=== PATIENT | female | born 1945 | race Caucasian/White ===

== ENCOUNTER → 2017-03-02 | Outpatient (CLI) | payer MEDICARE ==
--- NOTE | 2017-03-02 16:18 | BD ---
EXAMINATION TYPE: MG DEXA axial skeleton. DATE OF EXAM: 03/02/2017 COMPARISON: NONE CLINICAL HISTORY: Postmenopausal female. Height: 58.2 IN Weight: 181 LBS FRAX RISK QUESTIONS: Alcohol (3 or more units per day): NO Family History (Parent hip fracture): UNKNOWN ADOPTED Glucocorticoids (More than 3mos): NO (Ex: prednisone, prednisolone, methylprednisolone, dexamethasone, and hydrocortisone). History of Fracture in Adulthood: NO Secondary Osteoporosis: 1. Type 1 Diabetes: NO 2. Hyperthyroidism: NO 3. Menopause before 45: YES 25 4. Malnutrition: YES 5. Chronic liver disease: NO Rheumatoid Arthritis: NO Current Tobacco Use: NO RISK FACTORS HISTORY OF: Family History of Osteoporosis: UNKNOWN ADOPTED Active: YES Diet low in dairy products/other sources of calcium: YES Postmenopausal woman: YES AGE 25 MEDICATIONS: Thyroid Medications: YES Which medication: Synthroid How Lon + YRS Osteoporosis Medications: NOT NOW Which medication: Boniva How Long: AGE 60 - 62 Additional Medications: VIT D , VIT B, LISINIPRIL, DIVALPROEX, ALPRAZOLAM, CITALOPRAM, LEVOTHYROXINE, MONTELUKAST EXAM MEASUREMENTS: Bone mineral densitometry was performed using the [employer] System. Bone mineral density as measured about the Lumbar spine is: ----- L1-L4(G/cm2): 1.177 T Score Values are as follows: ----- L2: -0.6 ----- L3: 0.0 ----- L4: 0.2 ----- L1-L4: 0.0 Bone mineral density BASELINE OF L-SPINE Bone mineral density about the R hip (g/cm2): 0.850 Bone mineral density about the L hip (g/cm2): 0.827 T Score values are as follows: -----R Neck: -1.4 -----L Neck: -1.5 -----R Total: -0.2 -----L Total: 0.2 Bone mineral density has: Increased 4.6% since study of: 07/26/2001 IMPRESSION: OSTEOPENIA. MAJOR OSTEOPOROTIC FRACTURE RISK: 9.5% HIP FRACTURE RISK: 1.4% NOTE: T-SCORE=SD OF THE YOUNG ADULT MEAN.
--- NOTE | 2017-03-03 13:16 | MM ---
Reason for exam: screening (asymptomatic). Last mammogram was performed 2 years and 1 month ago. History: Patient is postmenopausal. Benign stereotactic core biopsy of the left breast, November 05, 2000. 2 core biopsies of the left breast. Physical Findings: A clinical breast exam by your physician is recommended on an annual basis and results should be correlated with mammographic findings. MG 3D Screening Mammo W/Cad Bilateral CC and MLO view(s) were taken. Prior study comparison: February 06, 2015, bilateral MG screening mammo w CAD. March 03, 2012, bilateral digital screening mammo w/CAD. There are scattered fibroglandular densities. Previous mammotome biopsy within the left breast. No significant changes when compared with prior studies. ASSESSMENT: Benign, BI-RAD 2 RECOMMENDATION: Routine screening mammogram of both breasts in 1 year.
== END | disposition home or self-care (01) ==
LOC: RADMAMWWP 14:31
PROVIDERS: ATTEND Family Medicine
DX: Z12.31 Encounter for screening mammogram for malignant neoplasm of breast (principal); M85.80 Other specified disorders of bone density and structure, unspecified site; Z78.0 Asymptomatic menopausal state
CPT/HCPCS: 77080; 77063; G0202

== ENCOUNTER 2017-04-10 06:19 | Inpatient (IN) | payer MEDICARE ==
[2017-04-10] MEDS ORDERED: ONDANSETRON 4 MG/2 ML VIAL IVP STA (06:45)
[2017-04-10] MEDS ORDERED: ACETAMINOPHEN IV (For NPO) 1,000 MG in EMPTY BAG 1 BAG IVPB STA (07:10)
[2017-04-10] MEDS ORDERED: RX INFO: IV CONTRAST WAS GIVEN 1 EACH MISC MISCELLANE PRN (07:11)
[2017-04-10] MEDS ORDERED: FAMOTIDINE 20 MG/2 ML VIAL IV STA (07:11)
--- NOTE | 2017-04-10 07:13 | ED ---
General Adult HPI - General Chief complaint: Abdominal Pain Stated complaint: Abdominal Pain Time Seen by Provider: 04/10/17 07:00 Source: patient, RN notes reviewed Mode of arrival: wheelchair Limitations: no limitations - History of Present Illness Initial comments: Patient is a pleasant 71-year-old female presenting to the emergency department complaining of abdominal discomfort. Onset of symptoms was yesterday. Symptoms worsened around a minute or 1 AM. Patient has had nausea with dry heaves. Patient has had some diarrhea however diarrhea is fairly chronic for her. Patient did feel like she was starting a fever. No history of similar abdominal pain previously. - Related Data Home Medications Medication Instructions Recorded Confirmed ALPRAZolam [Xanax] 0.5 mg PO TID PRN 12/02/15 08/14/16 Citalopram Hydrobromide 40 mg PO HS 12/02/15 08/14/16 [Citalopram HBr] Lisinopril [Zestril] 20 mg PO HS 12/02/15 08/14/16 Albuterol Nebulized [Ventolin 2.5 mg INHALATION RT-QID PRN 12/03/15 08/14/16 Nebulized] Divalproex Sodium 250 mg PO HS 12/03/15 08/14/16 Levothyroxine Sodium [Synthroid] 200 mcg PO HS 12/03/15 08/14/16 Montelukast Sodium 10 mg PO HS 12/03/15 08/14/16 Cholecalciferol [Vitamin D3] 2,000 unit PO DAILY 08/14/16 08/14/16 Fluticasone/Vilanterol [Breo 1 puff INHALATION RT-DAILY 08/14/16 08/14/16 Ellipta 200-25 Mcg INH] Multivitamins, Thera [Multivitamin 1 tab PO DAILY 08/14/16 08/14/16 (formulary)] Vitamin B Complex 1 cap PO DAILY 08/14/16 08/14/16 Previous Rx's Medication Instructions Recorded CHLORPHEN-HYDROcod 8-10mg/5ml 5 ml PO Q12H #80 ml 08/20/16 [Tussionex] Levofloxacin [Levaquin] 500 mg PO HS #5 tab 08/20/16 predniSONE 0 mg PO DIRECTED #18 tab 08/20/16 Nystatin 100,000 Unit/ml Susp 5 ml PO QID 15 Days 08/22/16 [Mycostatin Oral Susp] Allergies Allergy/AdvReac Type Severity Reaction Status Date / Time cefaclor [From Ceclor] Allergy Unknown Verified 04/10/17 06:35 ceftriaxone [From Rocephin] Allergy Anaphylaxis Verified 04/10/17 06:35 Sulfa (Sulfonamide Allergy Unknown Verified 04/10/17 06:35 Antibiotics) morphine AdvReac Extreme Verified 04/10/17 06:35 Sedation Review of Systems ROS Statement: Those systems with pertinent positive or pertinent negative responses have been documented in the HPI. ROS Other: All systems not noted in ROS Statement are negative. Constitutional: Reports: fever Eyes: Denies: eye pain ENT: Denies: ear pain Respiratory: Denies: cough, dyspnea Cardiovascular: Denies: chest pain Endocrine: Denies: fatigue Gastrointestinal: Reports: abdominal pain, nausea, diarrhea Genitourinary: Denies: urgency, dysuria, frequency, hematuria Musculoskeletal: Denies: back pain Skin: Denies: rash Neurological: Denies: weakness Past Medical History Past Medical History: Asthma, Hypertension, Musculoskeletal Disorder, Osteoarthritis (OA), Thyroid Disorder Additional Past Medical History / Comment(s): STRESS INCONT/WEARS PAD History of Any Multi-Drug Resistant Organisms: None Reported Past Surgical History: Cholecystectomy, Hysterectomy Additional Past Surgical History / Comment(s): RT Shoulder surgery, CATARACTS Past Anesthesia/Blood Transfusion Reactions: No Reported Reaction Past Psychological History: Depression Smoking Status: Never smoker Past Alcohol Use History: None Reported Past Drug Use History: None Reported - Past Family History Father History Unknown: Yes Family Medical History: Liver Disease Additional Family Medical History / Comment(s): pt is adopted DOES'NT KNOW MUCH ABOUT PARENTS Mother Family Medical History: Cancer Additional Family Medical History / Comment(s): LUNG CANCER Sister(s) Additional Family Medical History / Comment(s): HEART PROBLEMS Brother(s) Family Medical History: COPD Additional Family Medical History / Comment(s): LUNG DZ General Exam Limitations: no limitations General appearance: alert, in no apparent distress Head exam: Present: atraumatic Eye exam: Present: normal appearance, PERRL ENT exam: Present: normal oropharynx Neck exam: Present: normal inspection Respiratory exam: Present: normal lung sounds bilaterally Cardiovascular Exam: Present: regular rate, normal rhythm Expanded Peripheral pulses: 2+: Posterior Tibialis (R), Posterior Tibialis (L) GI/Abdominal exam: Present: soft, tenderness (Mild to moderate diffuse tenderness), normal bowel sounds. Absent: distended, guarding, rebound, rigid, pulsatile mass Extremities exam: Present: normal inspection Neurological exam: Present: alert Psychiatric exam: Present: normal affect, normal mood Skin exam: Present: normal color Course Vital Signs 04/10/17 04/10/17 04/10/17 06:31 08:30 09:55 Temperature 100.7 F H 99.5 F 97.7 F Pulse Rate 85 81 68 Respiratory 18 16 17 Rate Blood Pressure 206/85 186/82 145/67 O2 Sat by Pulse 95 99 95 Oximetry Medical Decision Making - Medical Decision Making Patient does not meet sepsis criteria Patient reevaluated and resting comfortably in bed. Patient would prefer to be admitted to the hospital. Dr. Chua has been paged. - Lab Data Result diagrams: 04/10/17 06:51 04/10/17 06:51 Lab Results 04/10/17 04/10/17 04/10/17 Range/Units 06:51 06:51 06:51 WBC 9.2 (3.8-10.6) k/uL RBC 4.23 (3.80-5.40) m/uL Hgb 13.5 (11.4-16.0) gm/dL Hct 40.8 (34.0-46.0) % MCV 96.3 (80.0-100.0) fL MCH 31.9 (25.0-35.0) pg MCHC 33.1 (31.0-37.0) g/dL RDW 13.1 (11.5-15.5) % Plt Count 221 (150-450) k/uL Neutrophils % 76 % Lymphocytes % 13 % Monocytes % 8 % Eosinophils % 1 % Basophils % 1 % Neutrophils # 7.0 (1.3-7.7) k/uL Lymphocytes # 1.2 (1.0-4.8) k/uL Monocytes # 0.8 (0-1.0) k/uL Eosinophils # 0.1 (0-0.7) k/uL Basophils # 0.0 (0-0.2) k/uL PT (9.0-12.0) sec INR (<1.2) APTT (22.0-30.0) sec Sodium 140 (137-145) mmol/L Potassium 4.2 (3.5-5.1) mmol/L Chloride 104 (98-107) mmol/L Carbon Dioxide 28 (22-30) mmol/L Anion Gap 8 mmol/L BUN 10 (7-17) mg/dL Creatinine 0.63 (0.52-1.04) mg/dL Est GFR (MDRD) Af Amer >60 (>60 ml/min/1.73 sqM) Est GFR (MDRD) Non-Af >60 (>60 ml/min/1.73 sqM) Glucose 124 H (74-99) mg/dL Plasma Lactic Acid Cam 1.6 (0.7-2.0) mmol/L Calcium 9.2 (8.4-10.2) mg/dL Total Bilirubin 0.7 (0.2-1.3) mg/dL AST 24 (14-36) U/L ALT 25 (9-52) U/L Alkaline Phosphatase 65 (38-126) U/L Total Protein 7.7 (6.3-8.2) g/dL Albumin 4.4 (3.5-5.0) g/dL Urine Color Urine Appearance (Clear) Urine pH (5.0-8.0) Ur Specific [place] (1.001-1.035) Urine Protein (Negative) Urine Glucose (UA) (Negative) Urine Ketones (Negative) Urine Blood (Negative) Urine Nitrite (Negative) Urine Bilirubin (Negative) Urine Urobilinogen (<2.0) mg/dL Ur Leukocyte Esterase (Negative) 04/10/17 04/10/17 Range/Units 06:51 07:30 WBC (3.8-10.6) k/uL RBC (3.80-5.40) m/uL Hgb (11.4-16.0) gm/dL Hct (34.0-46.0) % MCV (80.0-100.0) fL MCH (25.0-35.0) pg MCHC (31.0-37.0) g/dL RDW (11.5-15.5) % Plt Count (150-450) k/uL Neutrophils % % Lymphocytes % % Monocytes % % Eosinophils % % Basophils % % Neutrophils # (1.3-7.7) k/uL Lymphocytes # (1.0-4.8) k/uL Monocytes # (0-1.0) k/uL Eosinophils # (0-0.7) k/uL Basophils # (0-0.2) k/uL PT 10.4 (9.0-12.0) sec INR 1.0 (<1.2) APTT 24.9 (22.0-30.0) sec Sodium (137-145) mmol/L Potassium (3.5-5.1) mmol/L Chloride (98-107) mmol/L Carbon Dioxide (22-30) mmol/L Anion Gap mmol/L BUN (7-17) mg/dL Creatinine (0.52-1.04) mg/dL Est GFR (MDRD) Af Amer (>60 ml/min/1.73 sqM) Est GFR (MDRD) Non-Af (>60 ml/min/1.73 sqM) Glucose (74-99) mg/dL Plasma Lactic Acid Cam (0.7-2.0) mmol/L Calcium (8.4-10.2) mg/dL Total Bilirubin (0.2-1.3) mg/dL AST (14-36) U/L ALT (9-52) U/L Alkaline Phosphatase (38-126) U/L Total Protein (6.3-8.2) g/dL Albumin (3.5-5.0) g/dL Urine Color Light Yellow Urine Appearance Clear (Clear) Urine pH 8.0 (5.0-8.0) Ur Specific [place] 1.011 (1.001-1.035) Urine Protein Negative (Negative) Urine Glucose (UA) Negative (Negative) Urine Ketones Negative (Negative) Urine Blood Negative (Negative) Urine Nitrite Negative (Negative) Urine Bilirubin Negative (Negative) Urine Urobilinogen <2.0 (<2.0) mg/dL Ur Leukocyte Esterase Negative (Negative) - Radiology Data Radiology results: report reviewed (Computed tomography scan of the abdomen pelvis showing enteritis), image reviewed (Chest x-ray shows right upper lobe infiltrate) Disposition Clinical Impression: Pneumonia, Enteritis Disposition: ADMITTED IP TO [facility] Referrals: Joce Chua MD [Primary Care Provider] - 1-2 days Decision Time: 10:32
[2017-04-10] MEDS: SODIUM CHLORIDE 0.9% 500 ML IV SCH ×2 (07:26→08:58)
[2017-04-10 07:40] LABS: Basophils % (A) 1 %; CH 32.2; CHCM 33.5; Eosinophils # (A) 0.1 k/uL (0-0.7); Eosinophils % (A) 1 %; HCT 40.8 % (34.0-46.0); HDW 2.24; HGB 13.5 gm/dL (11.4-16.0); Luc % (Auto) 1; Lymphocytes # (A) 1.2 k/uL (1.0-4.8); Lymphocytes % (A) 13 %; MCH 31.9 pg (25.0-35.0); MCHC 33.1 g/dL (31.0-37.0); MCV 96.3 fL (80.0-100.0); Mean Platelet Volume 9.9; Monocytes # (A) 0.8 k/uL (0-1.0); Monocytes % (A) 8 %; Neutrophils % (A) 76 %; RBC 4.23 m/uL (3.80-5.40); RDW 13.1 % (11.5-15.5); WBC 9.2 k/uL (3.8-10.6); WBC (Perox) 8.93
[2017-04-10 07:45] LABS: Partial Thromboplastin Time 24.9 sec (22.0-30.0); Prothrombin Time 10.4 sec (9.0-12.0)
[2017-04-10 07:46] LABS: Appearance,Urine Clear (Clear); Bilirubin,Urine Negative (Negative); Glucose,Urine (UA) Negative (Negative); Ketones,Urine Negative (Negative); Leukocyte Esterase,Urine Negative (Negative); Nitrite,Urine Negative (Negative); Protein,Urine Negative (Negative); Specific Gravity,Urine 1.011 (1.001-1.035); UA Billing (MACRO vs. MICRO) CHEM; Urobilinogen,Urine <2.0 mg/dL (<2.0)
[2017-04-10 08:04] LABS: ALT 25 U/L (9-52); AST 24 U/L (14-36); Alkaline Phosphatase 65 U/L (38-126); Anion Gap 8 mmol/L; Blood Urea Nitrogen 10 mg/dL (7-17); Calcium 9.2 mg/dL (8.4-10.2); Carbon Dioxide 28 mmol/L (22-30); Chloride 104 mmol/L (98-107); Glucose 124 mg/dL (74-99); Non-African American GFR(MDRD) >60 (>60 ml/min/1.73 sqM); Sodium 140 mmol/L (137-145); Total Bilirubin 0.7 mg/dL (0.2-1.3); Total Protein 7.7 g/dL (6.3-8.2)
[2017-04-10 08:09] LABS: Potassium 4.2 mmol/L (3.5-5.1)
--- NOTE | 2017-04-10 08:19 | XR ---
EXAMINATION TYPE: XR chest 2V DATE OF EXAM: 04/10/2017 COMPARISON: Prior chest x-ray 08/20/2016 HISTORY: Fever, abdominal pain, asthma TECHNIQUE: Frontal and lateral views of the chest are obtained. FINDINGS: Patient is rotated. Heart size may be accentuated by rotation. There is some improvement i n aeration as compared to prior exam. Questionable airspace disease in the right upper lobe. No evide nt pneumothorax or pleural effusion. IMPRESSION: Possible right upper lobe pneumonia. Follow-up recommended.
--- NOTE | 2017-04-10 09:28 | CT ---
EXAMINATION TYPE: CT abdomen pelvis w con DATE OF EXAM: 04/10/2017 COMPARISON: NONE HISTORY: Abd pain with nausea and vomiting, diarrhea CT DLP: 1362.9 mGycm Automated exposure control for dose reduction was used. TECHNIQUE: Helical acquisition of images from the lung bases through the pelvis have been completed. CONTRAST: Performed without Oral Contrast and with IV Contrast, patient injected with 100 mL of Omnipaque 300. FINDINGS: LUNG BASES: No significant abnormality is appreciated. AORTA: No significant abnormality is appreciated. LIVER/GB: Liver shows low attenuation possibly due to hepatic steatosis. Patient is post cholecystect donita, there are some mildly dilated central intrahepatic biliary ducts likely due to postcholecystecto my change. PANCREAS: No significant abnormality is seen. SPLEEN: No significant abnormality is seen. ADRENALS: No significant abnormality is seen. KIDNEYS: Right kidney shows a focal area of cortical thinning compatible with scar, there is a calcif ication at this level measuring 7 mm which is nonobstructive. Small cortical cyst associated with the left kidney. REPRODUCTIVE ORGANS: Ovaries remain in place, uterus is absent BOWEL: Thickening of the stomach wall may be due to lack of distention. Some diverticular changes as sociated with the sigmoid colon. There is no evident bowel obstruction. Appendix is normal. Some smal l bowel wall thickening is present. Some fluid-filled loops of small bowel. There is an umbilical her osiris. Small hiatal hernia is present. FREE AIR: No Free Air visible. ASCITES: None visible. PELVIC ADENOPATHY: None visualized. RETROPERITONEAL ADENOPATHY: No Retroperitoneal Adenopathy visible. URINARY BLADDER: No significant abnormality is seen. OSSEOUS STRUCTURES: There is a spinal curvature present. Degenerative disc changes are present which are mild. Facet arthropathy also present in the lower lumbar spine. IMPRESSION: FINDINGS COMPATIBLE WITH ENTERITIS. CORRELATE. ADDITIONAL FINDINGS ABOVE. DIVERTICULOSIS.
[2017-04-10] MEDS ORDERED: LEVOFLOXACIN 750MG-D5W PMX 750 MG in DEXTROSE/WATER 1 150ML.BAG IVPB STA (10:32)
[2017-04-10] MEDS ORDERED: PNEUMONIA PROTOCOL UTILIZED 1 EACH MISC PO PRN (10:32)
[2017-04-10] MEDS: SODIUM CHLORIDE 0.9% 1,000 ML IV SCH ×2 (10:39→19:49)
[2017-04-10 11:51] VITALS: BMI 37.4
[2017-04-10] MEDS: IPRATROPIUM-ALBUTEROL 3 ML NEB INHALATION SCH ×2 (16:28→20:46)
[2017-04-10] MEDS: ACETAMINOPHEN TAB 325 MG TAB PO PRN (17:07)
[2017-04-10] MEDS: ONDANSETRON 4 MG/2 ML VIAL IVP PRN (19:41)
--- NOTE | 2017-04-10 20:01 | HP ---
DATE OF ADMISSION: 04/10/17 I am covering for Dr. Chua. CHIEF COMPLAINT: Abdominal pain and shortness of breath. Cough. HISTORY OF PRESENT ILLNESS: This 71-year-old woman with past medical history of multiple medical problems including history of DJD, history of hypertension, history of asthma, history of cholecystectomy, being followed by Dr. Chua in the outpatient setting was complaining of shortness of breath. The patient also has abdominal pain, diarrhea for the last couple of days and the patient came to [facility] and admitted for further evaluation and treatment. A chest x-ray was done at the time of admission which I reviewed personally and showed possible right upper lobe pneumonia. Otherwise, CT scan of the abdomen and pelvis showed features of possible enteritis. There is no history of fever, rigors or chills. No history of headache, loss of consciousness or seizures. Past medical history of asthma, hypertension, degenerative joint disease, history of cholecystectomy. Medications prior to admission are: Home medications are reviewed and include : 1. Singulair 10 mg q.h.s. 2. Zestril 20 mg q.h.s. 3. Synthroid 200 mcg po q.h.s. 4. Depakote 250 mg po b.i.d. 5. Celexa 40 mg q.h.s. 6. Albuterol 2.5 mg q.i.d. prn 7. Albuterol inhaler prn. 8. Xanax 0.5 t.i.d. prn. ALLERGIES: CEFACLOR, CEFTRIAXONE, SULFA, MORPHINE. FAMILY HISTORY: History of liver disease and lung cancer in the family. SOCIAL HISTORY: Occasional alcohol intake. No history of smoking. REVIEW OF SYSTEMS: HEENT: No diminished vision. No diminished hearing. Cardiovascular system: No angina or palpitations. Respiratory: No cough. GI: As mentioned earlier. : No dysuria. Nervous system: No numbness, weakness. Allergy/Immunology: No asthma or hayfever. Musculoskeletal: As mentioned earlier. Hematology/oncology: No history of anemia. Endocrine. No history of diabetes mellitus or hypothyroidism. Constitutional: As mentioned earlier. Dermatology: Negative. Rheumatology: Negative. Psychiatry: As mentioned earlier. PHYSICAL EXAMINATION: The patient is alert and oriented times three. Pulse 65. Blood pressure 194/84. Respiratory rate 18, temperature 97.3 degrees. Pulse ox 94% on room air. HEENT: Conjunctivae normal. NECK: No JVD. Cardiovascular: S1, S2 muffled. Respiratory: Breath sounds diminished at the bases. Bilateral scattered rhonchi and crackles. Expiratory wheezing also present. Abdomen is soft. Mild diffuse discomfort on palpation. No guarding. No rigidity. No mass palpable. Bowel sounds present. Legs: No edema. No swelling. Nervous system: Higher functions as mentioned earlier. Moves all four limbs. No focal deficits. Lymphatics: No lymph nodes palpable in the neck, axillae or groin. SKIN: No ulcer, rash or bleeding. LABS: CBC within normal limits. Glucose 124. ASSESSMENT: 1. Abdominal pain, vomiting and diarrhea, possible acute gastroenteritis. 2. Asthma, acute asthma, bronchial asthma, acute exacerbation with acute purulent tracheobronchitis. 3. Rule out right upper lobe pneumonia. 4. History of hypertension. 5. History of degenerative joint disease. 6. History of hypothyroidism. 7. History of cholecystectomy. 8. History of depression. RECOMMENDATIONS AND DISCUSSION: In this 71 -year-old woman who presented with multiple complex medical issues, we will monitor the patient closely. Continue the current bronchodilators, symptomatic treatment. Otherwise bland diet. Guarded prognosis is guarded because of the multiple complex medical issues. Further recommendations to follow. Home medications will be reconciled. A copy of dictation being forwarded to who is the primary care physician. SURJIT
[2017-04-10] MEDS: CITALOPRAM HYDROBROMIDE 20 MG TAB PO SCH (20:27)
[2017-04-10] MEDS: LISINOPRIL 20 MG TAB PO SCH (20:27)
[2017-04-10] MEDS: DIVALPROEX 250 MG TABLET.DR PO SCH (20:27)
[2017-04-10] MEDS: MONTELUKAST 10 MG TAB PO SCH (20:28)
[2017-04-10] MEDS: LEVOTHYROXINE 100 MCG TAB PO SCH (20:28)
[2017-04-10] MEDS: BENZOCAINE/MENTHOL LOZENG 1 EACH LOZENGE MUCOUS MEM PRN (22:27)
[2017-04-10] MEDS: ALPRAZolam 0.5 MG TAB PO PRN (23:04)
[2017-04-11] MEDS: ACETAMINOPHEN TAB 325 MG TAB PO PRN ×4 (02:54→23:31)
[2017-04-11] MEDS: BENZOCAINE/MENTHOL LOZENG 1 EACH LOZENGE MUCOUS MEM PRN (04:54)
[2017-04-11] MEDS: SODIUM CHLORIDE 0.9% 1,000 ML IV SCH ×3 (05:23→20:47)
--- NOTE | 2017-04-11 07:44 | XR ---
EXAMINATION TYPE: XR chest 2V DATE OF EXAM: 04/11/2017 COMPARISON: Prior chest x-ray 04/10/2017 HISTORY: Pneumonia TECHNIQUE: Frontal and lateral views of the chest are obtained. FINDINGS: The airspace disease in the right upper lobe has progressed in the interval. No evident pn eumothorax or pleural effusion. IMPRESSION: Findings compatible with patient's history of pneumonia. Follow-up to resolution.
[2017-04-11] MEDS: IPRATROPIUM-ALBUTEROL 3 ML NEB INHALATION SCH ×4 (08:17→19:39)
[2017-04-11] MEDS: LEVOFLOXACIN 750 MG TAB PO SCH (08:27)
[2017-04-11] MEDS: DIVALPROEX 250 MG TABLET.DR PO SCH ×2 (08:27→20:46)
[2017-04-11] MEDS ORDERED: LEVOFLOXACIN 750 MG TAB PO SCH (10:00)
[2017-04-11] MEDS: guaiFENesin SYRUP 100MG/5ML 200 MG/10 ML CUP PO PRN ×2 (11:32→23:24)
[2017-04-11] MEDS: ONDANSETRON 4 MG/2 ML VIAL IVP PRN (11:33)
--- NOTE | 2017-04-11 20:13 | PN ---
DATE OF SERVICE: 04/11/17 I am covering for Dr. Chua This 71-year-old woman who was admitted with abdominal pain and shortness of breath, is being closely monitored. The patient is unable to tolerate normal diet at this time. The patient had diffuse abdominal discomfort. The patient started on empiric antibiotics. PHYSICAL EXAMINATION: The patient is alert and oriented times three. Pulse 74. Blood pressure 161/72. Respiratory rate 16. Temperature 99.6 degrees. Pulse ox 90% on room air. HEENT: Conjunctivae normal. NECK: No JVD. CARDIOVASCULAR: S1, S2 muffled. RESPIRATORY: Breath sounds diminished at the bases. A few scattered rhonchi. ABDOMEN: Soft, mild diffuse discomfort. LEGS: No edema. No swelling. NERVOUS SYSTEM: No focal deficits. LABS: CBC, BMP noted. ASSESSMENT: 1. Abdominal pain, nausea and vomiting, diarrhea, possibly acute gastroenteritis. 2. Asthma, acute bronchial asthma, acute exacerbation with acute purulent tracheobronchitis. 3. Rule out right upper lobe pneumonia. 4. History of hypertension. 5. History of degenerative joint disease. 6. History of hypothyroidism. 7. History of cholecystectomy. 8. History of depression. RECOMMENDATIONS AND DISCUSSION: Continue current medications, continue with symptomatic treatment. Otherwise, at this time, we recommend continue the rest of the medications. Cut down the diet to clear liquids to full liquids as tolerated. Continue the rest of the medications. We will also cut down the IV fluids as well. Otherwise, I recommend a chest x-ray in the morning to evaluate further pneumonia. Otherwise, the prognosis guarded because of multiple complex medical issues. Further recommendations to follow. POLLYD
[2017-04-11] MEDS: CITALOPRAM HYDROBROMIDE 20 MG TAB PO SCH (20:45)
[2017-04-11] MEDS: MONTELUKAST 10 MG TAB PO SCH (20:45)
[2017-04-11] MEDS: LISINOPRIL 20 MG TAB PO SCH (20:46)
[2017-04-11] MEDS: LEVOTHYROXINE 100 MCG TAB PO SCH (20:46)
[2017-04-11] MEDS: ALPRAZolam 0.5 MG TAB PO PRN (20:52)
[2017-04-11] MEDS: IPRATROPIUM-ALBUTEROL 3 ML NEB INHALATION PRN (23:33)
[2017-04-12] MEDS: IPRATROPIUM-ALBUTEROL 3 ML NEB INHALATION SCH ×4 (07:40→21:00)
[2017-04-12] MEDS: BENZOCAINE/MENTHOL LOZENG 1 EACH LOZENGE MUCOUS MEM PRN (07:59)
[2017-04-12] MEDS: guaiFENesin SYRUP 100MG/5ML 200 MG/10 ML CUP PO PRN ×2 (07:59→21:03)
[2017-04-12] MEDS: ACETAMINOPHEN TAB 325 MG TAB PO PRN ×2 (08:00→18:33)
[2017-04-12] MEDS: DIVALPROEX 250 MG TABLET.DR PO SCH ×2 (08:00→20:55)
[2017-04-12] MEDS: ALPRAZolam 0.5 MG TAB PO PRN ×2 (08:00→21:03)
[2017-04-12] MEDS: LEVOFLOXACIN 750 MG TAB PO SCH (08:00)
[2017-04-12] MEDS: ESOMEPRAZOLE 20 MG in SODIUM CHLORIDE 0.9% 50 ML IVPB SCH (08:01)
[2017-04-12] MEDS: LACTOBACILLUS ACIDOPH & BULGAR 1 EACH PACKET PO SCH (08:01)
--- NOTE | 2017-04-12 09:40 | XR ---
EXAMINATION TYPE: XR chest 1V portable DATE OF EXAM: 04/12/2017 COMPARISON: Chest radiograph dated 04/11/2017. HISTORY: Clinical history of pneumonia. TECHNIQUE: Single frontal view of the chest is obtained. FINDINGS: There is continued progression of the right upper lobe consolidation and new small pleural effusions. No pulmonary vascular congestion. Cardiomediastinal silhouette is stable and not enlarged . IMPRESSION: 1. Continued progression of the right upper lobe consolidation compatible with the patient's provided history of pneumonia. 2. New small pleural effusions.
--- NOTE | 2017-04-12 13:29 | CDI ---
In responding to this query, please exercise your independent professional judgment. The [facility] Coding Staff and Clinical Documentation Specialists appreciate your assistance in clarifying documentation, maintaining compliance with coding guidelines, accurately documenting patients condition and capturing severity of illness. The fact that a question is asked does not imply that any particular answer is desired or expected. Communication forms are a method of clarifying documentation and are not made part of the Legal Health Record. Thank you in advance for your clarification. Last Revision, November 2015 Ruel Pinto [address] [place] [address] Documentation Clarification Form Date: 04/12/2017 1:20:00 PM From: Katja Esparza, CCS, CCDS Admit Date: 04/10/2017 10:32:00 AM Patient Name: Kyleigh Vera Visit Number: [id number] Discharge Date: Dr. [place] Felix: Asthma is documented in the History & Physical and the 04/11 Progress Note as "Asthma, acute asthma, bronchial asthma, acute exacerbation with acute purulent tracheobronchitis". Patient history/risk factors: Asthma, Hypertension. Clinical Indicators: Patient presented with abdominal pain, has chronic diarrhea , also wheezing, sweats & SOB. Diagnosed with pneumonia & acute exacerbation of asthma with tracheobronchitis. Radiology: Possible RUL pneumonia, repeat CXR: continued progression of pneumonia, new small pleural effusions. Vital Signs: T 100.7^, BP 206/85, PO 95 ra, documented as 90% also. Other Clinical Indicators: Patient is non-smoker, has history of asthma & family history of COPD & Lung CA. Treatment: Clear Liq diet, Blood & Sputum Cultures (pending), C Diff, IV Antiemetics, IV Pain meds, IV fluids, Albuterol INH, IV Antibiotics. In your professional opinion, can you please further specify the following, if known? With o Acute Exacerbation o Status asthmaticus o Acute lower respiratory infection o COPD (specify with or without exacerbation) o Chronic obstructive bronchitis o Other, please specify o Unable to determine *Severity o Mild intermittent o Mild persistent o Moderate persistent o Severe persistent o Other, please specify ____ o Unable to determine Form or Type o Cough variant o Childhood o Exercise induced bronchospasm o Extrinsic allergic o Idiosyncratic o Intrinsic nonallergic o Late-onset o Mixed o Other, please specify o Unable to determine Please document in your progress notes and discharge summary in order to capture severity of illness and risk of mortality. Include clinical findings that support your diagnosis. FYI: Press F11 to launch patient chart. SURJIT
[2017-04-12] MEDS: DOCUSATE 100 MG CAP PO PRN (18:26)
[2017-04-12] MEDS: SODIUM CHLORIDE 0.9% 1,000 ML IV SCH (18:31)
[2017-04-12] MEDS: MONTELUKAST 10 MG TAB PO SCH (20:54)
[2017-04-12] MEDS: CITALOPRAM HYDROBROMIDE 20 MG TAB PO SCH (20:54)
[2017-04-12] MEDS: LEVOTHYROXINE 100 MCG TAB PO SCH (20:54)
[2017-04-12] MEDS: LISINOPRIL 20 MG TAB PO SCH (20:54)
[2017-04-13] MEDS: BENZOCAINE/MENTHOL LOZENG 1 EACH LOZENGE MUCOUS MEM PRN (01:43)
[2017-04-13] MEDS: ALPRAZolam 0.5 MG TAB PO PRN ×2 (04:39→21:48)
[2017-04-13] MEDS: ACETAMINOPHEN TAB 325 MG TAB PO PRN ×2 (04:47→23:27)
[2017-04-13] MEDS: SODIUM CHLORIDE 0.9% 1,000 ML IV SCH ×2 (05:24→21:36)
[2017-04-13] MEDS: IPRATROPIUM-ALBUTEROL 3 ML NEB INHALATION SCH ×4 (07:31→20:41)
--- NOTE | 2017-04-13 08:12 | XR ---
EXAMINATION TYPE: XR chest 1V portable DATE OF EXAM: 04/13/2017 COMPARISON: 04/12/2017. INDICATION: Increasing shortness of breath TECHNIQUE: Single frontal view of the chest is obtained. FINDINGS: The heart size is normal. The pulmonary vasculature is normal. There appears to be resolving opacities in the periphery of the right midlung. Residual remains. Cont inued follow-up is recommended. IMPRESSION: 1. Resolving peripheral right lung infiltrate. Correlate for resolving pneumonia and atelectasis. Con tinued follow-up is recommended.
--- NOTE | 2017-04-13 08:35 | P.PN ---
Subjective Principal diagnosis: Pneumonia This is a continue progress on a 71-year-old white female essentially admitted for pneumonia. She has significant home stress and has been worried about his son who has had significant illness. Objective - Vital Signs Vital signs: Vital Signs Temp 99.1 F 04/13/17 07:00 Pulse 60 04/13/17 07:42 Resp 18 04/13/17 07:00 BP 137/75 04/13/17 07:00 Pulse Ox 90 L 04/13/17 07:00 Intake & Output 04/12/17 04/13/17 04/13/17 18:59 06:59 18:59 Other: # Voids 3 2 # Bowel Movements 0 0 - Constitutional General appearance: Present: average body habitus - EENT Eyes: Absent: abnormal pupil - Respiratory Respiratory: bilateral: rales - Cardiovascular Rhythm: regular Heart sounds: normal: S1, S2 - Gastrointestinal General gastrointestinal: Present: soft. Absent: tenderness - Neurologic Neurologic: Present: CNII-XII intact - Musculoskeletal Musculoskeletal: Present: generalized weakness - Psychiatric Psychiatric: Present: A&O x's 3, appropriate affect - Labs CBC & Chem 7: 04/10/17 06:51 04/10/17 06:51 Labs: Microbiology - Last 24 Hours (Table) 04/10/17 06:51 Blood Culture - Preliminary Blood No Growth after 48 hours Assessment and Plan (1) Enteritis Status: Acute (2) Pneumonia Status: Acute Plan: Continue current regimen of treatment. DVT prophylaxis. Check CBC and CMP in a.m.
[2017-04-13 08:37] LABS: CH 31.3; CHCM 32.1; HDW 2.29; HGB 12.5 gm/dL (11.4-16.0); MCH 32.2 pg (25.0-35.0); MCHC 32.9 g/dL (31.0-37.0); MCV 97.8 fL (80.0-100.0); Mean Platelet Volume 8.4; RBC 3.89 m/uL (3.80-5.40); RDW 12.3 % (11.5-15.5); WBC 8.9 k/uL (3.8-10.6)
[2017-04-13 08:38] LABS: ALT 28 U/L (9-52); AST 20 U/L (14-36); Alkaline Phosphatase 67 U/L (38-126); Anion Gap 12 mmol/L; Blood Urea Nitrogen 7 mg/dL (7-17); Carbon Dioxide 27 mmol/L (22-30); Chloride 102 mmol/L (98-107); Glucose 85 mg/dL (74-99); Non-African American GFR(MDRD) >60 (>60 ml/min/1.73 sqM); Potassium 3.6 mmol/L (3.5-5.1); Sodium 141 mmol/L (137-145); Total Bilirubin 0.8 mg/dL (0.2-1.3); Total Protein 6.6 g/dL (6.3-8.2)
[2017-04-13] MEDS: DIVALPROEX 250 MG TABLET.DR PO SCH ×2 (10:01→21:34)
[2017-04-13] MEDS: LACTOBACILLUS ACIDOPH & BULGAR 1 EACH PACKET PO SCH (10:01)
[2017-04-13] MEDS: LEVOFLOXACIN 750 MG TAB PO SCH (10:01)
[2017-04-13] MEDS: ESOMEPRAZOLE 20 MG in SODIUM CHLORIDE 0.9% 50 ML IVPB SCH (10:01)
[2017-04-13] MEDS: methylPREDNISolone SOD SUCCI 40 MG/ML 1 ML VIAL IV SCH ×3 (10:02→18:17)
--- NOTE | 2017-04-13 11:38 | CDI ---
In responding to this query, please exercise your independent professional judgment. The [facility] Coding Staff and Clinical Documentation Specialists appreciate your assistance in clarifying documentation, maintaining compliance with coding guidelines, accurately documenting patients condition and capturing severity of illness. The fact that a question is asked does not imply that any particular answer is desired or expected. Communication forms are a method of clarifying documentation and are not made part of the Legal Health Record. Thank you in advance for your clarification. Last Revision, November 2015 Ruel Pinto [address] [facility] [place] [address] Documentation Clarification Form Date: 04/12/2017 1:20:00 PM From: Katja Esparza Admit Date: 04/10/2017 10:32:00 AM Patient Name: Kyleigh Vera Visit Number: [id number] Discharge Date: Dr. London Felix: Asthma is documented in the History & Physical and the 04/11 Progress Note as "Asthma, acute asthma, cronchial asthma, acute exacerbation with acute purulent tracheobronchitis". Patient history/risk factors: Asthma, Hypertension. Clinical Indicators: Patient presented with abdominal pain, has chronic diarrhea , also wheezing, sweats & SOB. Diagnosed with pneumonia & acute exacerbation of asthma with tracheobronchitis. Radiology: Possible RUL pneumonia, repeat CXR: continued progression of pneumonia, new small pleural effusions. Vital Signs: T 100.7^, BP 206/85, PO 95 ra, documented as 90% also. Other Clinical Indicators: Patient is non-smoker, has history of asthma & family history of COPD & Lung CA. Treatment: Clear Liq diet, Blood & Sputum Cultures (pending), C Diff, IV Antiemetics, IV Pain meds, IV fluids, Albuterol INH, IV Antibiotics. In your professional opinion, can you please further specify the following, if known? With Acute Exacerbation Status asthmaticus Acute lower respiratory infection COPD (specify with or without exacerbation) Chronic obstructive bronchitis Other, please specify Unable to determine *Severity Mild intermittent Mild persistent Moderate persistent Severe persistent Other, please specify Unable to determine Form or Type Cough variant Childhood Exercise induced bronchospasm Extrinsic allergic Idiosyncratic Intrinsic nonallergic Late-onset Mixed Other, please specify Unable to determine Please document in your progress notes and discharge summary in order to capture severity of illness and risk of mortality. Include clinical findings that support your diagnosis. FYI: Press F11 to launch patient chart. SURJIT
[2017-04-13] MEDS: MONTELUKAST 10 MG TAB PO SCH (21:34)
[2017-04-13] MEDS: CITALOPRAM HYDROBROMIDE 20 MG TAB PO SCH (21:35)
[2017-04-13] MEDS: LEVOTHYROXINE 100 MCG TAB PO SCH (21:35)
[2017-04-13] MEDS: LISINOPRIL 20 MG TAB PO SCH (21:36)
[2017-04-14] MEDS: DOCUSATE 100 MG CAP PO PRN (00:17)
[2017-04-14] MEDS: methylPREDNISolone SOD SUCCI 40 MG/ML 1 ML VIAL IV SCH ×5 (00:19→23:47)
[2017-04-14] MEDS: IPRATROPIUM-ALBUTEROL 3 ML NEB INHALATION PRN (01:59)
[2017-04-14] MEDS: ALPRAZolam 0.5 MG TAB PO PRN ×2 (05:51→20:36)
[2017-04-14] MEDS: IPRATROPIUM-ALBUTEROL 3 ML NEB INHALATION SCH ×4 (07:31→20:59)
[2017-04-14] MEDS: ESOMEPRAZOLE 20 MG in SODIUM CHLORIDE 0.9% 50 ML IVPB SCH (08:54)
[2017-04-14] MEDS: DIVALPROEX 250 MG TABLET.DR PO SCH ×2 (08:54→20:28)
[2017-04-14] MEDS: LACTOBACILLUS ACIDOPH & BULGAR 1 EACH PACKET PO SCH (08:54)
[2017-04-14] MEDS: LEVOFLOXACIN 750 MG TAB PO SCH (08:55)
--- NOTE | 2017-04-14 09:39 | P.PN ---
Subjective Principal diagnosis: Pneumonia This is a continue progress on a 71-year-old white female essentially admitted for pneumonia. She has significant home stress and has been worried about his son who has had significant illness. Objective - Vital Signs Vital signs: Vital Signs Temp 96.3 F L 04/14/17 07:00 Pulse 68 04/14/17 07:40 Resp 20 04/14/17 07:00 BP 143/65 04/14/17 07:00 Pulse Ox 95 04/14/17 07:32 Intake & Output 04/13/17 04/14/17 04/14/17 18:59 06:59 18:59 Other: # Voids 1 1 # Bowel Movements 1 - Constitutional General appearance: Present: average body habitus - EENT Eyes: Absent: abnormal pupil - Respiratory Respiratory: bilateral: diminished - Cardiovascular Rhythm: regular Heart sounds: normal: S1, S2 - Gastrointestinal General gastrointestinal: Present: soft. Absent: tenderness - Psychiatric Psychiatric: Present: A&O x's 3. Absent: appropriate affect - Labs CBC & Chem 7: 04/13/17 07:56 04/13/17 07:56 Labs: Microbiology - Last 24 Hours (Table) 04/10/17 06:51 Blood Culture - Preliminary Blood No Growth after 96 hours Assessment and Plan (1) Enteritis Status: Acute (2) Pneumonia Status: Acute Plan: Continue moses Laurent this time. Otherwise, check CBC and CMP in a.m. If no significant improvement, consider pulmonology referral. She actually admits to having significant secondhand smoke growing up and to the early part of her marriage. She herself is a nonsmoker but her sons and have had history of significant secondhand smoke usage. Continue current regimen anabiotic as otherwise. Increase ambulation if possible. Wean off of supplemental oxygen. Time with Patient: Less than 30
[2017-04-14] MEDS: ACETAMINOPHEN TAB 325 MG TAB PO PRN (10:02)
[2017-04-14 10:04] LABS: CH 31.7; CHCM 32.4; HDW 2.35; MCH 31.9 pg (25.0-35.0); MCHC 32.4 g/dL (31.0-37.0); MCV 98.4 fL (80.0-100.0); Mean Platelet Volume 9.4; RBC 3.76 m/uL (3.80-5.40); WBC 4.8 k/uL (3.8-10.6)
[2017-04-14 10:19] LABS: ALT 26 U/L (9-52); AST 19 U/L (14-36); Alkaline Phosphatase 57 U/L (38-126); Anion Gap 10 mmol/L; Blood Urea Nitrogen 11 mg/dL (7-17); Calcium 9.3 mg/dL (8.4-10.2); Carbon Dioxide 26 mmol/L (22-30); Chloride 103 mmol/L (98-107); Glucose 195 mg/dL (74-99); Non-African American GFR(MDRD) >60 (>60 ml/min/1.73 sqM); Potassium 3.7 mmol/L (3.5-5.1); Sodium 139 mmol/L (137-145); Total Bilirubin 0.5 mg/dL (0.2-1.3); Total Protein 6.5 g/dL (6.3-8.2)
[2017-04-14] MEDS: guaiFENesin SYRUP 100MG/5ML 200 MG/10 ML CUP PO PRN (13:16)
[2017-04-14] MEDS: SODIUM CHLORIDE 0.9% 1,000 ML IV SCH (14:43)
[2017-04-14] MEDS: INSULIN LISPRO (humaLOG) 300 UNIT/3 ML VIAL SQ SCH ×2 (17:55→21:46)
[2017-04-14] MEDS: MONTELUKAST 10 MG TAB PO SCH (20:29)
[2017-04-14] MEDS: LISINOPRIL 20 MG TAB PO SCH (20:29)
[2017-04-14] MEDS: LEVOTHYROXINE 100 MCG TAB PO SCH (20:33)
[2017-04-14] MEDS: CITALOPRAM HYDROBROMIDE 20 MG TAB PO SCH (20:34)
[2017-04-14 21:05] LABS: Glucose,Whole Blood 164 mg/dL (75-99)
[2017-04-15] MEDS: SODIUM CHLORIDE 0.9% 1,000 ML IV SCH ×2 (05:25→21:25)
[2017-04-15 07:28] LABS: Glucose,Whole Blood 144 mg/dL (75-99)
[2017-04-15] MEDS: IPRATROPIUM-ALBUTEROL 3 ML NEB INHALATION SCH ×4 (07:57→21:10)
[2017-04-15] MEDS: PANTOPRAZOLE 40 MG TABLET PO SCH (08:05)
[2017-04-15] MEDS: LACTOBACILLUS ACIDOPH & BULGAR 1 EACH PACKET PO SCH (08:05)
[2017-04-15] MEDS: methylPREDNISolone SOD SUCCI 40 MG/ML 1 ML VIAL IV SCH ×2 (08:06→16:15)
[2017-04-15] MEDS: DIVALPROEX 250 MG TABLET.DR PO SCH ×2 (08:06→20:08)
[2017-04-15] MEDS: INSULIN LISPRO (humaLOG) 300 UNIT/3 ML VIAL SQ SCH ×4 (08:06→21:30)
[2017-04-15] MEDS: LEVOFLOXACIN 750 MG TAB PO SCH (08:06)
[2017-04-15] MEDS: ALPRAZolam 0.5 MG TAB PO PRN ×2 (08:10→20:09)
[2017-04-15] MEDS: ACETAMINOPHEN TAB 325 MG TAB PO PRN (08:10)
--- NOTE | 2017-04-15 08:37 | P.PN ---
Subjective Principal diagnosis: Pneumonia This is a continue progress on a 71-year-old white female essentially admitted for pneumonia. She is slowly been improving. She wishes to have a shower chair to help for mobility at home. We will ask discharge planning to ascertain. She seems to belly breathing less today. We will wean off of Solu- Medrol today. Objective - Vital Signs Vital signs: Vital Signs Temp 97.7 F 04/15/17 07:00 Pulse 72 04/15/17 07:57 Resp 18 04/15/17 07:00 BP 168/76 04/15/17 07:00 Pulse Ox 93 L 04/15/17 07:00 Intake & Output 04/14/17 04/15/17 04/15/17 18:59 06:59 18:59 Intake Total 200 660 Balance 200 660 Weight 81.193 kg Intake: Intake, IV Titration 660 Amount Sodium Chloride 0.9% 1, 660 000 ml @ 60 mls/hr IV . [id number] SHLOMO Rx#:[id number] Oral 200 Other: Voiding Method Toilet Toilet # Voids 1 2 # Bowel Movements 1 2 - Constitutional General appearance: Present: average body habitus - EENT Eyes: Absent: abnormal pupil - Respiratory Respiratory: bilateral: CTA - Cardiovascular Rhythm: regular Heart sounds: normal: S1, S2 Abnormal Heart Sounds: Absent: S3 Gallop, S4 Gallop - Integumentary Integumentary: Absent: cellulitis - Neurologic Neurologic: Present: CNII-XII intact. Absent: focal deficits - Musculoskeletal Musculoskeletal: Present: generalized weakness - Psychiatric Psychiatric: Present: A&O x's 3, appropriate affect, intact judgment & insight - Labs CBC & Chem 7: 04/14/17 09:04 04/14/17 09:04 Labs: Abnormal Lab Results - Last 24 Hours (Table) 04/14/17 04/14/17 04/14/17 Range/Units 09:04 09:04 21:03 RBC 3.76 L (3.80-5.40) m/uL Glucose 195 H (74-99) mg/dL POC Glucose (mg/dL) 164 H (75-99) mg/dL 04/15/17 Range/Units 07:18 RBC (3.80-5.40) m/uL Glucose (74-99) mg/dL POC Glucose (mg/dL) 144 H (75-99) mg/dL Microbiology - Last 24 Hours (Table) 04/10/17 06:51 Blood Culture - Preliminary Blood No Growth after 96 hours Assessment and Plan (1) Enteritis Status: Acute (2) Pneumonia Status: Acute Plan: Significant clinical improvement is noted. Slowly wean off of Solu-Medrol today. Anticipate discharge in a.m. Discharge planning for shower chair and home mobility assistance. Time with Patient: Less than 30
[2017-04-15 09:46] LABS: Basophils % (A) 0 %; CH 31.1; CHCM 32.5; Eosinophils % (A) 0 %; HCT 36.8 % (34.0-46.0); HDW 2.41; HGB 12.3 gm/dL (11.4-16.0); Luc # (Auto) 0.06; Luc % (Auto) 1; Lymphocytes # (A) 0.7 k/uL (1.0-4.8); Lymphocytes % (A) 8 %; MCH 32.1 pg (25.0-35.0); MCHC 33.4 g/dL (31.0-37.0); MCV 96.1 fL (80.0-100.0); Mean Platelet Volume 8.2; Monocytes # (A) 0.4 k/uL (0-1.0); Monocytes % (A) 5 %; Neutrophils % (A) 86 %; RBC 3.83 m/uL (3.80-5.40); RDW 12.4 % (11.5-15.5); WBC 8.1 k/uL (3.8-10.6); WBC (Perox) 8.36
[2017-04-15 12:11] LABS: Glucose,Whole Blood 151 mg/dL (75-99)
[2017-04-15 17:11] LABS: Glucose,Whole Blood 127 mg/dL (75-99)
[2017-04-15] MEDS: LISINOPRIL 20 MG TAB PO SCH (20:08)
[2017-04-15] MEDS: LEVOTHYROXINE 100 MCG TAB PO SCH (20:08)
[2017-04-15] MEDS: CITALOPRAM HYDROBROMIDE 20 MG TAB PO SCH (20:08)
[2017-04-15] MEDS: MONTELUKAST 10 MG TAB PO SCH (20:08)
[2017-04-15 20:40] LABS: Glucose,Whole Blood 205 mg/dL (75-99)
[2017-04-16] MEDS: methylPREDNISolone SOD SUCCI 40 MG/ML 1 ML VIAL IV SCH ×2 (00:08→08:05)
[2017-04-16 07:32] LABS: Glucose,Whole Blood 139 mg/dL (75-99)
[2017-04-16] MEDS: IPRATROPIUM-ALBUTEROL 3 ML NEB INHALATION SCH ×2 (07:41→11:18)
[2017-04-16] MEDS: INSULIN LISPRO (humaLOG) 300 UNIT/3 ML VIAL SQ SCH ×2 (08:06→12:42)
[2017-04-16] MEDS: LEVOFLOXACIN 750 MG TAB PO SCH (08:06)
[2017-04-16] MEDS: PANTOPRAZOLE 40 MG TABLET PO SCH (08:06)
[2017-04-16] MEDS: DIVALPROEX 250 MG TABLET.DR PO SCH (08:07)
[2017-04-16] MEDS: LACTOBACILLUS ACIDOPH & BULGAR 1 EACH PACKET PO SCH (08:11)
[2017-04-16] MEDS: ALPRAZolam 0.5 MG TAB PO PRN (08:15)
[2017-04-16 08:22] VITALS: RESP 20; TEMP 97.7
--- NOTE | 2017-04-16 09:01 | P.DS ---
Providers Date of admission: 04/10/17 10:32 Attending physician: Joce Chua Primary care physician: Joce Chua - Discharge Diagnosis(es) (1) Enteritis Current Visit: Yes Status: Acute (2) Pneumonia Current Visit: Yes Status: Acute Hospital Course: This is a discharge summary and a 71-year-old white female essentially admitted for pneumonia. She's had somewhat of a tenuous and mayur course because of overall weakness and history of comorbidities. She herself is a nonsmoker but hasn't many many years of secondhand smoke exposure. Remote pneumonia is improving but she still significantly weak. She still requiring oxygen treatment. We will sent home with home O2 for temporary treatment. She is discharged in guarded condition to follow-up with me in approximately 5 days. Patient Condition at Discharge: Fair Plan - Discharge Summary New Discharge Prescriptions: New Docusate [Colace] 100 mg PO DAILY PRN #14 cap PRN Reason: Constipation Levofloxacin [Levaquin] 750 mg PO DAILY #3 tab predniSONE 0 mg PO DIRECTED #18 tab Continue Lisinopril [Zestril] 20 mg PO HS Citalopram Hydrobromide [Citalopram HBr] 40 mg PO HS ALPRAZolam [Xanax] 0.5 mg PO TID PRN PRN Reason: Anxiety/Insomnia Divalproex Sodium 250 mg PO BID Levothyroxine Sodium [Synthroid] 200 mcg PO HS Montelukast Sodium 10 mg PO HS Albuterol Nebulized [Ventolin Nebulized] 2.5 mg INHALATION RT-QID PRN PRN Reason: Shortness Of Breath Albuterol Inhaler [Ventolin Hfa Inhaler] 1 - 2 puff INHALATION RT-QID PRN PRN Reason: Shortness Of Breath Discharge Medication List ALPRAZolam [Xanax] 0.5 mg PO TID PRN 12/02/15 [History] Citalopram Hydrobromide [Citalopram HBr] 40 mg PO HS 12/02/15 [History] Lisinopril [Zestril] 20 mg PO HS 12/02/15 [History] Albuterol Nebulized [Ventolin Nebulized] 2.5 mg INHALATION RT-QID PRN 12/03/15 [ History] Divalproex Sodium 250 mg PO BID 12/03/15 [History] Levothyroxine Sodium [Synthroid] 200 mcg PO HS 12/03/15 [History] Montelukast Sodium 10 mg PO HS 12/03/15 [History] Albuterol Inhaler [Ventolin Hfa Inhaler] 1 - 2 puff INHALATION RT-QID PRN [History] Docusate [Colace] 100 mg PO DAILY PRN #14 cap 04/16/17 [Rx] Levofloxacin [Levaquin] 750 mg PO DAILY #3 tab 04/16/17 [Rx] predniSONE 0 mg PO DIRECTED #18 tab 04/16/17 [Rx] Follow up Appointment(s)/Referral(s): Joce Chua MD [Primary Care Provider] - 3 Days Discharge Disposition: HOME WITH HOME HEALTH SERVICES
[2017-04-16] MEDS: DOCUSATE 100 MG CAP PO PRN (10:43)
[2017-04-16 11:09] VITALS: BP 162/79
[2017-04-16 11:37] VITALS: PULSE 68
--- NOTE | 2017-04-16 12:02 | CDI ---
In responding to this query, please exercise your independent professional judgment. The [facility] Coding Staff and Clinical Documentation Specialists appreciate your assistance in clarifying documentation, maintaining compliance with coding guidelines, accurately documenting patients condition and capturing severity of illness. The fact that a question is asked does not imply that any particular answer is desired or expected. Communication forms are a method of clarifying documentation and are not made part of the Legal Health Record. Thank you in advance for your clarification. Last Revision, November 2015 Ruel Pinto [address] [facility] [place] [address] Documentation Clarification Form Date: 04/16/2017 11:48:00 AM From: Katja Esparza, CCS, CCDS Admit Date: 04/10/2017 10:32:00 AM Patient Name: Kyleigh Vera Visit Number: [id number] Discharge Date: Dr. Joce Chua: 71 yo fem, admitted with abdominal pain. Also nausea w/dry heaves & diarrhea ( chronic). Home meds include Albuterol Nebulizers & Breo. History/Risk Factors: Asthma, Nonsmoker but exposure to secondhand smoke for years. Patient discharged home with O2. Clinical Indicators: Vital signs: RR 18 - 20 - 24 - 26 Lung/Breathing assessment: SOB W/activity Treatment: IV Zofran, IV Tylenol, IV Pepcid, IV fluids, IV Levaquin, Albuterol INH, O2 2Lnc. Discharged home on Home O2 due to O2 requirements. In your professional opinion, can you please clarify if these findings signify one of the following conditions? Acuity: o Acute o Chronic o Acute on Chronic Respiratory Status: o Respiratory failure o Respiratory failure with hypercapnia o Respiratory failure with hypoxia o Acute Respiratory Distress o Other Diagnosis, please specify o Unable to determine Please document in your progress notes and discharge summary in order to capture severity of illness and risk of mortality. Include clinical findings that support your diagnosis. FYI: Press F11 to launch patient chart MTDD
[2017-04-16 12:19] LABS: Glucose,Whole Blood 146 mg/dL (75-99)
[2017-04-16 14:12] LABS: CH 31.6; CHCM 32.1; HDW 2.34; HGB 11.4 gm/dL (11.4-16.0); MCH 31.1 pg (25.0-35.0); MCHC 31.5 g/dL (31.0-37.0); MCV 98.7 fL (80.0-100.0); RBC 3.65 m/uL (3.80-5.40); RDW 13.1 % (11.5-15.5); WBC 7.8 k/uL (3.8-10.6)
--- NOTE | 2017-04-17 12:49 | PN ---
ADDENDUM: FINAL DIAGNOSIS: Mild intermittent asthma, acute exacerbation, type unable to be determined. MTDD
== END 2017-04-16 15:02 | disposition home or self-care (01) | DRG 391 ==
LOC: EC 06:19 → 4MS4W 10:32
PROVIDERS: ADMIT Family Medicine; ATTEND Family Medicine
DX: K52.9 Noninfective gastroenteritis and colitis, unspecified (principal); J18.9 Pneumonia, unspecified organism; J45.21 Mild intermittent asthma with (acute) exacerbation; J20.9 Acute bronchitis, unspecified; I10 Essential (primary) hypertension; E03.9 Hypothyroidism, unspecified; F32.9 Major depressive disorder, single episode, unspecified; Z90.49 Acquired absence of other specified parts of digestive tract; M19.91 Primary osteoarthritis, unspecified site; Z98.42 Cataract extraction status, left eye; Z98.41 Cataract extraction status, right eye; Z79.899 Other long term (current) drug therapy; Z88.1 Allergy status to other antibiotic agents; Z88.2 Allergy status to sulfonamides; Z88.5 Allergy status to narcotic agent; Z82.5 Family history of asthma and other chronic lower respiratory diseases
CPT/HCPCS: 36415; 71010; 71020; 74177; 80053; 81003; 83605; 85025; 85027; 85610; 85730; 87040; 87086; 94640; 96365; 96367; 96375; 99285

== ENCOUNTER 2017-04-18 17:06 | Emergency (ER) | payer MEDICARE ==
[2017-04-18] MEDS ORDERED: FAMOTIDINE 20 MG/2 ML VIAL IV STA (17:21)
[2017-04-18] MEDS ORDERED: methylPREDNISolone SOD SUCCI 125 MG/2 ML VIAL IV STA (17:22)
[2017-04-18] MEDS ORDERED: ONDANSETRON 4 MG/2 ML VIAL IVP STA (17:22)
[2017-04-18] MEDS ORDERED: diphenhydrAMINE 50 MG/ML 1 ML VIAL IVP STA (17:23)
[2017-04-18] MEDS ORDERED: ALBUTEROL NEBULIZED 2.5 MG/3 ML INHALATION STA (17:29)
[2017-04-18] MEDS ORDERED: SODIUM CHLORIDE 0.9% 1,000 ML IV ONE (19:11)
--- NOTE | 2017-04-18 20:04 | ED ---
General Adult HPI - General Chief complaint: Allergic Reaction Stated complaint: allergic reaction Time Seen by Provider: 04/18/17 17:29 Source: patient, family, RN notes reviewed Mode of arrival: wheelchair Limitations: altered mental status, physical limitation - History of Present Illness Initial comments: 71-year-old female past medical history of asthma and ALLERGIES presents approximately one hour after taking prednisone and Levaquin. Patient's chief complaint is rash, lip and tongue tingling, and difficulty breathing. Patient denies chest pain. Complains of some nausea denies vomiting. Patient took her first dose of these medications today. She was recently discharged from the hospital with diagnosis of asthma and pneumonia. Patient's rash is on her face , and torso as well as bilateral upper extremities. Patient was thought to be unresponsive and apneic in triage and taken immediately back for urgent evaluation. - Related Data Home Medications Medication Instructions Recorded Confirmed ALPRAZolam [Xanax] 0.5 mg PO TID PRN 12/02/15 04/18/17 Citalopram Hydrobromide 40 mg PO HS 12/02/15 04/18/17 [Citalopram HBr] Lisinopril [Zestril] 20 mg PO HS 12/02/15 04/18/17 Albuterol Nebulized [Ventolin 2.5 mg INHALATION RT-QID PRN 12/03/15 04/18/17 Nebulized] Divalproex Sodium 250 mg PO BID 12/03/15 04/18/17 Levothyroxine Sodium [Synthroid] 200 mcg PO HS 12/03/15 04/18/17 Montelukast Sodium 10 mg PO HS 12/03/15 04/18/17 Albuterol Inhaler [Ventolin Hfa 1 - 2 puff INHALATION RT-QID PRN 04/10/17 Inhaler] predniSONE See Taper PO DAILY 04/18/17 04/18/17 Previous Rx's Medication Instructions Recorded Docusate [Colace] 100 mg PO DAILY PRN #14 cap 04/16/17 Famotidine [Pepcid] 20 mg PO DAILY #30 tablet 04/18/17 diphenhydrAMINE [Benadryl] 25 mg PO QID #20 capsule 04/18/17 predniSONE 50 mg PO DAILY #5 tablet 04/18/17 Allergies Allergy/AdvReac Type Severity Reaction Status Date / Time cefaclor [From Ceclor] Allergy Unknown Verified 04/18/17 18:08 ceftriaxone [From Rocephin] Allergy Anaphylaxis Verified 04/18/17 18:08 levofloxacin [From Levaquin] Allergy Anaphylaxis Verified 04/18/17 18:08 Sulfa (Sulfonamide Allergy Unknown Verified 04/18/17 18:08 Antibiotics) morphine AdvReac Extreme Verified 04/18/17 18:08 Sedation Review of Systems ROS Statement: Those systems with pertinent positive or pertinent negative responses have been documented in the HPI. ROS Other: All systems not noted in ROS Statement are negative. Past Medical History Past Medical History: Asthma, Hypertension, Musculoskeletal Disorder, Osteoarthritis (OA), Thyroid Disorder Additional Past Medical History / Comment(s): STRESS INCONT/WEARS PAD History of Any Multi-Drug Resistant Organisms: None Reported Past Surgical History: Cholecystectomy, Hysterectomy Additional Past Surgical History / Comment(s): RT Shoulder surgery, CATARACTS Past Anesthesia/Blood Transfusion Reactions: No Reported Reaction Past Psychological History: Depression Smoking Status: Never smoker Past Alcohol Use History: None Reported Past Drug Use History: None Reported - Past Family History Father History Unknown: Yes Family Medical History: Liver Disease Additional Family Medical History / Comment(s): pt is adopted DOES'NT KNOW MUCH ABOUT PARENTS Mother Family Medical History: Cancer Additional Family Medical History / Comment(s): LUNG CANCER Sister(s) Additional Family Medical History / Comment(s): HEART PROBLEMS Brother(s) Family Medical History: COPD Additional Family Medical History / Comment(s): LUNG DZ General Exam Limitations: altered mental status, physical limitation General appearance: alert, in distress Head exam: Present: atraumatic, normocephalic Eye exam: Present: normal appearance, PERRL ENT exam: Present: normal exam, normal oropharynx, other (No lip, tongue, uvula or posterior oropharynx swelling no stridor) Neck exam: Present: normal inspection, full ROM. Absent: tenderness, meningismus Respiratory exam: Present: wheezes Cardiovascular Exam: Present: normal rhythm, tachycardia GI/Abdominal exam: Present: soft. Absent: distended, tenderness, guarding Extremities exam: Present: normal inspection, normal capillary refill. Absent: pedal edema Neurological exam: Present: alert, oriented X3 Psychiatric exam: Present: normal affect, normal mood Skin exam: Present: warm, dry, rash (Significant urticarial rash present over the face, shoulders, torso and bilateral upper extremities), urticaria. Absent : cyanosis, diaphoretic Course Vital Signs 04/18/17 04/18/17 04/18/17 17:12 17:24 17:36 Temperature 97.5 F L Pulse Rate 90 83 90 Respiratory 16 18 Rate Blood Pressure 111/55 152/82 O2 Sat by Pulse 90 L 94 L Oximetry 04/18/17 04/18/17 04/18/17 17:44 17:58 18:14 Temperature Pulse Rate 86 97 102 H Respiratory Rate Blood Pressure 140/74 134/63 O2 Sat by Pulse 98 94 L Oximetry 04/18/17 04/18/17 04/18/17 18:34 19:27 19:51 Temperature Pulse Rate 102 H 105 H 105 H Respiratory 18 17 Rate Blood Pressure 130/61 127/67 O2 Sat by Pulse 94 L 97 95 Oximetry 04/18/17 20:50 Temperature 98.3 F Pulse Rate 104 H Respiratory 18 Rate Blood Pressure 132/65 O2 Sat by Pulse 95 Oximetry - Reevaluation(s) Reevaluation #1: 04/18/17 20:56 On reevaluation, the patient's rash is completely resolved, and he continues to be no airway involvement, lungs are clear after some 7.5 albuterol. EKG Findings - EKG Comments: EKG Findings:: EKG shows sinus rhythm, ventricular rate 91, TN interval 152, castration 72, there is occasional PVCs Medical Decision Making - Medical Decision Making 71-year-old female presenting with acute ALLERGIC reaction likely to Levaquin. Patient takes medication approximately one hour prior to arrival. She also did eat some watermelon, no known history of watermelon ALLERGY. Patient does have ALLERGIES to ceftriaxone, sulfa antibiotics and morphine. Patient was thought to be apneic in triage. She was brought back for immediate evaluation. I did examine the patient within the for several minutes. There has minimal respiratory distress, there was significant urticarial rash. no tongue, uvula, posterior oropharynx involvement no stridor. There was good air entry with end expiratory wheezes. Patient was given Benadryl, Pepcid, Benadryl, and albuterol. Patient was observed for 3 hours in the emergency department. Rash completely resolved, lungs were clear after treatment. Respiratory distress. No signs of worsening anaphylaxis. Patient did not receive epinephrine in the emergency department. Levaquin was added to her ALLERGY profile. Patient has an appointment with her primary care physician in the morning. She is given prescription for prednisone, Benadryl, and Pepcid. She will follow-up with her primary care physician tomorrow. Her daughter will be with her throughout the evening. Patient is in her to be discharged. Diagnosis: ALLERGIC reaction, likely drug reaction Disposition Clinical Impression: Adverse reaction to drug, Anaphylaxis Disposition: HOME SELF-CARE Condition: Good Instructions: Anaphylaxis (ED) Prescriptions: diphenhydrAMINE [Benadryl] 25 mg PO QID #20 capsule Famotidine [Pepcid] 20 mg PO DAILY #30 tablet predniSONE 50 mg PO DAILY #5 tablet Referrals: Joce Chua MD [Primary Care Provider] - 1-2 days
[2017-04-18 20:51] VITALS: BP 132/65; PULSE 104; RESP 18; TEMP 98.3
== END 2017-04-18 20:51 | disposition home or self-care (01) ==
LOC: EC 17:06
DX: T88.6XXA Anaphylactic reaction due to adverse effect of correct drug or medicament properly administered, initial encounter (principal); T37.8X5A Adverse effect of other specified systemic anti-infectives and antiparasitics, initial encounter; M19.90 Unspecified osteoarthritis, unspecified site; J45.909 Unspecified asthma, uncomplicated; I10 Essential (primary) hypertension; F32.9 Major depressive disorder, single episode, unspecified; E07.9 Disorder of thyroid, unspecified; Z88.1 Allergy status to other antibiotic agents; Z88.2 Allergy status to sulfonamides; Z88.5 Allergy status to narcotic agent; Z79.52 Long term (current) use of systemic steroids; Z79.899 Other long term (current) drug therapy
CPT/HCPCS: 99284; 96374; 96375 ×3; 96361; 94640; J1200; J2930; J2405

== ENCOUNTER 2017-05-25 17:18 | Observation (INO) | payer MEDICARE ==
[2017-05-25] MEDS ORDERED: IPRATROPIUM-ALBUTEROL 3 ML NEB INHALATION STA (18:08)
[2017-05-25] MEDS ORDERED: ONDANSETRON 4 MG/2 ML VIAL IVP STA (18:39)
[2017-05-25 18:45] LABS: Basophils # (A) 0.1 k/uL (0-0.2); Basophils % (A) 1 %; CH 32.4; CHCM 33.8; Eosinophils # (A) 0.1 k/uL (0-0.7); Eosinophils % (A) 1 %; HCT 39.6 % (34.0-46.0); HDW 2.43; HGB 13.4 gm/dL (11.4-16.0); Luc # (Auto) 0.11; Luc % (Auto) 1; Lymphocytes # (A) 2.3 k/uL (1.0-4.8); Lymphocytes % (A) 23 %; MCH 32.7 pg (25.0-35.0); MCHC 33.8 g/dL (31.0-37.0); MCV 96.5 fL (80.0-100.0); Mean Platelet Volume 8.7; Monocytes # (A) 0.4 k/uL (0-1.0); Monocytes % (A) 4 %; Neutrophils # (A) 7.2 k/uL (1.3-7.7); Neutrophils % (A) 70 %; RBC 4.11 m/uL (3.80-5.40); RDW 13.6 % (11.5-15.5); WBC 10.3 k/uL (3.8-10.6); WBC (Perox) 11.29
--- NOTE | 2017-05-25 18:46 | ED ---
General Adult HPI - General Chief complaint: Shortness of Breath Stated complaint: Pneumonia-Sent by PCP Time Seen by Provider: 05/25/17 18:03 Source: patient, RN notes reviewed Mode of arrival: ambulatory Limitations: no limitations - History of Present Illness Initial comments: Patient 71-year-old female significant past medical history for COPD, who presents emergency room today with chief complaint of increased cough congestion over the last 2 weeks. Does admit that she's been on antibiotics of clindamycin outpatient. States she did see her family doctor advised to come here to the emergency room for admission for her symptoms. States she was given a breathing treatment steroids in the office. Patient admits to cough congestion with positive production. Denies any other complaints or associated symptoms at this time. Patient denies any recent fever, chills, chest pain, back pain, abdominal pain, nausea or vomiting, numbness or tingling, dysuria or hematuria, constipation or diarrhea, headaches or visual changes, or any other complaints. - Related Data Home Medications Medication Instructions Recorded Confirmed ALPRAZolam [Xanax] 0.5 mg PO TID PRN 12/02/15 05/25/17 Citalopram Hydrobromide 40 mg PO HS 12/02/15 05/25/17 [Citalopram HBr] Lisinopril [Zestril] 20 mg PO HS 12/02/15 05/25/17 Albuterol Nebulized [Ventolin 2.5 mg INHALATION RT-QID PRN 12/03/15 05/25/17 Nebulized] Divalproex Sodium 250 mg PO BID 12/03/15 05/25/17 Levothyroxine Sodium [Synthroid] 200 mcg PO HS 12/03/15 05/25/17 Montelukast Sodium 10 mg PO HS 12/03/15 05/25/17 Albuterol Sulfate [Proair Hfa] 1 - 2 puff INHALATION RT-Q6H PRN 05/25/17 Cholecalciferol (Vitamin D3) 2,000 unit PO DAILY 05/25/17 05/25/17 [Vitamin D3] Clindamycin HCl [Cleocin] 300 mg PO BID 05/25/17 05/25/17 Cyanocobalamin (Vitamin B-12) 1,000 mcg PO DAILY 05/25/17 05/25/17 [Vitamin B-12] Glycopyrrolate/Formoterol Fum 2 puff INHALATION RT-BID 05/25/17 05/25/17 [Bevespi Aerosphere Inhaler] Multivitamins, Thera [Multivitamin 1 tab PO DAILY 05/25/17 05/25/17 (formulary)] Allergies Allergy/AdvReac Type Severity Reaction Status Date / Time cefaclor [From Ceclor] Allergy Unknown Verified 05/25/17 19:11 ceftriaxone [From Rocephin] Allergy Anaphylaxis Verified 05/25/17 19:11 levofloxacin [From Levaquin] Allergy Anaphylaxis Verified 05/25/17 19:11 Sulfa (Sulfonamide Allergy Unknown Verified 05/25/17 19:11 Antibiotics) morphine AdvReac Extreme Verified 05/25/17 19:11 Sedation Review of Systems ROS Statement: Those systems with pertinent positive or pertinent negative responses have been documented in the HPI. ROS Other: All systems not noted in ROS Statement are negative. Past Medical History Past Medical History: Asthma, COPD, Hypertension, Musculoskeletal Disorder, Osteoarthritis (OA), Thyroid Disorder Additional Past Medical History / Comment(s): STRESS INCONT/WEARS PAD History of Any Multi-Drug Resistant Organisms: None Reported Past Surgical History: Cholecystectomy, Hysterectomy Additional Past Surgical History / Comment(s): RT Shoulder surgery, CATARACTS Past Anesthesia/Blood Transfusion Reactions: No Reported Reaction Past Psychological History: Depression Smoking Status: Never smoker Past Alcohol Use History: None Reported Past Drug Use History: None Reported - Past Family History Father History Unknown: Yes Family Medical History: Liver Disease Additional Family Medical History / Comment(s): pt is adopted DOES'NT KNOW MUCH ABOUT PARENTS Mother Family Medical History: Cancer Additional Family Medical History / Comment(s): LUNG CANCER Sister(s) Additional Family Medical History / Comment(s): HEART PROBLEMS Brother(s) Family Medical History: COPD Additional Family Medical History / Comment(s): LUNG DZ General Exam - General Exam Comments Initial Comments: General: The patient is awake and alert, in no distress, and does not appear acutely ill. Eye: Pupils are equal, round and reactive to light, extra-ocular movements are intact. No nystagmus. There is normal conjunctiva bilaterally. No signs of icterus. Ears, nose, mouth and throat: There are moist mucous membranes and no oral lesions. Neck: The neck is supple, there is no tenderness or JVD. Cardiovascular: There is a regular rate and rhythm. No murmur, rub or gallop is appreciated. Respiratory: Expiratory bilateral wheeze. respirations are non-labored, breath sounds are equal. No stridor, rales, or rhonchi. Gastrointestinal: Soft, non-distended, non-tender abdomen without masses or organomegaly noted. There is no rebound or guarding present. No CVA tenderness. Bowel sounds are unremarkable. Musculoskeletal: Normal ROM, no tenderness. Strength 5/5. Sensation intact. Pulses equal bilaterally 2+. Neurological: A&O x 3. CN II-XII intact, There are no obvious motor or sensory deficits. Coordination appears grossly intact. Speech is normal. Skin: Skin is warm and dry and no rashes or lesions are noted. Psychiatric: Cooperative, appropriate mood & affect, normal judgment. Limitations: no limitations Course Vital Signs 05/25/17 05/25/17 05/25/17 17:43 18:30 18:41 Temperature 97.5 F L Pulse Rate 87 103 H 70 Respiratory 20 18 Rate Blood Pressure 156/72 142/78 O2 Sat by Pulse 97 97 Oximetry 05/25/17 19:18 Temperature Pulse Rate 68 Respiratory 18 Rate Blood Pressure 157/90 O2 Sat by Pulse 97 Oximetry EKG Findings - EKG Comments: EKG Findings:: EKG performed at 1826: A 12-lead EKG was performed and interpreted by me as showing the following: Rate is 76, and rhythm is normal sinus. There are normal QRS complexes and normal R-wave progression. ST segments have no elevation or depression, and OR segments appear normal. Compared to previous EKG on 12/14/2013 showed no acute change. Medical Decision Making - Medical Decision Making Patient reexamined at this time doesn't show improvement after breathing treatment. Patient did seem breathing treatment at the office also IM Solu- Medrol. Patient's labs been reviewed. Patient's chest x-ray does show improvement from previous pneumonia. Case discussed with attending physician Dr. Mercedes who did discuss case with patient's family doctor Dr. Chua the patient for COPD exacerbation. - Lab Data Result diagrams: 05/25/17 18:30 05/25/17 18:30 Lab Results 05/25/17 05/25/17 05/25/17 Range/Units 18:30 18:30 18:30 WBC 10.3 (3.8-10.6) k/uL RBC 4.11 (3.80-5.40) m/uL Hgb 13.4 (11.4-16.0) gm/dL Hct 39.6 (34.0-46.0) % MCV 96.5 (80.0-100.0) fL MCH 32.7 (25.0-35.0) pg MCHC 33.8 (31.0-37.0) g/dL RDW 13.6 (11.5-15.5) % Plt Count 303 (150-450) k/uL Neutrophils % 70 % Lymphocytes % 23 % Monocytes % 4 % Eosinophils % 1 % Basophils % 1 % Neutrophils # 7.2 (1.3-7.7) k/uL Lymphocytes # 2.3 (1.0-4.8) k/uL Monocytes # 0.4 (0-1.0) k/uL Eosinophils # 0.1 (0-0.7) k/uL Basophils # 0.1 (0-0.2) k/uL PT (9.0-12.0) sec INR (<1.2) APTT (22.0-30.0) sec Sodium 139 (137-145) mmol/L Potassium 4.4 (3.5-5.1) mmol/L Chloride 104 (98-107) mmol/L Carbon Dioxide 23 (22-30) mmol/L Anion Gap 12 mmol/L BUN 9 (7-17) mg/dL Creatinine 0.69 (0.52-1.04) mg/dL Est GFR (MDRD) Af Amer >60 (>60 ml/min/1.73 sqM) Est GFR (MDRD) Non-Af >60 (>60 ml/min/1.73 sqM) Glucose 122 H (74-99) mg/dL Calcium 9.5 (8.4-10.2) mg/dL Total Bilirubin 0.6 (0.2-1.3) mg/dL AST 25 (14-36) U/L ALT 26 (9-52) U/L Alkaline Phosphatase 61 (38-126) U/L Total Creatine Kinase 33 (30-135) U/L CK-MB (CK-2) 0.2 (0.0-2.4) ng/mL CK-MB (CK-2) Rel Index 0.6 Troponin I <0.012 (0.000-0.034) ng/mL NT-Pro-B Natriuret Pep pg/mL Total Protein 7.1 (6.3-8.2) g/dL Albumin 4.1 (3.5-5.0) g/dL 05/25/17 05/25/17 Range/Units 18:30 18:30 WBC (3.8-10.6) k/uL RBC (3.80-5.40) m/uL Hgb (11.4-16.0) gm/dL Hct (34.0-46.0) % MCV (80.0-100.0) fL MCH (25.0-35.0) pg MCHC (31.0-37.0) g/dL RDW (11.5-15.5) % Plt Count (150-450) k/uL Neutrophils % % Lymphocytes % % Monocytes % % Eosinophils % % Basophils % % Neutrophils # (1.3-7.7) k/uL Lymphocytes # (1.0-4.8) k/uL Monocytes # (0-1.0) k/uL Eosinophils # (0-0.7) k/uL Basophils # (0-0.2) k/uL PT 10.7 (9.0-12.0) sec INR 1.1 (<1.2) APTT 23.8 (22.0-30.0) sec Sodium (137-145) mmol/L Potassium (3.5-5.1) mmol/L Chloride (98-107) mmol/L Carbon Dioxide (22-30) mmol/L Anion Gap mmol/L BUN (7-17) mg/dL Creatinine (0.52-1.04) mg/dL Est GFR (MDRD) Af Amer (>60 ml/min/1.73 sqM) Est GFR (MDRD) Non-Af (>60 ml/min/1.73 sqM) Glucose (74-99) mg/dL Calcium (8.4-10.2) mg/dL Total Bilirubin (0.2-1.3) mg/dL AST (14-36) U/L ALT (9-52) U/L Alkaline Phosphatase (38-126) U/L Total Creatine Kinase (30-135) U/L CK-MB (CK-2) (0.0-2.4) ng/mL CK-MB (CK-2) Rel Index Troponin I (0.000-0.034) ng/mL NT-Pro-B Natriuret Pep 34 pg/mL Total Protein (6.3-8.2) g/dL Albumin (3.5-5.0) g/dL Disposition Clinical Impression: COPD exacerbation Disposition: ADMITTED IP TO THIS HOSP Condition: Good Referrals: Joce Chua MD [Primary Care Provider] - 1-2 days Time of Disposition: 19:37
[2017-05-25 18:55] LABS: ALT 26 U/L (9-52); AST 25 U/L (14-36); Alkaline Phosphatase 61 U/L (38-126); Anion Gap 12 mmol/L; Blood Urea Nitrogen 9 mg/dL (7-17); Calcium 9.5 mg/dL (8.4-10.2); Carbon Dioxide 23 mmol/L (22-30); Chloride 104 mmol/L (98-107); Glucose 122 mg/dL (74-99); Non-African American GFR(MDRD) >60 (>60 ml/min/1.73 sqM); Potassium 4.4 mmol/L (3.5-5.1); Sodium 139 mmol/L (137-145); Total Bilirubin 0.6 mg/dL (0.2-1.3); Total Protein 7.1 g/dL (6.3-8.2)
[2017-05-25 18:58] LABS: INR 1.1 (<1.2); Partial Thromboplastin Time 23.8 sec (22.0-30.0); Prothrombin Time 10.7 sec (9.0-12.0)
[2017-05-25 19:02] LABS: Creatine Kinase 33 U/L (30-135)
[2017-05-25 19:16] LABS: Creatine Kinase MB 0.2 ng/mL (0.0-2.4); Troponin I <0.012 ng/mL (0.000-0.034)
[2017-05-25] MEDS ORDERED: ALBUTEROL INHALER 60 PUFF/8 GM INHALER INHALATION PRN (19:39)
[2017-05-25] MEDS ORDERED: ALBUTEROL NEBULIZED 2.5 MG/3 ML INHALATION PRN (19:39)
--- NOTE | 2017-05-25 19:39 | XR ---
EXAMINATION TYPE: XR chest 2V DATE OF EXAM: 05/25/2017 COMPARISON: 04/13/2017 HISTORY: Short of breath TECHNIQUE: Frontal and lateral views of the chest are obtained. FINDINGS: There is poor inspiration. Lungs are clear of consolidation. There is no heart failure. Th ere are chest leads. IMPRESSION: Poor inspiration with basilar atelectasis similar to old exam. There is clearing of righ t upper lobe consolidation compared to old exam.
--- NOTE | 2017-05-25 20:16 | P.HPIM ---
History of Present Illness H&P Date: 05/25/17 Chief Complaint: Productive cough with shortness of breath. The patient is essentially a 71-year-old white female with known history of asthma with COPD was recently discharged for right upper lobe pneumonia. The patient came to my office on 05/25/2017 with dyspnea on exertion. She did have appropriate pulse oximetry. However, when she went home she felt as though she was having difficulty breathing again. She was advised to go to the emergency room. Workup so far has been somewhat clear. Chest x-ray does show clearing of right upper lobe infiltrate from previous. She is admitted for appropriate observation period Review of Systems Constitutional: Reports fatigue, Reports weakness Eyes: denies blurred vision, denies pain Ears, nose, mouth and throat: Denies headache, Denies sore throat Cardiovascular: Denies chest pain, Denies shortness of breath Respiratory: Reports cough, Reports cough with sputum, Reports dyspnea, Reports pleurisy Gastrointestinal: Denies abdominal pain, Denies diarrhea, Denies nausea, Denies vomiting Genitourinary: Denies dysuria, Denies hematuria Musculoskeletal: Denies myalgias Past Medical History Past Medical History: Asthma, COPD, Hypertension, Musculoskeletal Disorder, Osteoarthritis (OA), Thyroid Disorder Additional Past Medical History / Comment(s): STRESS INCONT/WEARS PAD History of Any Multi-Drug Resistant Organisms: None Reported Past Surgical History: Cholecystectomy, Hysterectomy Additional Past Surgical History / Comment(s): RT Shoulder surgery, CATARACTS Past Anesthesia/Blood Transfusion Reactions: No Reported Reaction Past Psychological History: Depression Smoking Status: Never smoker Past Alcohol Use History: None Reported Past Drug Use History: None Reported - Past Family History Father History Unknown: Yes Family Medical History: Liver Disease Additional Family Medical History / Comment(s): pt is adopted DOES'NT KNOW MUCH ABOUT PARENTS Mother Family Medical History: Cancer Additional Family Medical History / Comment(s): LUNG CANCER Sister(s) Additional Family Medical History / Comment(s): HEART PROBLEMS Brother(s) Family Medical History: COPD Additional Family Medical History / Comment(s): LUNG DZ Medications and Allergies Home Medications Medication Instructions Recorded Confirmed Type ALPRAZolam [Xanax] 0.5 mg PO TID PRN 12/02/15 05/25/17 History Citalopram Hydrobromide 40 mg PO HS 12/02/15 05/25/17 History [Citalopram HBr] Lisinopril [Zestril] 20 mg PO HS 12/02/15 05/25/17 History Albuterol Nebulized [Ventolin 2.5 mg INHALATION RT-QID PRN 12/03/15 05/25/17 History Nebulized] Divalproex Sodium 250 mg PO BID 12/03/15 05/25/17 History Levothyroxine Sodium [Synthroid] 200 mcg PO HS 12/03/15 05/25/17 History Montelukast Sodium 10 mg PO HS 12/03/15 05/25/17 History Albuterol Sulfate [Proair Hfa] 1 - 2 puff INHALATION RT-Q6H PRN 05/25/17 History Cholecalciferol (Vitamin D3) 2,000 unit PO DAILY 05/25/17 05/25/17 History [Vitamin D3] Clindamycin HCl [Cleocin] 300 mg PO BID 05/25/17 05/25/17 History Cyanocobalamin (Vitamin B-12) 1,000 mcg PO DAILY 05/25/17 05/25/17 History [Vitamin B-12] Glycopyrrolate/Formoterol Fum 2 puff INHALATION RT-BID 05/25/17 05/25/17 History [Bevespi Aerosphere Inhaler] Multivitamins, Thera [Multivitamin 1 tab PO DAILY 05/25/17 05/25/17 History (formulary)] Allergies Allergy/AdvReac Type Severity Reaction Status Date / Time cefaclor [From Ceclor] Allergy Unknown Verified 05/25/17 19:11 ceftriaxone [From Rocephin] Allergy Anaphylaxis Verified 05/25/17 19:11 levofloxacin [From Levaquin] Allergy Anaphylaxis Verified 05/25/17 19:11 Sulfa (Sulfonamide Allergy Unknown Verified 05/25/17 19:11 Antibiotics) morphine AdvReac Extreme Verified 05/25/17 19:11 Sedation Physical Exam Vitals: Vital Signs Temp Pulse Resp BP Pulse Ox 05/25/17 19:57 98.1 F 73 18 141/65 97 05/25/17 19:18 68 18 157/90 97 05/25/17 18:41 70 18 142/78 97 05/25/17 18:30 103 H 05/25/17 17:43 97.5 F L 87 20 156/72 97 Intake and Output 05/25/17 05/25/17 05/25/17 06:59 14:59 22:59 Other: Weight 77.111 kg Patient Weight 05/26/17 06:59 Weight 77.111 kg - Constitutional General appearance: mild distress - EENT Eyes: EOMI - Neck Neck: no lymphadenopathy - Respiratory Respiratory: bilateral: diminished - Cardiovascular Rhythm: regular Heart sounds: normal: S1, S2 - Gastrointestinal General gastrointestinal: no distended, soft, no tenderness, no umbilical hernia - Integumentary Integumentary: no cyanotic - Neurologic Neurologic: CNII-XII intact Results CBC & Chem 7: 05/25/17 18:30 05/25/17 18:30 Labs: Abnormal Lab Results - Last 24 Hours (Table) 05/25/17 Range/Units 18:30 Glucose 122 H (74-99) mg/dL Assessment and Plan (1) COPD exacerbation Status: Acute (2) Asthma Status: Acute Plan: Admitted for observation. Appropriate steroid taper to see if this does make her symptoms improved. Question need for pulmonology if no better.
[2017-05-25] MEDS ORDERED: NON-FORMULARY DRUG (Clindamycin Hcl [Cleocin] 300 MG) PO SCH (21:00)
[2017-05-25] MEDS: MONTELUKAST 10 MG TAB PO SCH (21:34)
[2017-05-25] MEDS: CITALOPRAM HYDROBROMIDE 20 MG TAB PO SCH (21:34)
[2017-05-25] MEDS: LISINOPRIL 20 MG TAB PO SCH (21:34)
[2017-05-25] MEDS: DIVALPROEX 250 MG TABLET.DR PO SCH (21:34)
[2017-05-25] MEDS: LEVOTHYROXINE 100 MCG TAB PO SCH (21:34)
[2017-05-26] MEDS: methylPREDNISolone SOD SUCCI 125 MG/2 ML VIAL IV SCH ×4 (00:01→17:34)
[2017-05-26] MEDS: IPRATROPIUM-ALBUTEROL 3 ML NEB INHALATION PRN ×4 (07:11→20:47)
[2017-05-26] MEDS: ALPRAZolam 0.5 MG TAB PO PRN ×2 (07:21→21:39)
[2017-05-26] MEDS: DIVALPROEX 250 MG TABLET.DR PO SCH ×2 (07:54→21:39)
[2017-05-26] MEDS: CHOLECALCIFEROL 1,000 UNIT TAB PO SCH (07:54)
[2017-05-26] MEDS: CYANOCOBALAMIN 500 MCG TAB PO SCH (07:54)
[2017-05-26 08:49] LABS: ALT 27 U/L (9-52); AST 22 U/L (14-36); Alkaline Phosphatase 68 U/L (38-126); Anion Gap 13 mmol/L; Blood Urea Nitrogen 10 mg/dL (7-17); Calcium 9.6 mg/dL (8.4-10.2); Carbon Dioxide 24 mmol/L (22-30); Chloride 102 mmol/L (98-107); Glucose 232 mg/dL (74-99); Non-African American GFR(MDRD) >60 (>60 ml/min/1.73 sqM); Sodium 139 mmol/L (137-145); Total Bilirubin 0.6 mg/dL (0.2-1.3); Total Protein 7.3 g/dL (6.3-8.2)
[2017-05-26] MEDS: MULTIVITAMINS, THERA 1 EACH TAB PO SCH (11:43)
[2017-05-26 11:57] LABS: Glucose,Whole Blood 249 mg/dL (75-99)
[2017-05-26] MEDS: INSULIN LISPRO (humaLOG) 300 UNIT/3 ML VIAL SQ SCH ×3 (12:22→21:39)
[2017-05-26 12:35] LABS: Hemoglobin A1C 5.8 % (4.2-6.1)
[2017-05-26 16:58] LABS: Glucose,Whole Blood 168 mg/dL (75-99)
[2017-05-26 21:09] LABS: Glucose,Whole Blood 214 mg/dL (75-99)
[2017-05-26] MEDS: LEVOTHYROXINE 100 MCG TAB PO SCH (21:39)
[2017-05-26] MEDS: CITALOPRAM HYDROBROMIDE 20 MG TAB PO SCH (21:39)
[2017-05-26] MEDS: LISINOPRIL 20 MG TAB PO SCH (21:40)
[2017-05-26] MEDS: MONTELUKAST 10 MG TAB PO SCH (21:40)
[2017-05-26 22:53] VITALS: RESP 16
[2017-05-27] MEDS: methylPREDNISolone SOD SUCCI 40 MG/ML 1 ML VIAL IV SCH ×3 (00:18→11:09)
[2017-05-27] MEDS: ALPRAZolam 0.5 MG TAB PO PRN (07:24)
[2017-05-27] MEDS: CYANOCOBALAMIN 500 MCG TAB PO SCH (07:24)
[2017-05-27] MEDS: DIVALPROEX 250 MG TABLET.DR PO SCH (07:24)
[2017-05-27] MEDS: CHOLECALCIFEROL 1,000 UNIT TAB PO SCH (07:24)
[2017-05-27] MEDS: INSULIN LISPRO (humaLOG) 300 UNIT/3 ML VIAL SQ SCH ×2 (07:25→13:10)
[2017-05-27] MEDS: IPRATROPIUM-ALBUTEROL 3 ML NEB INHALATION PRN ×2 (07:40→13:31)
[2017-05-27 07:42] LABS: Glucose,Whole Blood 150 mg/dL (75-99)
--- NOTE | 2017-05-27 08:04 | P.DS ---
Providers Date of admission: 05/25/17 19:37 Attending physician: Joce Chua Primary care physician: Joce Chua - Discharge Diagnosis(es) (1) COPD exacerbation Current Visit: Yes Status: Acute (2) Asthma Current Visit: No Status: Acute Hospital Course: This is a discharge summary 71-year-old white female who was admitted secondary to observation for exacerbation of chronic bronchitis/COPD. She is actually not ever smoked physically. However, her family members and parents smoked significantly during her childhood and young adulthood. I have advised her not to have significant cigarette usage in the home. Otherwise, she is placed on appropriate site Medrol taper and is doing well. She'll be discharged on appropriate prednisone taper to follow-up with me in about 4-5 days. He is discharged in stable condition breathing appropriately tolerating diet and emulating without difficulty. Patient Condition at Discharge: Stable Plan - Discharge Summary New Discharge Prescriptions: New predniSONE 0 mg PO DIRECTED #18 tab Continue Lisinopril [Zestril] 20 mg PO HS Citalopram Hydrobromide [Citalopram HBr] 40 mg PO HS ALPRAZolam [Xanax] 0.5 mg PO TID PRN PRN Reason: Anxiety/Insomnia Divalproex Sodium 250 mg PO BID Levothyroxine Sodium [Synthroid] 200 mcg PO HS Montelukast Sodium 10 mg PO HS Albuterol Nebulized [Ventolin Nebulized] 2.5 mg INHALATION RT-QID PRN PRN Reason: Shortness Of Breath Clindamycin HCl [Cleocin] 300 mg PO BID Glycopyrrolate/Formoterol Fum [Bevespi Aerosphere Inhaler] 2 puff INHALATION RT-BID Cholecalciferol (Vitamin D3) [Vitamin D3] 2,000 unit PO DAILY Multivitamins, Thera [Multivitamin (formulary)] 1 tab PO DAILY Cyanocobalamin (Vitamin B-12) [Vitamin B-12] 1,000 mcg PO DAILY Albuterol Sulfate [Proair Hfa] 1 - 2 puff INHALATION RT-Q6H PRN PRN Reason: Shortness Of Breath Discharge Medication List ALPRAZolam [Xanax] 0.5 mg PO TID PRN 12/02/15 [History] Citalopram Hydrobromide [Citalopram HBr] 40 mg PO HS 12/02/15 [History] Lisinopril [Zestril] 20 mg PO HS 12/02/15 [History] Albuterol Nebulized [Ventolin Nebulized] 2.5 mg INHALATION RT-QID PRN 12/03/15 [ History] Divalproex Sodium 250 mg PO BID 12/03/15 [History] Levothyroxine Sodium [Synthroid] 200 mcg PO HS 12/03/15 [History] Montelukast Sodium 10 mg PO HS 12/03/15 [History] Albuterol Sulfate [Proair Hfa] 1 - 2 puff INHALATION RT-Q6H PRN 05/25/17 [ History] Cholecalciferol (Vitamin D3) [Vitamin D3] 2,000 unit PO DAILY 05/25/17 [History] Clindamycin HCl [Cleocin] 300 mg PO BID 05/25/17 [History] Cyanocobalamin (Vitamin B-12) [Vitamin B-12] 1,000 mcg PO DAILY 05/25/17 [ History] Glycopyrrolate/Formoterol Fum [Bevespi Aerosphere Inhaler] 2 puff INHALATION RT- BID 05/25/17 [History] Multivitamins, Thera [Multivitamin (formulary)] 1 tab PO DAILY 05/25/17 [History ] predniSONE 0 mg PO DIRECTED #18 tab 05/27/17 [Rx] Follow up Appointment(s)/Referral(s): Joce Chua MD [Primary Care Provider] - 3 Days Patient Instructions/Handouts: COPD (Chronic Obstructive Pulmonary Disease) (DC ) Discharge Disposition: HOME SELF-CARE
[2017-05-27 08:15] VITALS: BP 123/58; TEMP 97.3
[2017-05-27] MEDS: MULTIVITAMINS, THERA 1 EACH TAB PO SCH (11:06)
[2017-05-27 12:37] LABS: Glucose,Whole Blood 172 mg/dL (75-99)
[2017-05-27 13:41] VITALS: PULSE 74
== END 2017-05-27 16:17 | disposition home or self-care (01) ==
LOC: EC 17:18 → 4MS4W 19:37
PROVIDERS: ADMIT Family Medicine; ATTEND Family Medicine
DX: J44.1 Chronic obstructive pulmonary disease with (acute) exacerbation (principal); J44.0 Chronic obstructive pulmonary disease with (acute) lower respiratory infection; I10 Essential (primary) hypertension; M19.90 Unspecified osteoarthritis, unspecified site; E07.9 Disorder of thyroid, unspecified; F32.9 Major depressive disorder, single episode, unspecified; N39.3 Stress incontinence (female) (male); Z80.1 Family history of malignant neoplasm of trachea, bronchus and lung; Z79.899 Other long term (current) drug therapy; Z88.2 Allergy status to sulfonamides; Z88.5 Allergy status to narcotic agent; Z88.1 Allergy status to other antibiotic agents; Z77.22 Contact with and (suspected) exposure to environmental tobacco smoke (acute) (chronic); Z87.01 Personal history of pneumonia (recurrent); J18.9 Pneumonia, unspecified organism
CPT/HCPCS: 99285; 96374; 96376 ×2; 96375; 36415; 94640 ×5; 94760; 93005; 85379; 83880; 80053 ×2; 83036; 82550; 82553; 84484; 85025; 85610; 85730; 82103; 71020; G0378 ×3; J2920; J2930; J2405

== ENCOUNTER → 2018-04-05 | Outpatient (CLI) | payer MEDICARE ==
--- NOTE | 2018-04-07 10:31 | MM ---
Reason for exam: screening (asymptomatic). Last mammogram was performed 1 year and 1 month ago. History: Patient is postmenopausal. Benign stereotactic core biopsy of the left breast, November 05, 2000. 2 core biopsies of the left breast. Physical Findings: A clinical breast exam by your physician is recommended on an annual basis and results should be correlated with mammographic findings. MG 3D Screening Mammo W/Cad Bilateral CC and MLO view(s) were taken. Prior study comparison: March 02, 2017, bilateral MG 3d screening mammo w/cad. February 06, 2015, bilateral MG screening mammo w CAD. The breast tissue is heterogeneously dense. This may lower the sensitivity of mammography. There is chronic nodularity bilaterally. No significant changes when compared with prior studies. ASSESSMENT: Benign, BI-RAD 2 RECOMMENDATION: Routine screening mammogram of both breasts in 1 year.
== END | disposition home or self-care (01) ==
LOC: RADMAMWWP 12:21
PROVIDERS: ATTEND Family Medicine
DX: Z12.31 Encounter for screening mammogram for malignant neoplasm of breast (principal)
CPT/HCPCS: 77063; 77067

== ENCOUNTER 2018-08-09 16:12 | Inpatient (IN) | payer MEDICARE ==
[2018-08-09 17:32] LABS: Basophils # (A) 0.1 k/uL (0-0.2); Basophils % (A) 1 %; Eosinophils # (A) 0.1 k/uL (0-0.7); Eosinophils % (A) 2 %; HCT 42.5 % (34.0-46.0); HGB 14.2 gm/dL (11.4-16.0); Lymphocytes # (A) 1.8 k/uL (1.0-4.8); Lymphocytes % (A) 21 %; MCH 31.5 pg (25.0-35.0); MCHC 33.5 g/dL (31.0-37.0); MCV 94.1 fL (80.0-100.0); Mean Platelet Volume 8.8; Monocytes # (A) 0.8 k/uL (0-1.0); Monocytes % (A) 10 %; Neutrophils # (A) 5.3 k/uL (1.3-7.7); Neutrophils % (A) 64 %; Platelet Count 206 k/uL (150-450); RBC 4.51 m/uL (3.80-5.40); RDW 12.6 % (11.5-15.5); WBC 8.4 k/uL (3.8-10.6)
[2018-08-09 17:42] LABS: ALT 25 U/L (9-52); AST 28 U/L (14-36); Albumin 4.2 g/dL (3.5-5.0); Alkaline Phosphatase 52 U/L (38-126); Anion Gap 7 mmol/L; Blood Urea Nitrogen 10 mg/dL (7-17); Calcium 9.5 mg/dL (8.4-10.2); Carbon Dioxide 27 mmol/L (22-30); Chloride 106 mmol/L (98-107); Glucose 106 mg/dL (74-99); Potassium 4.6 mmol/L (3.5-5.1); Sodium 140 mmol/L (137-145); Total Bilirubin 0.9 mg/dL (0.2-1.3); Total Protein 7.1 g/dL (6.3-8.2)
[2018-08-09 17:44] LABS: Partial Thromboplastin Time 24.7 sec (22.0-30.0)
[2018-08-09] MEDS ORDERED: methylPREDNISolone SOD SUCCI 125 MG/2 ML VIAL IV STA (18:13)
[2018-08-09] MEDS ORDERED: IPRATROPIUM-ALBUTEROL 3 ML NEB INHALATION STA (18:13)
[2018-08-09 18:39] LABS: Creatine Kinase 50 U/L (30-135)
[2018-08-09 18:52] LABS: Creatine Kinase MB 0.4 ng/mL (0.0-2.4); Troponin I <0.012 ng/mL (0.000-0.034)
--- NOTE | 2018-08-09 19:02 | ED ---
SOB HPI <Rasheed Jarvis - Last Filed: 08/09/18 20:44> - General Source: patient, family Mode of arrival: wheelchair Limitations: no limitations <Lili Neri - Last Filed: 08/09/18 21:28> - General Chief Complaint: Shortness of Breath Stated Complaint: IRENE Mccord Time Seen by Provider: 08/09/18 17:59 - History of Present Illness Initial Comments: 73-year-old female patient presents to the emergency department today for evaluation of cough, shortness of breath, and wheezing. Patient states that she has been sick with a cough for the last 5 days. Patient states that her symptoms seem to be worsening. States she is coughing up green sputum. States that she is having shortness of breath today. She denies any fever, chills, nasal congestion, nasal drainage, or sore throat. States that she does have a history of asthma and COPD and does use inhalers and nebulizer at home. Patient states these do improve her symptoms somewhat. States that she is having significant chest and rib pain. She denies any radiation of the pain through to her back. She denies any dizziness or weakness. Patient denies any recent rash, abdominal pain, nausea, vomiting, diarrhea, constipation, back pain , numbness, tingling, hematuria, dysuria, urinary urgency, urinary frequency, headache, visual changes, or any other complaints. (Lili Neri) - Related Data Home Medications Medication Instructions Recorded Confirmed ALPRAZolam [Xanax] 0.5 mg PO TID PRN 12/02/15 08/09/18 Citalopram Hydrobromide 40 mg PO HS 12/02/15 08/09/18 [Citalopram HBr] Lisinopril [Zestril] 20 mg PO HS 12/02/15 08/09/18 Albuterol Nebulized [Ventolin 2.5 mg INHALATION RT-QID PRN 12/03/15 08/09/18 Nebulized] Divalproex Sodium 250 mg PO HS 12/03/15 08/09/18 Montelukast Sodium 10 mg PO HS 12/03/15 08/09/18 Albuterol Sulfate [Proair Hfa] 1 - 2 puff INHALATION RT-Q6H PRN 05/25/17 Cholecalciferol (Vitamin D3) 2,000 unit PO DAILY 05/25/17 08/09/18 [Vitamin D3] Cyanocobalamin (Vitamin B-12) 1,000 mcg PO DAILY 05/25/17 08/09/18 [Vitamin B-12] Multivitamins, Thera [Multivitamin 1 tab PO DAILY 05/25/17 08/09/18 (formulary)] Levothyroxine Sodium [Synthroid] 300 mcg PO DAILY 08/09/18 08/09/18 Allergies Allergy/AdvReac Type Severity Reaction Status Date / Time cefaclor [From Ceclor] Allergy Unknown Verified 08/09/18 17:57 ceftriaxone [From Rocephin] Allergy Anaphylaxis Verified 08/09/18 17:57 levofloxacin [From Levaquin] Allergy Anaphylaxis Verified 08/09/18 17:57 Sulfa (Sulfonamide Allergy Unknown Verified 08/09/18 17:57 Antibiotics) morphine AdvReac Extreme Verified 08/09/18 17:57 Sedation Review of Systems ROS Other: All systems not noted in ROS Statement are negative. <Rasheed Jarvis - Last Filed: 08/09/18 20:44> ROS Other: All systems not noted in ROS Statement are negative. <Lili Neri - Last Filed: 08/09/18 21:28> ROS Statement: Those systems with pertinent positive or pertinent negative responses have been documented in the HPI. Past Medical History Past Medical History: Asthma, COPD, Hypertension, Musculoskeletal Disorder, Osteoarthritis (OA), Thyroid Disorder Additional Past Medical History / Comment(s): STRESS INCONT/WEARS PAD History of Any Multi-Drug Resistant Organisms: None Reported Past Surgical History: Cholecystectomy, Hysterectomy Additional Past Surgical History / Comment(s): RT Shoulder surgery, CATARACTS Past Anesthesia/Blood Transfusion Reactions: No Reported Reaction Additional Past Anesthesia/Blood Transfusion Reaction / Comment(s): trouble breathing coming out of surgery Past Psychological History: Depression Smoking Status: Never smoker Past Alcohol Use History: None Reported Past Drug Use History: None Reported - Past Family History Father History Unknown: Yes Family Medical History: Liver Disease Additional Family Medical History / Comment(s): pt is adopted DOES'NT KNOW MUCH ABOUT PARENTS Mother Family Medical History: Cancer Additional Family Medical History / Comment(s): LUNG CANCER Sister(s) Additional Family Medical History / Comment(s): HEART PROBLEMS Brother(s) Family Medical History: COPD Additional Family Medical History / Comment(s): LUNG DZ <Lili Neri - Last Filed: 08/09/18 21:28> General Exam Limitations: no limitations General appearance: alert, in no apparent distress, other (This is a well- developed, well-nourished elderly female patient in mild respiratory distress. Vital signs upon presentation are temperature 98.7F, pulse 78, respirations 26 , pulse ox 96% on room air.) Eye exam: Present: normal appearance, PERRL, EOMI. Absent: scleral icterus, conjunctival injection, periorbital swelling ENT exam: Present: normal exam, normal oropharynx, mucous membranes moist Respiratory exam: Present: wheezes (Faint expiratory wheezing all lung groves), accessory muscle use, decreased breath sounds (Throughout). Absent: normal lung sounds bilaterally, respiratory distress, rales, rhonchi, stridor Cardiovascular Exam: Present: regular rate, normal rhythm, normal heart sounds. Absent: systolic murmur, diastolic murmur, rubs, gallop, clicks GI/Abdominal exam: Present: soft, normal bowel sounds. Absent: distended, tenderness, guarding, rebound, rigid Neurological exam: Present: alert, oriented X3, CN II-XII intact Psychiatric exam: Present: normal affect, normal mood Skin exam: Present: warm, dry, intact, normal color. Absent: rash <Lili Neri - Last Filed: 08/09/18 21:28> Course <Rasheed Jarvis - Last Filed: 08/09/18 20:44> <Lili Neri M - Last Filed: 08/09/18 21:28> Vital Signs 08/09/18 08/09/18 08/09/18 16:24 18:37 18:49 Temperature 98.7 F Pulse Rate 78 131 H 122 H Respiratory 18 18 22 Rate Blood Pressure O2 Sat by Pulse 96 Oximetry 08/09/18 20:10 Temperature Pulse Rate 105 H Respiratory 18 Rate Blood Pressure 166/91 O2 Sat by Pulse 93 L Oximetry - Reevaluation(s) Reevaluation #1: 08/09/18 20:44 And P supervision: I proceeded [id number] evaluation the patient he has a history of COPD she been having shortness of breath and exertional dyspnea. Cough with some green phlegm. Not responding well to emergency department treatment she will be admitted. Case is discussed with Dr. Chua. I do agree with the assessment and plan. She does demonstrate diminished breath sounds with wheezing and lower lobes. (Rasheed Jarvis) Medical Decision Making - Lab Data Result diagrams: 08/09/18 16:45 08/09/18 16:45 <Rasheed Jarvis - Last Filed: 08/09/18 20:44> - Lab Data Result diagrams: 08/09/18 16:45 08/09/18 16:45 - EKG Data -: EKG Interpreted by Me - Radiology Data Radiology results: report reviewed, image reviewed <Lili Neri - Last Filed: 08/09/18 21:28> - Medical Decision Making 73-year-old female patient presented to the emergency department today for complaints of cough and shortness of breath. Physical examination did reveal fine expiratory wheezes at the posterior lung groves with diminished lung sounds. Labs reviewed and are unremarkable. Patient is also complaining of intermittent chest pain and nausea. Initial EKG showed sinus rhythm with PACs. Patient did have some changes on the monitor so we did repeat EKG which showed sinus tachycardia with frequent consecutive PVCs and fusion complexes. Patient had heart rates ranging between 120-150. Patient did receive DuoNeb breathing treatment and site Medrol here in the emergency department, she does report mild improvement of symptoms but remains tachypneic and short of breath. She'll be admitted to the hospital under the care of Dr. Chua. We will consult pulmonology. We'll consult cardiology for EKG changes. Did discuss findings and plan with the patient, she is agreeable. (Lili Neri) - Lab Data Lab Results 08/09/18 08/09/18 08/09/18 Range/Units 16:45 16:45 16:45 WBC 8.4 (3.8-10.6) k/uL RBC 4.51 (3.80-5.40) m/uL Hgb 14.2 (11.4-16.0) gm/dL Hct 42.5 (34.0-46.0) % MCV 94.1 (80.0-100.0) fL MCH 31.5 (25.0-35.0) pg MCHC 33.5 (31.0-37.0) g/dL RDW 12.6 (11.5-15.5) % Plt Count 206 (150-450) k/uL Neutrophils % 64 % Lymphocytes % 21 % Monocytes % 10 % Eosinophils % 2 % Basophils % 1 % Neutrophils # 5.3 (1.3-7.7) k/uL Lymphocytes # 1.8 (1.0-4.8) k/uL Monocytes # 0.8 (0-1.0) k/uL Eosinophils # 0.1 (0-0.7) k/uL Basophils # 0.1 (0-0.2) k/uL PT (9.0-12.0) sec INR (<1.2) APTT (22.0-30.0) sec Sodium 140 (137-145) mmol/L Potassium 4.6 (3.5-5.1) mmol/L Chloride 106 (98-107) mmol/L Carbon Dioxide 27 (22-30) mmol/L Anion Gap 7 mmol/L BUN 10 (7-17) mg/dL Creatinine 0.54 (0.52-1.04) mg/dL Est GFR (CKD-EPI)AfAm >90 (>60 ml/min/1.73 sqM) Est GFR (CKD-EPI)NonAf >90 (>60 ml/min/1.73 sqM) Glucose 106 H (74-99) mg/dL Plasma Lactic Acid Cam (0.7-2.0) mmol/L Calcium 9.5 (8.4-10.2) mg/dL Magnesium (1.6-2.3) mg/dL Total Bilirubin 0.9 (0.2-1.3) mg/dL AST 28 (14-36) U/L ALT 25 (9-52) U/L Alkaline Phosphatase 52 (38-126) U/L Total Creatine Kinase 50 (30-135) U/L CK-MB (CK-2) 0.4 (0.0-2.4) ng/mL CK-MB (CK-2) Rel Index 0.8 Troponin I <0.012 (0.000-0.034) ng/mL Total Protein 7.1 (6.3-8.2) g/dL Albumin 4.2 (3.5-5.0) g/dL 08/09/18 08/09/18 08/09/18 Range/Units 16:45 16:45 16:45 WBC (3.8-10.6) k/uL RBC (3.80-5.40) m/uL Hgb (11.4-16.0) gm/dL Hct (34.0-46.0) % MCV (80.0-100.0) fL MCH (25.0-35.0) pg MCHC (31.0-37.0) g/dL RDW (11.5-15.5) % Plt Count (150-450) k/uL Neutrophils % % Lymphocytes % % Monocytes % % Eosinophils % % Basophils % % Neutrophils # (1.3-7.7) k/uL Lymphocytes # (1.0-4.8) k/uL Monocytes # (0-1.0) k/uL Eosinophils # (0-0.7) k/uL Basophils # (0-0.2) k/uL PT 10.0 (9.0-12.0) sec INR 1.0 (<1.2) APTT 24.7 (22.0-30.0) sec Sodium (137-145) mmol/L Potassium (3.5-5.1) mmol/L Chloride (98-107) mmol/L Carbon Dioxide (22-30) mmol/L Anion Gap mmol/L BUN (7-17) mg/dL Creatinine (0.52-1.04) mg/dL Est GFR (CKD-EPI)AfAm (>60 ml/min/1.73 sqM) Est GFR (CKD-EPI)NonAf (>60 ml/min/1.73 sqM) Glucose (74-99) mg/dL Plasma Lactic Acid Cam 1.5 (0.7-2.0) mmol/L Calcium (8.4-10.2) mg/dL Magnesium 1.9 (1.6-2.3) mg/dL Total Bilirubin (0.2-1.3) mg/dL AST (14-36) U/L ALT (9-52) U/L Alkaline Phosphatase (38-126) U/L Total Creatine Kinase (30-135) U/L CK-MB (CK-2) (0.0-2.4) ng/mL CK-MB (CK-2) Rel Index Troponin I (0.000-0.034) ng/mL Total Protein (6.3-8.2) g/dL Albumin (3.5-5.0) g/dL - EKG Data EKG Comments: EKG obtained at 1635 shows sinus rhythm with PACs, ventricular rate is 85, PA interval 174, QRS duration 84, QT 350, QTC 416. No evidence of ST elevation or depression. EKG obtained at 1835 shows sinus tachycardia with frequent and consecutive PVCs and fusion complexes. Ventricular rate is 121, PA interval 172, QRS duration 74 , QT 356, QTc 505. No evidence of ST elevation or depression. (Lili Neri) - Radiology Data Two-view x-ray of the chest was obtained. Report was reviewed in its entirety. Impression by Dr. Machelle Hardy shows no acute pulmonary/pleural process. ( Lili Neri) Disposition <Rasheed Jarvis - Last Filed: 08/09/18 20:44> Decision to Admit Reason: Admit from EC Decision Date: 08/09/18 Decision Time: 21:23 <Lili Neri - Last Filed: 08/09/18 21:28> Clinical Impression: COPD exacerbation, Acute electrocardiogram changes Disposition: ADMITTED IP TO THIS [facility] Condition: Serious Referrals: Joce Chua MD [Primary Care Provider] - 1-2 days
--- NOTE | 2018-08-09 19:19 | XR ---
EXAMINATION: XR chest 2V DATE AND TIME: 08/09/2018 6:17 PM CLINICAL INDICATION: difficulty breathing TECHNIQUE: AP and lateral COMPARISON: 08/17/2017 FINDINGS: The lungs are clear. The hemidiaphragms are prominently elevated bilaterally, consistent with low lung inflation at the mo ment of x-ray exposure. The pleural spaces are negative. The cardiac silhouette is moderate-marked enlarged. The remainder of the mediastinal silhouette is unremarkable. The skeletal structures and soft tissues are negative for acute findings. IMPRESSION: NO ACUTE PULMONARY-PLEURAL PROCESS.
[2018-08-09] MEDS ORDERED: IPRATROPIUM-ALBUTEROL 3 ML NEB INHALATION PRN (21:20)
[2018-08-09] MEDS ORDERED: MAGNESIUM SULFATE-D5W PMX 1 GM in DEXTROSE/WATER 1 100ML.BAG IVPB ONE (21:20)
[2018-08-09] MEDS ORDERED: ONDANSETRON 4 MG/2 ML VIAL IVP STA (21:26)
[2018-08-10] MEDS ORDERED: SODIUM CHLORIDE 0.9% 1,000 ML IV ONE (00:41)
[2018-08-10 01:08] VITALS: BMI 35.6
[2018-08-10] MEDS: methylPREDNISolone SOD SUCCI 125 MG/2 ML VIAL IV SCH ×5 (01:18→23:09)
[2018-08-10 06:22] LABS: Glucose,Whole Blood 172 mg/dL (75-99)
[2018-08-10] MEDS: LEVOTHYROXINE 100 MCG TAB PO SCH (06:45)
[2018-08-10 07:02] LABS: Anion Gap 10 mmol/L; Blood Urea Nitrogen 11 mg/dL (7-17); Calcium 9.2 mg/dL (8.4-10.2); Carbon Dioxide 26 mmol/L (22-30); Chloride 106 mmol/L (98-107); Glucose 173 mg/dL (74-99); Magnesium 2.2 mg/dL (1.6-2.3); Potassium 4.8 mmol/L (3.5-5.1); Sodium 142 mmol/L (137-145)
[2018-08-10] MEDS: IPRATROPIUM-ALBUTEROL 3 ML NEB INHALATION SCH ×4 (07:52→20:23)
--- NOTE | 2018-08-10 08:05 | P.HPIM ---
History of Present Illness H&P Date: 08/10/18 Chief Complaint: SOB This is history of physical 71-year-old white female who's had at least a week long history of intermittent worsening dyspnea on exertion. She hasn't underlying history of COPD and some minor practitioner in the office yesterday. She was dusky and somewhat bluish-appearing with low pulse oximetry. She was sent for evaluation in the emergency room and appropriately admitted for exacerbation of COPD. She's also had some arrhythmia and cardiology is not consulted also. No fever or chills. History of secondhand smoke. Significant weakness is otherwise noted. No significant nausea, vomiting or diarrhea. Review of Systems Constitutional: Denies chills, Denies fever Eyes: denies blurred vision, denies pain Ears, nose, mouth and throat: Denies headache, Denies sore throat Cardiovascular: Denies chest pain, Denies shortness of breath Respiratory: Denies cough Gastrointestinal: Denies abdominal pain, Denies diarrhea, Denies nausea, Denies vomiting Genitourinary: Denies dysuria, Denies hematuria Musculoskeletal: Denies myalgias Integumentary: Denies pruritus, Denies rash Neurological: Denies numbness, Denies weakness Psychiatric: Denies anxiety, Denies depression Endocrine: Denies fatigue, Denies weight change Past Medical History Past Medical History: Asthma, COPD, Hypertension, Musculoskeletal Disorder, Osteoarthritis (OA), Thyroid Disorder Additional Past Medical History / Comment(s): STRESS INCONT/WEARS PAD History of Any Multi-Drug Resistant Organisms: None Reported Past Surgical History: Cholecystectomy, Hysterectomy Additional Past Surgical History / Comment(s): RT Shoulder surgery, CATARACTS Past Anesthesia/Blood Transfusion Reactions: No Reported Reaction Additional Past Anesthesia/Blood Transfusion Reaction / Comment(s): trouble breathing coming out of surgery Past Psychological History: Depression Smoking Status: Never smoker Past Alcohol Use History: None Reported Past Drug Use History: None Reported - Past Family History Father History Unknown: Yes Family Medical History: Liver Disease Additional Family Medical History / Comment(s): pt is adopted DOES'NT KNOW MUCH ABOUT PARENTS Mother Family Medical History: Cancer Additional Family Medical History / Comment(s): LUNG CANCER Sister(s) Additional Family Medical History / Comment(s): HEART PROBLEMS Brother(s) Family Medical History: COPD Additional Family Medical History / Comment(s): LUNG DZ Medications and Allergies Home Medications Medication Instructions Recorded Confirmed Type ALPRAZolam [Xanax] 0.5 mg PO TID PRN 12/02/15 08/09/18 History Citalopram Hydrobromide 40 mg PO HS 12/02/15 08/09/18 History [Citalopram HBr] Lisinopril [Zestril] 20 mg PO HS 12/02/15 08/09/18 History Albuterol Nebulized [Ventolin 2.5 mg INHALATION RT-QID PRN 12/03/15 08/09/18 History Nebulized] Divalproex Sodium 250 mg PO HS 12/03/15 08/09/18 History Montelukast Sodium 10 mg PO HS 12/03/15 08/09/18 History Albuterol Sulfate [Proair Hfa] 1 - 2 puff INHALATION RT-Q6H PRN 05/25/17 History Cholecalciferol (Vitamin D3) 2,000 unit PO DAILY 05/25/17 08/09/18 History [Vitamin D3] Cyanocobalamin (Vitamin B-12) 1,000 mcg PO DAILY 05/25/17 08/09/18 History [Vitamin B-12] Multivitamins, Thera [Multivitamin 1 tab PO DAILY 05/25/17 08/09/18 History (formulary)] Levothyroxine Sodium [Synthroid] 300 mcg PO DAILY 08/09/18 08/09/18 History Allergies Allergy/AdvReac Type Severity Reaction Status Date / Time cefaclor [From Ceclor] Allergy Unknown Verified 08/09/18 17:57 ceftriaxone [From Rocephin] Allergy Anaphylaxis Verified 08/09/18 17:57 levofloxacin [From Levaquin] Allergy Anaphylaxis Verified 08/09/18 17:57 Sulfa (Sulfonamide Allergy Unknown Verified 08/09/18 17:57 Antibiotics) morphine AdvReac Extreme Verified 08/09/18 17:57 Sedation Physical Exam Vitals: Vital Signs Temp Pulse Pulse Resp BP BP Pulse Ox 08/10/18 03:49 97.1 F L 120 H 20 134/83 94 L 08/10/18 00:45 130 H 20 141/77 95 08/10/18 00:09 122 H 08/10/18 00:00 97.1 F L 118 H 123 H 22 150/72 96 08/09/18 20:10 105 H 18 166/91 93 L 08/09/18 18:49 122 H 22 08/09/18 18:37 131 H 18 08/09/18 16:24 98.7 F 78 18 96 Intake and Output 08/09/18 08/10/18 08/10/18 22:59 06:59 14:59 Other: # Voids 1 Weight 79.832 kg 80 kg - Constitutional General appearance: no acute distress - EENT Eyes: EOMI - Neck Neck: no lymphadenopathy - Respiratory Respiratory: bilateral: CTA - Cardiovascular Rhythm: regular Heart sounds: normal: S1, S2 Abnormal Heart Sounds: S3 Gallop - Gastrointestinal General gastrointestinal: soft, no tenderness - Psychiatric Psychiatric: A&O x's 3 Results CBC & Chem 7: 08/09/18 16:45 08/10/18 05:05 Labs: Abnormal Lab Results - Last 24 Hours (Table) 08/09/18 08/10/18 08/10/18 Range/Units 16:45 05:05 06:21 Glucose 106 H 173 H (74-99) mg/dL POC Glucose (mg/dL) 172 H (75-99) mg/dL Thrombosis Risk Factor Assmnt - Choose All That Apply Any of the Below Risk Factors Present?: Yes Each Factor Represents 1 point: Abnormal pulmonary function (COPD), Obesity ( BMI >25) Other Risk Factors: Yes Each Risk Factor Represents 2 Points: Age 61-74 years Other congenital or acquired thrombophilia - If yes, enter type in comment: No Thrombosis Risk Factor Assessment Total Risk Factor Score: 4 Thrombosis Risk Factor Assessment Level: Moderate Risk Assessment and Plan (1) Acute electrocardiogram changes Current Visit: Yes Status: Acute Code(s): R94.31 - ABNORMAL ELECTROCARDIOGRAM [ECG] [EKG] SNOMED Code(s): 294018281 (2) COPD exacerbation Current Visit: Yes Status: Acute Code(s): J44.1 - CHRONIC OBSTRUCTIVE PULMONARY DISEASE W (ACUTE) EXACERBATION SNOMED Code(s): 334451298 (3) Bronchitis Current Visit: No Status: Acute Code(s): J40 - BRONCHITIS, NOT SPECIFIED ACUTE OR CHRONIC SNOMED Code(s): 70384712 Plan: We will go ahead and continue appropriate COPD exacerbation protocols. Reconcile home medications. Place on sliding scale as necessary. Check CBC and CMP in a.m. per Appreciate consultants input. Otherwise, the patient is full code.
[2018-08-10] MEDS: traMADol 50 MG TAB PO PRN (09:21)
[2018-08-10] MEDS: CHOLECALCIFEROL 1,000 UNIT TAB PO SCH (09:21)
[2018-08-10] MEDS: CYANOCOBALAMIN 500 MCG TAB PO SCH (09:21)
[2018-08-10] MEDS: guaiFENesin 600 MG TABLET.ER PO SCH ×2 (09:22→20:51)
[2018-08-10] MEDS: MULTIVITAMINS, THERA 1 EACH TAB PO SCH (11:24)
[2018-08-10 11:38] LABS: Glucose,Whole Blood 188 mg/dL (75-99)
[2018-08-10 13:14] LABS: Hemoglobin A1C 6.1 % (4.0-6.0)
--- NOTE | 2018-08-10 14:03 | P.CRDCN ---
History of Present Illness Consult date: 08/10/18 Requesting physician: Joce Chua Reason for Consult (text): EKG changes Chief complaint: Shortness of breath, cough History of present illness: This is a 73-year-old female with history of hypertension, prior history of seizure, COPD, hypothyroidism,, who presents to the hospital with symptoms of difficulty in breathing. She also states that she's been having intermittent heaviness in her chest. She denies any prior history of heart disease, she is nondiabetic, borderline hyperlipidemia. Patient was admitted to the hospital in 2016 was similar symptoms at which time she underwent a dobutamine echocardiographic study that was negative for any reversible ischemia. Echocardiogram with Doppler study performed at that time also showed a normal left ventricular systolic function. Asked x-ray does not reveal any acute pulmonary process. EKG shows a sinus tachycardia with PACs and PVCs. Subsequent EKG shows a normal sinus rhythm with occasional PAC. Past Medical History Past Medical History: Asthma, COPD, Hypertension, Musculoskeletal Disorder, Osteoarthritis (OA), Thyroid Disorder Additional Past Medical History / Comment(s): STRESS INCONT/WEARS PAD History of Any Multi-Drug Resistant Organisms: None Reported Past Surgical History: Cholecystectomy, Hysterectomy Additional Past Surgical History / Comment(s): RT Shoulder surgery, CATARACTS Past Anesthesia/Blood Transfusion Reactions: No Reported Reaction Additional Past Anesthesia/Blood Transfusion Reaction / Comment(s): trouble breathing coming out of surgery Past Psychological History: Depression Smoking Status: Never smoker Past Alcohol Use History: None Reported Past Drug Use History: None Reported - Past Family History Father History Unknown: Yes Family Medical History: Liver Disease Additional Family Medical History / Comment(s): pt is adopted DOES'NT KNOW MUCH ABOUT PARENTS Mother Family Medical History: Cancer Additional Family Medical History / Comment(s): LUNG CANCER Sister(s) Additional Family Medical History / Comment(s): HEART PROBLEMS Brother(s) Family Medical History: COPD Additional Family Medical History / Comment(s): LUNG DZ Medications and Allergies Home Medications Medication Instructions Recorded Confirmed Type ALPRAZolam [Xanax] 0.5 mg PO TID PRN 12/02/15 08/09/18 History Citalopram Hydrobromide 40 mg PO HS 12/02/15 08/09/18 History [Citalopram HBr] Lisinopril [Zestril] 20 mg PO HS 12/02/15 08/09/18 History Albuterol Nebulized [Ventolin 2.5 mg INHALATION RT-QID PRN 12/03/15 08/09/18 History Nebulized] Divalproex Sodium 250 mg PO HS 12/03/15 08/09/18 History Montelukast Sodium 10 mg PO HS 12/03/15 08/09/18 History Albuterol Sulfate [Proair Hfa] 1 - 2 puff INHALATION RT-Q6H PRN 05/25/17 History Cholecalciferol (Vitamin D3) 2,000 unit PO DAILY 05/25/17 08/09/18 History [Vitamin D3] Cyanocobalamin (Vitamin B-12) 1,000 mcg PO DAILY 05/25/17 08/09/18 History [Vitamin B-12] Multivitamins, Thera [Multivitamin 1 tab PO DAILY 05/25/17 08/09/18 History (formulary)] Levothyroxine Sodium [Synthroid] 300 mcg PO DAILY 08/09/18 08/09/18 History Allergies Allergy/AdvReac Type Severity Reaction Status Date / Time cefaclor [From Ceclor] Allergy Unknown Verified 08/09/18 17:57 ceftriaxone [From Rocephin] Allergy Anaphylaxis Verified 08/09/18 17:57 levofloxacin [From Levaquin] Allergy Anaphylaxis Verified 08/09/18 17:57 Sulfa (Sulfonamide Allergy Unknown Verified 08/09/18 17:57 Antibiotics) morphine AdvReac Extreme Verified 08/09/18 17:57 Sedation Physical Exam Vitals: Vital Signs Temp Pulse Pulse Resp BP BP Pulse Ox 08/10/18 12:00 18 08/10/18 11:47 100 08/10/18 11:37 100 08/10/18 11:29 97.5 F L 77 18 151/71 95 08/10/18 08:00 97.6 F 71 18 149/79 95 08/10/18 07:51 20 08/10/18 03:49 97.1 F L 120 H 20 134/83 94 L 08/10/18 00:45 130 H 20 141/77 95 08/10/18 00:09 122 H 08/10/18 00:00 97.1 F L 118 H 123 H 22 150/72 96 08/09/18 20:10 105 H 18 166/91 93 L 08/09/18 18:49 122 H 22 08/09/18 18:37 131 H 18 08/09/18 16:24 98.7 F 78 18 96 Intake and Output 08/09/18 08/10/18 08/10/18 22:59 06:59 14:59 Intake Total 240 Balance 240 Intake: Oral 240 Other: Voiding Method Toilet # Voids 1 Weight 79.832 kg 80 kg PHYSICAL EXAMINATION: GENERAL: 73-year-old female in no acute distress at the time of my examination HEENT: Head is atraumatic, normocephalic. Pupils equal, round. Sclera anicteric. Conjunctiva are clear. Mucous membranes of the mouth are moist. Neck is supple. There is no elevated jugular venous pressure. No Carotid bruit is heard. HEART EXAMINATION: Heart S1, S2 normal. No murmur or gallop heard. CHEST EXAMINATION: Reveal decreased air exchange throughout with scattered wheezing throughout. ABDOMEN: Soft, nontender. Bowel sounds are heard. No organomegaly noted. EXTREMITIES: 2+ peripheral pulses with no evidence of peripheral edema and no calf tenderness noted. NEUROLOGIC patient is awake, alert and oriented 3 . . Results 08/09/18 16:45 08/10/18 05:05 Cardiac Enzymes 08/09/18 08/09/18 08/09/18 Range/Units 16:45 16:45 22:45 AST 28 (14-36) U/L CK-MB (CK-2) 0.4 (0.0-2.4) ng/mL Troponin I <0.012 <0.012 (0.000-0.034) ng/mL 08/10/18 Range/Units 05:05 AST (14-36) U/L CK-MB (CK-2) (0.0-2.4) ng/mL Troponin I 0.015 (0.000-0.034) ng/mL Coagulation 08/09/18 Range/Units 16:45 PT 10.0 (9.0-12.0) sec APTT 24.7 (22.0-30.0) sec CBC 08/09/18 Range/Units 16:45 WBC 8.4 (3.8-10.6) k/uL RBC 4.51 (3.80-5.40) m/uL Hgb 14.2 (11.4-16.0) gm/dL Hct 42.5 (34.0-46.0) % Plt Count 206 (150-450) k/uL Comprehensive Metabolic Panel 08/09/18 08/10/18 Range/Units 16:45 05:05 Sodium 140 142 (137-145) mmol/L Potassium 4.6 4.8 (3.5-5.1) mmol/L Chloride 106 106 (98-107) mmol/L Carbon Dioxide 27 26 (22-30) mmol/L BUN 10 11 (7-17) mg/dL Creatinine 0.54 0.59 (0.52-1.04) mg/dL Glucose 106 H 173 H (74-99) mg/dL Calcium 9.5 9.2 (8.4-10.2) mg/dL AST 28 (14-36) U/L ALT 25 (9-52) U/L Alkaline Phosphatase 52 (38-126) U/L Total Protein 7.1 (6.3-8.2) g/dL Albumin 4.2 (3.5-5.0) g/dL Current Medications Generic Name Dose Route Start Last Admin Trade Name Freq PRN Reason Stop Dose Admin Albuterol/Ipratropium 3 ml 08/09/18 21:20 08/09/18 23:58 Duoneb 0.5 Mg-3 Mg/3 Ml Soln INHALATION 3 ml RT-Q4H PRN Administration Shortness Of Breath Or Wheezing Albuterol/Ipratropium 3 ml 08/10/18 08:00 08/10/18 11:37 Duoneb 0.5 Mg-3 Mg/3 Ml Soln INHALATION 3 ml RT-QID SHLOMO Administration Alprazolam 0.5 mg 08/09/18 21:21 Xanax PO TID PRN Anxiety/Insomnia Cholecalciferol 2,000 unit 08/10/18 09:00 08/10/18 09:21 Vitamin D3 PO 2,000 unit DAILY SHLOMO Administration Citalopram Hydrobromide 40 mg 08/10/18 21:00 Celexa PO HS SHLOMO Cyanocobalamin 1,000 mcg 08/10/18 09:00 08/10/18 09:21 Vitamin B-12 PO 1,000 mcg DAILY SHLOMO Administration Divalproex Sodium 250 mg 08/10/18 21:00 Depakote PO HS [facility] Guaifenesin 1,200 mg 08/10/18 09:00 08/10/18 09:22 Mucinex PO 1,200 mg Q12HR SHLOMO Administration Levothyroxine Sodium 300 mcg 08/10/18 06:30 08/10/18 06:45 Synthroid PO 300 mcg DAILY@0630 SHLOMO Administration Lisinopril 20 mg 08/10/18 21:00 Zestril PO HS [facility] Methylprednisolone Sodium Succinate 60 mg 08/10/18 00:00 08/10/18 11:24 Solu-Medrol IV 60 mg Q6HR SHLOMO Administration Montelukast Sodium 10 mg 08/10/18 21:00 Singulair PO HS [facility] Multivitamins 1 each 08/10/18 12:00 08/10/18 11:24 Theragran PO 1 each DAILY@1200 SHLOMO Administration Sodium Chloride 10 ml 08/10/18 09:00 08/10/18 09:16 Saline Flush IV Not Given BID [facility] Tramadol HCl 50 mg 08/10/18 08:14 08/10/18 09:21 Ultram PO 50 mg TID PRN Administration Headache Zolpidem Tartrate 5 mg 08/10/18 08:14 Ambien PO HS PRN Insomnia Intake and Output 08/09/18 08/10/18 08/10/18 22:59 06:59 14:59 Intake Total 240 Balance 240 Intake: Oral 240 Other: Voiding Method Toilet # Voids 1 Weight 79.832 kg 80 kg 08/09/18 16:45 08/10/18 05:05 EKG Interpretations (text) EKG shows normal sinus rhythm with PACs and PVCs Assessment and Plan Plan: Assessment and plan #1 chest pain, atypical for acute coronary syndrome. Troponins 0.012, 0.012, 0.015. EKG shows normal sinus rhythm with PVCs and PACs, no acute changes noted. #2 possible COPD exacerbation #3 asthma #4 hypothyroidism #5 hypertension #6 PACs and PVCs, potassium and magnesium in normal range Plan We will obtain an echocardiogram with Doppler study. Once the patient's lung status improves may consider performing a stress test. Dobutamine echo performed in 2016 negative for any reversible ischemia. DNP note has been reviewed, I agree with a documented findings and plan of care. Patient was seen and examined.
--- NOTE | 2018-08-10 14:18 | P.CNPUL ---
History of Present Illness Consult date: 08/10/18 Requesting physician: Joce Chua Reason for consult: dyspnea, cough Chief complaint: Cough, shortness of breath History of present illness: This is 73-year-old white female patient of Dr. Chua who came into the emergency department on 08/09/2018 at 1600 for evaluation of cough, shortness of breath, hypoxemia and wheezing. Patient had been sick with a cough for the last 5 days, worsening symptoms. Cough is productive with green sputum. Any fever, denied any chills, sore throat or nasal congestion. She has a history of chronic bronchial asthma, and she has albuterol rescue inhaler and Singulair as maintenance medications. Dr. Chua manages her pulmonary symptoms. She is on home oxygen. Other history includes hypertension, hypothyroidism, osteoarthritis, depression. Patient states she was exposed to secondhand smoke growing up, was not a smoker herself. This x-ray was some bleeding, showed no acute pulmonary pleural process. EKG showed sinus rhythm, with voltage criteria for LVH. Initial lab work showed WBC of 8.4, hemoglobin 14.2, electrolytes and renal profile were within normal limits, lactic acid was 1.5, LFTs were normal, troponins were negative 3. Patient was started on nebulized bronchodilators, Mucinex, steroids, seen this patient in consultation for acute exacerbation of COPD Review of Systems All systems: negative Constitutional: Denies chills, Denies fever Eyes: denies blurred vision, denies pain Ears, nose, mouth and throat: Denies headache, Denies sore throat Cardiovascular: Reports dyspnea on exertion, Denies chest pain, Denies shortness of breath Respiratory: Reports cough with sputum, Reports dyspnea, Reports home oxygen, Reports wheezing, Denies cough Gastrointestinal: Denies abdominal pain, Denies diarrhea, Denies nausea, Denies vomiting Genitourinary: Denies dysuria, Denies hematuria Musculoskeletal: Denies myalgias Integumentary: Denies pruritus, Denies rash Neurological: Denies numbness, Denies weakness Psychiatric: Denies anxiety, Denies depression Endocrine: Denies fatigue, Denies weight change Past Medical History Past Medical History: Asthma, COPD, Hypertension, Musculoskeletal Disorder, Osteoarthritis (OA), Thyroid Disorder Additional Past Medical History / Comment(s): STRESS INCONT/WEARS PAD History of Any Multi-Drug Resistant Organisms: None Reported Past Surgical History: Cholecystectomy, Hysterectomy Additional Past Surgical History / Comment(s): RT Shoulder surgery, CATARACTS Past Anesthesia/Blood Transfusion Reactions: No Reported Reaction Additional Past Anesthesia/Blood Transfusion Reaction / Comment(s): trouble breathing coming out of surgery Past Psychological History: Depression Smoking Status: Never smoker Past Alcohol Use History: None Reported Past Drug Use History: None Reported - Past Family History Father History Unknown: Yes Family Medical History: Liver Disease Additional Family Medical History / Comment(s): pt is adopted DOES'NT KNOW MUCH ABOUT PARENTS Mother Family Medical History: Cancer Additional Family Medical History / Comment(s): LUNG CANCER Sister(s) Additional Family Medical History / Comment(s): HEART PROBLEMS Brother(s) Family Medical History: COPD Additional Family Medical History / Comment(s): LUNG DZ Medications and Allergies Home Medications Medication Instructions Recorded Confirmed Type ALPRAZolam [Xanax] 0.5 mg PO TID PRN 12/02/15 08/09/18 History Citalopram Hydrobromide 40 mg PO HS 12/02/15 08/09/18 History [Citalopram HBr] Lisinopril [Zestril] 20 mg PO HS 12/02/15 08/09/18 History Albuterol Nebulized [Ventolin 2.5 mg INHALATION RT-QID PRN 12/03/15 08/09/18 History Nebulized] Divalproex Sodium 250 mg PO HS 12/03/15 08/09/18 History Montelukast Sodium 10 mg PO HS 12/03/15 08/09/18 History Albuterol Sulfate [Proair Hfa] 1 - 2 puff INHALATION RT-Q6H PRN 05/25/17 History Cholecalciferol (Vitamin D3) 2,000 unit PO DAILY 05/25/17 08/09/18 History [Vitamin D3] Cyanocobalamin (Vitamin B-12) 1,000 mcg PO DAILY 05/25/17 08/09/18 History [Vitamin B-12] Multivitamins, Thera [Multivitamin 1 tab PO DAILY 05/25/17 08/09/18 History (formulary)] Levothyroxine Sodium [Synthroid] 300 mcg PO DAILY 08/09/18 08/09/18 History Allergies Allergy/AdvReac Type Severity Reaction Status Date / Time cefaclor [From Ceclor] Allergy Unknown Verified 08/09/18 17:57 ceftriaxone [From Rocephin] Allergy Anaphylaxis Verified 08/09/18 17:57 levofloxacin [From Levaquin] Allergy Anaphylaxis Verified 08/09/18 17:57 Sulfa (Sulfonamide Allergy Unknown Verified 08/09/18 17:57 Antibiotics) morphine AdvReac Extreme Verified 08/09/18 17:57 Sedation Physical Exam Vitals: Vital Signs Temp Pulse Pulse Resp BP BP Pulse Ox 08/10/18 12:00 18 08/10/18 11:47 100 08/10/18 11:37 100 08/10/18 11:29 97.5 F L 77 18 151/71 95 08/10/18 08:00 97.6 F 71 18 149/79 95 08/10/18 07:51 20 08/10/18 03:49 97.1 F L 120 H 20 134/83 94 L 08/10/18 00:45 130 H 20 141/77 95 08/10/18 00:09 122 H 08/10/18 00:00 97.1 F L 118 H 123 H 22 150/72 96 08/09/18 20:10 105 H 18 166/91 93 L 08/09/18 18:49 122 H 22 08/09/18 18:37 131 H 18 08/09/18 16:24 98.7 F 78 18 96 Intake and Output 08/09/18 08/10/18 08/10/18 22:59 06:59 14:59 Intake Total 240 Balance 240 Intake: Oral 240 Other: Voiding Method Toilet # Voids 1 Weight 79.832 kg 80 kg GENERAL EXAM: Alert, pleasant, 73-year-old white female, comfortable in no apparent distress. HEAD: Normocephalic/atraumatic. EYES: Normal reaction of pupils, equal size. Conjunctiva pink, sclera white. NOSE: Clear with pink turbinates. THROAT: No erythema or exudates. NECK: No masses, no JVD, no thyroid enlargement, no adenopathy. CHEST: No chest wall deformity. Symmetrical expansion. LUNGS: Equal air entry with coughing on forced exhale maneuver. Lung sounds are diminished bilaterally CVS: Regular rate and rhythm, normal S1 and S2, no gallops, no murmurs, no rubs ABDOMEN: Soft, nontender. No hepatosplenomegaly, normal bowel sounds, no guarding or rigidity. EXTREMITIES: No clubbing, no edema, no cyanosis, 2+ pulses and upper and lower extremities. MUSCULOSKELETAL: Muscle strength and tone normal. SPINE: No scoliosis or deformity SKIN: No rashes CENTRAL NERVOUS SYSTEM: Alert and oriented -3. No focal deficits, tone is normal in all 4 extremities. PSYCHIATRIC: Alert and oriented -3. Appropriate affect. Intact judgment and insight. Results - Laboratory Findings CBC and BMP: 08/09/18 16:45 08/10/18 05:05 PT/INR, D-dimer PT 10.0 sec (9.0-12.0) 08/09/18 16:45 INR 1.0 (<1.2) 08/09/18 16:45 Abnormal lab findings: Abnormal Labs 08/09/18 08/10/18 08/10/18 16:45 05:05 05:05 Glucose 106 H 173 H POC Glucose (mg/dL) Hemoglobin A1c 6.1 H 08/10/18 08/10/18 06:21 11:35 Glucose POC Glucose (mg/dL) 172 H 188 H Hemoglobin A1c - Diagnostic Findings Chest x-ray: report reviewed, image reviewed Additional studies: EKG reviewed Assessment and Plan Plan: Assessment: #1. Acute on chronic hypoxemic respiratory failure, secondary to acute exacerbation of chronic bronchial asthma, unspecified #2. Atypical chest pain, negative troponins 3, EKG was negative for any acute ischemic changes, cardiology is following #3. Dyspnea, cough, phlegm production related to the above #4. Exposure to secondhand smoke, patient was not a smoker herself #5. Hypertention #6. History of seizures #7. Depression #8. Hypothyroidism #9. Osteoarthritis Plan: Continue IV steroids, nebulized bronchodilators, Singulair. Continue the Mucinex. Denies any chest pain, worsening shortness of breath. No fever, no chills, chest x-ray was reviewed by Dr. Echeverria, showed no acute pulmonary process. We'll continue to follow I performed a history & physical examination of the patient and discussed their management with my nurse practitioner, Beatrice Christian. I reviewed the nurse practitioner's note and agree with the documented findings and plan of care. Lung sounds are positive for management sounds, coughing with forced exhale maneuver. The findings and the impression was discussed with the patient. I attest to the documentation by the nurse practitioner.
[2018-08-10 16:24] LABS: Glucose,Whole Blood 231 mg/dL (75-99)
[2018-08-10] MEDS: LISINOPRIL 20 MG TAB PO SCH (20:50)
[2018-08-10] MEDS: MONTELUKAST 10 MG TAB PO SCH (20:51)
[2018-08-10] MEDS: CITALOPRAM HYDROBROMIDE 20 MG TAB PO SCH (20:51)
[2018-08-10] MEDS: INSULIN ASPART 100 UNIT/ML 1 ML 10 ML VIAL SQ SCH (21:02)
[2018-08-10 21:20] LABS: Glucose,Whole Blood 190 mg/dL (75-99)
[2018-08-10] MEDS: DIVALPROEX 250 MG TABLET.DR PO SCH (21:53)
[2018-08-10] MEDS: ZOLPIDEM 5 MG TAB PO PRN (23:09)
[2018-08-11 06:13] LABS: Glucose,Whole Blood 153 mg/dL (75-99)
[2018-08-11] MEDS: INSULIN ASPART 100 UNIT/ML 1 ML 10 ML VIAL SQ SCH ×4 (06:36→21:17)
[2018-08-11] MEDS: LEVOTHYROXINE 100 MCG TAB PO SCH (06:39)
[2018-08-11] MEDS: methylPREDNISolone SOD SUCCI 125 MG/2 ML VIAL IV SCH ×4 (06:40→22:50)
[2018-08-11] MEDS: IPRATROPIUM-ALBUTEROL 3 ML NEB INHALATION SCH ×4 (08:11→20:55)
[2018-08-11] MEDS: CYANOCOBALAMIN 500 MCG TAB PO SCH (08:12)
[2018-08-11] MEDS: CHOLECALCIFEROL 1,000 UNIT TAB PO SCH (08:12)
[2018-08-11] MEDS: guaiFENesin 600 MG TABLET.ER PO SCH ×2 (08:13→20:34)
--- NOTE | 2018-08-11 08:13 | P.PN ---
Subjective Progress Note Date: 08/11/18 Principal diagnosis: This can impression a 71-year-old white female essentially admitted for exacerbation of COPD. The patient still has significant fatigue. Appreciate multiple consultants input. Question need for echocardiogram. No voiding difficulties. She did have some altered mental status with Ambien. We will try Restoril this evening Objective - Vital Signs Vital signs: Vital Signs Temp 97.5 F L 08/10/18 11:29 Pulse 67 08/11/18 04:00 Resp 18 08/11/18 04:00 BP 140/79 08/11/18 04:00 Pulse Ox 95 08/11/18 04:00 Intake & Output 08/10/18 08/11/18 08/11/18 18:59 06:59 18:59 Intake Total 462 240 Balance 462 240 Weight 80.6 kg Intake: Oral 462 240 Other: Voiding Method Toilet Toilet Diaper # Voids 1 - Constitutional General appearance: Present: average body habitus - Respiratory Respiratory: bilateral: diminished - Cardiovascular Rhythm: regular Heart sounds: normal: S1, S2 Abnormal Heart Sounds: Absent: S3 Gallop - Gastrointestinal General gastrointestinal: Present: soft - Integumentary Integumentary: Absent: cellulitis - Labs CBC & Chem 7: 08/09/18 16:45 08/10/18 05:05 Labs: Abnormal Lab Results - Last 24 Hours (Table) 08/10/18 08/10/18 08/10/18 Range/Units 05:05 11:35 16:22 POC Glucose (mg/dL) 188 H 231 H (75-99) mg/dL Hemoglobin A1c 6.1 H (4.0-6.0) % 08/10/18 08/11/18 Range/Units 21:08 05:54 POC Glucose (mg/dL) 190 H 153 H (75-99) mg/dL Hemoglobin A1c (4.0-6.0) % Assessment and Plan (1) Acute electrocardiogram changes Current Visit: Yes Status: Acute Code(s): R94.31 - ABNORMAL ELECTROCARDIOGRAM [ECG] [EKG] SNOMED Code(s): 168687111 (2) COPD exacerbation Current Visit: Yes Status: Acute Code(s): J44.1 - CHRONIC OBSTRUCTIVE PULMONARY DISEASE W (ACUTE) EXACERBATION SNOMED Code(s): 997917395 (3) Bronchitis Current Visit: No Status: Acute Code(s): J40 - BRONCHITIS, NOT SPECIFIED ACUTE OR CHRONIC SNOMED Code(s): 59636725 Plan: Angina current regimen of treatment. Slowly wean off of Solu-Medrol per pulmonology. Check CBC and CMP in a.m. Restoril 15 g daily at bedtime. Time with Patient: Less than 30
[2018-08-11 11:05] LABS: Glucose,Whole Blood 180 mg/dL (75-99)
[2018-08-11] MEDS: BENZONATATE 100 MG CAP PO PRN ×2 (11:12→22:50)
[2018-08-11] MEDS: MULTIVITAMINS, THERA 1 EACH TAB PO SCH (11:12)
--- NOTE | 2018-08-11 12:19 | P.PN ---
Subjective Progress Note Date: 08/11/18 This is a 73-year-old female with history of hypertension, prior history of seizure, COPD, hypothyroidism,, who presents to the hospital with symptoms of difficulty in breathing. She also states that she's been having intermittent heaviness in her chest. She denies any prior history of heart disease, she is nondiabetic, borderline hyperlipidemia. Patient was admitted to the hospital in 2016 was similar symptoms at which time she underwent a dobutamine echocardiographic study that was negative for any reversible ischemia. Echocardiogram with Doppler study performed at that time also showed a normal left ventricular systolic function. Asked x-ray does not reveal any acute pulmonary process. EKG shows a sinus tachycardia with PACs and PVCs. Subsequent EKG shows a normal sinus rhythm with occasional PAC. 08/11 2018 Patient was seen and examined this morning, complaints of feeling tired and not getting much rest. She continues to have some wheezing and cough. Echo was performed which is yet pending. I pressure 140/70 with a heart rate in the 60s , 95% on 3 L of oxygen. It was explained to the patient that we will review her echocardiogram with Doppler study. Once her lungs are stable we will recommend repeating a dobutamine echocardiographic study. Objective - Vital Signs Vital signs: Vital Signs Temp 97.1 F L 08/11/18 08:00 Pulse 74 08/11/18 11:39 Resp 18 08/11/18 08:00 BP 145/61 08/11/18 08:00 Pulse Ox 95 08/11/18 08:00 Intake & Output 08/10/18 08/11/18 08/11/18 18:59 06:59 18:59 Intake Total 462 240 Balance 462 240 Weight 80.6 kg Intake: Oral 462 240 Other: Voiding Method Toilet Toilet Toilet Diaper Diaper # Voids 1 - Exam PHYSICAL EXAMINATION: GENERAL: 73-year-old female in no acute distress at the time of my examination HEENT: Head is atraumatic, normocephalic. Pupils equal, round. Sclera anicteric. Conjunctiva are clear. Mucous membranes of the mouth are moist. Neck is supple. There is no elevated jugular venous pressure. No Carotid bruit is heard. HEART EXAMINATION: Heart S1, S2 normal. No murmur or gallop heard. CHEST EXAMINATION: Reveal decreased air exchange throughout with scattered wheezing throughout. ABDOMEN: Soft, nontender. Bowel sounds are heard. No organomegaly noted. EXTREMITIES: 2+ peripheral pulses with no evidence of peripheral edema and no calf tenderness noted. NEUROLOGIC patient is awake, alert and oriented 3 . - Labs CBC & Chem 7: 08/09/18 16:45 08/10/18 05:05 Labs: Abnormal Lab Results - Last 24 Hours (Table) 08/10/18 08/10/18 08/10/18 Range/Units 05:05 16:22 21:08 POC Glucose (mg/dL) 231 H 190 H (75-99) mg/dL Hemoglobin A1c 6.1 H (4.0-6.0) % 08/11/18 08/11/18 Range/Units 05:54 11:04 POC Glucose (mg/dL) 153 H 180 H (75-99) mg/dL Hemoglobin A1c (4.0-6.0) % Assessment and Plan Plan: Assessment and plan #1 chest pain, atypical for acute coronary syndrome. Troponins 0.012, 0.012, 0.015. EKG shows normal sinus rhythm with PVCs and PACs, no acute changes noted. #2 possible COPD exacerbation #3 asthma #4 hypothyroidism #5 hypertension #6 PACs and PVCs, potassium and magnesium in normal range Plan We will review echocardiogram with Doppler study. Once the patient's lung status improves may consider performing a stress test. Dobutamine echo performed in 2016 negative for any reversible ischemia. DNP note has been reviewed, I agree with a documented findings and plan of care. Patient was seen and examined.
--- NOTE | 2018-08-11 14:50 | P.PN ---
Subjective Progress Note Date: 08/11/18 Principal diagnosis: Shortness of breath Progress note dated 08/11/2018 This is a 73-year-old female who saw yesterday in consultation for an acute exacerbation of chronic bronchial asthma. She has acute on chronic hypoxemic respiratory failure, atypical chest pain, hypertension, seizures, depression, hypothyroidism and osteoarthritis. Today the patient is doing much better than she was yesterday. She still is coughing a bit. The patient is not producing any phlegm. There is no fever or chills. She is not coughing up any blood. She denies any fever or chills. She denies any nausea vomiting or diarrhea. She is about 50% to 60% improved compared to yesterday. Her troponins were negative and her EKG was normal. Objective - Vital Signs Vital signs: Vital Signs Temp 98.2 F 08/11/18 11:00 Pulse 74 08/11/18 11:39 Resp 16 08/11/18 11:00 BP 146/75 08/11/18 11:00 Pulse Ox 93 L 08/11/18 11:00 Intake & Output 08/10/18 08/11/18 08/11/18 18:59 06:59 18:59 Intake Total 462 840 Balance 462 840 Weight 80.6 kg Intake: Oral 462 840 Other: Voiding Method Toilet Toilet Toilet Diaper Diaper # Voids 1 1 - Exam No acute distress, oriented 3. No audible wheezing. No jen respiratory distress. No use of accessory muscles. HEENT examination is grossly unremarkable. Mucous membranes are moist. No oral lesions. Neck supple. Full range of motion. No adenopathy thyromegaly or neck vein distention. Cardiovascular examination reveals regular rhythm rate. S1-S2 normal. No S3 or S4. No discernible murmur noted. Lungs reveal diffuse bilateral coarse rhonchi and wheezes. Breath sounds are diminished. They are improved. Slight prolongation on forced maneuver. No crackles noted. Abdomen soft and bowel sounds are heard. No masses or tenderness. Extremities are intact. No cyanosis clubbing or edema. Skin is without rash or lesion. Neurologic examination is brief but nonfocal. - Labs CBC & Chem 7: 08/09/18 16:45 08/10/18 05:05 Labs: Abnormal Lab Results - Last 24 Hours (Table) 08/10/18 08/10/18 08/11/18 Range/Units 16:22 21:08 05:54 POC Glucose (mg/dL) 231 H 190 H 153 H (75-99) mg/dL 08/11/18 Range/Units 11:04 POC Glucose (mg/dL) 180 H (75-99) mg/dL Assessment and Plan Assessment: Assessment Acute on chronic hypoxemic respiratory failure secondary to asthma exacerbation Atypical chest pain, with negative EKG and negative troponins History of hypertension History of seizures. History of depression Hypothyroidism by history DJD by history Plan: Plan dated 08/11/2018 No labs were done today. Chest x-ray did not reveal any acute abnormalities. Currently, the patient's on Xanax, Tessalon Perles, vitamin D3, Celexa, vitamin B12, Depakote, Mucinex, insulin, DuoNeb, levothyroxine, lisinopril, Solu-Medrol , Singulair, multivitamins, tramadol, and Ambien. Microbiologic studies are negative. The patient will likely be discharged in the next 24-48 hours. Additional recommendations and suggestions are forthcoming. The patient states that she only sees a doctor when she needs to see the doctor. She does not appear to be interested in any follow-up in the office. Prognosis is guarded. Time with Patient: Less than 30
[2018-08-11 16:08] LABS: Glucose,Whole Blood 184 mg/dL (75-99)
[2018-08-11] MEDS: amLODIPine 5 MG TAB PO SCH (17:08)
--- NOTE | 2018-08-11 18:48 | ECHOF ---
Referral Reason:sob MEASUREMENTS -------- HEIGHT: 127.0 cm WEIGHT: 80.3 kg BP: 146/75 RVIDd: 2.7 cm (< 3.3) IVSd: 1.0 cm (0.6 - 1.1) LVIDd: 3.8 cm (3.9 - 5.3) LVPWd: 1.1 cm (0.6 - 1.1) IVSs: 1.4 cm LVIDs: 3.3 cm LVPWs: 1.6 cm LA Diam: 4.6 cm (2.7 - 3.8) LAESV Index (A-L): 43.00 ml/m Ao Diam: 3.7 cm (2.0 - 3.7) AV Cusp: 1.9 cm (1.5 - 2.6) MV EXCURSION: 14.577 mm (> 18.000) MV EF SLOPE: 72 mm/s (70 - 150) EPSS: 1.6 cm MV E Beny: 0.77 m/s MV DecT: 197 ms MV A Beny: 1.17 m/s MV E/A Ratio: 0.66 RAP: 5.00 mmHg RVSP: 42.89 mmHg FINDINGS -------- Sinus rhythm. This was a technically adequate study. LV size, wall thickness and systolic function are normal, with an EF greater than 55%. The left jeb tricular size is normal. The right ventricle is normal in size. LA is severely dilated >40 ml/m2 The right atrial size is normal. The aortic valve is trileaflet and appears structurally normal. There is mild aortic regurgitation. Mild mitral annular calcification present. Moderate mitral regurgitation is present. Mild tricuspid regurgitation present. There is mild pulmonary hypertension. The right ventricular systolic pressure, as measured by Doppler, is 42.89mmHg. There is no pulmonic regurgitation present. The aortic root size is normal. There is no pericardial effusion. CONCLUSIONS -------- 1. Sinus rhythm. 2. This was a technically adequate study. 3. LV size, wall thickness and systolic function are normal, with an EF greater than 55%. 4. The left ventricular size is normal. 5. LA is severely dilated >40 ml/m2 6. There is mild aortic regurgitation. 7. Mild mitral annular calcification present. 8. Moderate mitral regurgitation is present. 9. Mild tricuspid regurgitation present. 10. There is mild pulmonary hypertension. 11. There is no pulmonic regurgitation present. 12. The aortic root size is normal. 13. There is no pericardial effusion. ITEM PROCESSING CLERK: Taryn Acosta RDCS
[2018-08-11] MEDS: CITALOPRAM HYDROBROMIDE 20 MG TAB PO SCH (20:32)
[2018-08-11] MEDS: DIVALPROEX 250 MG TABLET.DR PO SCH (20:34)
[2018-08-11] MEDS: LISINOPRIL 20 MG TAB PO SCH (20:34)
[2018-08-11] MEDS: MONTELUKAST 10 MG TAB PO SCH (20:35)
[2018-08-11] MEDS: ALPRAZolam 0.5 MG TAB PO PRN (20:43)
[2018-08-11 21:00] LABS: Glucose,Whole Blood 199 mg/dL (75-99)
[2018-08-12] MEDS: LEVOTHYROXINE 100 MCG TAB PO SCH (06:27)
[2018-08-12] MEDS: methylPREDNISolone SOD SUCCI 125 MG/2 ML VIAL IV SCH ×3 (06:27→17:42)
[2018-08-12 07:20] LABS: Glucose,Whole Blood 156 mg/dL (75-99)
[2018-08-12] MEDS: IPRATROPIUM-ALBUTEROL 3 ML NEB INHALATION SCH ×5 (07:31→20:05)
[2018-08-12] MEDS: INSULIN ASPART 100 UNIT/ML 1 ML 10 ML VIAL SQ SCH ×4 (07:46→20:58)
[2018-08-12] MEDS: CYANOCOBALAMIN 500 MCG TAB PO SCH (07:50)
[2018-08-12] MEDS: amLODIPine 5 MG TAB PO SCH (07:50)
[2018-08-12] MEDS: CHOLECALCIFEROL 1,000 UNIT TAB PO SCH (07:50)
[2018-08-12] MEDS: BENZONATATE 100 MG CAP PO PRN (07:50)
[2018-08-12] MEDS: guaiFENesin 600 MG TABLET.ER PO SCH ×2 (07:50→20:57)
--- NOTE | 2018-08-12 07:55 | P.PN ---
Subjective Principal diagnosis: Acute exacerbation of COPD This is a 73-year-old white female essentially admitted for exacerbation of COPD with EKG changes. Cardiology did not feel that there was any overt new pathology. She has significant weakness we will go ahead and start some DVT prophylaxis today. No sniffing chest pain per se today. No voiding difficulties. She is sitting up in a chair. I didn't encourage ambulation. Objective - Vital Signs Vital signs: Vital Signs Temp 98.0 F 08/12/18 06:29 Pulse 70 08/12/18 07:43 Resp 16 08/12/18 06:29 BP 160/77 08/12/18 06:29 Pulse Ox 94 L 08/12/18 06:29 Intake & Output 08/11/18 08/12/18 08/12/18 18:59 06:59 18:59 Intake Total 840 Balance 840 Weight 80.966 kg Intake: Oral 840 Other: Voiding Method Toilet Diaper # Voids 1 1 - Constitutional General appearance: Present: average body habitus - EENT Eyes: Absent: abnormal pupil - Neck Neck: Absent: lymphadenopathy - Respiratory Respiratory: bilateral: diminished - Cardiovascular Rhythm: regular Heart sounds: normal: S1, S2 Abnormal Heart Sounds: Absent: S3 Gallop - Gastrointestinal General gastrointestinal: Present: soft - Musculoskeletal Musculoskeletal: Present: generalized weakness - Psychiatric Psychiatric: Present: A&O x's 3, appropriate affect - Labs CBC & Chem 7: 08/09/18 16:45 08/10/18 05:05 Labs: Abnormal Lab Results - Last 24 Hours (Table) 08/11/18 08/11/18 08/11/18 Range/Units 11:04 16:06 20:59 POC Glucose (mg/dL) 180 H 184 H 199 H (75-99) mg/dL 08/12/18 Range/Units 07:06 POC Glucose (mg/dL) 156 H (75-99) mg/dL Assessment and Plan (1) Acute electrocardiogram changes Current Visit: Yes Status: Acute Code(s): R94.31 - ABNORMAL ELECTROCARDIOGRAM [ECG] [EKG] SNOMED Code(s): 491210041 (2) COPD exacerbation Current Visit: Yes Status: Acute Code(s): J44.1 - CHRONIC OBSTRUCTIVE PULMONARY DISEASE W (ACUTE) EXACERBATION SNOMED Code(s): 063002240 (3) Bronchitis Current Visit: No Status: Acute Code(s): J40 - BRONCHITIS, NOT SPECIFIED ACUTE OR CHRONIC SNOMED Code(s): 21548241 Plan: Continue current regimen of treatment. Check CBC and CMP in a.m. Dr. Felix's group will covering for the weekend. Anticipate discharge in next 48-72 hours due to her general debility Time with Patient: Less than 30
[2018-08-12] MEDS: MULTIVITAMINS, THERA 1 EACH TAB PO SCH (11:21)
[2018-08-12 11:49] LABS: Glucose,Whole Blood 134 mg/dL (75-99)
[2018-08-12] MEDS: PROMETHAZINE HCL 6.25 MG/5 ML CUP PO PRN ×2 (14:24→20:59)
--- NOTE | 2018-08-12 15:22 | P.PN ---
Subjective Progress Note Date: 08/12/18 Principal diagnosis: Acute exacerbation of chronic bronchial asthma. The patient is seen again today in follow-up on the regular medical floor. She is currently awake and alert in no acute distress. She is currently maintaining good O2 saturations in the mid 90s on 3 L/m per nasal cannula. She' s been afebrile. She's been maintained on DuoNeb inhalations, Pulmicort and Perforomist inhalations, IV Solu-Medrol, Mucinex, Singulair, promethazine. Objective - Vital Signs Vital signs: Vital Signs Temp 97.9 F 08/12/18 14:16 Pulse 84 08/12/18 14:16 Resp 20 08/12/18 14:16 BP 164/75 08/12/18 14:16 Pulse Ox 95 08/12/18 14:16 Intake & Output 08/11/18 08/12/18 08/12/18 18:59 06:59 18:59 Intake Total 840 Balance 840 Weight 80.966 kg Intake: Oral 840 Other: Voiding Method Toilet Toilet Diaper # Voids 1 1 1 - Exam GENERAL EXAM: Alert, active, comfortable in no apparent distress. HEAD: Normocephalic. EYES: Normal reaction of pupils, equal size. NOSE: Clear with pink turbinates. THROAT: No erythema or exudates. NECK: No masses, no JVD. CHEST: No chest wall deformity. LUNGS: Equal air entry with expiratory wheeze, diminished. CVS: S1 and S2 normal with no audible murmur, regular rhythm. ABDOMEN: No hepatosplenomegaly, normal bowel sounds, no guarding or rigidity. SPINE: No scoliosis or deformity SKIN: No rashes CENTRAL NERVOUS SYSTEM: No focal deficits, tone is normal in all 4 extremities. EXTREMITIES: There is no peripheral edema. No clubbing, no cyanosis. Peripheral pulses are intact. - Labs CBC & Chem 7: 08/09/18 16:45 08/10/18 05:05 Labs: Abnormal Lab Results - Last 24 Hours (Table) 08/11/18 08/11/18 08/12/18 Range/Units 16:06 20:59 07:06 POC Glucose (mg/dL) 184 H 199 H 156 H (75-99) mg/dL 08/12/18 Range/Units 11:39 POC Glucose (mg/dL) 134 H (75-99) mg/dL Assessment and Plan Assessment: Assessment Acute on chronic hypoxemic respiratory failure secondary to asthma exacerbation Atypical chest pain, with negative EKG and negative troponins History of hypertension History of seizures. History of depression Hypothyroidism by history DJD by history Plan: The patient was seen and evaluated by Dr. Echeverria. She has been slow to improve. We'll continue with the current treatment plan. We will increase her activity as tolerated. We'll continue to follow. I, the cosigning physician, performed a history & physical examination of the patient. Lungs sounds bilateral end expiratory wheeze, diminished. Maintaining good O2 saturations in the 90s on 2 L/m per nasal cannula. I discussed the assessment and plan of care with my nurse practitioner, Demi Sparks. I attest to the above note as dictated by her.
[2018-08-12 16:52] LABS: Glucose,Whole Blood 202 mg/dL (75-99)
[2018-08-12] MEDS: BUDESONIDE 1 MG/2 ML NEBU INHALATION SCH (20:05)
[2018-08-12] MEDS: FORMOTEROL FUMARATE 20 MCG/2 ML NEBU INHALATION SCH (20:06)
[2018-08-12 20:42] LABS: Glucose,Whole Blood 185 mg/dL (75-99)
[2018-08-12] MEDS: CITALOPRAM HYDROBROMIDE 20 MG TAB PO SCH (20:57)
[2018-08-12] MEDS: MONTELUKAST 10 MG TAB PO SCH (20:57)
[2018-08-12] MEDS: LISINOPRIL 20 MG TAB PO SCH (20:57)
[2018-08-12] MEDS: DIVALPROEX 250 MG TABLET.DR PO SCH (20:57)
[2018-08-12] MEDS: ALPRAZolam 0.5 MG TAB PO PRN (20:59)
[2018-08-13] MEDS: methylPREDNISolone SOD SUCCI 125 MG/2 ML VIAL IV SCH ×5 (00:30→23:19)
[2018-08-13] MEDS: LEVOTHYROXINE 100 MCG TAB PO SCH (06:24)
[2018-08-13 07:22] LABS: Glucose,Whole Blood 162 mg/dL (75-99)
[2018-08-13] MEDS: BUDESONIDE 1 MG/2 ML NEBU INHALATION SCH ×2 (07:57→19:26)
[2018-08-13] MEDS: FORMOTEROL FUMARATE 20 MCG/2 ML NEBU INHALATION SCH ×2 (07:57→19:25)
[2018-08-13] MEDS: IPRATROPIUM-ALBUTEROL 3 ML NEB INHALATION SCH ×4 (07:57→19:25)
[2018-08-13] MEDS: INSULIN ASPART 100 UNIT/ML 1 ML 10 ML VIAL SQ SCH ×4 (08:11→22:14)
[2018-08-13] MEDS: guaiFENesin 600 MG TABLET.ER PO SCH ×2 (08:12→20:26)
[2018-08-13] MEDS: MULTIVITAMINS, THERA 1 EACH TAB PO SCH (08:12)
[2018-08-13] MEDS: amLODIPine 5 MG TAB PO SCH (08:12)
[2018-08-13] MEDS: CHOLECALCIFEROL 1,000 UNIT TAB PO SCH (08:13)
[2018-08-13] MEDS: CYANOCOBALAMIN 500 MCG TAB PO SCH (08:13)
[2018-08-13 11:45] LABS: HCT 40.1 % (34.0-46.0); HGB 12.6 gm/dL (11.4-16.0); MCH 29.7 pg (25.0-35.0); MCHC 31.3 g/dL (31.0-37.0); MCV 94.8 fL (80.0-100.0); Mean Platelet Volume 8.4; Platelet Count 218 k/uL (150-450); RBC 4.23 m/uL (3.80-5.40); RDW 12.5 % (11.5-15.5); WBC 10.5 k/uL (3.8-10.6)
[2018-08-13 11:47] LABS: Glucose,Whole Blood 211 mg/dL (75-99)
[2018-08-13 12:18] LABS: ALT 23 U/L (9-52); AST 19 U/L (14-36); Albumin 3.6 g/dL (3.5-5.0); Alkaline Phosphatase 49 U/L (38-126); Anion Gap 7 mmol/L; Blood Urea Nitrogen 23 mg/dL (7-17); Calcium 9.3 mg/dL (8.4-10.2); Carbon Dioxide 33 mmol/L (22-30); Chloride 99 mmol/L (98-107); Glucose 208 mg/dL (74-99); Sodium 139 mmol/L (137-145); Total Bilirubin 0.6 mg/dL (0.2-1.3); Total Protein 6.3 g/dL (6.3-8.2)
--- NOTE | 2018-08-13 14:01 | P.PN ---
Subjective Progress Note Date: 08/13/18 Principal diagnosis: Acute exacerbation of chronic bronchial asthma The patient is seen again today in follow-up on the regular medical floor. She is currently awake and alert in no acute distress. She is currently maintaining good O2 saturations in the mid 90s on 3 L/m per nasal cannula. She' s been afebrile. She's been maintained on DuoNeb inhalations, Pulmicort and Perforomist inhalations, IV Solu-Medrol, Mucinex, Singulair, promethazine. On 08/13/2018 patient seen in follow-up on medical surgical floor. Doing better , breathing easier, remains on 3 L per nasal cannula, her pulse ox of 95%, she is afebrile, vital signs are stable. Continue current medical treatment, patient is improving, less coughing, less congestion. No acute issues overnight , no specific complaints. Increase activity as tolerated, Objective - Vital Signs Vital signs: Vital Signs Temp 97.1 F L 08/13/18 07:06 Pulse 62 08/13/18 12:10 Resp 16 08/13/18 07:06 BP 145/85 08/13/18 07:06 Pulse Ox 95 08/13/18 08:00 Intake & Output 08/12/18 08/13/18 08/13/18 18:59 06:59 18:59 Intake Total 325 840 Balance 325 840 Weight 85.502 kg Intake: Oral 325 840 Other: Voiding Method Toilet # Voids 1 2 2 - Exam GENERAL EXAM: Alert, active, comfortable in no apparent distress. HEAD: Normocephalic. EYES: Normal reaction of pupils, equal size. NOSE: Clear with pink turbinates. THROAT: No erythema or exudates. NECK: No masses, no JVD. CHEST: No chest wall deformity. LUNGS: Equal air entry with diminished breath sounds, and a few scattered rales. CVS: S1 and S2 normal with no audible murmur, regular rhythm. ABDOMEN: No hepatosplenomegaly, normal bowel sounds, no guarding or rigidity. SPINE: No scoliosis or deformity SKIN: No rashes CENTRAL NERVOUS SYSTEM: No focal deficits, tone is normal in all 4 extremities. EXTREMITIES: There is no peripheral edema. No clubbing, no cyanosis. Peripheral pulses are intact. - Labs CBC & Chem 7: 08/13/18 11:06 08/13/18 11:06 Labs: Abnormal Lab Results - Last 24 Hours (Table) 08/12/18 08/12/18 08/13/18 Range/Units 16:50 20:34 07:03 Carbon Dioxide (22-30) mmol/L BUN (7-17) mg/dL Glucose (74-99) mg/dL POC Glucose (mg/dL) 202 H 185 H 162 H (75-99) mg/dL 08/13/18 08/13/18 Range/Units 11:06 11:43 Carbon Dioxide 33 H (22-30) mmol/L BUN 23 H (7-17) mg/dL Glucose 208 H (74-99) mg/dL POC Glucose (mg/dL) 211 H (75-99) mg/dL Assessment and Plan Plan: Assessment: #1. Acute on chronic hypoxemic respiratory failure, secondary to acute exacerbation of chronic bronchial asthma, unspecified #2. Atypical chest pain, negative troponins 3, EKG was negative for any acute ischemic changes, cardiology is following #3. Dyspnea, cough, phlegm production related to the above #4. Exposure to secondhand smoke, patient was not a smoker herself #5. Hypertention #6. History of seizures #7. Depression #8. Hypothyroidism #9. Osteoarthritis Plan: Continue current medical treatment, continue steroids, nebulizers medical diabetes, Mucinex, Singulair, cough syrup, she is slowly improving, encourage ambulation anticipate discharge in the next 24-48 hours. I performed a history & physical examination of the patient and discussed their management with my nurse practitioner, Beatrice Christian. I reviewed the nurse practitioner's note and agree with the documented findings and plan of care. Lung sounds are positive for management sounds, coughing with forced exhale maneuver. The findings and the impression was discussed with the patient. I attest to the documentation by the nurse practitioner. Time with Patient: Less than 30
[2018-08-13 16:43] LABS: Glucose,Whole Blood 176 mg/dL (75-99)
[2018-08-13] MEDS: LISINOPRIL 20 MG TAB PO SCH (20:26)
[2018-08-13] MEDS: MONTELUKAST 10 MG TAB PO SCH (20:26)
[2018-08-13] MEDS: CITALOPRAM HYDROBROMIDE 20 MG TAB PO SCH (20:27)
[2018-08-13] MEDS: HEPARIN SODIUM,PORCINE 5,000 UNIT/ML 1 ML VIAL SQ SCH (20:27)
[2018-08-13] MEDS: DIVALPROEX 250 MG TABLET.DR PO SCH (20:27)
[2018-08-13 22:08] LABS: Glucose,Whole Blood 210 mg/dL (75-99)
[2018-08-13] MEDS: ZOLPIDEM 5 MG TAB PO PRN (22:14)
[2018-08-13] MEDS: PROMETHAZINE HCL 6.25 MG/5 ML CUP PO PRN (22:15)
--- NOTE | 2018-08-13 23:50 | PN ---
PROGRESS NOTE DATE OF SERVICE: 08/13/2018. I am covering for Dr. Chua. HISTORY: This is a 73-year-old woman who was admitted with COPD acute exacerbation, also has CAD. Cardiology and Pulmonology are following the patient closely. The patient also had respiratory failure on presentation. Patient also had atypical chest pain. PAST MEDICAL HISTORY: Reviewed. REVIEW OF SYSTEMS: CARDIOVASCULAR: No angina. RESPIRATORY: As mentioned. GI: As mentioned. : As mentioned. CURRENT MEDICATIONS: 1. DuoNeb q.i.d. and p.r.n. 2. Xanax 0.5 mg t.i.d. p.r.n. 3. Norvasc 5 mg. 4. Tessalon Perles. 5. Pulmicort 1 mg b.i.d. 6. Vitamin D3, 2000 daily. 7. Celexa 40 mg at bedtime. 8. Vitamin B12, 1000 mg. 9. Depakote 250 mg at bedtime. 10.Perforomist 20 mg b.i.d. 11.Mucinex. 12.NovoLog scale. 13.Synthroid 300 mg. 14.Zestril 20 mg b.i.d. 15.Solu-Medrol 60 IV every 6 hours. 16.Multivitamins. 17.Phenergan. 18.Ultram. 19.Ambien. PHYSICAL EXAM: Patient is alert, oriented x3. Blood pressure 150/70, respirations 16, temperature 98.1, pulse ox 94% on 3 L. HEENT: Conjunctivae normal. Oral mucosa moist. NECK: No jugular venous distention. No lymph node enlargement. CARDIOVASCULAR: S1 and S2 muffled. LUNGS: Breath sounds diminished at the bases. Bilateral scattered rhonchi and crackles. ABDOMEN: Soft, nontender. No mass palpable. LEG: No edema, no swelling. NERVOUS SYSTEM: Higher functions as mentioned earlier. Moves all 4 limbs. No focal deficits. LAB STUDIES: At this time shows WBC 10.2, hemoglobin 12.6, and BUN is 23. Accu-Cheks are noted. ASSESSMENT: 1. Chronic obstructive pulmonary disease acute exacerbation with acute purulent tracheobronchitis. 2. Acute on chronic hypoxic respiratory failure. 3. Atypical chest pains, EKG changes. 4. History of nicotine dependence. 5. Hypertension. 6. History of seizures. 7. History of degenerative joint disease. 8. History hypothyroidism. 9. Cholecystectomy. 10.History of hysterectomy. 11.History of depression. RECOMMENDATIONS AND DISCUSSION: Recommend to continue current medical management and continue monitoring. Symptomatic treatment. Closely follow with Cardiology and Pulmonology. Continue with IV steroids. Continue with broad spectrum IV antibiotics. Guarded prognosis because of multiple complex medical issues. Further management to follow. See orders for details. DVT prophylaxis. Repeat labs will be ordered. MMODL / IJN: [id number] /
[2018-08-14] MEDS: LEVOTHYROXINE 100 MCG TAB PO SCH (06:03)
[2018-08-14] MEDS: methylPREDNISolone SOD SUCCI 125 MG/2 ML VIAL IV SCH ×2 (06:03→11:12)
[2018-08-14 07:33] LABS: Glucose,Whole Blood 154 mg/dL (75-99)
[2018-08-14] MEDS: BUDESONIDE 1 MG/2 ML NEBU INHALATION SCH ×3 (07:45→20:11)
[2018-08-14] MEDS: IPRATROPIUM-ALBUTEROL 3 ML NEB INHALATION SCH ×5 (07:45→20:12)
[2018-08-14] MEDS: FORMOTEROL FUMARATE 20 MCG/2 ML NEBU INHALATION SCH ×3 (07:45→20:12)
[2018-08-14 07:48] VITALS: RESP 18
[2018-08-14] MEDS: guaiFENesin 600 MG TABLET.ER PO SCH ×2 (08:18→21:27)
[2018-08-14] MEDS: CYANOCOBALAMIN 500 MCG TAB PO SCH (08:19)
[2018-08-14] MEDS: amLODIPine 5 MG TAB PO SCH (08:19)
[2018-08-14] MEDS: MULTIVITAMINS, THERA 1 EACH TAB PO SCH (08:20)
[2018-08-14] MEDS: HEPARIN SODIUM,PORCINE 5,000 UNIT/ML 1 ML VIAL SQ SCH ×2 (08:20→21:30)
[2018-08-14] MEDS: INSULIN ASPART 100 UNIT/ML 1 ML 10 ML VIAL SQ SCH ×4 (08:20→21:30)
[2018-08-14 08:57] LABS: Basophils % (A) 0 %; Eosinophils % (A) 0 %; HCT 41.8 % (34.0-46.0); HGB 13.7 gm/dL (11.4-16.0); Lymphocytes # (A) 0.9 k/uL (1.0-4.8); Lymphocytes % (A) 10 %; MCH 30.8 pg (25.0-35.0); MCHC 32.9 g/dL (31.0-37.0); MCV 93.7 fL (80.0-100.0); Mean Platelet Volume 8.8; Monocytes # (A) 0.4 k/uL (0-1.0); Monocytes % (A) 4 %; Neutrophils % (A) 85 %; Platelet Count 223 k/uL (150-450); RBC 4.46 m/uL (3.80-5.40); RDW 12.5 % (11.5-15.5); WBC 9.3 k/uL (3.8-10.6)
[2018-08-14 08:58] LABS: Anion Gap 6 mmol/L; Blood Urea Nitrogen 19 mg/dL (7-17); Carbon Dioxide 34 mmol/L (22-30); Chloride 100 mmol/L (98-107); Glucose 184 mg/dL (74-99); Potassium 4.1 mmol/L (3.5-5.1); Sodium 140 mmol/L (137-145)
[2018-08-14] MEDS: CHOLECALCIFEROL 1,000 UNIT TAB PO SCH (09:53)
[2018-08-14 12:45] LABS: Glucose,Whole Blood 191 mg/dL (75-99)
--- NOTE | 2018-08-14 14:10 | PN ---
PROGRESS NOTE DATE OF SERVICE: August 14, 2018. This is a 73-year-old female who sees Dr. Chua as her primary. She has a history of acute on chronic hypoxemic respiratory failure secondary to asthma exacerbation. She is a nonsmoker. She also was having chest pain, likely related to her asthma. She had negative troponins x3. EKG was negative for any acute changes. In addition, she has a history of hypertension, seizure disorder, depression and hypothyroidism as well as osteoarthritis. She currently is doing much better. Still requiring oxygen therapy. We will have to determine whether not she needs oxygen upon discharge. She is still complaining of shortness of breath, chest tightness, wheezing and cough. Her cough is productive with a small amount of white clear phlegm. She tells us that she may be discharged home tomorrow. Over the weekend, Dr. Chua is off and somebody is seeing her for him. Current vital signs are reviewed. Temperature is 98.4, heart rate 60, respiratory rate is 18, blood pressure 173/83, mean 113, 3 L saturation 97%. She appears in no acute distress. She does cough frequently and appears to be mostly a dry cough. No audible wheezing. No use of accessory muscles. HEENT examination is grossly unremarkable. Mucous membranes are moist. No oral lesions. Nasal O2 in place. Neck is supple. Full range of motion. No adenopathy, thyromegaly or neck vein distention. Cardiovascular examination reveals regular rhythm and rate. Heart sounds are distant. S1, S2 normal. No S3, S4, or murmur. Lungs reveal some coarse expiratory rhonchi. When she takes a deep breath, she wheezes and coughs. No crackles. There is prolongation on forced maneuver. Adventitious lung sounds are more prominent on forced maneuver. Abdomen is obese. Bowel sounds heard. Extremities are intact. No cyanosis, clubbing, or edema. Skin without rash. Neurologic examination is brief but nonfocal. LABORATORY DATA: Includes a CBC which is normal. White count 9.3. Hemoglobin, hematocrit and platelet count all normal. Sodium, potassium normal. Chloride is 100. CO2 34. Anion gap normal. BUN and creatinine were 19 and 0.51. Microbiologic studies are negative or pending. Medications are reviewed. ASSESSMENT: 1. Acute hypoxemic respiratory failure secondary to chronic bronchial asthma exacerbation. 2. Atypical chest pain with negative troponins and normal EKG, being followed by Cardiology. 3. Purulent tracheobronchitis. 4. History of hypertension. 5. History of seizure disorder. 6. History of depression. 7. Hypothyroidism. 8. Degenerative joint disease. PLAN: The patient is on appropriate medications. She tells me she will be discharged tomorrow. Her medications are reviewed. Labs are reviewed. We will have to determine whether not she is a candidate for oxygen therapy prior to discharge. We will check her room air saturation at rest and then will also walk her. We also told that we need to see her in the office post discharge so we can do pulmonary function test on her and to identify the true nature of her chronic lung disease. She states that she is a lifelong nonsmoker, was exposed to lots of secondhand smoke and was told many years ago that she had asthma. Additional recommendations and suggestions are forthcoming. SEEMA / ARLINE: [id number] /
[2018-08-14] MEDS ORDERED: cloNIDine HCL 0.1 MG TAB PO PRN (16:54)
[2018-08-14 17:11] LABS: Glucose,Whole Blood 167 mg/dL (75-99)
--- NOTE | 2018-08-14 20:13 | PN ---
PROGRESS NOTE DATE OF SERVICE: 08/14/2008 I am covering for Dr. Chua. This 73-year-old woman was admitted with COPD acute exacerbation as well as acute on chronic hypoxic respiratory failure, improving significantly. No chest pain. No palpitations. No fever. PHYSICAL EXAM: Alert and oriented times three. Pulse 70, blood pressure is 185/72, respiration 18, temperature 98.2, pulse ox 94% on 2 L. HEENT: Conjunctivae normal. Oral mucosa moist. Neck is no jugular venous distention. No carotid bruit. No lymph node enlargement. Cardiovascular system: S1, S2 muffled. Respirations: Breath sounds diminished in the bases. Bilateral scattered rhonchi and crackles. ABDOMEN: Soft, nontender. No mass palpable. Legs: No edema. No swelling. NERVOUS SYSTEM: Higher functions as mentioned earlier. Moves all four extremities. No focal deficits. Lymphatics: No lymph nodes palpable in the neck, axillae or groin. Skin: No ulcer, rash or bleeding. LABS: Labs are at this time shows WBC 9.2, hemoglobin 13.7, other labs are noted. Accu-Cheks 191. ASSESSMENT: 1. Chronic obstructive pulmonary disease acute exacerbation with acute purulent tracheobronchitis. 2. Acute on chronic hypoxic respiratory failure. 3. Hypertension. 4. History of nicotine dependence. 5. History of seizure. 6. History of degenerative joint disease. 7. History of hypothyroidism. 8. History of cholecystectomy. 9. History of hysterectomy. 10.History of depression. RECOMMENDATIONS AND DISCUSSION: Recommend to continue current medications. Continue with monitoring, symptomatic treatment. Otherwise, at this time, I would recommend to increase the dose of Norvasc to 10 mg daily. Continue rest of medication. Taper the steroids and closely follow. Dr. Chua will follow. MMODL / IJN: [id number] /
[2018-08-14 20:47] LABS: Glucose,Whole Blood 152 mg/dL (75-99)
[2018-08-14] MEDS ORDERED: predniSONE 20 MG TAB PO SCH (21:00)
[2018-08-14] MEDS: MONTELUKAST 10 MG TAB PO SCH (21:27)
[2018-08-14] MEDS: CITALOPRAM HYDROBROMIDE 20 MG TAB PO SCH (21:27)
[2018-08-14] MEDS: LISINOPRIL 20 MG TAB PO SCH (21:27)
[2018-08-14] MEDS: DIVALPROEX 250 MG TABLET.DR PO SCH (21:27)
[2018-08-14 23:47] VITALS: TEMP 98.3
[2018-08-14] MEDS: ALPRAZolam 0.5 MG TAB PO PRN (23:59)
[2018-08-15] MEDS: traMADol 50 MG TAB PO PRN (03:04)
[2018-08-15 05:51] VITALS: BP 189/82
[2018-08-15] MEDS: LEVOTHYROXINE 100 MCG TAB PO SCH (06:31)
[2018-08-15 07:09] LABS: Glucose,Whole Blood 144 mg/dL (75-99)
--- NOTE | 2018-08-15 07:34 | P.DS ---
Providers Date of admission: 08/09/18 20:44 Attending physician: Joce Chua Consults: 08/10/18 00:39 Consult Physician Stat Consulting Provider: [facility] Consult Reason/Comments: EKG changes Do you want consulting provider notified?: Yes 08/10/18 00:40 Consult Physician Stat Consulting Provider: Rasheed Echeverria Consult Reason/Comments: COPD exacerbation Do you want consulting provider notified?: Yes Primary care physician: Joce Chua - Discharge Diagnosis(es) (1) Acute electrocardiogram changes Current Visit: Yes Status: Acute (2) COPD exacerbation Current Visit: Yes Status: Acute (3) Bronchitis Current Visit: No Status: Acute Hospital Course: This discharge summary 73-year-old white female essentially admitted for exacerbation of COPD and generalized weakness. The patient did quite well with appropriate pulmonology treatment. The patient is discharged on Perforomist with budesonide and tapering steroids. The patient is to follow-up with me in about 3-5 days. Patient Condition at Discharge: Fair Plan - Discharge Summary Discharge Rx Participant: No New Discharge Prescriptions: New amLODIPine [Norvasc] 10 mg PO DAILY #30 tab Budesonide [Pulmicort] 1 mg INHALATION RT-BID #60 nebu Formoterol Fumarate [Perforomist] 20 mcg INHALATION RT-BID #60 nebu predniSONE 0 mg PO DIRECTED #18 tab traMADol HCl [Ultram] 50 mg PO TID PRN #30 tab PRN Reason: Headache Continue Lisinopril [Zestril] 20 mg PO HS Citalopram Hydrobromide [Citalopram HBr] 40 mg PO HS ALPRAZolam [Xanax] 0.5 mg PO TID PRN PRN Reason: Anxiety/Insomnia Divalproex Sodium 250 mg PO HS Montelukast Sodium 10 mg PO HS Albuterol Nebulized [Ventolin Nebulized] 2.5 mg INHALATION RT-QID PRN PRN Reason: Shortness Of Breath Cholecalciferol (Vitamin D3) [Vitamin D3] 2,000 unit PO DAILY Multivitamins, Thera [Multivitamin (formulary)] 1 tab PO DAILY Cyanocobalamin (Vitamin B-12) [Vitamin B-12] 1,000 mcg PO DAILY Albuterol Sulfate [Proair Hfa] 1 - 2 puff INHALATION RT-Q6H PRN PRN Reason: Shortness Of Breath Levothyroxine Sodium [Synthroid] 300 mcg PO DAILY Discharge Medication List ALPRAZolam [Xanax] 0.5 mg PO TID PRN 12/02/15 [History] Citalopram Hydrobromide [Citalopram HBr] 40 mg PO HS 12/02/15 [History] Lisinopril [Zestril] 20 mg PO HS 12/02/15 [History] Albuterol Nebulized [Ventolin Nebulized] 2.5 mg INHALATION RT-QID PRN 12/03/15 [ History] Divalproex Sodium 250 mg PO HS 12/03/15 [History] Montelukast Sodium 10 mg PO HS 12/03/15 [History] Albuterol Sulfate [Proair Hfa] 1 - 2 puff INHALATION RT-Q6H PRN 05/25/17 [ History] Cholecalciferol (Vitamin D3) [Vitamin D3] 2,000 unit PO DAILY 05/25/17 [History] Cyanocobalamin (Vitamin B-12) [Vitamin B-12] 1,000 mcg PO DAILY 05/25/17 [ History] Multivitamins, Thera [Multivitamin (formulary)] 1 tab PO DAILY 05/25/17 [History ] Levothyroxine Sodium [Synthroid] 300 mcg PO DAILY 08/09/18 [History] Budesonide [Pulmicort] 1 mg INHALATION RT-BID #60 nebu 08/15/18 [Rx] Formoterol Fumarate [Perforomist] 20 mcg INHALATION RT-BID #60 nebu 08/15/18 [Rx ] amLODIPine [Norvasc] 10 mg PO DAILY #30 tab 08/15/18 [Rx] predniSONE 0 mg PO DIRECTED #18 tab 08/15/18 [Rx] traMADol HCl [Ultram] 50 mg PO TID PRN #30 tab 08/15/18 [Rx] Follow up Appointment(s)/Referral(s): Joce Chua MD [Primary Care Provider] - 08/18/18 3:30 pm () Rasheed Echeverria DO [Doctor of Osteopathic Medicine] - 1 Week (for pulmonary function test ) Activity/Diet/Wound Care/Special Instructions: continue home O2 activity as tolerated heart healthy/consistent carb diet
[2018-08-15] MEDS: guaiFENesin 600 MG TABLET.ER PO SCH (07:44)
[2018-08-15] MEDS: CHOLECALCIFEROL 1,000 UNIT TAB PO SCH (07:44)
[2018-08-15] MEDS: CYANOCOBALAMIN 500 MCG TAB PO SCH (07:44)
[2018-08-15] MEDS: MULTIVITAMINS, THERA 1 EACH TAB PO SCH (07:44)
[2018-08-15] MEDS: HEPARIN SODIUM,PORCINE 5,000 UNIT/ML 1 ML VIAL SQ SCH (07:45)
[2018-08-15] MEDS: INSULIN ASPART 100 UNIT/ML 1 ML 10 ML VIAL SQ SCH ×2 (07:45→11:11)
[2018-08-15] MEDS ORDERED: amLODIPine 10 MG TAB PO SCH (09:00)
[2018-08-15] MEDS: FORMOTEROL FUMARATE 20 MCG/2 ML NEBU INHALATION SCH (09:14)
[2018-08-15] MEDS: BUDESONIDE 1 MG/2 ML NEBU INHALATION SCH (09:14)
[2018-08-15] MEDS: IPRATROPIUM-ALBUTEROL 3 ML NEB INHALATION SCH ×2 (09:14→12:37)
[2018-08-15 11:10] LABS: Glucose,Whole Blood 135 mg/dL (75-99)
[2018-08-15 11:23] LABS: Basophils % (A) 0 %; Eosinophils % (A) 0 %; HCT 40.6 % (34.0-46.0); HGB 12.9 gm/dL (11.4-16.0); Lymphocytes # (A) 1.6 k/uL (1.0-4.8); Lymphocytes % (A) 14 %; MCH 29.6 pg (25.0-35.0); MCHC 31.7 g/dL (31.0-37.0); MCV 93.4 fL (80.0-100.0); Mean Platelet Volume 8.1; Monocytes # (A) 0.7 k/uL (0-1.0); Monocytes % (A) 7 %; Neutrophils # (A) 8.6 k/uL (1.3-7.7); Neutrophils % (A) 77 %; Platelet Count 264 k/uL (150-450); RBC 4.35 m/uL (3.80-5.40); RDW 12.4 % (11.5-15.5)
[2018-08-15 11:34] LABS: Anion Gap 4 mmol/L; Blood Urea Nitrogen 20 mg/dL (7-17); Calcium 9.4 mg/dL (8.4-10.2); Carbon Dioxide 36 mmol/L (22-30); Chloride 97 mmol/L (98-107); Glucose 139 mg/dL (74-99); Potassium 3.5 mmol/L (3.5-5.1); Sodium 137 mmol/L (137-145)
[2018-08-15 12:53] VITALS: PULSE 68
--- NOTE | 2018-08-15 17:42 | P.PN ---
Subjective Progress Note Date: 08/15/18 On today's evaluation, the patient is feeling much better. She is still having some degree of respiratory distress at for the most which is improved. Chest is less congested compared to yesterday. No chest pain. No nausea or vomiting. No angina. No pleurisy. No hemoptysis. The patient was treated for an acute on chronic hypoxic respiratory failure secondary to exacerbation of chronic COPD. She's been exposed to excessive amount of secondhand smoke in the past. She is known to have hypertension, seizure disorder and history of depression. She'll be discharged home today. She'll be completing a prednisone burst taper on outpatient basis. At a time of discharge, the patient was also given a combination of budesonide and Perforomist nebulized she will to be used twice a day until she follows up with pulmonary. Objective - Vital Signs Vital signs: Vital Signs Temp 98.3 F 08/15/18 05:49 Pulse 68 08/15/18 12:52 Resp 18 08/15/18 05:49 BP 189/82 08/15/18 05:49 Pulse Ox 93 L 08/15/18 05:49 Intake & Output 08/14/18 08/15/18 08/15/18 18:59 06:59 18:59 Intake Total 325 Balance 325 Weight 78.6 kg 78.6 kg Intake: Oral 325 Other: Voiding Method Toilet Toilet # Voids 3 2 1 - Exam GENERAL EXAM: Alert, active, comfortable in no apparent distress. HEAD: Normocephalic. EYES: Normal reaction of pupils, equal size. NOSE: Clear with pink turbinates. THROAT: No erythema or exudates. NECK: No masses, no JVD. CHEST: No chest wall deformity. LUNGS: Equal air entry with diminished breath sounds, and a few scattered rales. CVS: S1 and S2 normal with no audible murmur, regular rhythm. ABDOMEN: No hepatosplenomegaly, normal bowel sounds, no guarding or rigidity. SPINE: No scoliosis or deformity SKIN: No rashes CENTRAL NERVOUS SYSTEM: No focal deficits, tone is normal in all 4 extremities. EXTREMITIES: There is no peripheral edema. No clubbing, no cyanosis. Peripheral pulses are intact. - Labs CBC & Chem 7: 08/15/18 10:35 08/15/18 10:35 Labs: Abnormal Lab Results - Last 24 Hours (Table) 12/02/18 12/03/18 12/03/18 Range/Units 20:45 07:02 10:35 WBC 11.0 H (3.8-10.6) k/uL Neutrophils # 8.6 H (1.3-7.7) k/uL Chloride (98-107) mmol/L Carbon Dioxide (22-30) mmol/L BUN (7-17) mg/dL Glucose (74-99) mg/dL POC Glucose (mg/dL) 152 H 144 H (75-99) mg/dL 08/15/18 08/15/18 Range/Units 10:35 11:07 WBC (3.8-10.6) k/uL Neutrophils # (1.3-7.7) k/uL Chloride 97 L (98-107) mmol/L Carbon Dioxide 36 H (22-30) mmol/L BUN 20 H (7-17) mg/dL Glucose 139 H (74-99) mg/dL POC Glucose (mg/dL) 135 H (75-99) mg/dL Assessment and Plan Plan: #1. Acute on chronic hypoxemic respiratory failure, secondary to acute exacerbation of COPD which is improved. #2. Atypical chest pain, negative troponins 3, EKG was negative for any acute ischemic changes, cardiology is following #3. Dyspnea, cough, phlegm production related to the above #4. Exposure to secondhand smoke, patient was not a smoker herself #5. Hypertention #6. History of seizures #7. Depression #8. Hypothyroidism #9. Osteoarthritis Plan The patient will be taken off the Solu-Medrol and discharged home on a prednisone burst taper. As far as maintenance she will for COPD, the patient be kept on a combination of Perforomist and Pulmicort nebulized treatments twice a day. The patient is nonsmoker. She will see us in the office in a week or 2 and we'll obtain a based on pulmonary function test will make further recommendations accordingly. For discharge from the pulmonary standpoint.
== END 2018-08-15 13:30 | disposition home or self-care (01) | DRG 190 ==
LOC: EC 16:12 → 3SCARD 20:44 → 4MS4W 08-11 17:31
PROVIDERS: ADMIT Family Medicine; ATTEND Family Medicine
DX: J44.1 Chronic obstructive pulmonary disease with (acute) exacerbation (principal); J96.21 Acute and chronic respiratory failure with hypoxia; J45.901 Unspecified asthma with (acute) exacerbation; E03.9 Hypothyroidism, unspecified; F32.9 Major depressive disorder, single episode, unspecified; G40.909 Epilepsy, unspecified, not intractable, without status epilepticus; I10 Essential (primary) hypertension; I25.10 Atherosclerotic heart disease of native coronary artery without angina pectoris; I49.3 Ventricular premature depolarization; M19.90 Unspecified osteoarthritis, unspecified site; Z77.22 Contact with and (suspected) exposure to environmental tobacco smoke (acute) (chronic); E66.9 Obesity, unspecified; N39.3 Stress incontinence (female) (male); Z79.890 Hormone replacement therapy; Z80.1 Family history of malignant neoplasm of trachea, bronchus and lung; Z82.5 Family history of asthma and other chronic lower respiratory diseases; Z87.891 Personal history of nicotine dependence; Z90.49 Acquired absence of other specified parts of digestive tract; Z90.710 Acquired absence of both cervix and uterus; Z99.81 Dependence on supplemental oxygen; Z98.42 Cataract extraction status, left eye; Z98.41 Cataract extraction status, right eye; Z79.899 Other long term (current) drug therapy; Z88.1 Allergy status to other antibiotic agents; Z88.5 Allergy status to narcotic agent; Z88.2 Allergy status to sulfonamides; R41.82 Altered mental status, unspecified; T42.6X5A Adverse effect of other antiepileptic and sedative-hypnotic drugs, initial encounter; Z68.35 Body mass index [BMI] 35.0-35.9, adult; Z83.79 Family history of other diseases of the digestive system; Z82.49 Family history of ischemic heart disease and other diseases of the circulatory system
CPT/HCPCS: 36415; 71046; 80048; 80053; 82550; 82553; 83036; 83605; 83735; 84484; 85025; 85027; 85610; 85730; 93005; 93306; 94640; 94760; 96361; 96365; 96375; 96376; 99285

== ENCOUNTER → 2019-08-15 | Outpatient (CLI) | payer MEDICARE ==
--- NOTE | 2019-08-16 09:41 | MM ---
Reason for exam: screening (asymptomatic). Last mammogram was performed 1 year and 4 months ago. History: Patient is postmenopausal. Benign stereotactic core biopsy of the left breast, November 05, 2000. 2 core biopsies of the left breast. Physical Findings: A clinical breast exam by your physician is recommended on an annual basis and results should be correlated with mammographic findings. MG 3D Screening Mammo W/Cad Bilateral CC and MLO view(s) were taken. Prior study comparison: April 05, 2018, bilateral MG 3d screening mammo w/cad. March 02, 2017, bilateral MG 3d screening mammo w/cad. There are scattered fibroglandular densities. Benign appearing bilateral calcifications. No suspicious abnormality. Left biopsy marker noted. ASSESSMENT: Benign, BI-RAD 2 RECOMMENDATION: Routine screening mammogram of both breasts in 1 year.
== END | disposition home or self-care (01) ==
LOC: RADMAMWWP 15:30
PROVIDERS: ATTEND Family Medicine
DX: Z12.31 Encounter for screening mammogram for malignant neoplasm of breast (principal)
CPT/HCPCS: 77063; 77067

== ENCOUNTER → 2019-09-19 | Outpatient (CLI) | payer MEDICARE ==
--- NOTE | 2019-09-19 13:23 | XR ---
EXAMINATION TYPE: XR chest 2V DATE OF EXAM: 09/19/2019 COMPARISON: 08/09/2018 INDICATION: Difficulty breathing, cough TECHNIQUE: Frontal and lateral views of the chest are obtained. FINDINGS: The heart size is normal. The pulmonary vasculature is normal. The lungs are clear. Exam appears stable from comparison IMPRESSION: 1. No acute pulmonary process.
== END | disposition home or self-care (01) ==
LOC: RAD 11:58
PROVIDERS: ATTEND Family Medicine
DX: R06.4 Hyperventilation (principal)
CPT/HCPCS: 71046

== ENCOUNTER → 2019-10-31 | Outpatient (CLI) | payer MEDICARE ==
[2019-11-01 13:59] LABS: Latex IgE Class CLASS 0
[2019-11-01 14:00] LABS: Alt. alternata IgE Class CLASS 0; Alternaria alternata IgE <0.10 kU/L (<0.10); Asperg. fumagatus IgE <0.10 kU/L (<0.10); Asperg. fumagatus IgE Class CLASS 0; Candida albicans IgE Class CLASS 0; Clad herbarum IgE <0.10 kU/L (<0.10); Clad herbarum IgE Class CLASS 0; Mucor racemosus IgE <0.10 kU/L (<0.10); Mucor racemosus IgE Class CLASS 0; Penicillium chrysogenum IgE <0.10 kU/L (<0.10); Penicillium chrysogenum IgE Cl CLASS 0
== END ==
LOC: LABWHC1 15:01
PROVIDERS: ATTEND Internal Medicine Sleep Medicine
DX: B44.81 Allergic bronchopulmonary aspergillosis (principal)
CPT/HCPCS: 36415; 86001; 86003; 86606; 86609

== ENCOUNTER → 2019-11-20 | Outpatient (CLI) | payer MEDICARE ==
[2019-11-20 13:20] LABS: Basophils # (A) 0.1 k/uL (0-0.2); Basophils % (A) 1 %; Eosinophils # (A) 0.2 k/uL (0-0.7); Eosinophils % (A) 2 %; HCT 40.8 % (34.0-46.0); HGB 13.3 gm/dL (11.4-16.0); Lymphocytes # (A) 3.4 k/uL (1.0-4.8); Lymphocytes % (A) 37 %; MCH 32.3 pg (25.0-35.0); MCHC 32.7 g/dL (31.0-37.0); MCV 98.6 fL (80.0-100.0); Mean Platelet Volume 10.4; Monocytes # (A) 0.6 k/uL (0-1.0); Monocytes % (A) 7 %; Neutrophils # (A) 4.8 k/uL (1.3-7.7); Neutrophils % (A) 52 %; Platelet Count 250 k/uL (150-450); RBC 4.14 m/uL (3.80-5.40); RDW 11.9 % (11.5-15.5); WBC 9.2 k/uL (3.8-10.6)
== END | disposition home or self-care (01) ==
LOC: LABWHC1 11:24
PROVIDERS: ATTEND Internal Medicine Sleep Medicine
DX: J45.50 Severe persistent asthma, uncomplicated (principal)
CPT/HCPCS: 36415; 85025

== ENCOUNTER 2020-08-11 23:04 | Observation (INO) | payer MEDICARE ==
[2020-08-11] MEDS ORDERED: SODIUM CHLORIDE 0.9% 1,000 ML IV STA (23:41)
[2020-08-11] MEDS ORDERED: diphenhydrAMINE 50 MG/ML 1 ML VIAL IVP STA (23:41)
[2020-08-11] MEDS ORDERED: METOCLOPRAMIDE 5 MG/ML 2 ML VIAL IVP STA (23:41)
[2020-08-11] MEDS ORDERED: CYCLOBENZAPRINE 10 MG TAB PO STA (23:43)
[2020-08-11] MEDS ORDERED: ASPIRIN 81 MG PO STA (23:44)
--- NOTE | 2020-08-12 00:40 | ED ---
Chest Pain HPI - General Chief Complaint: Chest Pain Stated Complaint: Chest pain Time Seen by Provider: 08/11/20 23:10 Source: patient Mode of arrival: EMS Limitations: no limitations - History of Present Illness Initial Comments: Patient is a 75-year-old female who presents to the emergency room with reported chest pain. States the pain started earlier this evening. It is located in the central portion of her chest with radiation to her left arm. She denies any fevers or chills. No cough or shortness of breath. Patient does have oxygen at home however states she only wears it sporadically. Denies previous history of cardiac disease. Patient also admits to a migraine headache. States that these are common for her. Denies that this is any worsen her normal headache. Admits to photophobia. No numbness or weakness in her extremities. Denies any head trauma. No neck stiffness. Do not take any medications at home for her symptoms. No other alleviating, precipitating or modifying factors - Related Data Home Medications Medication Instructions Recorded Confirmed ALPRAZolam [Xanax] 0.5 mg PO BID PRN 12/02/15 08/12/20 Citalopram Hydrobromide 40 mg PO DAILY 12/02/15 08/12/20 [Citalopram HBr] lisinopriL [Zestril] 20 mg PO DAILY 12/02/15 08/12/20 Albuterol Nebulized [Ventolin 2.5 mg INHALATION RT-TID PRN 12/03/15 08/12/20 Nebulized] Divalproex Sodium 250 mg PO BID 12/03/15 08/12/20 Montelukast Sodium 10 mg PO HS 12/03/15 08/12/20 Cholecalciferol (Vitamin D3) 2,000 unit PO DAILY 05/25/17 08/12/20 [Vitamin D3] Cyanocobalamin (Vitamin B-12) 1,000 mcg PO DAILY 05/25/17 08/12/20 [Vitamin B-12] Multivitamins, Thera [Multivitamin 1 tab PO DAILY 05/25/17 08/12/20 (formulary)] Benralizumab [Fasenra] 30 mg SQ Q56D 08/12/20 08/12/20 Diphenox-Atrop 2.5-0.025 mg 1 tab PO BID PRN 08/12/20 08/12/20 [Lomotil] Fluticasone/Umeclidin/Vilanter 1 puff INHALATION RT-DAILY 08/12/20 08/12/20 [Trelegy Ellipta 100-62.5-25] Levothyroxine Sodium 200 mcg PO DAILY 08/12/20 08/12/20 Tolterodine ER [Detrol LA] 4 mg PO DAILY 08/12/20 08/12/20 Allergies Allergy/AdvReac Type Severity Reaction Status Date / Time cefaclor [From Ceclor] Allergy Unknown Verified 08/12/20 07:22 ceftriaxone [From Rocephin] Allergy Anaphylaxis Verified 08/12/20 07:22 levofloxacin [From Levaquin] Allergy Anaphylaxis Verified 08/12/20 07:22 Sulfa (Sulfonamide Allergy Unknown Verified 08/12/20 07:22 Antibiotics) morphine AdvReac Extreme Verified 08/12/20 07:22 Sedation Review of Systems ROS Statement: Those systems with pertinent positive or pertinent negative responses have been documented in the HPI. ROS Other: All systems not noted in ROS Statement are negative. EKG Findings - EKG Comments: EKG Findings:: EKG demonstrates normal sinus rhythm with a ventricular rate of 87. MA interval of 170. QRS 74. QTC of 454. No acute ST segment elevations or depressions concerning for ischemic changes Past Medical History Past Medical History: Asthma, COPD, Hypertension, Musculoskeletal Disorder, Osteoarthritis (OA), Thyroid Disorder Additional Past Medical History / Comment(s): STRESS INCONT/WEARS PAD History of Any Multi-Drug Resistant Organisms: None Reported Past Surgical History: Cholecystectomy, Hysterectomy Additional Past Surgical History / Comment(s): RT Shoulder surgery, CATARACTS Past Anesthesia/Blood Transfusion Reactions: No Reported Reaction Additional Past Anesthesia/Blood Transfusion Reaction / Comment(s): trouble breathing coming out of surgery Past Psychological History: Depression Smoking Status: Never smoker Past Alcohol Use History: Rare Past Drug Use History: None Reported - Past Family History Father History Unknown: Yes Family Medical History: Liver Disease Additional Family Medical History / Comment(s): pt is adopted DOES'NT KNOW MUCH ABOUT PARENTS Mother Family Medical History: Cancer Additional Family Medical History / Comment(s): LUNG CANCER Sister(s) Additional Family Medical History / Comment(s): HEART PROBLEMS Brother(s) Family Medical History: COPD Additional Family Medical History / Comment(s): LUNG DZ General Exam Limitations: no limitations General appearance: alert, in no apparent distress Head exam: Present: atraumatic, normocephalic, normal inspection Eye exam: Present: normal appearance, PERRL, EOMI. Absent: scleral icterus, conjunctival injection, periorbital swelling ENT exam: Present: normal exam, mucous membranes moist Neck exam: Present: normal inspection. Absent: tenderness, meningismus, lymphadenopathy Respiratory exam: Present: normal lung sounds bilaterally. Absent: respiratory distress, wheezes, rales, rhonchi, stridor Cardiovascular Exam: Present: regular rate, normal rhythm, normal heart sounds. Absent: systolic murmur, diastolic murmur, rubs, gallop, clicks GI/Abdominal exam: Present: soft, normal bowel sounds. Absent: distended, tenderness, guarding, rebound, rigid Extremities exam: Present: normal inspection, full ROM, normal capillary refill. Absent: tenderness, pedal edema, joint swelling, calf tenderness Back exam: Present: normal inspection Neurological exam: Present: alert, oriented X3, CN II-XII intact Psychiatric exam: Present: normal affect, normal mood Skin exam: Present: warm, dry, intact, normal color. Absent: rash Course Vital Signs 08/11/20 08/12/20 08/12/20 23:10 01:39 07:30 Temperature 99.0 F Pulse Rate 77 92 68 Respiratory 18 16 18 Rate Blood Pressure 144/86 145/80 131/64 O2 Sat by Pulse 99 99 Oximetry 08/12/20 08/12/20 08:00 14:00 Temperature Pulse Rate 78 Respiratory 18 18 Rate Blood Pressure 121/78 O2 Sat by Pulse 99 Oximetry Chest Pain MDM - MDM Upon arrival the patient is placed in a trauma 2. A thorough history and physical exam was performed. Twelve-lead EKG was performed. Laboratory studies were conducted. Patient was given Benadryl, Reglan and Flexeril for her head and neck pain. Patient was sent for a CT of her head as she states that she does have chronic migraines however has never had imaging of her head. Chest x- ray was also performed. Chest x-ray demonstrates no acute findings. CT of the brain and cervical spine demonstrates no acute findings. Results are discussed the patient. She was given an aspirin chest pain. She is reevaluated and reports improvement in her symptoms. I did recommend hospital admission in order to trend the patient's troponins for which the patient did agree to. Case is discussed with Dr. Ramos accept admission. The patient is currently awaiting a bed on the floor Disposition Clinical Impression: Chest pain Disposition: ADMITTED IP TO THIS HOSP Condition: Stable Is patient prescribed a controlled substance at d/c from ED?: No Decision to Admit Reason: Admit from EC Decision Date: 08/12/20 Decision Time: 02:36
--- NOTE | 2020-08-12 00:44 | XR ---
EXAM: XR Chest, 2 Views CLINICAL HISTORY: ITS.REASON XR Reason: Chest Pain TECHNIQUE: Frontal and lateral views of the chest. COMPARISON: X-ray dated 08/09/2018 FINDINGS: Lungs: Unremarkable. Pleural space: Unremarkable. Heart: Unremarkable. Mediastinum: Unremarkable. Bones/joints: Unremarkable. IMPRESSION: Normal chest x-rays.
--- NOTE | 2020-08-12 00:54 | CT ---
EXAM: CT Head Without Intravenous Contrast CLINICAL HISTORY: ITS.REASON CT Reason: headache, neck pain, arm pain TECHNIQUE: Axial computed tomography images of the head/brain without intravenous contrast. CTDI is 45 mGy and DLP is 1100 mGy-cm. This CT exam was performed using one or more of the following dose reduction techniques: automated exposure control, adjustment of the mA and/or kV according to patient size, and/or use of iterative reconstruction technique. COMPARISON: No relevant prior studies available. FINDINGS: Brain: No acute infarct, hemorrhage, mass or edema. Chronic small vessel ischemic disease and senescent changes. Ventricles: Unremarkable. No ventriculomegaly. Bones/joints: Unremarkable. No acute calvarial fracture. Soft tissues: Unremarkable. Sinuses: Mucosal thickening the paranasal sinuses. Mastoid air cells: Unremarkable as visualized. Other findings: Evidence of prior antrostomies. IMPRESSION: No acute findings in the head/brain. EXAM: CT Cervical Spine Without Intravenous Contrast CLINICAL HISTORY: ITS.REASON CT Reason: headache, neck pain, arm pain TECHNIQUE: Axial computed tomography images of the cervical spine without intravenous contrast. CTDI is 14.17 mGy and DLP is 276.3 mGy-cm. This CT exam was performed using one or more of the following dose reduction techniques: automated exposure control, adjustment of the mA and/or kV according to patient size, and/or use of iterative reconstruction technique. COMPARISON: No relevant prior studies available. FINDINGS: Vertebrae: No acute fracture or traumatic malalignment. Discs/spinal canal/neural foramina: No acute findings. No significant spinal canal or neuroforaminal stenosis. Soft tissues: Unremarkable. Lung apices: Biapical pleural-parenchymal scarring. IMPRESSION: No acute findings in the cervical spine.
[2020-08-12] MEDS ORDERED: NALOXONE 0.4 MG/ML 1 ML VIAL IV PRN (02:37)
[2020-08-12 03:04] LABS: ALT 17 U/L (4-34); African American GFR (CKD) >90 (>60 ml/min/1.73 sqM); Albumin 3.7 g/dL (3.5-5.0); Anion Gap 4 mmol/L; Blood Urea Nitrogen 12 mg/dL (7-17); Calcium 8.6 mg/dL (8.4-10.2); Carbon Dioxide 27 mmol/L (22-30); Chloride 109 mmol/L (98-107); Glucose 94 mg/dL (74-99); Non-African American GFR(CKD) >90 (>60 ml/min/1.73 sqM); Sodium 140 mmol/L (137-145); Total Bilirubin 0.8 mg/dL (0.2-1.3); Total Protein 6.6 g/dL (6.3-8.2)
[2020-08-12 03:09] LABS: Potassium 4.7 mmol/L (3.5-5.1)
[2020-08-12 03:10] LABS: AST 32 U/L (14-36); Alkaline Phosphatase 50 U/L (38-126); Magnesium 1.9 mg/dL (1.6-2.3)
[2020-08-12] MEDS ORDERED: DOBUTamine DRIP for NUC MED 500 MG in DEXTROSE/WATER 1 250ML.BAG IV ONE (08:52)
[2020-08-12] MEDS ORDERED: DIPHENOX-ATROP 2.5-0.025 MG 1 EACH TAB PO PRN (09:00)
[2020-08-12] MEDS ORDERED: ALPRAZolam 0.5 MG TAB PO PRN (09:00)
[2020-08-12] MEDS ORDERED: ALBUTEROL NEBULIZED 2.5 MG/3 ML INHALATION PRN (09:00)
--- NOTE | 2020-08-12 09:00 | P.HPIM ---
History of Present Illness H&P Date: 08/12/20 Chief Complaint: Chest pain. This is a history and physical on a 75-year-old white female with known history of hypertension and hypothyroidism with an element of ongoing depression who stated for the last several days she has been having significant chest pain. It was substernal in nature with no radiation but there was some nausea. No overt diaphoresis stated per se. No fever or chills but the pain started becoming more intense. Food is not necessary provocative. No palliative factors are stated. Review of Systems Constitutional: Denies chills, Denies fever Eyes: denies blurred vision, denies pain Ears, nose, mouth and throat: Denies headache, Denies sore throat Cardiovascular: Reports as per HPI Respiratory: Denies cough Gastrointestinal: Denies abdominal pain, Denies diarrhea, Denies nausea, Denies vomiting Genitourinary: Denies dysuria, Denies hematuria Musculoskeletal: Denies myalgias Past Medical History Past Medical History: Asthma, COPD, Hypertension, Musculoskeletal Disorder, Osteoarthritis (OA), Thyroid Disorder Additional Past Medical History / Comment(s): STRESS INCONT/WEARS PAD History of Any Multi-Drug Resistant Organisms: None Reported Past Surgical History: Cholecystectomy, Hysterectomy Additional Past Surgical History / Comment(s): RT Shoulder surgery, CATARACTS Past Anesthesia/Blood Transfusion Reactions: No Reported Reaction Additional Past Anesthesia/Blood Transfusion Reaction / Comment(s): trouble breathing coming out of surgery Past Psychological History: Depression Smoking Status: Never smoker Past Alcohol Use History: Rare Past Drug Use History: None Reported - Past Family History Father History Unknown: Yes Family Medical History: Liver Disease Additional Family Medical History / Comment(s): pt is adopted DOES'NT KNOW MUCH ABOUT PARENTS Mother Family Medical History: Cancer Additional Family Medical History / Comment(s): LUNG CANCER Sister(s) Additional Family Medical History / Comment(s): HEART PROBLEMS Brother(s) Family Medical History: COPD Additional Family Medical History / Comment(s): LUNG DZ Medications and Allergies Home Medications Medication Instructions Recorded Confirmed Type ALPRAZolam [Xanax] 0.5 mg PO BID PRN 12/02/15 08/12/20 History Citalopram Hydrobromide 40 mg PO DAILY 12/02/15 08/12/20 History [Citalopram HBr] lisinopriL [Zestril] 20 mg PO DAILY 12/02/15 08/12/20 History Albuterol Nebulized [Ventolin 2.5 mg INHALATION RT-TID PRN 12/03/15 08/12/20 History Nebulized] Divalproex Sodium 250 mg PO BID 12/03/15 08/12/20 History Montelukast Sodium 10 mg PO HS 12/03/15 08/12/20 History Cholecalciferol (Vitamin D3) 2,000 unit PO DAILY 05/25/17 08/12/20 History [Vitamin D3] Cyanocobalamin (Vitamin B-12) 1,000 mcg PO DAILY 05/25/17 08/12/20 History [Vitamin B-12] Multivitamins, Thera [Multivitamin 1 tab PO DAILY 05/25/17 08/12/20 History (formulary)] Diphenox-Atrop 2.5-0.025 mg 1 tab PO BID PRN 08/12/20 08/12/20 History [Lomotil] Fluticasone/Umeclidin/Vilanter 1 puff INHALATION RT-DAILY 08/12/20 08/12/20 History [Trelegy Ellipta 100-62.5-25] Levothyroxine Sodium 200 mcg PO DAILY 08/12/20 08/12/20 History Tolterodine ER [Detrol LA] 4 mg PO DAILY 08/12/20 08/12/20 History Allergies Allergy/AdvReac Type Severity Reaction Status Date / Time cefaclor [From Ceclor] Allergy Unknown Verified 08/12/20 07:22 ceftriaxone [From Rocephin] Allergy Anaphylaxis Verified 08/12/20 07:22 levofloxacin [From Levaquin] Allergy Anaphylaxis Verified 08/12/20 07:22 Sulfa (Sulfonamide Allergy Unknown Verified 08/12/20 07:22 Antibiotics) morphine AdvReac Extreme Verified 08/12/20 07:22 Sedation Physical Exam Vitals: Vital Signs Temp Pulse Resp BP Pulse Ox 08/12/20 07:30 68 18 131/64 08/12/20 01:39 92 16 145/80 99 08/11/20 23:10 99.0 F 77 18 144/86 99 Intake and Output 08/11/20 08/12/20 08/12/20 22:59 06:59 14:59 Other: Weight 79.832 kg - Constitutional General appearance: no acute distress - EENT Eyes: EOMI - Neck Neck: no lymphadenopathy - Respiratory Respiratory: bilateral: CTA - Cardiovascular Rhythm: regular Heart sounds: normal: S1, S2 Abnormal Heart Sounds: no S3 Gallop - Gastrointestinal General gastrointestinal: soft, no tenderness - Integumentary Integumentary: no cellulitis - Neurologic Neurologic: CNII-XII intact Results CBC & Chem 7: 08/11/20 00:00 08/12/20 02:31 Labs: Abnormal Lab Results - Last 24 Hours (Table) 08/12/20 Range/Units 02:31 Chloride 109 H (98-107) mmol/L Assessment and Plan (1) Hypertension Current Visit: Yes Status: Acute Code(s): I10 - ESSENTIAL (PRIMARY) HYPERTENSION SNOMED Code(s): 76460609 (2) Chest pain Current Visit: Yes Status: Acute Code(s): R07.9 - CHEST PAIN, UNSPECIFIED SNOMED Code(s): 18078642 (3) Acute electrocardiogram changes Current Visit: No Status: Acute Code(s): R94.31 - ABNORMAL ELECTROCARDIOGRAM [ECG] [EKG] SNOMED Code(s): 649558663 Plan: Rule out myocardial infarction. Reconcile Home medications. Prognosis is guarded secondary to her multiple comorbidities. See orders otherwise. Time with Patient: Greater than 30
--- NOTE | 2020-08-12 09:56 | P.CRDCN ---
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 We have been asked to see the patient in consultation for chest pain. Patient examined this morning at the bedside in the emergency room. Patient states she woke up yesterday morning with complaints of a headache and neck pain. She reports at about 8 PM yesterday she began having midsternal chest pain that radiated down her left arm. She denied dizziness or lightheadedness. Denied nausea or vomiting. She reports she had some shortness of breath and believes her COPD has been acting up over the past few days. This morning the patient reports mild chest pressure. The patient had a dobutamine stress test performed in 2015 which was negative for reversible ischemia. Patient states she is adopted and does not know any of her family's medical history. DIAGNOSTICS: EKG reveals sinus rhythm without signs of acute ischemia Chest xray negative for acute process Laboratory data: WBC 8.8. Hemoglobin 14.1. Platelet count 273. Sodium 140. Potassium 4.7. BUN 12. Creatinine 0.53. Magnesium 1.9. BNP 54. Troponin negative 3 Current home cardiac medications include none. REVIEW OF SYSTEMS: At the time of my exam: CONSTITUTIONAL: Denies fever or chills. HEENT: Denies blurred vision, vision changes, or eye pain. Denies hemoptysis CARDIOVASCULAR: Denies chest pain, orthopnea, PND or palpitations RESPIRATORY: No shortness of breath. GASTROINTESTINAL: Denies abdominal pain. Denies nausea or vomiting. HEMATOLOGIC: Denies bleeding disorders. GENITOURINARY: Denies any blood in urine. SKIN: Denies pruitis. Denies rash. PHYSICAL EXAM: VITAL SIGNS: Reviewed. GENERAL: Well-developed in no acute distress. HEENT: Head is normocephalic. Pupils are equal, round. Sclerae anicteric. Mucous membranes of the mouth are moist. Neck supple. No JVD or thyromegaly LUNGS: Respirations even and unlabored. Lungs clear bilaterally. HEART: Regular rate and rhythm. S1 and S2 heard. ABDOMEN: Soft. Nondistended. Nontender. EXTREMITIES: Normal range of motion. No clubbing or cyanosis. Peripheral pulses intact. No lower extremity edema NEUROLOGIC: Awake and alert. Oriented x 3. ASSESSMENT: Chest pain, troponin negative x 3 Hypertension COPD, from second hand smoke per patient Hypothyroidism Obesity: BMI 35.5 PLAN: An acute coronary event has been ruled out Resume home dose of lisinopril Obtain 2-D echo to assess cardiac structure and function Patient to undergo Dobutamine stress test today to assess for reversible is chemia Nurse practitioner note has been reviewed by physician. Signing provider agrees with the documented findings, assessment, and plan of care. Past Medical History Past Medical History: Asthma, COPD, Hypertension, Musculoskeletal Disorder, Osteoarthritis (OA), Thyroid Disorder Additional Past Medical History / Comment(s): STRESS INCONT/WEARS PAD History of Any Multi-Drug Resistant Organisms: None Reported Past Surgical History: Cholecystectomy, Hysterectomy Additional Past Surgical History / Comment(s): RT Shoulder surgery, CATARACTS Past Anesthesia/Blood Transfusion Reactions: No Reported Reaction Additional Past Anesthesia/Blood Transfusion Reaction / Comment(s): trouble breathing coming out of surgery Past Psychological History: Depression Smoking Status: Never smoker Past Alcohol Use History: Rare Past Drug Use History: None Reported - Past Family History Father History Unknown: Yes Family Medical History: Liver Disease Additional Family Medical History / Comment(s): pt is adopted DOES'NT KNOW MUCH ABOUT PARENTS Mother Family Medical History: Cancer Additional Family Medical History / Comment(s): LUNG CANCER Sister(s) Additional Family Medical History / Comment(s): HEART PROBLEMS Brother(s) Family Medical History: COPD Additional Family Medical History / Comment(s): LUNG DZ Medications and Allergies Home Medications Medication Instructions Recorded Confirmed Type ALPRAZolam [Xanax] 0.5 mg PO BID PRN 12/02/15 08/12/20 History Citalopram Hydrobromide 40 mg PO DAILY 12/02/15 08/12/20 History [Citalopram HBr] lisinopriL [Zestril] 20 mg PO DAILY 12/02/15 08/12/20 History Albuterol Nebulized [Ventolin 2.5 mg INHALATION RT-TID PRN 12/03/15 08/12/20 History Nebulized] Divalproex Sodium 250 mg PO BID 12/03/15 08/12/20 History Montelukast Sodium 10 mg PO HS 12/03/15 08/12/20 History Cholecalciferol (Vitamin D3) 2,000 unit PO DAILY 05/25/17 08/12/20 History [Vitamin D3] Cyanocobalamin (Vitamin B-12) 1,000 mcg PO DAILY 05/25/17 08/12/20 History [Vitamin B-12] Multivitamins, Thera [Multivitamin 1 tab PO DAILY 05/25/17 08/12/20 History (formulary)] Diphenox-Atrop 2.5-0.025 mg 1 tab PO BID PRN 08/12/20 08/12/20 History [Lomotil] Fluticasone/Umeclidin/Vilanter 1 puff INHALATION RT-DAILY 08/12/20 08/12/20 History [Trelegy Ellipta 100-62.5-25] Levothyroxine Sodium 200 mcg PO DAILY 08/12/20 08/12/20 History Tolterodine ER [Detrol LA] 4 mg PO DAILY 08/12/20 08/12/20 History Allergies Allergy/AdvReac Type Severity Reaction Status Date / Time cefaclor [From Ceclor] Allergy Unknown Verified 08/12/20 07:22 ceftriaxone [From Rocephin] Allergy Anaphylaxis Verified 08/12/20 07:22 levofloxacin [From Levaquin] Allergy Anaphylaxis Verified 08/12/20 07:22 Sulfa (Sulfonamide Allergy Unknown Verified 08/12/20 07:22 Antibiotics) morphine AdvReac Extreme Verified 08/12/20 07:22 Sedation Physical Exam Vitals: Vital Signs Temp Pulse Resp BP Pulse Ox 08/12/20 07:30 68 18 131/64 08/12/20 01:39 92 16 145/80 99 08/11/20 23:10 99.0 F 77 18 144/86 99 Intake and Output 08/11/20 08/12/20 08/12/20 22:59 06:59 14:59 Other: Weight 79.832 kg Results 08/11/20 00:00 08/12/20 02:31 Cardiac Enzymes 08/11/20 08/12/20 08/12/20 Range/Units 00:00 02:31 02:31 AST 32 (14-36) U/L Troponin I <0.012 <0.012 (0.000-0.034) ng/mL 08/12/20 Range/Units 06:44 AST (14-36) U/L Troponin I <0.012 (0.000-0.034) ng/mL Coagulation 08/11/20 Range/Units 00:00 PT 9.9 (9.0-12.0) sec APTT 24.6 (22.0-30.0) sec CBC 08/11/20 Range/Units 00:00 WBC 8.8 (3.8-10.6) k/uL RBC 4.37 (3.80-5.40) m/uL Hgb 14.1 (11.4-16.0) gm/dL Hct 43.3 (34.0-46.0) % Plt Count 273 (150-450) k/uL Comprehensive Metabolic Panel 08/12/20 Range/Units 02:31 Sodium 140 (137-145) mmol/L Potassium 4.7 (3.5-5.1) mmol/L Chloride 109 H (98-107) mmol/L Carbon Dioxide 27 (22-30) mmol/L BUN 12 (7-17) mg/dL Creatinine 0.53 (0.52-1.04) mg/dL Glucose 94 (74-99) mg/dL Calcium 8.6 (8.4-10.2) mg/dL AST 32 (14-36) U/L ALT 17 (4-34) U/L Alkaline Phosphatase 50 (38-126) U/L Total Protein 6.6 (6.3-8.2) g/dL Albumin 3.7 (3.5-5.0) g/dL Current Medications Generic Name Dose Route Start Last Admin Trade Name Freq PRN Reason Stop Dose Admin Albuterol Sulfate 2.5 mg 08/12/20 09:00 Albuterol Nebulized 2.5 Mg/3 Ml INHALATION RT-TID PRN Shortness Of Breath Alprazolam 0.5 mg 08/12/20 09:00 Alprazolam 0.5 Mg Tab PO BID PRN Anxiety Budesonide/Formoterol Fumarate 2 puff 08/12/20 20:00 Symbicort 80-4.5 Mcg Inhaler INHALATION RT-BID SHLOMO Cholecalciferol 2,000 unit 08/12/20 09:00 Cholecalciferol 1,000 Unit Tab PO DAILY SHLOMO Citalopram Hydrobromide 40 mg 08/12/20 09:00 Citalopram Hydrobromide 20 Mg Tab PO DAILY [facility] Cyanocobalamin 1,000 mcg 08/12/20 09:00 Cyanocobalamin 500 Mcg Tab PO DAILY SHLOMO Diphenoxylate HCl/Atropine 1 each 08/12/20 09:00 Diphenox-Atrop 2.5-0.025 Mg 1 Each Tab PO BID PRN Diarrhea Divalproex Sodium 250 mg 08/12/20 09:00 Divalproex 250 Mg Tablet.Dr PO BID SHOLMO Dobutamine HCl/Dextrose 500 mg 250 mls @ 23.95 mls/hr 08/12/20 08:52 / IV Solution IV 08/12/20 19:18 .[id number] Protocol 10 MCG/KG/MIN Ipratropium Gilman 0.5 mg 08/13/20 08:00 Ipratropium 0.5 Mg/2.5 Ml Nebu INHALATION RT-QID [facility] Levothyroxine Sodium 200 mcg 08/12/20 09:00 Levothyroxine 100 Mcg Tab PO DAILY@0630 [facility] Lisinopril 20 mg 08/12/20 09:00 Lisinopril 20 Mg Tab PO DAILY [facility] Montelukast Sodium 10 mg 08/12/20 21:00 Montelukast 10 Mg Tab PO HS [facility] Multivitamins 1 each 08/12/20 09:00 Multivitamins, Thera 1 Each Tab PO DAILY [facility] Naloxone HCl 0.2 mg 08/12/20 02:37 Naloxone 0.4 Mg/Ml 1 Ml Vial IV Q2M PRN Opioid Reversal Oxybutynin Chloride 10 mg 08/12/20 09:00 Oxybutynin 10 Mg Tab.Er.24 PO DAILY [facility] Intake and Output 08/11/20 08/12/20 08/12/20 22:59 06:59 14:59 Other: Weight 79.832 kg 08/11/20 00:00 08/12/20 02:31
--- NOTE | 2020-08-12 11:48 | ECHOF ---
Referral Reason:chest pain MEASUREMENTS -------- HEIGHT: 132.1 cm WEIGHT: 79.8 kg BP: RVIDd: 3.0 cm (< 3.3) IVSd: 0.9 cm (0.6 - 1.1) LVIDd: 3.8 cm (3.9 - 5.3) LVPWd: 1.1 cm (0.6 - 1.1) IVSs: 1.1 cm LVIDs: 3.2 cm LVPWs: 1.2 cm LA Diam: 4.7 cm (2.7 - 3.8) LAESV Index (A-L): 47.23 ml/m Ao Diam: 3.5 cm (2.0 - 3.7) AV Cusp: 1.8 cm (1.5 - 2.6) LA Diam: 3.8 cm (2.7 - 3.8) MV EXCURSION: 15.271 mm (> 18.000) MV EF SLOPE: 66 mm/s (70 - 150) EPSS: 3.0 cm MV E Beny: 0.78 m/s MV DecT: 236 ms MV A Beny: 1.16 m/s MV E/A Ratio: 0.67 AR PHT: 575 ms RAP: 5.00 mmHg RVSP: 36.79 mmHg FINDINGS -------- Sinus rhythm. This was a technically adequate study. LV size, wall thickness and systolic function are normal, with an EF greater than 55%. The left jeb tricular size is normal. The right ventricle is normal in size. LA is severely dilated >40 ml/m2 The right atrial size is normal. The aortic valve is trileaflet and appears structurally normal. There is mild aortic regurgitation. The mitral valve leaflets are mildly thickened. Mild mitral regurgitation is present. Mild tricuspid regurgitation present. There is mild pulmonary hypertension. The right ventricular systolic pressure, as measured by Doppler, is 36.79mmHg. Trace/mild (physiologic) pulmonic regurgitation. The aortic root size is normal. There is no pericardial effusion. CONCLUSIONS -------- 1. LV size, wall thickness and systolic function are normal, with an EF greater than 55%. 2. LA is severely dilated >40 ml/m2 3. There is mild aortic regurgitation. 4. Mild mitral regurgitation is present. 5. Mild tricuspid regurgitation present. 6. There is mild pulmonary hypertension. 7. Trace/mild (physiologic) pulmonic regurgitation. 8. There is no pericardial effusion. TOBACCO EDUCATOR: Taryn Acosta RDCS
[2020-08-12] MEDS: DIVALPROEX 250 MG TABLET.DR PO SCH ×2 (17:19→23:09)
[2020-08-12] MEDS: CITALOPRAM HYDROBROMIDE 20 MG TAB PO SCH (17:19)
[2020-08-12] MEDS: CYANOCOBALAMIN 500 MCG TAB PO SCH (17:19)
[2020-08-12] MEDS: CHOLECALCIFEROL 1,000 UNIT TAB PO SCH (17:19)
[2020-08-12] MEDS: LEVOTHYROXINE 100 MCG TAB PO SCH (17:19)
[2020-08-12] MEDS: OXYBUTYNIN 10 MG TAB.ER.24 PO SCH (17:20)
[2020-08-12] MEDS: lisinopriL 20 MG TAB PO SCH (17:20)
[2020-08-12] MEDS: MULTIVITAMINS, THERA 1 EACH TAB PO SCH (17:20)
[2020-08-12] MEDS: SYMBICORT 80-4.5 MCG INHALER INHALATION SCH (20:05)
[2020-08-12] MEDS ORDERED: MONTELUKAST 10 MG TAB PO SCH (21:00)
[2020-08-13] MEDS: LEVOTHYROXINE 100 MCG TAB PO SCH (05:59)
[2020-08-13] MEDS ORDERED: IPRATROPIUM 0.5 MG/2.5 ML NEBU INHALATION SCH (08:00)
[2020-08-13 08:27] VITALS: BP 164/87; RESP 14; TEMP 98.1
--- NOTE | 2020-08-13 08:34 | ECHOS ---
STRESS ECHOCARDIOGRAM LUMASON: N/A Vial INDICATIONS: Chest pain. MEDICATIONS: BASELINE HEART RATE: 63 BASELINE BLOOD PRESSURE: 132/76 MAXIMUM HEART RATE: 129 MAXIMUM BLOOD PRESSURE: 205/66 85% MPHR: 124 100% MPHR: 146 METS: N/A MAXIMUM STAGE REACHED: 2 TOTAL EXERCISE TIME: 5:45 CLINICAL INFORMATION: Baseline rhythm is a sinus mechanism, rate of 63, normal axis and intervals, normal echocardiogram. Baseline blood pressure 132/76 mmHg. Patient received an infusion of dobutamine per protocol, peak rate 129 beats per minute which is equal to 88% maximum predicted heart rate. Peak blood pressure 183/63 mmHg. Electrocardiograph monitoring revealed no evidence of diagnostic ischemic ST deviation, rare PACs and PVCs were noted. The baseline echocardiogram revealed normal wall motion. At peak infusion, there was normal wall thickening and motion without any hypokinesis or dyskinesis. CONCLUSION: 1. Normal electrocardiograph response to dobutamine infusion. 2. Normal stress echo echocardiogram with no evidence of stress-induced ischemia. MMODL / IJN: [id number] /
[2020-08-13] MEDS: SYMBICORT 80-4.5 MCG INHALER INHALATION SCH (08:40)
--- NOTE | 2020-08-13 08:47 | P.DS ---
Providers Date of admission: 08/12/20 02:37 Attending physician: Joce Chua Consults: 08/12/20 02:37 Consult Physician Urgent Consulting Provider: [facility] Consult Reason/Comments: acute chest pain, left arm paresthesias Do you want consulting provider notified?: Yes Primary care physician: Joce Chua - Discharge Diagnosis(es) (1) Hypertension Current Visit: Yes Status: Acute (2) Chest pain Current Visit: Yes Status: Acute (3) Acute electrocardiogram changes Current Visit: No Status: Acute Hospital Course: Discharge summary 75-year-old female essentially admitted for atypical chest pain. Stress testing was negative. She has normal history of COPD and asthma but this is now stable. She was discharged in stable condition to follow-up with me in about 3-4 days. Patient Condition at Discharge: Stable Plan - Discharge Summary Discharge Rx Participant: No New Discharge Prescriptions: Continue lisinopriL [Zestril] 20 mg PO DAILY Citalopram Hydrobromide [Citalopram HBr] 40 mg PO DAILY ALPRAZolam [Xanax] 0.5 mg PO BID PRN PRN Reason: Anxiety Divalproex Sodium 250 mg PO BID Montelukast Sodium 10 mg PO HS Albuterol Nebulized [Ventolin Nebulized] 2.5 mg INHALATION RT-TID PRN PRN Reason: Shortness Of Breath Cholecalciferol (Vitamin D3) [Vitamin D3] 2,000 unit PO DAILY Multivitamins, Thera [Multivitamin (formulary)] 1 tab PO DAILY Cyanocobalamin (Vitamin B-12) [Vitamin B-12] 1,000 mcg PO DAILY Tolterodine ER [Detrol LA] 4 mg PO DAILY Diphenox-Atrop 2.5-0.025 mg [Lomotil] 1 tab PO BID PRN PRN Reason: Diarrhea Fluticasone/Umeclidin/Vilanter [Trelegy Ellipta 100-62.5-25] 1 puff INHALATION RT-DAILY Levothyroxine Sodium 200 mcg PO DAILY Benralizumab [Fasenra] 30 mg SQ Q56D Discharge Medication List ALPRAZolam [Xanax] 0.5 mg PO BID PRN 12/02/15 [History] Citalopram Hydrobromide [Citalopram HBr] 40 mg PO DAILY 12/02/15 [History] lisinopriL [Zestril] 20 mg PO DAILY 12/02/15 [History] Albuterol Nebulized [Ventolin Nebulized] 2.5 mg INHALATION RT-TID PRN 12/03/15 [History] Divalproex Sodium 250 mg PO BID 12/03/15 [History] Montelukast Sodium 10 mg PO HS 12/03/15 [History] Cholecalciferol (Vitamin D3) [Vitamin D3] 2,000 unit PO DAILY 05/25/17 [History] Cyanocobalamin (Vitamin B-12) [Vitamin B-12] 1,000 mcg PO DAILY 05/25/17 [History] Multivitamins, Thera [Multivitamin (formulary)] 1 tab PO DAILY 05/25/17 [History] Benralizumab [Fasenra] 30 mg SQ Q56D 08/12/20 [History] Diphenox-Atrop 2.5-0.025 mg [Lomotil] 1 tab PO BID PRN 08/12/20 [History] Fluticasone/Umeclidin/Vilanter [Trelegy Ellipta 100-62.5-25] 1 puff INHALATION RT-DAILY 08/12/20 [History] Levothyroxine Sodium 200 mcg PO DAILY 08/12/20 [History] Tolterodine ER [Detrol LA] 4 mg PO DAILY 08/12/20 [History] Follow up Appointment(s)/Referral(s): Joce Chua MD [Primary Care Provider] - 1-2 days
[2020-08-13 08:55] VITALS: PULSE 76
[2020-08-13] MEDS: CITALOPRAM HYDROBROMIDE 20 MG TAB PO SCH (09:15)
[2020-08-13] MEDS: OXYBUTYNIN 10 MG TAB.ER.24 PO SCH (09:15)
[2020-08-13] MEDS: DIVALPROEX 250 MG TABLET.DR PO SCH (09:15)
[2020-08-13] MEDS: MULTIVITAMINS, THERA 1 EACH TAB PO SCH (09:15)
[2020-08-13] MEDS: CHOLECALCIFEROL 1,000 UNIT TAB PO SCH (09:15)
[2020-08-13] MEDS: lisinopriL 20 MG TAB PO SCH (09:15)
[2020-08-13] MEDS: CYANOCOBALAMIN 500 MCG TAB PO SCH (09:15)
--- NOTE | 2020-08-13 09:28 | PN ---
PROGRESS NOTE Mrs. Vera is a 75-year-old female who presented with symptoms of chest discomfort. She is feeling well today. She has no further symptoms of chest pain. She denies any dizziness, palpitation. She denies any nausea or vomiting. She underwent a dobutamine stress echocardiogram yesterday, revealed no evidence of stress-induced ischemia and her transthoracic echo revealed mild mitral and tricuspid regurgitation. She continues to be at this time on budesonide, levothyroxine, lisinopril 20 mg daily. PHYSICAL EXAMINATION: Blood pressure running in the 130s to 140s with a heart in 60. LUNGS: No wheezes or rales. HEART: Regular rate and rhythm, S1, S2. No S3. No rub. ABDOMEN: Soft, nontender. EXTREMITIES: No edema. IMPRESSION: 1. Chest discomfort, with no evidence of stress-induced ischemia on the dobutamine stress echocardiogram. 2. History of chronic obstructive pulmonary disease. 3. History of hypertension. RECOMMENDATION: From the cardiac standpoint, she is stable. No further cardiac workup will be needed. MMODL / IJN: [id number] /
[2020-08-13 10:13] LABS: Basophils % (A) 1 %; Eosinophils % (A) 1 %; HCT 38.7 % (34.0-46.0); HGB 12.8 gm/dL (11.4-16.0); Lymphocytes # (A) 2.5 k/uL (1.0-4.8); Lymphocytes % (A) 40 %; MCH 32.8 pg (25.0-35.0); MCV 99.4 fL (80.0-100.0); Mean Platelet Volume 8.9; Monocytes # (A) 0.4 k/uL (0-1.0); Monocytes % (A) 7 %; Neutrophils # (A) 3.2 k/uL (1.3-7.7); Neutrophils % (A) 51 %; Platelet Count 214 k/uL (150-450); RDW 12.1 % (11.5-15.5); WBC 6.2 k/uL (3.8-10.6)
[2020-08-13 10:22] LABS: African American GFR (CKD) >90 (>60 ml/min/1.73 sqM); Anion Gap -2 mmol/L; Blood Urea Nitrogen 15 mg/dL (7-17); Carbon Dioxide 36 mmol/L (22-30); Chloride 105 mmol/L (98-107); Glucose 104 mg/dL (74-99); Non-African American GFR(CKD) 85 (>60 ml/min/1.73 sqM); Potassium 4.1 mmol/L (3.5-5.1); Sodium 139 mmol/L (137-145)
== END 2020-08-13 11:55 | disposition home or self-care (01) ==
LOC: EC 23:04 → 1SOBS 08-12 02:37
PROVIDERS: ADMIT Family Medicine; ATTEND Family Medicine
DX: R07.89 Other chest pain (principal); G43.909 Migraine, unspecified, not intractable, without status migrainosus; I10 Essential (primary) hypertension; I08.1 Rheumatic disorders of both mitral and tricuspid valves; J44.9 Chronic obstructive pulmonary disease, unspecified; R94.31 Abnormal electrocardiogram [ECG] [EKG]; E03.9 Hypothyroidism, unspecified; M19.90 Unspecified osteoarthritis, unspecified site; N39.3 Stress incontinence (female) (male); F32.9 Major depressive disorder, single episode, unspecified; M54.2 Cervicalgia; R20.2 Paresthesia of skin; E66.9 Obesity, unspecified; Z68.35 Body mass index [BMI] 35.0-35.9, adult; Z77.22 Contact with and (suspected) exposure to environmental tobacco smoke (acute) (chronic); Z79.890 Hormone replacement therapy; Z79.51 Long term (current) use of inhaled steroids; Z79.899 Other long term (current) drug therapy; Z88.2 Allergy status to sulfonamides; Z88.1 Allergy status to other antibiotic agents; Z88.5 Allergy status to narcotic agent; Z90.710 Acquired absence of both cervix and uterus; Z90.49 Acquired absence of other specified parts of digestive tract; Z98.49 Cataract extraction status, unspecified eye; Z98.890 Other specified postprocedural states; Z80.1 Family history of malignant neoplasm of trachea, bronchus and lung; Z82.5 Family history of asthma and other chronic lower respiratory diseases; Z83.79 Family history of other diseases of the digestive system; Z82.49 Family history of ischemic heart disease and other diseases of the circulatory system
CPT/HCPCS: 93005 ×2; 96361; 96374; 96375; 99285; 36415; 94640 ×3; 93306; 93351; 83880; 80053; 80048; 83735; 84484; 85025 ×2; 85610; 85730; 71046; 72125; 70450; G0378 ×2; J1250; J1200; J2765

== ENCOUNTER 2022-02-11 14:36 | Observation (INO) | payer MEDICARE ==
[2022-02-11] MEDS ORDERED: NITROGLYCERIN OINT 1 INCH/GM PACKET TOPICAL STA (15:05)
[2022-02-11] MEDS ORDERED: ONDANSETRON 4 MG/2 ML VIAL IVP STA (15:05)
[2022-02-11] MEDS ORDERED: SODIUM CHLORIDE 0.9% 500 ML 500 ML IV STA (15:05)
[2022-02-11] MEDS ORDERED: ASPIRIN 81 MG PO STA (15:05)
[2022-02-11 15:50] LABS: Basophils % (A) 0 %; Eosinophils % (A) 1 %; HCT 43.5 % (34.0-46.0); HGB 14.3 gm/dL (11.4-16.0); Lymphocytes # (A) 1.5 k/uL (1.0-4.8); Lymphocytes % (A) 26 %; MCH 32.9 pg (25.0-35.0); MCHC 32.9 g/dL (31.0-37.0); MCV 99.9 fL (80.0-100.0); Mean Platelet Volume 9.8; Monocytes # (A) 0.4 k/uL (0-1.0); Monocytes % (A) 6 %; Neutrophils # (A) 3.8 k/uL (1.3-7.7); Neutrophils % (A) 66 %; Platelet Count 230 k/uL (150-450); RBC 4.36 m/uL (3.80-5.40); RDW 12.9 % (11.5-15.5); WBC 5.8 k/uL (3.8-10.6)
[2022-02-11 15:53] LABS: INR 1.1 (<1.2); Prothrombin Time 11.5 sec (9.0-12.0)
[2022-02-11 16:02] LABS: Albumin 4.5 g/dL (3.5-5.0); Calcium 9.6 mg/dL (8.4-10.2); Magnesium 1.9 mg/dL (1.6-2.3); Potassium 3.3 mmol/L (3.5-5.1); Total Bilirubin 1.7 mg/dL (0.2-1.3); Total Protein 7.6 g/dL (6.3-8.2)
--- NOTE | 2022-02-11 16:04 | ED ---
General Adult HPI - General Chief complaint: Chest Pain Stated complaint: Chest Pain Time Seen by Provider: 02/11/22 14:40 Source: patient, RN notes reviewed, old records reviewed Mode of arrival: ambulatory Limitations: no limitations - History of Present Illness Initial comments: This is a 76-year-old female presents emergency Department comes emergency Department with chest pain. Patient states it started yesterday and has been intermittent. Patient states it never goes away 100% but it's not constant. She states the pain radiates to the left arm. Patient states she has also been very nauseated. Patient denies any diaphoretic episodes. Patient denies any recent fever chills or cough. Patient denies headache patient denies lightheadedness or dizziness. Patient denies abdominal pain patient denies any vomiting or diarrhea. - Related Data Home Medications Medication Instructions Recorded Confirmed ALPRAZolam [Xanax] 0.5 mg PO BID PRN 12/02/15 02/11/22 Citalopram Hydrobromide 40 mg PO DAILY 12/02/15 02/11/22 [Citalopram HBr] lisinopriL [Zestril] 20 mg PO DAILY 12/02/15 02/11/22 Divalproex Sodium 250 mg PO DAILY 12/03/15 02/11/22 Montelukast Sodium 10 mg PO DAILY 12/03/15 02/11/22 Tolterodine ER [Detrol LA] 4 mg PO DAILY 08/12/20 02/11/22 Levothyroxine Sodium [Synthroid] 150 mcg PO DAILY 02/11/22 02/11/22 QUEtiapine [SEROquel] 50 mg PO BID 02/11/22 02/11/22 ondansetron HCL [Zofran] 8 mg PO BID PRN 02/11/22 02/11/22 Allergies Allergy/AdvReac Type Severity Reaction Status Date / Time cefaclor [From Ceclor] Allergy Unknown Verified 02/11/22 16:07 ceftriaxone [From Rocephin] Allergy Anaphylaxis Verified 02/11/22 16:07 levofloxacin [From Levaquin] Allergy Anaphylaxis Verified 02/11/22 16:07 Sulfa (Sulfonamide Allergy Unknown Verified 02/11/22 16:07 Antibiotics) morphine AdvReac Extreme Verified 02/11/22 16:07 Sedation Review of Systems ROS Statement: Those systems with pertinent positive or pertinent negative responses have been documented in the HPI. ROS Other: All systems not noted in ROS Statement are negative. Past Medical History Past Medical History: Asthma, COPD, Hypertension, Musculoskeletal Disorder, Osteoarthritis (OA), Thyroid Disorder Additional Past Medical History / Comment(s): STRESS INCONT/WEARS PAD History of Any Multi-Drug Resistant Organisms: None Reported Past Surgical History: Cholecystectomy, Hysterectomy Additional Past Surgical History / Comment(s): RT Shoulder surgery, CATARACTS Past Anesthesia/Blood Transfusion Reactions: No Reported Reaction Additional Past Anesthesia/Blood Transfusion Reaction / Comment(s): trouble breathing coming out of surgery Past Psychological History: Depression Smoking Status: Never smoker Past Alcohol Use History: Rare Past Drug Use History: None Reported - Past Family History Father History Unknown: Yes Family Medical History: Liver Disease Additional Family Medical History / Comment(s): pt is adopted DOES'NT KNOW MUCH ABOUT PARENTS Mother Family Medical History: Cancer Additional Family Medical History / Comment(s): LUNG CANCER Sister(s) Additional Family Medical History / Comment(s): HEART PROBLEMS Brother(s) Family Medical History: COPD Additional Family Medical History / Comment(s): LUNG DZ General Exam - General Exam Comments Initial Comments: GENERAL: Patient is well-developed and well-nourished. Patient is nontoxic and well- hydrated and is in mild distress. ENT: Neck is soft and supple. No significant lymphadenopathy is noted. Oropharynx is clear. Moist mucous membranes. Neck has full range of motion without eliciting any pain. EYES: The sclera were anicteric and conjunctiva were pink and moist. Extraocular movements were intact and pupils were equal round and reactive to light. Eyelids were unremarkable. PULMONARY: Unlabored respirations. Good breath sounds bilaterally. No audible rales rhonchi or wheezing was noted. CARDIOVASCULAR: There is a regular rate and rhythm without any murmurs gallops or rubs. ABDOMEN: Soft and nontender with normal bowel sounds. SKIN: Skin is clear with no lesions or rashes and otherwise unremarkable. NEUROLOGIC: Patient is alert and oriented x3. Cranial nerves II through XII are grossly intact. Motor and sensory are also intact. Normal speech, volume and content. Symmetrical smile. MUSCULOSKELETAL: Normal extremities with adequate strength and full range of motion. No lower extremity swelling or edema. No calf tenderness. LYMPHATICS: No significant lymphadenopathy is noted PSYCHIATRIC: Normal psychiatric evaluation. Limitations: no limitations Course Vital Signs 02/11/22 02/11/22 14:38 15:00 Temperature 97.4 F L 99 F Pulse Rate 67 67 Respiratory 22 14 Rate Blood Pressure 121/69 146/106 O2 Sat by Pulse 100 100 Oximetry Medical Decision Making - Medical Decision Making EKG shows sinus rhythm at 75 bpm [place] interval 175 QRS is 76 QT intervals 370 QTC is 46 per patient's EKG shows no ST segment elevation or depression. Chest x-ray shows no acute abnormality. I spoke with Dr. Chambers he agreed to admit the patient admitted the patient I wrote admitting orders. - Lab Data Result diagrams: 02/11/22 14:48 02/11/22 14:48 Lab Results 02/11/22 02/11/22 02/11/22 Range/Units 14:48 14:48 14:48 WBC 5.8 (3.8-10.6) k/uL RBC 4.36 (3.80-5.40) m/uL Hgb 14.3 (11.4-16.0) gm/dL Hct 43.5 (34.0-46.0) % MCV 99.9 (80.0-100.0) fL MCH 32.9 (25.0-35.0) pg MCHC 32.9 (31.0-37.0) g/dL RDW 12.9 (11.5-15.5) % Plt Count 230 (150-450) k/uL MPV 9.8 Neutrophils % 66 % Lymphocytes % 26 % Monocytes % 6 % Eosinophils % 1 % Basophils % 0 % Neutrophils # 3.8 (1.3-7.7) k/uL Lymphocytes # 1.5 (1.0-4.8) k/uL Monocytes # 0.4 (0-1.0) k/uL Eosinophils # 0.0 (0-0.7) k/uL Basophils # 0.0 (0-0.2) k/uL PT 11.5 (9.0-12.0) sec INR 1.1 (<1.2) APTT 23.0 (22.0-30.0) sec Sodium 137 (137-145) mmol/L Potassium 3.3 L (3.5-5.1) mmol/L Chloride 97 L (98-107) mmol/L Carbon Dioxide 31 H (22-30) mmol/L Anion Gap 9 mmol/L BUN 7 (7-17) mg/dL Creatinine 0.78 (0.52-1.04) mg/dL Est GFR (CKD-EPI)AfAm 86 (>60 ml/min/1.73 sqM) Est GFR (CKD-EPI)NonAf 75 (>60 ml/min/1.73 sqM) Glucose 101 H (74-99) mg/dL Calcium 9.6 (8.4-10.2) mg/dL Magnesium 1.9 (1.6-2.3) mg/dL Total Bilirubin 1.7 H (0.2-1.3) mg/dL AST 33 (14-36) U/L ALT 13 (4-34) U/L Alkaline Phosphatase 57 (38-126) U/L Troponin I (0.000-0.034) ng/mL Total Protein 7.6 (6.3-8.2) g/dL Albumin 4.5 (3.5-5.0) g/dL 02/11/22 Range/Units 14:48 WBC (3.8-10.6) k/uL RBC (3.80-5.40) m/uL Hgb (11.4-16.0) gm/dL Hct (34.0-46.0) % MCV (80.0-100.0) fL MCH (25.0-35.0) pg MCHC (31.0-37.0) g/dL RDW (11.5-15.5) % Plt Count (150-450) k/uL MPV Neutrophils % % Lymphocytes % % Monocytes % % Eosinophils % % Basophils % % Neutrophils # (1.3-7.7) k/uL Lymphocytes # (1.0-4.8) k/uL Monocytes # (0-1.0) k/uL Eosinophils # (0-0.7) k/uL Basophils # (0-0.2) k/uL PT (9.0-12.0) sec INR (<1.2) APTT (22.0-30.0) sec Sodium (137-145) mmol/L Potassium (3.5-5.1) mmol/L Chloride (98-107) mmol/L Carbon Dioxide (22-30) mmol/L Anion Gap mmol/L BUN (7-17) mg/dL Creatinine (0.52-1.04) mg/dL Est GFR (CKD-EPI)AfAm (>60 ml/min/1.73 sqM) Est GFR (CKD-EPI)NonAf (>60 ml/min/1.73 sqM) Glucose (74-99) mg/dL Calcium (8.4-10.2) mg/dL Magnesium (1.6-2.3) mg/dL Total Bilirubin (0.2-1.3) mg/dL AST (14-36) U/L ALT (4-34) U/L Alkaline Phosphatase (38-126) U/L Troponin I 0.017 (0.000-0.034) ng/mL Total Protein (6.3-8.2) g/dL Albumin (3.5-5.0) g/dL Disposition Clinical Impression: Chest pain Disposition: ADMITTED IP TO THIS [facility] Referrals: Joce Chua MD [Primary Care Provider] - 1-2 days Time of Disposition: 16:58
--- NOTE | 2022-02-11 16:21 | XR ---
EXAMINATION TYPE: XR chest 2V DATE OF EXAM: 02/11/2022 COMPARISON: 08/12/2020 INDICATION: Chest pain TECHNIQUE: Frontal and lateral views of the chest are obtained. FINDINGS: The heart size is normal. The pulmonary vasculature is normal. Streak opacities at the left base. Correlate for atelectasis and increased AP diameter on the lateral projection. Mild kyphosis is present. IMPRESSION: 1. Focal correlation for left lung base atelectasis.
[2022-02-11] MEDS ORDERED: NITROGLYCERIN SL TABS 0.4 MG TAB SUBLINGUAL PRN (16:58)
[2022-02-11] MEDS: NITROGLYCERIN OINT 1 INCH/GM PACKET TOPICAL SCH ×2 (19:06→22:41)
[2022-02-11] MEDS ORDERED: ALPRAZolam 0.5 MG TAB PO PRN (21:07)
[2022-02-11] MEDS ORDERED: ONDANSETRON 4 MG TAB PO PRN (21:07)
[2022-02-11] MEDS: QUEtiapine 50 MG TAB PO SCH (21:34)
[2022-02-12] MEDS: NITROGLYCERIN OINT 1 INCH/GM PACKET TOPICAL SCH (05:24)
[2022-02-12] MEDS ORDERED: LEVOTHYROXINE 75 MCG TAB PO SCH (06:30)
[2022-02-12] MEDS ORDERED: CAFFEINE CITRATE 60 MG/3 ML VIAL IV PRN (08:20)
[2022-02-12] MEDS ORDERED: AMINOPHYLLINE 500 MG/20 ML VIAL IV PRN (08:20)
[2022-02-12] MEDS ORDERED: REGADENOSON 0.4 MG/5 ML SYRINGE IV PRN (08:20)
[2022-02-12] MEDS ORDERED: CITALOPRAM HYDROBROMIDE 20 MG TAB PO SCH (09:00)
[2022-02-12] MEDS ORDERED: lisinopriL 20 MG TAB PO SCH (09:00)
[2022-02-12] MEDS ORDERED: ASPIRIN 81 MG PO SCH (09:00)
[2022-02-12] MEDS ORDERED: DIVALPROEX 250 MG TABLET.DR PO SCH (09:00)
[2022-02-12] MEDS ORDERED: ASPIRIN 325 MG TAB PO SCH (09:00)
[2022-02-12] MEDS ORDERED: MONTELUKAST 10 MG TAB PO SCH (09:00)
[2022-02-12] MEDS ORDERED: OXYBUTYNIN 10 MG TAB.ER.24 PO SCH (09:00)
--- NOTE | 2022-02-12 09:02 | P.HPIM ---
History of Present Illness Chief Complaint: Chest pain. The patient 76-year-old white female who struggles with anxiety depression who states yesterday she had chest pain radiating to her shoulder with some mild nausea. She does not struggle with transient. She has an underlying history of COPD as well. Second hand smoke I think she has significant exposure. She is admitted essentially for appropriate angina. Review of Systems Constitutional: Denies chills, Denies fever Eyes: denies blurred vision, denies pain Ears, nose, mouth and throat: Denies headache, Denies sore throat Cardiovascular: Denies chest pain, Denies shortness of breath Respiratory: Denies cough Gastrointestinal: Denies abdominal pain, Denies diarrhea, Denies nausea, Denies vomiting Past Medical History Past Medical History: Asthma, COPD, Hypertension, Musculoskeletal Disorder, Osteoarthritis (OA), Thyroid Disorder Additional Past Medical History / Comment(s): STRESS INCONT/WEARS PAD, wears home 2L O2 PRN History of Any Multi-Drug Resistant Organisms: None Reported Past Surgical History: Cholecystectomy, Hysterectomy Additional Past Surgical History / Comment(s): RT Shoulder surgery, CATARACTS Past Anesthesia/Blood Transfusion Reactions: No Reported Reaction Additional Past Anesthesia/Blood Transfusion Reaction / Comment(s): trouble breathing coming out of surgery Past Psychological History: Depression Smoking Status: Never smoker Past Alcohol Use History: Rare Past Drug Use History: None Reported - Past Family History Father History Unknown: Yes Family Medical History: Liver Disease Additional Family Medical History / Comment(s): pt is adopted DOES'NT KNOW MUCH ABOUT PARENTS Mother Family Medical History: Cancer Additional Family Medical History / Comment(s): LUNG CANCER Sister(s) Additional Family Medical History / Comment(s): HEART PROBLEMS Brother(s) Family Medical History: COPD Additional Family Medical History / Comment(s): LUNG DZ Medications and Allergies Home Medications Medication Instructions Recorded Confirmed Type RX: ALPRAZolam [Xanax] 0.5 mg PO BID PRN 12/02/15 02/11/22 History RX: Citalopram Hydrobromide 40 mg PO DAILY 12/02/15 02/11/22 History [Citalopram HBr] RX: lisinopriL [Zestril] 20 mg PO DAILY 12/02/15 02/11/22 History RX: Divalproex Sodium 250 mg PO DAILY 12/03/15 02/11/22 History RX: Montelukast Sodium 10 mg PO DAILY 12/03/15 02/11/22 History RX: Tolterodine ER [Detrol LA] 4 mg PO DAILY 08/12/20 02/11/22 History Levothyroxine Sodium [Synthroid] 150 mcg PO DAILY 02/11/22 02/11/22 History QUEtiapine [SEROquel] 50 mg PO BID 02/11/22 02/11/22 History ondansetron HCL [Zofran] 8 mg PO BID PRN 02/11/22 02/11/22 History Allergies Allergy/AdvReac Type Severity Reaction Status Date / Time cefaclor [From Ceclor] Allergy Unknown Verified 02/11/22 16:07 ceftriaxone [From Rocephin] Allergy Anaphylaxis Verified 02/11/22 16:07 levofloxacin [From Levaquin] Allergy Anaphylaxis Verified 02/11/22 16:07 Sulfa (Sulfonamide Allergy Unknown Verified 02/11/22 16:07 Antibiotics) morphine AdvReac Extreme Verified 02/11/22 16:07 Sedation Physical Exam Vitals: Vital Signs Temp Pulse Pulse Resp BP BP Pulse Ox 02/12/22 07:00 97.4 F L 55 L 14 128/67 99 02/12/22 02:45 97.7 F 74 16 134/71 95 02/12/22 01:43 17 02/11/22 20:33 98.4 F 59 L 17 178/86 100 02/11/22 18:13 83 12 163/74 100 02/11/22 15:00 99 F 67 14 146/106 100 02/11/22 14:38 97.4 F L 67 22 121/69 100 Intake and Output 02/11/22 02/12/22 02/12/22 22:59 06:59 14:59 Other: Voiding Method Diaper Incontinent # Voids 1 1 Weight 72.575 kg - Constitutional General appearance: no acute distress - EENT Eyes: EOMI - Neck Neck: no lymphadenopathy - Respiratory Respiratory: bilateral: CTA - Cardiovascular Rhythm: regular Heart sounds: normal: S1, S2 Abnormal Heart Sounds: no S3 Gallop - Gastrointestinal General gastrointestinal: soft, no tenderness Results CBC & Chem 7: 02/11/22 14:48 02/11/22 14:48 Labs: Abnormal Lab Results - Last 24 Hours (Table) 02/11/22 Range/Units 14:48 Potassium 3.3 L (3.5-5.1) mmol/L Chloride 97 L (98-107) mmol/L Carbon Dioxide 31 H (22-30) mmol/L Glucose 101 H (74-99) mg/dL Total Bilirubin 1.7 H (0.2-1.3) mg/dL Thrombosis Risk Factor Assmnt - Choose All That Apply Any of the Below Risk Factors Present?: Yes Each Factor Represents 1 point: Abnormal pulmonary function (COPD), Obesity (BMI >25) Other Risk Factors: Yes Each Risk Factor Represents 3 Points: Age 75 years or older Thrombosis Risk Factor Assessment Total Risk Factor Score: 5 Thrombosis Risk Factor Assessment Level: High Risk Assessment and Plan (1) COPD (chronic obstructive pulmonary disease) Current Visit: Yes Status: Acute Code(s): J44.9 - CHRONIC OBSTRUCTIVE PU LMONARY DISEASE, UNSPECIFIED SNOMED Code(s): 60805599 (2) Chest pain Current Visit: Yes Status: Acute Code(s): R07.9 - CHEST PAIN, UNSPECIFIED SNOMED Code(s): 59490307 (3) Asthma Current Visit: No Status: Acute Code(s): J45.909 - UNSPECIFIED ASTHMA, UN COMPLICATED SNOMED Code(s): 386363812 (4) Hypertension Current Visit: No Status: Acute Code(s): I10 - ESSENTIAL (PRIMARY) HYPERTENSION SNOMED Code(s): 55306799 Plan: Reconcile medications per Appreciate cardiology input. Stress testing is pending for today. Await results. Anticipate discharge if stable.
[2022-02-12] MEDS ORDERED: Potassium Replacement Protocol 1 EACH MISC MISCELLANE PRN (09:03)
[2022-02-12 09:20] LABS: Chol/HDL Ratio 4.11 Ratio; LDL Cholesterol,Calculated 177.8 mg/dL (0.0-131.0)
[2022-02-12] MEDS: QUEtiapine 50 MG TAB PO SCH (09:24)
--- NOTE | 2022-02-12 10:04 | P.CRDCN ---
History of Present Illness Consult date: 02/12/22 History of present illness: HISTORY OF PRESENT ILLNESS: This is a 76-year-old female with a past medical history significant for hypertension, anxiety, and hypothyroidism. Patient used to see Dr. Cavazos but has not been to the office since 2016. We have been asked to see the patient in consultation for chest pain. Patient examined at the bedside. Patient states over the past 1-2 days she has been having some chest discomfort. She describes the pain as a heaviness in the middle of her chest. She reports feeling short of breath with the discomfort and thought it was initially related to her asthma. She also reports feeling dizzy and lightheaded. She states the pain radiated into her left arm. She denies doing anything exertional at the time. She did not take any medications at home to help with the pain. She states she tried to get into her PCP office however they were unable to see her so she came to the hospital for further evaluation. The patient states that she received some Nitropaste which did help her pain. She continues to report some chest heaviness this morning. * EKG reveals sinus mechanism with no signs of acute ischemia * Chest xray focal correlation for left lung base atelectasis * Laboratory data: WBC 5.8. Hemoglobin 14.3. Platelet count 230. Sodium 137. Potassium 3.3. BUN 7. Creatinine 0.78. Magnesium 1.9. Troponin negative 3. * Current home cardiac medications include lisinopril 20 mg daily * Most recent echocardiogram obtained in July 2020 revealed ejection fraction greater than 55%, mild aortic regurgitation, mild MR, mild TR, mild pulmonary hypertension * Patient underwent dobutamine stress test in July 2020 which was negative for ischemia REVIEW OF SYSTEMS: At the time of my exam: CONSTITUTIONAL: Denies fever or chills. HEENT: Denies blurred vision, vision changes, or eye pain. Denies hemoptysis CARDIOVASCULAR: Denies chest pain. Denies orthopnea. Denies PND. Denies palpitations RESPIRATORY: Denies shortness of breath. GASTROINTESTINAL: Denies abdominal pain. Denies nausea or vomiting. HEMATOLOGIC: Denies bleeding disorders. GENITOURINARY: Denies any blood in urine. SKIN: Denies pruitis. Denies rash. PHYSICAL EXAM: VITAL SIGNS: Reviewed. GENERAL: Well-developed in no acute distress. HEENT: Head is normocephalic. Pupils are equal, round. Sclerae anicteric. Mucous membranes of the mouth are moist. Neck supple. No JVD or thyromegaly LUNGS: Respirations even and unlabored. Lungs essentially clear to auscultation bilaterally. HEART: Regular rate and rhythm. S1 and S2 heard. ABDOMEN: Soft. Nondistended. Nontender. EXTREMITIES: Normal range of motion. No clubbing or cyanosis. Peripheral pulses intact. No lower extremity edema NEUROLOGIC: Awake and alert. Oriented x 3. ASSESSMENT: Chest pain Hypertension Hyperlipidemia, LDL 177 Anxiety Hypothyroidism PLAN: An acute coronary event has been ruled out Resume home cardiac medications Add Lipitor 40 mg daily Patient to undergo Lexiscan stress test today Further recommendations pending patient's course Nurse practitioner note has been reviewed by physician. Signing provider agrees with the documented findings, assessment, and plan of care. Past Medical History Past Medical History: Asthma, COPD, Hypertension, Musculoskeletal Disorder, Osteoarthritis (OA), Thyroid Disorder Additional Past Medical History / Comment(s): STRESS INCONT/WEARS PAD, wears home 2L O2 PRN History of Any Multi-Drug Resistant Organisms: None Reported Past Surgical History: Cholecystectomy, Hysterectomy Additional Past Surgical History / Comment(s): RT Shoulder surgery, CATARACTS Past Anesthesia/Blood Transfusion Reactions: No Reported Reaction Additional Past Anesthesia/Blood Transfusion Reaction / Comment(s): trouble breathing coming out of surgery Past Psychological History: Depression Smoking Status: Never smoker Past Alcohol Use History: Rare Past Drug Use History: None Reported - Past Family History Father History Unknown: Yes Family Medical History: Liver Disease Additional Family Medical History / Comment(s): pt is adopted DOES'NT KNOW MUCH ABOUT PARENTS Mother Family Medical History: Cancer Additional Family Medical History / Comment(s): LUNG CANCER Sister(s) Additional Family Medical History / Comment(s): HEART PROBLEMS Brother(s) Family Medical History: COPD Additional Family Medical History / Comment(s): LUNG DZ Medications and Allergies Home Medications Medication Instructions Recorded Confirmed Type ALPRAZolam [Xanax] 0.5 mg PO BID PRN 12/02/15 02/11/22 History Citalopram Hydrobromide 40 mg PO DAILY 12/02/15 02/11/22 History [Citalopram HBr] lisinopriL [Zestril] 20 mg PO DAILY 12/02/15 02/11/22 History Divalproex Sodium 250 mg PO DAILY 12/03/15 02/11/22 History Montelukast Sodium 10 mg PO DAILY 12/03/15 02/11/22 History Tolterodine ER [Detrol LA] 4 mg PO DAILY 08/12/20 02/11/22 History Levothyroxine Sodium [Synthroid] 150 mcg PO DAILY 02/11/22 02/11/22 History QUEtiapine [SEROquel] 50 mg PO BID 02/11/22 02/11/22 History ondansetron HCL [Zofran] 8 mg PO BID PRN 02/11/22 02/11/22 History Allergies Allergy/AdvReac Type Severity Reaction Status Date / Time cefaclor [From Ceclor] Allergy Unknown Verified 02/11/22 16:07 ceftriaxone [From Rocephin] Allergy Anaphylaxis Verified 02/11/22 16:07 levofloxacin [From Levaquin] Allergy Anaphylaxis Verified 02/11/22 16:07 Sulfa (Sulfonamide Allergy Unknown Verified 02/11/22 16:07 Antibiotics) morphine AdvReac Extreme Verified 02/11/22 16:07 Sedation Physical Exam Vitals: Vital Signs Temp Pulse Pulse Resp BP BP Pulse Ox 02/12/22 07:00 97.4 F L 55 L 14 128/67 99 02/12/22 02:45 97.7 F 74 16 134/71 95 02/12/22 01:43 17 02/11/22 20:33 98.4 F 59 L 17 178/86 100 02/11/22 18:13 83 12 163/74 100 02/11/22 15:00 99 F 67 14 146/106 100 02/11/22 14:38 97.4 F L 67 22 121/69 100 Intake and Output 02/11/22 02/12/22 02/12/22 22:59 06:59 14:59 Other: Voiding Method Diaper Diaper Incontinent Incontinent # Voids 1 1 Weight 72.575 kg Results 02/11/22 14:48 02/11/22 14:48 Cardiac Enzymes 02/11/22 02/11/22 02/11/22 Range/Units 14:48 14:48 17:57 AST 33 (14-36) U/L Troponin I 0.017 0.018 (0.000-0.034) ng/mL 02/11/22 Range/Units 20:32 AST (14-36) U/L Troponin I 0.017 (0.000-0.034) ng/mL Coagulation 02/11/22 Range/Units 14:48 PT 11.5 (9.0-12.0) sec APTT 23.0 (22.0-30.0) sec Lipids 02/11/22 Range/Units 14:48 Triglycerides 91.00 (0.00-149.00) mg/dL Cholesterol 259.00 H (0.00-200.00) mg/dL HDL Cholesterol 63.00 H (40.00-60.00) mg/dL Cholesterol/HDL Ratio 4.11 Ratio CBC 02/11/22 Range/Units 14:48 WBC 5.8 (3.8-10.6) k/uL RBC 4.36 (3.80-5.40) m/uL Hgb 14.3 (11.4-16.0) gm/dL Hct 43.5 (34.0-46.0) % Plt Count 230 (150-450) k/uL Comprehensive Metabolic Panel 02/11/22 Range/Units 14:48 Sodium 137 (137-145) mmol/L Potassium 3.3 L (3.5-5.1) mmol/L Chloride 97 L (98-107) mmol/L Carbon Dioxide 31 H (22-30) mmol/L BUN 7 (7-17) mg/dL Creatinine 0.78 (0.52-1.04) mg/dL Glucose 101 H (74-99) mg/dL Calcium 9.6 (8.4-10.2) mg/dL AST 33 (14-36) U/L ALT 13 (4-34) U/L Alkaline Phosphatase 57 (38-126) U/L Total Protein 7.6 (6.3-8.2) g/dL Albumin 4.5 (3.5-5.0) g/dL Current Medications Generic Name Dose Route Start Last Admin Trade Name Freq PRN Reason Stop Dose Admin Alprazolam 0.5 mg 02/11/22 21:07 Alprazolam 0.5 Mg Tab PO BID PRN Anxiety Aminophylline 100 mg 02/12/22 08:20 Aminophylline 500 Mg/20 Ml Vial IV 02/12/22 12:21 ONCE PRN Patient Response Aspirin 81 mg 02/12/22 09:00 02/12/22 09:23 Aspirin 81 Mg PO 81 mg DAILY SHLOMO Administration Caffeine Citrate 60 mg 02/12/22 08:20 Caffeine Citrate 60 Mg/3 Ml Vial IV 02/12/22 12:21 ONCE PRN Patient Response Citalopram Hydrobromide 40 mg 02/12/22 09:00 02/12/22 09:23 Citalopram Hydrobromide 20 Mg Tab PO 40 mg DAILY SHLOMO Administration Divalproex Sodium 250 mg 02/12/22 09:00 02/12/22 09:25 Divalproex 250 Mg Tablet.Dr PO 250 mg DAILY SHLOMO Administration Levothyroxine Sodium 150 mcg 02/12/22 06:30 02/12/22 06:03 Levothyroxine 75 Mcg Tab PO 150 mcg DAILY@0630 SHLOMO Administration Lisinopril 20 mg 02/12/22 09:00 02/12/22 09:24 Lisinopril 20 Mg Tab PO 20 mg DAILY SHLOMO Administration Miscellaneous Information 1 each 02/12/22 09:03 Potassium Replacement Protocol 1 Each Misc MISCELLANE DAILY PRN Per Protocol Protocol Montelukast Sodium 10 mg 02/12/22 09:00 02/12/22 09:24 Montelukast 10 Mg Tab PO 10 mg DAILY SHLOMO Administration Nitroglycerin 0.4 mg 02/11/22 16:58 Nitroglycerin Sl Tabs 0.4 Mg Tab SUBLINGUAL Q5M PRN Chest Pain Ondansetron HCl 8 mg 02/11/22 21:07 Ondansetron 4 Mg Tab PO BID PRN Nausea And Vomiting Oxybutynin Chloride 10 mg 02/12/22 09:00 02/12/22 09:24 Oxybutynin 10 Mg Tab.Er.24 PO 10 mg DAILY SHLOMO Administration Quetiapine Fumarate 50 mg 02/11/22 21:15 02/12/22 09:24 Quetiapine 50 Mg Tab PO 50 mg BID SHLOMO Administration Regadenoson 0.4 mg 02/12/22 08:20 Regadenoson 0.4 Mg/5 Ml Syringe IV 02/12/22 12:21 ONCE PRN Per Protocol Intake and Output 02/11/22 02/12/22 02/12/22 22:59 06:59 14:59 Other: Voiding Method Diaper Diaper Incontinent Incontinent # Voids 1 1 Weight 72.575 kg 02/11/22 14:48 02/11/22 14:48
--- NOTE | 2022-02-12 10:05 | CA ---
Transthoracic Echo Report Name: Kyleigh Vera Age: 76 Gender: F : 1945 Exam Date: 02/12/2022 09:05 Exam Location: [place] [facility] Ht (in): 61 Wt (lb): 160 Ordering Physician: Jennifer Pak Attending/Referring Phys: [id number], Mellisa Flow Worker Johana Smith RDCS Procedure CPT: Indications: LV function Cardiac Hx: No cardiac hx Technical Quality: Fair Contrast 1: Total Dose (mL): Contrast 2: Total Dose (mL): MEASUREMENTS (Male / Female) Normal Values 2D ECHO LV Diastolic Diameter PLAX 3.4 cm 4.2 - 5.9 / 3.9 - 5.3 cm LV Systolic Diameter PLAX 1.0 cm IVS Diastolic Thickness 1.1 cm 0.6 - 1.0 / 0.6 - 0.9 cm LVPW Diastolic Thickness 1.1 cm 0.6 - 1.0 / 0.6 - 0.9 cm LV Relative Wall Thickness 0.7 LA Volume 47.2 cm??? 18 - 58 / 22 - 52 cm??? M-MODE Aortic Root Diameter MM 3.7 cm LA Systolic Diameter MM 3.1 cm LA Ao Ratio MM 0.8 MV E Point Septal Separation 1.0 cm AV Cusp Separation MM 2.1 cm DOPPLER AV Peak Velocity 97.9 cm/s AV Peak Gradient 3.8 mmHg AI Peak Velocity 327.8 cm/s AI Peak Gradient 43.0 mmHg AI Pressure Half Time 634.3 ms MV Area PHT 3.3 cm??? MR Peak Velocity 521.8 cm/s MR Peak Gradient 108.9 mmHg Mitral E Point Velocity 71.8 cm/s Mitral A Point Velocity 102.7 cm/s Mitral E to A Ratio 0.7 MV Deceleration Time 232.7 ms MV E' Velocity 6.2 cm/s Mitral E to MV E' Ratio 11.5 TR Peak Velocity 204.4 cm/s TR Peak Gradient 16.7 mmHg Right Ventricular Systolic Press 21.7 mmHg FINDINGS Left Ventricle Mildly increased septal wall thickness. Left ventricular ejection fraction is estimated at 55-60 %. Left ventricular cavity size normal. Right Ventricle The right ventricle is normal in size and function. Right Atrium The right atrium is normal in size. Left Atrium The left atrium is normal in size. Mitral Valve Structurally normal mitral valve without significant stenosis or prolapse. There is mild mitral regurgitation. Aortic Valve Structurally normal aortic valve without significant sclerosis or stenosis. There is mild to moderate aortic regurgitation. Tricuspid Valve Structurally normal tricuspid valve without significant stenosis. Pulmonary artery systolic pressure is normal. Trace tricuspid regurgitation. Pulmonic Valve Structurally normal pulmonic valve without significant stenosis. There is no pulmonic regurgitation. Pericardium Normal pericardium without effusion. Aorta Normal aortic root dimension. CONCLUSIONS Mild LVH Normal left ventricular ejection fraction 55-60% Mild mitral regurgitation Mild to moderate aortic regurgitation No pericardial effusion Previewed by: Dr. Andrea Mendoza DO (Electronically Signed) Final Date: 12 February 2022 10:04
[2022-02-12 13:23] VITALS: BP 116/65; PULSE 64; RESP 12; TEMP 97.5
--- NOTE | 2022-02-12 13:25 | NM ---
EXAMINATION TYPE: NM stress lexiscan cardiolite DATE OF EXAM: 02/12/2022 COMPARISON: 10/19/2013 HISTORY: 76-year-old female with chest pain, difficulty in breathing, palpitations, numbness left arm , hypertension, hypercholesterolemia, COPD/asthma. TECHNIQUE: After the intravenous administration of 10.1 mCi Tc 99m Sestamibi - Cardiolite resting SP ECT images acquired 75 minutes post injection. The patient received 0.4mg Lexiscan, 25.5 mCi Tc 99m Sestamibi - Stress images obtained [address] injection FINDINGS: Review of stress and rest SPECT images demonstrates a small fixed defect along the mid to apical ante roseptal wall. No distinct reversibility is identified.. Gated analysis shows normal wall motion wit h an estimated left ventricular ejection fraction of 75 %. TID is calculated at 0.54, within normal limits. IMPRESSION: Small fixed defect anteroseptal wall could represent an area of old infarct or soft tissue attenuatio n artifact. No scintigraphic evidence for inducible ischemia.
--- NOTE | 2022-02-12 14:07 | P.DS ---
Providers Date of admission: 02/11/22 16:58 Attending physician: Joce Chua Primary care physician: Joce Chua - Discharge Diagnosis(es) (1) COPD (chronic obstructive pulmonary disease) Current Visit: Yes Status: Acute (2) Chest pain Current Visit: Yes Status: Acute (3) Asthma Current Visit: No Status: Acute (4) Hypertension Current Visit: No Status: Acute Hospital Course: This is discharge summary 76-year-old white female essentially admitted for unstable angina. She had chest pain radiating to the shoulder with some mild shortness of breath. There is secondhand smoke exposure and cardiology was consulted due to her symptomatology and advancing age. The patient was stabilized. No significant enzymatic elevation was noted and the patient then had stress testing which was negative. She is pain-free on discharge since to follow-up with me in about 5 days. Medications reconciled. She is tolerating diet prior to discharge. Patient Condition at Discharge: Fair Plan - Discharge Summary Discharge Rx Participant: No New Discharge Prescriptions: New Atorvastatin [Lipitor] 40 mg PO HS #30 tab Continue lisinopriL [Zestril] 20 mg PO DAILY Citalopram Hydrobromide [Citalopram HBr] 40 mg PO DAILY ALPRAZolam [Xanax] 0.5 mg PO BID PRN PRN Reason: Anxiety Divalproex Sodium 250 mg PO DAILY Montelukast Sodium 10 mg PO DAILY Tolterodine ER [Detrol LA] 4 mg PO DAILY ondansetron HCL [Zofran] 8 mg PO BID PRN PRN Reason: Nausea And Vomiting QUEtiapine [SEROquel] 50 mg PO BID Levothyroxine Sodium [Synthroid] 150 mcg PO DAILY Discharge Medication List ALPRAZolam [Xanax] 0.5 mg PO BID PRN 12/02/15 [History] Citalopram Hydrobromide [Citalopram HBr] 40 mg PO DAILY 12/02/15 [History] lisinopriL [Zestril] 20 mg PO DAILY 12/02/15 [History] Divalproex Sodium 250 mg PO DAILY 12/03/15 [History] Montelukast Sodium 10 mg PO DAILY 12/03/15 [History] Tolterodine ER [Detrol LA] 4 mg PO DAILY 08/12/20 [History] Levothyroxine Sodium [Synthroid] 150 mcg PO DAILY 02/11/22 [History] QUEtiapine [SEROquel] 50 mg PO BID 02/11/22 [History] ondansetron HCL [Zofran] 8 mg PO BID PRN 02/11/22 [History] Atorvastatin [Lipitor] 40 mg PO HS #30 tab 02/12/22 [Rx] Follow up Appointment(s)/Referral(s): Joce Chua MD [Primary Care Provider] - 1-2 days
[2022-02-12] MEDS ORDERED: ATORVASTATIN 40 MG TAB PO SCH (21:00)
--- NOTE | 2022-02-18 10:40 | CA ---
Lexiscan Nuclear Stress Test Report Name: Kyleigh Vera Exam Date: 02/12/2022 10:28 Exam Location: [place] Stress Ht (in): 60 Wt (lb): 160 BSA: 1.70 Ordering Phys: Jennifer Pak Referring Phys: FUENTES,, Technologist: Lisa Epstein RDCS Age: 76 Gender: F : 1945 Procedure CPT: Indications: Reflex order-Stress test ICD-10 Codes: Patient History: CP, DM, PALPITATIONS, HTN, COPD, ASTHMA Medications: Meds past 24 hrs: Pretest Chest Pain: STRESS TEST Lexiscan Protocol Exercise Duration (min:sec): 02:[address] Depressions (mm): Angina Score: Mojica Score: Resting HR (bpm): 59 Peak HR (bpm): 86 Resting BP (mmHg): 133 / 76 Peak BP (mmHg): 133 / 59 MPHR: 145 Target HR: 123 % MPHR: 59 METS: 1.0 Total Dose: Peak Dose: Atropine: Double Product: 42775 BP Response: Stress Termination: Stress Symptoms: Stress Summary: ECG ANALYSIS Resting ECG: Sinus rhythm and nonspecific ST-T changes Stress ECG: Sinus rhythm without any significant change from baseline CONCLUSIONS #1. Negative Lexiscan stress test. #2. Report on the nuclear images to be provided by the radiologist Dr. Elliott Sullivan MD (Electronically Signed) Final Date: 18 February 2022 10:40
== END 2022-02-12 16:30 | disposition home or self-care (01) ==
LOC: EC 14:36 → 6NMEDSUR 16:58
PROVIDERS: ADMIT Family Medicine; ATTEND Family Medicine
DX: J44.9 Chronic obstructive pulmonary disease, unspecified (principal); R07.89 Other chest pain; I10 Essential (primary) hypertension; E03.9 Hypothyroidism, unspecified; E78.5 Hyperlipidemia, unspecified; M19.90 Unspecified osteoarthritis, unspecified site; I08.0 Rheumatic disorders of both mitral and aortic valves; N39.3 Stress incontinence (female) (male); F32.A Depression, unspecified; F41.9 Anxiety disorder, unspecified; E66.9 Obesity, unspecified; Z68.31 Body mass index [BMI] 31.0-31.9, adult; Z77.22 Contact with and (suspected) exposure to environmental tobacco smoke (acute) (chronic); Z79.890 Hormone replacement therapy; Z79.899 Other long term (current) drug therapy; Z88.2 Allergy status to sulfonamides; Z88.5 Allergy status to narcotic agent; Z88.1 Allergy status to other antibiotic agents; Z88.8 Allergy status to other drugs, medicaments and biological substances; Z90.710 Acquired absence of both cervix and uterus; Z98.41 Cataract extraction status, right eye; Z98.42 Cataract extraction status, left eye; Z96.1 Presence of intraocular lens; Z90.49 Acquired absence of other specified parts of digestive tract; Z82.5 Family history of asthma and other chronic lower respiratory diseases; Z80.1 Family history of malignant neoplasm of trachea, bronchus and lung; Z83.79 Family history of other diseases of the digestive system
CPT/HCPCS: 99285; 96374; 36415; 93005; 93017; 93306; 80061; 80053; 83735; 84484; 85025; 85610; 85730; 71046; 78452; G0378 ×2; A9500; J2405; J2785

== ENCOUNTER 2022-04-19 23:51 | Emergency (ER) | payer OTHER, MEDICARE ==
[2022-04-20 00:06] VITALS: TEMP 99
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
[2022-04-20 01:03] LABS: Basophils % (A) 1 %; Calcium 9.6 mg/dL (8.4-10.2); Eosinophils # (A) 0.1 k/uL (0-0.7); Eosinophils % (A) 1 %; HCT 40.2 % (34.0-46.0); HGB 12.9 gm/dL (11.4-16.0); Lymphocytes % (A) 24 %; MCH 32.4 pg (25.0-35.0); MCHC 32.2 g/dL (31.0-37.0); MCV 100.6 fL (80.0-100.0); Mean Platelet Volume 10.3; Monocytes # (A) 0.6 k/uL (0-1.0); Monocytes % (A) 8 %; Neutrophils # (A) 5.3 k/uL (1.3-7.7); Neutrophils % (A) 65 %; Platelet Count 224 k/uL (150-450); RBC 3.99 m/uL (3.80-5.40); RDW 12.6 % (11.5-15.5); WBC 8.2 k/uL (3.8-10.6)
[2022-04-20 01:05] LABS: Potassium 4.2 mmol/L (3.5-5.1)
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
[2022-04-20 02:32] VITALS: BP 165/80; PULSE 72; RESP 18
== END 2022-04-20 02:52 | disposition home or self-care (01) ==
LOC: EC 23:51
DX: M54.2 Cervicalgia (principal); R10.9 Unspecified abdominal pain; R51.9 Headache, unspecified; J44.9 Chronic obstructive pulmonary disease, unspecified; I10 Essential (primary) hypertension; M19.90 Unspecified osteoarthritis, unspecified site; E07.9 Disorder of thyroid, unspecified; Z88.8 Allergy status to other drugs, medicaments and biological substances; Z88.1 Allergy status to other antibiotic agents; Z88.2 Allergy status to sulfonamides; Z88.5 Allergy status to narcotic agent; Z79.890 Hormone replacement therapy; Z79.899 Other long term (current) drug therapy; V89.2XXA Person injured in unspecified motor-vehicle accident, traffic, initial encounter
CPT/HCPCS: 36415; 80048; 85025; 72125; 70450; 71260; 74177; 99284; Q9967

== ENCOUNTER → 2023-04-26 | Outpatient (CLI) | payer MEDICARE ==
--- NOTE | 2023-04-26 17:40 | XR ---
EXAMINATION TYPE: XR shoulder complete LT DATE OF EXAM: 04/26/2023 5:35 PM INDICATION: Patient age:Female; 77 years old; Reason for study: M25.512; COMPARISON: None TECHNIQUE: The left shoulder was examined in AP, internally rotated and scapular Y projections. . FINDINGS: No evidence of acute osseous pathology, joint dislocation, or soft tissue swelling. No significant kaden int space narrowing or spurring. No abnormal calcifications. The remaining portions of the visualized chest are unremarkable. IMPRESSION: No acute osseous pathology.
== END | disposition home or self-care (01) ==
LOC: RADXRMAIN 17:16
PROVIDERS: ATTEND Family Medicine
DX: M25.512 Pain in left shoulder (principal)

== ENCOUNTER → 2023-09-28 | Outpatient (CLI) | payer MEDICARE ==
--- NOTE | 2023-09-28 17:13 | CT ---
EXAMINATION TYPE: CT brain wo con DATE OF EXAM: 09/28/2023 COMPARISON: 04/20/2022 HISTORY: 78-year-old female R41.3, Memory loss, confusion. TECHNIQUE: Examination was done in axial plane without intravenous contrast. Coronal and sagittal r econstructions performed. CT DLP: 1079.9 mGycm Automated exposure control for dose reduction was used. FINDINGS: There is no evidence of acute intracranial hemorrhage, acute ischemic changes, mass, mass-effect, or extra-axial fluid collection. There is no effacement of cerebral sulci or basal subarachnoid cister ns. There is no hydrocephalus. There is no midline shift. Hogan-white matter distinction is preserv ed. Moderate generalized supratentorial volume loss with moderate patchy white matter hypodensities in alex th cerebral hemispheres. Benign basal ganglionic calcifications on both sides. Partially empty sella. 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 Mastoid air cells well pneumatized. Orbits and globes appear intac t. IMPRESSION: 1. No acute intracranial abnormality seen. 2. Moderate cerebral atrophy and moderate burden of chronic small vessel ischemic disease, similar to slightly progressed from 2021.
== END | disposition home or self-care (01) ==
LOC: RADCTMAIN 15:28
PROVIDERS: ATTEND Family Medicine
DX: G31.9 Degenerative disease of nervous system, unspecified (principal); I67.82 Cerebral ischemia; R41.0 Disorientation, unspecified; R41.3 Other amnesia
CPT/HCPCS: 70450

== ENCOUNTER 2023-11-24 13:03 | Observation (INO) | payer MEDICARE ==
[2023-11-24] MEDS: SODIUM CHLORIDE 0.9% 1,000 ML IV STA ×2 (14:02→18:25)
[2023-11-24 14:11] LABS: Basophils % (A) 0 %; Eosinophils # (A) 0.1 k/uL (0-0.7); Eosinophils % (A) 1 %; HCT 39.8 % (34.0-46.0); HGB 13.3 gm/dL (11.4-16.0); Lymphocytes # (A) 1.4 k/uL (1.0-4.8); Lymphocytes % (A) 24 %; MCH 33.3 pg (25.0-35.0); MCHC 33.5 g/dL (31.0-37.0); MCV 99.5 fL (80.0-100.0); Mean Platelet Volume 10.3; Monocytes # (A) 0.7 k/uL (0-1.0); Monocytes % (A) 11 %; Neutrophils # (A) 3.7 k/uL (1.3-7.7); Neutrophils % (A) 63 %; Platelet Count 109 k/uL (150-450); RDW 12.8 % (11.5-15.5); WBC 5.9 k/uL (3.8-10.6)
[2023-11-24 14:23] LABS: ALT 20 U/L (4-34); AST 36 U/L (14-36); African American GFR (CKD) 42 (>60 ml/min/1.73 sqM); Albumin 3.2 g/dL (3.5-5.0); Alkaline Phosphatase 49 U/L (38-126); Amylase 37 U/L (30-110); Anion Gap 6 mmol/L; Blood Urea Nitrogen 20 mg/dL (7-17); Calcium 9.2 mg/dL (8.4-10.2); Carbon Dioxide 25 mmol/L (22-30); Chloride 102 mmol/L (98-107); Glucose 87 mg/dL (74-99); Lipase 39 U/L (23-300); Non-African American GFR(CKD) 36 (>60 ml/min/1.73 sqM); Potassium 3.9 mmol/L (3.5-5.1); Sodium 133 mmol/L (137-145); Total Bilirubin 0.5 mg/dL (0.2-1.3); Total Protein 5.9 g/dL (6.3-8.2)
[2023-11-24] MEDS: KETOROLAC 15 MG/ML 1 ML VIAL IVP STA (14:26)
[2023-11-24 14:27] LABS: INR 1.1 (<1.2); Partial Thromboplastin Time 24.2 sec (22.0-30.0); Prothrombin Time 11.6 sec (10.0-12.5)
[2023-11-24] MEDS: ONDANSETRON 4 MG/2 ML VIAL IVP STA (14:28)
[2023-11-24] MEDS: PANTOPRAZOLE 40 MG/10 ML VIAL IVP STA (14:28)
--- NOTE | 2023-11-24 14:55 | ED ---
General Adult HPI - General Chief complaint: Abdominal Pain Stated complaint: Weakness Time Seen by Provider: 11/24/23 13:16 Source: patient, RN notes reviewed, old records reviewed Mode of arrival: wheelchair Limitations: no limitations - History of Present Illness Initial comments: Patient is a 78-year-old female who presents emergency department complaining of abdominal pain. Is been ongoing for few days. Currently is on antibiotics for UTI. Presents with her sister who is her primary caregiver and press operator assistant. Patient endorses periumbilical and lower abdominal pain. Has had less of an appetite over the last few days as well. No nausea or vomiting. Chronic diarrhea. Denies chest pain or shortness of breath. Denies fevers. Has no other acute complaints at this time. They were concerned regarding the abdominal pain which is why she presents for evaluation at our ER. - Related Data Home Medications Medication Instructions Recorded Confirmed ALPRAZolam [Xanax] 0.25 mg PO TID PRN 12/02/15 11/24/23 lisinopriL [Zestril] 20 mg PO DAILY 12/02/15 11/24/23 Divalproex Sodium 250 mg PO BID 12/03/15 11/24/23 Montelukast Sodium 10 mg PO DAILY 12/03/15 11/24/23 Acetaminophen Tab [Tylenol Tab] 1,000 mg PO BID 11/24/23 11/24/23 Albuterol Inhaler [Ventolin Hfa 2 puff INHALATION RT-QID PRN 11/24/23 11/24/23 Inhaler] Albuterol Nebulized [Ventolin 2.5 mg INHALATION RT-Q6H PRN 11/24/23 11/24/23 Nebulized] Benralizumab [Fasenra] 1 dose SQ DIRECTED 11/24/23 11/24/23 Cholecalciferol [Vitamin D3 (25 25 mcg PO DAILY 11/24/23 11/24/23 Mcg = 1000 Iu)] Ibuprofen [Advil] 400 mg PO QID 11/24/23 11/24/23 Levothyroxine Sodium [Synthroid] 125 mcg PO DAILY 11/24/23 11/24/23 Sulfamethox-Tmp 800-160Mg [Bactrim 1 tab PO Q12HR 11/24/23 11/24/23 DS 800-160 mg] Allergies Allergy/AdvReac Type Severity Reaction Status Date / Time cefaclor [From Ceclor] Allergy Unknown Verified 11/24/23 18:31 ceftriaxone [From Rocephin] Allergy Anaphylaxis Verified 11/24/23 18:31 levofloxacin [From Levaquin] Allergy Anaphylaxis Verified 11/24/23 18:31 Sulfa (Sulfonamide Allergy Unknown Verified 11/24/23 18:31 Antibiotics) codeine AdvReac Extreme Verified 11/24/23 18:31 Sedation, confusion morphine AdvReac Extreme Verified 11/24/23 18:31 Sedation, confusion narcotics AdvReac Extreme Uncoded 11/24/23 18:31 Sedation, confusion Review of Systems ROS Statement: Those systems with pertinent positive or pertinent negative responses have been documented in the HPI. Review of Systems: CONST: Denies fever EYES: Denies blurry vision ENT: Denies nasal congestion C/V: Denies Chest pain RESP: Denies shortness of breath GI: Endorses abdominal pain : Denies dysuria SKIN: Denies rash. MSK: Denies joint pain. NEURO: Denies headache ROS Other: All systems not noted in ROS Statement are negative. Past Medical History Past Medical History: Asthma, COPD, Hypertension, Musculoskeletal Disorder, Osteoarthritis (OA), Thyroid Disorder Additional Past Medical History / Comment(s): STRESS INCONT/WEARS PAD, wears home 2L O2 PRN History of Any Multi-Drug Resistant Organisms: None Reported Past Surgical History: Cholecystectomy, Hysterectomy Additional Past Surgical History / Comment(s): RT Shoulder surgery, CATARACTS Past Anesthesia/Blood Transfusion Reactions: No Reported Reaction Additional Past Anesthesia/Blood Transfusion Reaction / Comment(s): trouble breathing coming out of surgery Past Psychological History: Depression Smoking Status: Current every day smoker Past Alcohol Use History: Rare Past Drug Use History: None Reported - Past Family History Father History Unknown: Yes Family Medical History: Liver Disease Additional Family Medical History / Comment(s): pt is adopted DOES'NT KNOW MUCH ABOUT PARENTS Mother Family Medical History: Cancer Additional Family Medical History / Comment(s): LUNG CANCER Sister(s) Additional Family Medical History / Comment(s): HEART PROBLEMS Brother(s) Family Medical History: COPD Additional Family Medical History / Comment(s): LUNG DZ General Exam - General Exam Comments Initial Comments: General: Appears in mild distress secondary to abdominal pain. HEAD: Normal with no signs of head trauma. EYES: PERRLA, EOMI, conjunctiva normal, no discharge. ENT: Hearing grossly intact, normal oropharynx. RESPIRATORY: Clear breath sounds bilaterally. No wheezes, rales, or rhonchi. C/V: Regular rate and rhythm. S1 and S2 auscultated, no edema, peripheral pulses 2+ and intact throughout ABD: Abdomen is soft, nondistended. Minimally tender to palpation periumbilically and suprapubically. No guarding. No rebound tenderness. No peritoneal signs. EXT: Normal range of motion, no obvious deformity SKIN: No rashes or lesions observed on exposed skin. NEURO: Alert and oriented x 4. Limitations: no limitations Course Vital Signs 11/24/23 11/24/23 13:06 16:32 Temperature 98.6 F Pulse Rate 82 73 Respiratory 16 16 Rate Blood Pressure 135/83 105/75 O2 Sat by Pulse 98 97 Oximetry Medical Decision Making - Medical Decision Making Was pt. sent in by a medical professional or institution (, PA, REGIONAL SALES COORDINATOR, urgent care, hospital, or fci...) When possible be specific @ -No Did you speak to anyone other than the patient for history (EMS, parent, family, police, friend...)? What history was obtained from this source @ -Patient's sister helps with patient's past medical history. Did you review nursing and triage notes (agree or disagree)? Why? @ -I reviewed and agree with nursing and triage notes Were old charts reviewed (outside hosp., previous admission, EMS record, old EKG, old radiological studies, urgent care reports/EKG's, fci records)? Report findings @ -Old charts reviewed Differential Diagnosis (chest pain, altered mental status, abdominal pain women, abdominal pain men, vaginal bleeding, weakness, fever, dyspnea, syncope, headache, dizziness, GI bleed, back pain, seizure, CVA, palpatations, mental health, musculoskeletal)? @ -Differential Abdominal Pain Women: Appendicitis, Cholecystitis, diverticulosis, ischemic bowel, pancreatitis, hepatitis, UTI, gastroenteritis, AAA, incarcerated hernia, bowel obstruction, constipation, inflammatory bowel, hepatitis, peptic ulcer disease, splenic infarction, perforated viscus, vulvitis, ovarian torsion, PID, kidney stone, placenta abruption, this is not meant to be an all-inclusive list EKG interpreted by me (3pts min.). @ -As above X-rays interpreted by me (1pt min.). @ -None done CT interpreted by me (1pt min.). @ -CT brain shows no evidence of acute intracranial process. CT abdomen pelvis reveals no obvious acute intra-abdominal process. U/S interpreted by me (1pt. min.). @ -None done What testing was considered but not performed or refused? (CT, X-rays, U/S, labs)? Why? @ -None What meds were considered but not given or refused? Why? @ -None Did you discuss the management of the patient with other professionals (prof pulido i.e. , PA, REGIONAL SALES COORDINATOR, lab, RT, psych nurse, social worker health services, vocational rehabilitation supervisor, teacher, front desk officer, field nurse case manager)? Give summary @ -Discussed with Dr. Chua who accepted the admission. Was smoking cessation discussed for >3mins.? @ -No Was critical care preformed (if so, how long)? @ -No Were there social determinants of health that impacted care today? How? (Homelessness, low income, unemployed, alcoholism, drug addiction, transportation, low edu. Level, literacy, decrease access to med. care, group home, rehab)? @ -No Was there de-escalation of care discussed even if they declined (Discuss DNR or withdrawal of care, Hospice)? DNR status @ -No What co-morbidities impacted this encounter? (DM, HTN, Smoking, COPD, CAD, Cancer, CVA, ARF, Chemo, Hep., AIDS, mental health diagnosis, sleep apnea, morbid obesity)? @ -None Was patient admitted / discharged? Hospital course, mention meds given and route, prescriptions, significant lab abnormalities, going to OR and other pertinent info. @ -Patient presents with lower abdominal pain as well as loss of appetite. Presents with her sister. Vital signs are within acceptable limits. She will be symptomatically treated with IV Toradol, Zofran, Protonix, fluids. Patient in agreement this plan. Screening EKG negative for any obvious acute ischemic process.CT abdomen pelvis reveals no obvious acute process. Labs are remarkable for an CLARENCE with creatinine doubled her baseline of 0.7. Currently it is 1.4. Remainder the labs unremarkable. Viral swabs negative. Urinalysis is contaminated but does not appear to show significant infection. At this time, I did recommend admission for dehydration which family was in agreement with. Patient was hallucinating thinking she was seeing dogs and cats. Because of this I did recommend CT imaging of the brain which they were in agreement with. Patient has been having issues with memory and processing for months however because of this somewhat acute change they were in agreement this. CT brain revealed no obvious acute intracranial process. At this time patient will be admitted. I spoke with Dr. Chua regarding this and he was in agreement with plan for admission. Patient is on Bactrim for UTI. States she is allergic to sulfa antibiotics in her chart. Unknown allergy. However due to this allergy and her having the mild hallucinations I am holding the Bactrim at this time. Urine seems to be clean at this time and she has no active UTI. I updated the patient's regarding this plan. Undiagnosed new problem with uncertain prognosis? @ -No Drug Therapy requiring intensive monitoring for toxicity (Heparin, Nitro, Insulin, Cardizem)? @ -No Were any procedures done? @ -No Diagnosis/symptom? @ -Dehydration, CLARENCE,Abdominal pain of unknown etiology. Acute, or Chronic, or Acute on Chronic? @ -Acute Uncomplicated (without systemic symptoms) or Complicated (systemic symptoms)? @ -Complicated Side effects of treatment? @ -None Exacerbation, Progression, or Severe Exacerbation] @ -No Poses a threat to life or bodily function? @ -Yes - Lab Data Result diagrams: 11/24/23 13:54 11/24/23 13:54 Lab Results 11/24/23 11/24/23 11/24/23 Range/Units 13:54 13:54 13:54 WBC 5.9 (3.8-10.6) k/uL RBC 4.00 (3.80-5.40) m/uL Hgb 13.3 (11.4-16.0) gm/dL Hct 39.8 (34.0-46.0) % MCV 99.5 (80.0-100.0) fL MCH 33.3 (25.0-35.0) pg MCHC 33.5 (31.0-37.0) g/dL RDW 12.8 (11.5-15.5) % Plt Count 109 L (150-450) k/uL MPV 10.3 Neutrophils % 63 % Lymphocytes % 24 % Monocytes % 11 % Eosinophils % 1 % Basophils % 0 % Neutrophils # 3.7 (1.3-7.7) k/uL Lymphocytes # 1.4 (1.0-4.8) k/uL Monocytes # 0.7 (0-1.0) k/uL Eosinophils # 0.1 (0-0.7) k/uL Basophils # 0.0 (0-0.2) k/uL PT 11.6 (10.0-12.5) sec INR 1.1 (<1.2) APTT 24.2 (22.0-30.0) sec Sodium (137-145) mmol/L Potassium (3.5-5.1) mmol/L Chloride (98-107) mmol/L Carbon Dioxide (22-30) mmol/L Anion Gap mmol/L BUN (7-17) mg/dL Creatinine (0.52-1.04) mg/dL Est GFR (CKD-EPI)AfAm (>60 ml/min/1.73 sqM) Est GFR (CKD-EPI)NonAf (>60 ml/min/1.73 sqM) Glucose (74-99) mg/dL Plasma Lactic Acid Cam (0.7-2.0) mmol/L Calcium (8.4-10.2) mg/dL Total Bilirubin (0.2-1.3) mg/dL AST (14-36) U/L ALT (4-34) U/L Alkaline Phosphatase (38-126) U/L Total Protein (6.3-8.2) g/dL Albumin (3.5-5.0) g/dL Amylase (30-110) U/L Lipase (23-300) U/L TSH (0.465-4.680) mIU/L Urine Color Yellow Urine Appearance Cloudy H (Clear) Urine pH 5.5 (5.0-8.0) Ur Specific [place] 1.018 (1.001-1.035) Urine Protein Trace H (Negative) Urine Glucose (UA) Negative (Negative) Urine Ketones Negative (Negative) Urine Blood Negative (Negative) Urine Nitrite Negative (Negative) Urine Bilirubin Negative (Negative) Urine Urobilinogen <2.0 (<2.0) mg/dL Ur Leukocyte Esterase Negative (Negative) Urine RBC 1 (0-5) /hpf Urine WBC 12 H (0-5) /hpf Ur Squamous Epith Cells 8 H (0-4) /hpf Urine Bacteria Occasional H (None) /hpf Hyaline Casts 7 H (0-2) /lpf WBC Casts 13 (0) /lpf Urine Mucus Rare H (None) /hpf Influenza Type A (PCR) (Not Detectd) Influenza Type B (PCR) (Not Detectd) RSV (PCR) (Not Detectd) SARS-CoV-2 (PCR) (Not Detectd) 11/24/23 11/24/23 11/24/23 Range/Units 13:54 13:54 13:54 WBC (3.8-10.6) k/uL RBC (3.80-5.40) m/uL Hgb (11.4-16.0) gm/dL Hct (34.0-46.0) % MCV (80.0-100.0) fL MCH (25.0-35.0) pg MCHC (31.0-37.0) g/dL RDW (11.5-15.5) % Plt Count (150-450) k/uL MPV Neutrophils % % Lymphocytes % % Monocytes % % Eosinophils % % Basophils % % Neutrophils # (1.3-7.7) k/uL Lymphocytes # (1.0-4.8) k/uL Monocytes # (0-1.0) k/uL Eosinophils # (0-0.7) k/uL Basophils # (0-0.2) k/uL PT (10.0-12.5) sec INR (<1.2) APTT (22.0-30.0) sec Sodium 133 L (137-145) mmol/L Potassium 3.9 (3.5-5.1) mmol/L Chloride 102 (98-107) mmol/L Carbon Dioxide 25 (22-30) mmol/L Anion Gap 6 mmol/L BUN 20 H (7-17) mg/dL Creatinine 1.40 H (0.52-1.04) mg/dL Est GFR (CKD-EPI)AfAm 42 (>60 ml/min/1.73 sqM) Est GFR (CKD-EPI)NonAf 36 (>60 ml/min/1.73 sqM) Glucose 87 (74-99) mg/dL Plasma Lactic Acid Cam 1.0 (0.7-2.0) mmol/L Calcium 9.2 (8.4-10.2) mg/dL Total Bilirubin 0.5 (0.2-1.3) mg/dL AST 36 (14-36) U/L ALT 20 (4-34) U/L Alkaline Phosphatase 49 (38-126) U/L Total Protein 5.9 L (6.3-8.2) g/dL Albumin 3.2 L (3.5-5.0) g/dL Amylase 37 (30-110) U/L Lipase 39 (23-300) U/L TSH (0.465-4.680) mIU/L Urine Color Urine Appearance (Clear) Urine pH (5.0-8.0) Ur Specific [place] (1.001-1.035) Urine Protein (Negative) Urine Glucose (UA) (Negative) Urine Ketones (Negative) Urine Blood (Negative) Urine Nitrite (Negative) Urine Bilirubin (Negative) Urine Urobilinogen (<2.0) mg/dL Ur Leukocyte Esterase (Negative) Urine RBC (0-5) /hpf Urine WBC (0-5) /hpf Ur Squamous Epith Cells (0-4) /hpf Urine Bacteria (None) /hpf Hyaline Casts (0-2) /lpf WBC Casts (0) /lpf Urine Mucus (None) /hpf Influenza Type A (PCR) Not Detected (Not Detectd) Influenza Type B (PCR) Not Detected (Not Detectd) RSV (PCR) Not Detected (Not Detectd) SARS-CoV-2 (PCR) Not Detected (Not Detectd) 11/24/23 Range/Units 13:54 WBC (3.8-10.6) k/uL RBC (3.80-5.40) m/uL Hgb (11.4-16.0) gm/dL Hct (34.0-46.0) % MCV (80.0-100.0) fL MCH (25.0-35.0) pg MCHC (31.0-37.0) g/dL RDW (11.5-15.5) % Plt Count (150-450) k/uL MPV Neutrophils % % Lymphocytes % % Monocytes % % Eosinophils % % Basophils % % Neutrophils # (1.3-7.7) k/uL Lymphocytes # (1.0-4.8) k/uL Monocytes # (0-1.0) k/uL Eosinophils # (0-0.7) k/uL Basophils # (0-0.2) k/uL PT (10.0-12.5) sec INR (<1.2) APTT (22.0-30.0) sec Sodium (137-145) mmol/L Potassium (3.5-5.1) mmol/L Chloride (98-107) mmol/L Carbon Dioxide (22-30) mmol/L Anion Gap mmol/L BUN (7-17) mg/dL Creatinine (0.52-1.04) mg/dL Est GFR (CKD-EPI)AfAm (>60 ml/min/1.73 sqM) Est GFR (CKD-EPI)NonAf (>60 ml/min/1.73 sqM) Glucose (74-99) mg/dL Plasma Lactic Acid Cam (0.7-2.0) mmol/L Calcium (8.4-10.2) mg/dL Total Bilirubin (0.2-1.3) mg/dL AST (14-36) U/L ALT (4-34) U/L Alkaline Phosphatase (38-126) U/L Total Protein (6.3-8.2) g/dL Albumin (3.5-5.0) g/dL Amylase (30-110) U/L Lipase (23-300) U/L TSH <0.015 L (0.465-4.680) mIU/L Urine Color Urine Appearance (Clear) Urine pH (5.0-8.0) Ur Specific [place] (1.001-1.035) Urine Protein (Negative) Urine Glucose (UA) (Negative) Urine Ketones (Negative) Urine Blood (Negative) Urine Nitrite (Negative) Urine Bilirubin (Negative) Urine Urobilinogen (<2.0) mg/dL Ur Leukocyte Esterase (Negative) Urine RBC (0-5) /hpf Urine WBC (0-5) /hpf Ur Squamous Epith Cells (0-4) /hpf Urine Bacteria (None) /hpf Hyaline Casts (0-2) /lpf WBC Casts (0) /lpf Urine Mucus (None) /hpf Influenza Type A (PCR) (Not Detectd) Influenza Type B (PCR) (Not Detectd) RSV (PCR) (Not Detectd) SARS-CoV-2 (PCR) (Not Detectd) - EKG Data -: EKG Interpreted by Me EKG Comments: 12-lead Electrocardiogram Interpretation Note EKG was reviewed and interpreted by myself. 12-lead ECG performed at 1418 is interpreted by me as revealing normal sinus rhythm at a rate of 70 beats per minute. [place] is normal. DC interval is 172 ms, QRS duration is 83 ms, QTc is 382 ms.. There were no ST or T wave abnormalities to suggest myocardial isch emia or injury. R wave progression across the precordium was satisfactory. By my interpretation this EKG is non-diagnostic for acute ischemia. Disposition Clinical Impression: CLARENCE (acute kidney injury), Abdominal pain of unknown etiology, Dehydration Disposition: ADMITTED IP TO THIS HOSP Condition: Stable Time of Disposition: 18:31
--- NOTE | 2023-11-24 16:08 | CT ---
EXAMINATION: CT ABDOMEN AND PELVIS WITHOUT IV CONTRAST DATE OF EXAMINATION: 11/24/2023. COMPARISON: None available. INDICATION: Abdominal pain. PROCEDURE: Axial CT of the abdomen and pelvis was performed with sagittal and coronal reformatted i mages without contrast enhancement. The exam is limited because some types of pathology may not be ad equately demonstrated due to lack of contrast enhancement. CT dose lowering techniques were used, to include: automated exposure control, adjustment for patient size, and/or use of iterative reconstruct ion. FINDINGS: LOWER CHEST : The visualized lung bases are clear. There are no pleural or pericardial effusions. ABDOMEN: Liver and Biliary system: Normal. Adrenal glands: Normal. Kidneys and ureters: 5 mm cortical stone in the interpolar region of the right kidney. There are no ureteral stones or hydronephrosis otherwise seen. Spleen: Normal. Pancreas: Normal. Gallbladder: Surgically absent. Lymph nodes, Peritoneum and mesentery: There is no mesenteric or retroperitoneal lymphadenopathy. Gastrointestinal tract: There are no dilated loops of bowel or free intraperitoneal air. . The appe ndix is normal. Aorta/IVC: There is moderate vascular calcification throughout the abdominal aorta without evidence of aneurysmal dilation. IVC normal. Abdominal wall: Normal. PELVIS: Fluid: There is no free fluid in the pelvis. Lymph Nodes: There is no pelvic or inguinal lymphadenopathy.. Urinary bladder: Normal. BONES: There are no osseous destructive lesions.. ADDITIONAL SIGNIFICANT FINDINGS: None. IMPRESSION: 1. Nonobstructing right renal stone.. 2. No bowel obstruction or appendicitis. 3. No acute findings.
[2023-11-24 17:06] LABS: Appearance,Urine Cloudy (Clear); Bacteria,Urine Occasional /hpf; Bilirubin,Urine Negative (Negative); Blood,Urine Negative (Negative); Color,Urine Yellow; Glucose,Urine (UA) Negative (Negative); Hyaline Casts,Urine 7 /lpf (0-2); Ketones,Urine Negative (Negative); Leukocyte Esterase,Urine Negative (Negative); Mucus,Urine Rare /hpf; Nitrite,Urine Negative (Negative); PH, Urine 5.5 (5.0-8.0); Protein,Urine Trace (Negative); RBC,Urine 1 /hpf (0-5); Specific Gravity,Urine 1.018 (1.001-1.035); Squamous Epithelial Cell,Urine 8 /hpf (0-4); Urobilinogen,Urine <2.0 mg/dL (<2.0); WBC,Urine 12 /hpf (0-5); White Blood Cell Casts,Urine 13 /lpf (0)
[2023-11-24] MEDS: ACETAMINOPHEN TAB 500 MG TAB PO STA (17:43)
--- NOTE | 2023-11-24 18:13 | CT ---
EXAMINATION TYPE: CT brain wo con CT DLP: 1118.4 mGycm, Automated exposure control for dose reduction was used. DATE OF EXAM: 11/24/2023 5:34 PM COMPARISON: 09/28/2023. CLINICAL INDICATION:Female, 78 years old with history of ams, AMS TECHNIQUE: Brain: Axial CT images of the brain were obtained with coronal and sagittal reformats created and rev iewed. Contrast used: None. Oral contrast used: None. FINDINGS: Brain: Extra-axial spaces: No abnormal extra-axial fluid collections. Ventricular system: Dilatation in proportion to cerebral atrophy. Cerebral parenchyma: Cerebral atrophy. No acute intraparenchymal hemorrhage or mass effect. The lubin -white junction is well differentiated. Scattered hypoattenuating areas are seen within the white mat ter. Cerebellum: Unremarkable. Mass effect: No evidence of midline shift. Intracranial vasculature: unremarkable Soft tissues: Normal. Calvarium/osseous structures: No depressed skull fracture. Paranasal sinuses and mastoid air cells: Mild scattered paranasal sinus disease. Visualized orbits: Bilateral aphakia IMPRESSION: 1. No acute intracranial process. 2. Nonspecific white matter changes, likely secondary to chronic small vessel ischemic disease.
[2023-11-24] MEDS ORDERED: NALOXONE 0.4 MG/ML 1 ML VIAL IV PRN (18:56)
[2023-11-24] MEDS ORDERED: ONDANSETRON 4 MG/2 ML VIAL IVP PRN (18:56)
[2023-11-24] MEDS: SODIUM CHLORIDE 0.9% 1,000 ML IV SCH (19:06)
[2023-11-24] MEDS ORDERED: ALBUTEROL NEBULIZED 2.5 MG/3 ML INHALATION PRN ×2 (19:32)
[2023-11-24] MEDS ORDERED: SULFAMETHOX-TMP 800-160MG 1 EACH TAB PO SCH (21:00)
[2023-11-24] MEDS: BENRALIZUMAB 30 MG/ML SQ SCH (21:22)
[2023-11-24] MEDS: DIVALPROEX 250 MG TABLET.DR PO SCH (21:30)
[2023-11-24] MEDS: HEPARIN SODIUM,PORCINE 5,000 UNIT/ML 1 ML VIAL SQ SCH (21:31)
[2023-11-24] MEDS: ACETAMINOPHEN TAB 500 MG TAB PO SCH (21:31)
[2023-11-24] MEDS: KETOROLAC 15 MG/ML 1 ML VIAL IVP SCH (21:38)
[2023-11-25] MEDS: LEVOTHYROXINE 125 MCG TAB PO SCH (06:08)
--- NOTE | 2023-11-25 08:55 | P.HPIM ---
History of Present Illness H&P Date: 11/25/23 Chief Complaint: Abdominal pain This is a 78-year-old female who presented to the emergency department with complaints of ongoing abdominal pain for the last several days. Patient had been on a antibiotic for UTI. Patient reports the pain is in the lower abdomen. She has also had less of an appetite over the last few days. She denies any fevers or chills or nausea or vomiting. CT of the abdomen and the brain were negative. Labs did show an acute kidney injury. Further medical history as noted below Review of Systems Constitutional: Reports poor appetite, Denies chills, Denies fever Cardiovascular: Denies chest pain, Denies dyspnea on exertion Respiratory: Denies cough, Denies dyspnea Gastrointestinal: Reports abdominal pain, Denies nausea, Denies vomiting Musculoskeletal: Denies arm numbness/tingling, Denies leg numbness/tingling Neurological: Reports weakness, Denies headaches Past Medical History Past Medical History: Asthma, COPD, Hypertension, Musculoskeletal Disorder, Osteoarthritis (OA), Thyroid Disorder Additional Past Medical History / Comment(s): STRESS INCONT/WEARS PAD, wears home 2L O2 PRN History of Any Multi-Drug Resistant Organisms: None Reported Past Surgical History: Cholecystectomy, Hysterectomy Additional Past Surgical History / Comment(s): RT Shoulder surgery, CATARACTS Past Anesthesia/Blood Transfusion Reactions: No Reported Reaction Additional Past Anesthesia/Blood Transfusion Reaction / Comment(s): trouble breathing coming out of surgery Past Psychological History: Depression Smoking Status: Current every day smoker Past Alcohol Use History: Rare Past Drug Use History: None Reported - Past Family History Father History Unknown: Yes Family Medical History: Liver Disease Additional Family Medical History / Comment(s): pt is adopted DOES'NT KNOW MUCH ABOUT PARENTS Mother Family Medical History: Cancer Additional Family Medical History / Comment(s): LUNG CANCER Sister(s) Additional Family Medical History / Comment(s): HEART PROBLEMS Brother(s) Family Medical History: COPD Additional Family Medical History / Comment(s): LUNG DZ Medications and Allergies Home Medications Medication Instructions Recorded Confirmed Type ALPRAZolam [Xanax] 0.25 mg PO TID PRN 12/02/15 11/24/23 History lisinopriL [Zestril] 20 mg PO DAILY 12/02/15 11/24/23 History Divalproex Sodium 250 mg PO BID 12/03/15 11/24/23 History Montelukast Sodium 10 mg PO DAILY 12/03/15 11/24/23 History Acetaminophen Tab [Tylenol Tab] 1,000 mg PO BID 11/24/23 11/24/23 History Albuterol Inhaler [Ventolin Hfa 2 puff INHALATION RT-QID PRN 11/24/23 11/24/23 History Inhaler] Albuterol Nebulized [Ventolin 2.5 mg INHALATION RT-Q6H PRN 11/24/23 11/24/23 History Nebulized] Benralizumab [Fasenra] 1 dose SQ DIRECTED 11/24/23 11/24/23 History Cholecalciferol [Vitamin D3 (25 25 mcg PO DAILY 11/24/23 11/24/23 History Mcg = 1000 Iu)] Ibuprofen [Advil] 400 mg PO QID 11/24/23 11/24/23 History Levothyroxine Sodium [Synthroid] 125 mcg PO DAILY 11/24/23 11/24/23 History Sulfamethox-Tmp 800-160Mg [Bactrim 1 tab PO Q12HR 11/24/23 11/24/23 History DS 800-160 mg] Allergies Allergy/AdvReac Type Severity Reaction Status Date / Time cefaclor [From Ceclor] Allergy Unknown Verified 11/24/23 18:31 ceftriaxone [From Rocephin] Allergy Anaphylaxis Verified 11/24/23 18:31 levofloxacin [From Levaquin] Allergy Anaphylaxis Verified 11/24/23 18:31 Sulfa (Sulfonamide Allergy Unknown Verified 11/24/23 18:31 Antibiotics) codeine AdvReac Extreme Verified 11/24/23 18:31 Sedation, confusion morphine AdvReac Extreme Verified 11/24/23 18:31 Sedation, confusion narcotics AdvReac Extreme Uncoded 11/24/23 18:31 Sedation, confusion Physical Exam Vitals: Vital Signs Temp Pulse Pulse Resp BP BP Pulse Ox 11/25/23 07:00 98.5 F 82 16 165/71 96 11/25/23 03:39 98.4 F 82 18 156/67 97 11/24/23 20:28 98.2 F 64 17 149/77 97 11/24/23 19:54 98.4 F 60 12 141/64 95 11/24/23 16:32 73 16 105/75 97 11/24/23 13:06 98.6 F 82 16 135/83 98 Intake and Output 11/24/23 11/25/23 11/25/23 22:59 06:59 14:59 Other: # Voids 1 1 Weight 63.503 kg - Constitutional General appearance: cooperative, no acute distress - EENT Eyes: PERRLA - Neck Neck: no lymphadenopathy, normal ROM, no rigidity - Respiratory Respiratory: bilateral: CTA - Cardiovascular Rhythm: regular Heart sounds: normal: S1, S2 - Gastrointestinal General gastrointestinal: soft, no tenderness - Integumentary Integumentary: normal, normal turgor - Musculoskeletal Musculoskeletal: generalized weakness - Psychiatric Psychiatric: A&O x's 3 Results CBC & Chem 7: 11/24/23 13:54 11/24/23 13:54 Labs: Abnormal Lab Results - Last 24 Hours (Table) 11/24/23 11/24/23 11/24/23 Range/Units 13:54 13:54 13:54 Plt Count 109 L (150-450) k/uL Sodium 133 L (137-145) mmol/L BUN 20 H (7-17) mg/dL Creatinine 1.40 H (0.52-1.04) mg/dL Total Protein 5.9 L (6.3-8.2) g/dL Albumin 3.2 L (3.5-5.0) g/dL TSH (0.465-4.680) mIU/L Urine Appearance Cloudy H (Clear) Urine Protein Trace H (Negative) Urine WBC 12 H (0-5) /hpf Ur Squamous Epith Cells 8 H (0-4) /hpf Urine Bacteria Occasional H (None) /hpf Hyaline Casts 7 H (0-2) /lpf Urine Mucus Rare H (None) /hpf 11/24/23 Range/Units 13:54 Plt Count (150-450) k/uL Sodium (137-145) mmol/L BUN (7-17) mg/dL Creatinine (0.52-1.04) mg/dL Total Protein (6.3-8.2) g/dL Albumin (3.5-5.0) g/dL TSH <0.015 L (0.465-4.680) mIU/L Urine Appearance (Clear) Urine Protein (Negative) Urine WBC (0-5) /hpf Ur Squamous Epith Cells (0-4) /hpf Urine Bacteria (None) /hpf Hyaline Casts (0-2) /lpf Urine Mucus (None) /hpf Thrombosis Risk Factor Assmnt - Choose All That Apply Any of the Below Risk Factors Present?: Yes Each Factor Represents 1 point: Obesity (BMI >25) Other Risk Factors: Yes Each Risk Factor Represents 3 Points: Age 75 years or older Other congenital or acquired thrombophilia - If yes, enter type in comment: No Thrombosis Risk Factor Assessment Total Risk Factor Score: 4 Thrombosis Risk Factor Assessment Level: Moderate Risk Assessment and Plan (1) CLARENCE (acute kidney injury) Current Visit: Yes Status: Acute Code(s): N17.9 - ACUTE KIDNEY FAILURE, UNSPECIFIED SNOMED Code(s): 65654658 (2) Hypothyroid Current Visit: Yes Status: Acute Code(s): E03.9 - HYPOTHYROIDISM, UNSPECIFIED SNOMED Code(s): 46861526 (3) Abdominal pain of unknown etiology Current Visit: Yes Status: Acute Code(s): R10.9 - UNSPECIFIED ABDOMINAL PAIN SNOMED Code(s): 550521000 (4) Dehydration Current Visit: Yes Status: Acute Code(s): E86.0 - DEHYDRATION SNOMED Code(s): 96907367 (5) Asthma Current Visit: No Status: Acute Code(s): J45.909 - UNSPECIFIED ASTHMA, UNCOMPLICATED SNOMED Code(s): 376972473 (6) COPD (chronic obstructive pulmonary disease) Current Visit: No Status: Acute Code(s): J44.9 - CHRONIC OBSTRUCTIVE PULMONARY DISEASE, UNSPECIFIED SNOMED Code(s): 26551657 (7) Hypertension Current Visit: No Status: Acute Code(s): I10 - ESSENTIAL (PRIMARY) HYPERTENSION SNOMED Code(s): 37442696 Plan: Home medications reconciled. Check CMP in the morning. Consult nephrology regarding acute kidney injury Continue IV hydration, and encourage oral intake Patient seen and evaluated by nurse practitioner, physician in agreement with plan
[2023-11-25 09:04] LABS: Basophils # (A) 0.02 X 10*3/uL (0.00-0.10); Basophils % (A) 0.4 %; Eosinophils # (A) 0 X 10*3/uL (0.04-0.35); Eosinophils % (A) 0 %; HGB 11.8 g/dL (12.0-15.0); Lymphocytes % (A) 27.6 %; MCH 31.9 pg (27.0-32.0); MCHC 31.9 g/dL (32.0-37.0); Mean Platelet Volume 12.6 FL (9.5-12.2); Monocytes # (A) 0.71 X 10*3/uL (0.20-1.00); Monocytes % (A) 13.1 %; NRBC Per 100 WBC 0 X 10*3/uL (0.00-0.01); Neutrophils # (A) 3.17 X 10*3/uL (1.80-7.70); Neutrophils % (A) 58.2 %; Platelet Count 102 X 10*3/uL (140-440); RDW 13.6 % (11.5-14.5); WBC 5.44 X 10*3/uL (4.50-10.00)
[2023-11-25 09:06] LABS: BUN/Creat Ratio 14.92 Ratio (12.00-20.00); Blood Urea Nitrogen 17.9 mg/dL (9.0-27.0); Calcium 8.8 mg/dL (8.7-10.3); Carbon Dioxide 22.8 mmol/L (21.6-31.8); Chloride 104 mmol/L (96-109); Glucose 87 mg/dL (70-110); Potassium 4.2 mmol/L (3.5-5.5); Sodium 135 mmol/L (135-145)
[2023-11-25] MEDS: lisinopriL 20 MG TAB PO SCH (09:20)
[2023-11-25] MEDS: MONTELUKAST 10 MG TAB PO SCH (09:20)
[2023-11-25 12:19] VITALS: BMI 27.3
[2023-11-25] MEDS ORDERED: hydrALAZINE HCL 20 MG/ML 1 ML VIAL IVP PRN (12:50)
--- NOTE | 2023-11-25 12:52 | P.NPCON ---
History of Present Illness - Reason for Consult acute renal failure - History of Present Illness Reason for consultation: Acute kidney injury History of present illness: Patient is a 78-year-old female seen in renal consultation for acute kidney injury. Patient's creatinine on admission yesterday was 1.4 and is down to 1.2 today. Patient is receiving IV fluids. Patient's creatinine in April 2022 was 0.79. Patient has history of dementia is not a very reliable historian. Her son is present at bedside. Patient came to the hospital due to generalized weakness. Her oral intake had been poor the last few days. She is been dry heaving. She is also been having loose bowel movements but is improved now. According to the son she was recently treated for UTI but is not sure which antibiotic she received. It is noted in her home medications that she was taking Bactrim. She was also on lisinopril which is currently held. No history of diabetes. No history of coronary artery disease. Unsure of family history as she was adopted. According to the son she does take Advil for shoulder pain but stopped it last week. No hematuria or dysuria. Vital signs are stable. General: No acute distress. HEENT: Head exam is unremarkable. LUNGS: No audible rhonchi or wheezes. HEART: Rate and Rhythm are regular. ABDOMEN: Nontender. EXTREMITITES: No edema. Past Medical History Past Medical History: Asthma, COPD, Hypertension, Musculoskeletal Disorder, Oste oarthritis (OA), Thyroid Disorder Additional Past Medical History / Comment(s): STRESS INCONT/WEARS PAD, wears home 2L O2 PRN History of Any Multi-Drug Resistant Organisms: None Reported Past Surgical History: Cholecystectomy, Hysterectomy Additional Past Surgical History / Comment(s): RT Shoulder surgery, CATARACTS Past Anesthesia/Blood Transfusion Reactions: No Reported Reaction Additional Past Anesthesia/Blood Transfusion Reaction / Comment(s): trouble breathing coming out of surgery Past Psychological History: Depression Smoking Status: Current every day smoker Past Alcohol Use History: Rare Past Drug Use History: None Reported - Past Family History Father History Unknown: Yes Family Medical History: Liver Disease Additional Family Medical History / Comment(s): pt is adopted DOES'NT KNOW MUCH ABOUT PARENTS Mother Family Medical History: Cancer Additional Family Medical History / Comment(s): LUNG CANCER Sister(s) Additional Family Medical History / Comment(s): HEART PROBLEMS Brother(s) Family Medical History: COPD Additional Family Medical History / Comment(s): LUNG DZ Medications and Allergies Home Medications Medication Instructions Recorded Confirmed Type ALPRAZolam [Xanax] 0.25 mg PO TID PRN 12/02/15 11/24/23 History lisinopriL [Zestril] 20 mg PO DAILY 12/02/15 11/24/23 History Divalproex Sodium 250 mg PO BID 12/03/15 11/24/23 History Montelukast Sodium 10 mg PO DAILY 12/03/15 11/24/23 History Acetaminophen Tab [Tylenol Tab] 1,000 mg PO BID 11/24/23 11/24/23 History Albuterol Inhaler [Ventolin Hfa 2 puff INHALATION RT-QID PRN 11/24/23 11/24/23 History Inhaler] Albuterol Nebulized [Ventolin 2.5 mg INHALATION RT-Q6H PRN 11/24/23 11/24/23 History Nebulized] Benralizumab [Fasenra] 1 dose SQ DIRECTED 11/24/23 11/24/23 History Cholecalciferol [Vitamin D3 (25 25 mcg PO DAILY 11/24/23 11/24/23 History Mcg = 1000 Iu)] Ibuprofen [Advil] 400 mg PO QID 11/24/23 11/24/23 History Levothyroxine Sodium [Synthroid] 125 mcg PO DAILY 11/24/23 11/24/23 History Sulfamethox-Tmp 800-160Mg [Bactrim 1 tab PO Q12HR 11/24/23 11/24/23 History DS 800-160 mg] Allergies Allergy/AdvReac Type Severity Reaction Status Date / Time cefaclor [From Ceclor] Allergy Unknown Verified 11/24/23 18:31 ceftriaxone [From Rocephin] Allergy Anaphylaxis Verified 11/24/23 18:31 levofloxacin [From Levaquin] Allergy Anaphylaxis Verified 11/24/23 18:31 Sulfa (Sulfonamide Allergy Unknown Verified 11/24/23 18:31 Antibiotics) codeine AdvReac Extreme Verified 11/24/23 18:31 Sedation, confusion morphine AdvReac Extreme Verified 11/24/23 18:31 Sedation, confusion narcotics AdvReac Extreme Uncoded 11/24/23 18:31 Sedation, confusion Physical Exam Vitals: Vital Signs Temp Pulse Pulse Resp BP BP Pulse Ox 11/25/23 07:00 98.5 F 82 16 165/71 96 11/25/23 03:39 98.4 F 82 18 156/67 97 11/24/23 20:28 98.2 F 64 17 149/77 97 11/24/23 19:54 98.4 F 60 12 141/64 95 11/24/23 16:32 73 16 105/75 97 11/24/23 13:06 98.6 F 82 16 135/83 98 Intake and Output 11/24/23 11/25/23 11/25/23 22:59 06:59 14:59 Other: # Voids 1 1 Weight 63.503 kg 63.503 kg Results - Lab Results Most recent lab results Calcium 8.8 mg/dL (8.7-10.3) 11/25/23 04:57 11/25/23 04:57 11/25/23 04:57 Assessment and Plan Plan: Assessment: 1. Acute kidney injury secondary to vasomotor nephropathy from poor intake, further worsen with the use of lisinopril, NSAIDs as well as Bactrim. C reatinine 1.4 on admission and is 1.2 today. Baseline creatinine near 0.8 from April 2022. UA fairly benign. 2. Hypovolemic hyponatremia improved with IV fluids. 3. Benign hypertension. 4. Recent UTI status post Bactrim. Plan: Maintain normal saline at 75 cc an hour. DC Toradol. DC lisinopril. Add amlodipine 5 mg daily. Hold for systolic blood pressure less than 120. Add as needed hydralazine. Check renal ultrasound. Avoid nephrotoxins. Thank you for the consultation. I will continue to follow the patient with you during her hospital stay.
--- NOTE | 2023-11-25 14:57 | US ---
EXAMINATION TYPE: US kidneys/renal and bladder DATE OF EXAM: 11/25/2023 COMPARISON: 11/24/2023. CLINICAL INDICATION: Female, 78 years old with history of carol; abn labs, known stone on CT, no sympto ms EXAM MEASUREMENTS: Right Kidney: 9.3 x 4.3 x 4.6 cm Left Kidney: 9.1 x 4.1 x 5.1 cm Right Kidney: limited visibility due to bowel gas and patients positioning, 1.1cm lateral stone seen Left Kidney: very limited views with estimated measurement due to bowel gas and patient positioning Bladder: wnl Bilateral Jets seen: Yes IMPRESSION: 1. No evidence for obstructive uropathy. 2. Nonobstructing right renal contrast.
[2023-11-26] MEDS: ALPRAZolam 0.25 MG TAB PO PRN (05:41)
[2023-11-26 07:59] VITALS: RESP 18
--- NOTE | 2023-11-26 08:40 | P.DS ---
Providers Date of admission: 11/24/23 18:58 Attending physician: Joce Chua Consults: 11/25/23 08:24 Consult Physician Routine Consulting Provider: Joanne Falcon Consult Reason/Comments: CLARENCE Do you want consulting provider notified?: Yes Primary care physician: Joce Chua - Discharge Diagnosis(es) (1) CLARENCE (acute kidney injury) Current Visit: Yes Status: Acute Hospital Course: This is a discharge summary this 78-year-old white female who essentially was admitted for abdominal pain. She was found to have acute kidney injury and dehydration. The patient stabilized with appropriate rehydration. She is tolerating diet. She has an underlying history of depression and hypertension. We will discharge in stable condition and follow-up in about a week to follow-up with appropriate laboratory examination. Patient Condition at Discharge: Good Plan - Discharge Summary Discharge Rx Participant: No New Discharge Prescriptions: New amLODIPine [Norvasc] 5 mg PO DAILY #30 tab Continue ALPRAZolam [Xanax] 0.25 mg PO TID PRN PRN Reason: Anxiety Divalproex Sodium 250 mg PO BID Montelukast Sodium 10 mg PO DAILY Cholecalciferol [Vitamin D3 (25 Mcg = 1000 Iu)] 25 mcg PO DAILY Ibuprofen [Advil] 400 mg PO QID Levothyroxine Sodium [Synthroid] 125 mcg PO DAILY Albuterol Inhaler [Ventolin Hfa Inhaler] 2 puff INHALATION RT-QID PRN PRN Reason: Shortness Of Breath Albuterol Nebulized [Ventolin Nebulized] 2.5 mg INHALATION RT-Q6H PRN PRN Reason: Shortness Of Breath Acetaminophen Tab [Tylenol] 1,000 mg PO BID Sulfamethox-Tmp 800-160Mg [Bactrim DS 800-160 mg] 1 tab PO Q12HR Benralizumab [Fasenra] 1 dose SQ DIRECTED Discontinued lisinopriL [Zestril] 20 mg PO DAILY Discharge Medication List ALPRAZolam [Xanax] 0.25 mg PO TID PRN 12/02/15 [History] Divalproex Sodium 250 mg PO BID 12/03/15 [History] Montelukast Sodium 10 mg PO DAILY 12/03/15 [History] Acetaminophen Tab [Tylenol] 1,000 mg PO BID 11/24/23 [History] Albuterol Inhaler [Ventolin Hfa Inhaler] 2 puff INHALATION RT-QID PRN 11/24/23 [History] Albuterol Nebulized [Ventolin Nebulized] 2.5 mg INHALATION RT-Q6H PRN 11/24/23 [History] Benralizumab [Fasenra] 1 dose SQ DIRECTED 11/24/23 [History] Cholecalciferol [Vitamin D3 (25 Mcg = 1000 Iu)] 25 mcg PO DAILY 11/24/23 [History] Ibuprofen [Advil] 400 mg PO QID 11/24/23 [History] Levothyroxine Sodium [Synthroid] 125 mcg PO DAILY 11/24/23 [History] Sulfamethox-Tmp 800-160Mg [Bactrim DS 800-160 mg] 1 tab PO Q12HR 11/24/23 [History] amLODIPine [Norvasc] 5 mg PO DAILY #30 tab 11/26/23 [Rx] Follow up Appointment(s)/Referral(s): Joce Chua MD [Primary Care Provider] - 1-2 days
[2023-11-26] MEDS: amLODIPine 5 MG TAB PO SCH (08:57)
--- NOTE | 2023-11-26 10:24 | P.PN ---
Subjective Patient is seen in follow-up for acute kidney injury. Renal function improving with creatinine 1.2 yesterday. Has been voiding. Receiving IV fluids. No chest pain or shortness of breath. Vital signs are stable. General: No acute distress. HEENT: Head exam is unremarkable. LUNGS: No audible rhonchi or wheezes. HEART: Rate and Rhythm are regular. ABDOMEN: Nontender. EXTREMITITES: No edema. Objective - Vital Signs Vital signs: Vital Signs Temp 97.9 F 11/26/23 07:10 Pulse 65 11/26/23 08:00 Resp 18 11/26/23 08:00 BP 176/75 11/26/23 07:10 Pulse Ox 94 L 11/26/23 07:10 FiO2 Intake & Output 11/25/23 11/26/23 11/26/23 18:59 06:59 18:59 Intake Total 200 50 Balance 200 50 Weight 63.503 kg Intake: Oral 200 50 Other: Voiding Method Toilet Diaper Incontinent # Voids 4 1 - Labs CBC & Chem 7: 11/25/23 04:57 11/25/23 04:57 Assessment and Plan Plan: Assessment: 1. Acute kidney injury secondary to vasomotor nephropathy from poor intake, further worsen with the use of lisinopril, NSAIDs as well as Bactrim. Creatinine 1.4 on admission and down to 1.2 as of yesterday. Baseline creatinine near 0.8 from April 2022. UA fairly benign. No hydronephrosis noted on kidney ultrasound. 2. Hypovolemic hyponatremia improved with IV fluids. 3. Benign hypertension. 4. Recent UTI status post Bactrim. Plan: Maintain normal saline at 75 cc an hour. Stopped Toradol. Continue to hold lisinopril. Increase amlodipine to 5 mg twice daily. Hold for systolic blood pressure less than 120. Add scheduled hydralazine as well. Avoid nephrotoxins. \
[2023-11-26 10:41] LABS: ALT 26 U/L (8-44); AST 34 U/L (13-35); Albumin 3.2 g/dL (3.8-4.9); Albumin/Globulin Ratio 1.78 Ratio (1.60-3.17); Alkaline Phosphatase 36 U/L (41-126); BUN/Creat Ratio 18.38 Ratio (12.00-20.00); Blood Urea Nitrogen 14.7 mg/dL (9.0-27.0); Calcium 8.6 mg/dL (8.7-10.3); Carbon Dioxide 23.9 mmol/L (21.6-31.8); Chloride 109 mmol/L (96-109); Globulin 1.8 g/dL (1.6-3.3); Glucose 94 mg/dL (70-110); Magnesium 1.8 mg/dL (1.5-2.4); Potassium 4.3 mmol/L (3.5-5.5); Sodium 139 mmol/L (135-145); Total Bilirubin 0.4 mg/dL (0.3-1.2)
[2023-11-26 14:55] VITALS: BP 151/66; PULSE 84; TEMP 98.4
[2023-11-26] MEDS: hydrALAZINE HCL 25 MG TAB PO SCH (16:52)
[2023-11-26] MEDS ORDERED: amLODIPine 5 MG TAB PO SCH (21:00)
== END 2023-11-26 17:53 | disposition home or self-care (01) ==
LOC: EC 13:03 → 6NMEDSUR 18:58
PROVIDERS: ADMIT Family Medicine; ATTEND Family Medicine
DX: N17.0 Acute kidney failure with tubular necrosis (principal); E87.1 Hypo-osmolality and hyponatremia; E86.0 Dehydration; N39.0 Urinary tract infection, site not specified; I10 Essential (primary) hypertension; E03.9 Hypothyroidism, unspecified; E86.1 Hypovolemia; J44.9 Chronic obstructive pulmonary disease, unspecified; F03.93 Unspecified dementia, unspecified severity, with mood disturbance; F32.A Depression, unspecified; E66.9 Obesity, unspecified; Z68.27 Body mass index [BMI] 27.0-27.9, adult; R63.8 Other symptoms and signs concerning food and fluid intake; R63.0 Anorexia; F17.200 Nicotine dependence, unspecified, uncomplicated; Z11.52 Encounter for screening for COVID-19; Z11.59 Encounter for screening for other viral diseases; Z79.890 Hormone replacement therapy; Z79.899 Other long term (current) drug therapy; Z88.1 Allergy status to other antibiotic agents; Z88.2 Allergy status to sulfonamides; Z88.5 Allergy status to narcotic agent
CPT/HCPCS: 96376 ×2; 96361 ×3; 96372 ×3; 96374; 96375; 99285; 36415; 93005; 80053 ×2; 80048; 82150; 83605; 83690; 83735; 84443; 85025 ×2; 85610; 85730; 81001; 87636; 76770; 70450; 74176; G0378 ×3; J1644 ×3; J2405; J1885 ×2; C9113

== ENCOUNTER 2024-02-21 05:48 | Observation (INO) | payer MEDICARE ==
--- NOTE | 2024-02-21 06:35 | ED ---
Weakness HPI - General Chief complaint: Weakness Stated complaint: Weakness Time Seen by Provider: 02/21/24 06:12 Source: patient, RN notes reviewed Mode of arrival: wheelchair Limitations: no limitations - History of Present Illness Initial comments: 78-year-old female presents emergency department with chief complaint of generalized weakness. Patient states she had increasing weakness, arm and leg pain over the last 4 days. She states she is having to use a walker at this point because she is so weak, tremulous patient states she had issues like this in September when she had UTI and acute kidney injury. Patient reports no fever she states intermittently she has some shortness of breath and chest pain but nothing currently she denies any abdominal issues other than nausea and lower abdominal pressure concerning for UTI no flank pain no focal weakness no complaints of headache currently. - Related Data Home Medications Medication Instructions Recorded Confirmed ALPRAZolam [Xanax] 0.5 mg PO TID PRN 12/02/15 02/21/24 Divalproex Sodium 250 mg PO BID 12/03/15 02/21/24 Montelukast Sodium 10 mg PO DAILY 12/03/15 02/21/24 Acetaminophen Tab [Tylenol] 500 mg PO TID@0000,0800,1600 11/24/23 02/21/24 Albuterol Inhaler [Ventolin Hfa 2 puff INHALATION RT-QID PRN 11/24/23 02/21/24 Inhaler] Cholecalciferol [Vitamin D3 (25 25 mcg PO DAILY 11/24/23 02/21/24 Mcg = 1000 Iu)] Cyanocobalamin (Vitamin B-12) 1,000 mcg PO DAILY 02/21/24 02/21/24 [Vitamin B-12] Levothyroxine Sodium [Synthroid] 100 mcg PO DAILY 02/21/24 02/21/24 Mirabegron [Myrbetriq] 50 mg PO DAILY 02/21/24 02/21/24 Previous Rx's Medication Instructions Recorded amLODIPine [Norvasc] 5 mg PO BID #60 tab 11/26/23 Allergies Allergy/AdvReac Type Severity Reaction Status Date / Time cefaclor [From Ceclor] Allergy Unknown Verified 02/21/24 08:50 ceftriaxone [From Rocephin] Allergy Anaphylaxis Verified 02/21/24 08:50 levofloxacin [From Levaquin] Allergy Anaphylaxis Verified 02/21/24 08:50 Sulfa (Sulfonamide Allergy Unknown Verified 02/21/24 08:50 Antibiotics) codeine AdvReac Extreme Verified 02/21/24 08:50 Sedation, confusion morphine AdvReac Extreme Verified 02/21/24 08:50 Sedation, confusion narcotics AdvReac Extreme Uncoded 02/21/24 05:53 Sedation, confusion Review of Systems ROS Statement: Those systems with pertinent positive or pertinent negative responses have been documented in the HPI. ROS Other: All systems not noted in ROS Statement are negative. Past Medical History Past Medical History: Asthma, COPD, Hypertension, Musculoskeletal Disorder, Osteoarthritis (OA), Thyroid Disorder Additional Past Medical History / Comment(s): STRESS INCONT/WEARS PAD, wears home 2L O2 PRN History of Any Multi-Drug Resistant Organisms: None Reported Past Surgical History: Cholecystectomy, Hysterectomy Additional Past Surgical History / Comment(s): RT Shoulder surgery, CATARACTS Past Anesthesia/Blood Transfusion Reactions: No Reported Reaction Additional Past Anesthesia/Blood Transfusion Reaction / Comment(s): trouble br eathing coming out of surgery Past Psychological History: Depression Smoking Status: Current every day smoker Past Alcohol Use History: Rare Past Drug Use History: None Reported - Past Family History Father History Unknown: Yes Family Medical History: Liver Disease Additional Family Medical History / Comment(s): pt is adopted DOES'NT KNOW MUCH ABOUT PARENTS Mother Family Medical History: Cancer Additional Family Medical History / Comment(s): LUNG CANCER Sister(s) Additional Family Medical History / Comment(s): HEART PROBLEMS Brother(s) Family Medical History: COPD Additional Family Medical History / Comment(s): LUNG DZ General Exam Limitations: no limitations General appearance: alert, in no apparent distress Head exam: Present: atraumatic, normocephalic, normal inspection Eye exam: Present: normal appearance, PERRL, EOMI. Absent: scleral icterus, conjunctival injection, periorbital swelling ENT exam: Present: normal exam, normal oropharynx, mucous membranes moist Neck exam: Present: normal inspection, full ROM. Absent: tenderness, meningismus, lymphadenopathy Respiratory exam: Present: normal lung sounds bilaterally. Absent: respiratory distress, wheezes, rales, rhonchi, stridor Cardiovascular Exam: Present: regular rate, normal rhythm, normal heart sounds. Absent: systolic murmur, diastolic murmur, rubs, gallop, clicks GI/Abdominal exam: Present: soft, normal bowel sounds. Absent: distended, tenderness, guarding, rebound, rigid Course Vital Signs 02/21/24 02/21/24 02/21/24 05:49 10:00 22:11 Temperature 98.0 F 98.4 F Pulse Rate 102 H 98 94 Pulse Rate [ Pulse Oximetery ] Respiratory 16 16 18 Rate Blood Pressure 121/63 111/65 152/82 Blood Pressure [Right Arm] O2 Sat by Pulse 97 96 96 Oximetry 02/21/24 22:40 Temperature 98.1 F Pulse Rate Pulse Rate [ 93 Pulse Oximetery ] Respiratory 18 Rate Blood Pressure Blood Pressure 131/70 [Right Arm] O2 Sat by Pulse 96 Oximetry EKG Findings - EKG Comments: EKG Findings:: EKG performed at 6: 00 sinus rhythm with a rate of 95 IN 161 QRS 86 QT/QTc 344/396 - EKG Results: EKG: interpreted by ALBIN Medical Decision Making - Medical Decision Making Was pt. sent in by a medical professional or institution (, PA, ROOFING TECHNICIAN, urgent care, hospital, or [facility]...) When possible be specific @ -No Did you speak to anyone other than the patient for history (EMS, parent, family, police, friend...)? What history was obtained from this source @ -No Did you review nursing and triage notes (agree or disagree)? Why? @ -I reviewed and agree with nursing and triage notes Were old charts reviewed (outside hosp., previous admission, EMS record, old EKG, old radiological studies, urgent care reports/EKG's, [facility] records)? Report findings @ -No old charts were reviewed Differential Diagnosis (chest pain, altered mental status, abdominal pain women, abdominal pain men, vaginal bleeding, weakness, fever, dyspnea, syncope, headache, dizziness, GI bleed, back pain, seizure, CVA, palpatations, mental health, musculoskeletal)? @ -Differential Weakness: Hypoglycemia, shock, sepsis, hyponatremia, anemia, infection, AR, ETOH, adverse medicine reaction, overdose, stroke, this is not meant to be an all-inclusive list. EKG interpreted by me (3pts min.). @ -As above X-rays interpreted by me (1pt min.). @ -Chest x-ray shows no acute cardiopulmonary process CT interpreted by me (1pt min.). @ -None done U/S interpreted by me (1pt. min.). @ -None done What testing was considered but not performed or refused? (CT, X-rays, U/S, labs)? Why? @ -None What meds were considered but not given or refused? Why? @ -None Did you discuss the management of the patient with other professionals (professionals i.e. , PA, ROOFING TECHNICIAN, lab, RT, psych nurse, social media marketer, vp publisher development, teacher, security flex officer, manager of case)? Give summary @ -Dr. Chua for admission secondary to weakness, hypokalemia Was smoking cessation discussed for >3mins.? @ -No Was critical care preformed (if so, how long)? @ -No Were there social determinants of health that impacted care today? How? (Homelessness, low income, unemployed, alcoholism, drug addiction, transportation, low edu. Level, literacy, decrease access to med. care, fdc, rehab)? @ -No Was there de-escalation of care discussed even if they declined (Discuss DNR or withdrawal of care, Hospice)? DNR status @ -No What co-morbidities impacted this encounter? (DM, HTN, Smoking, COPD, CAD, Cancer, CVA, ARF, Chemo, Hep., AIDS, mental health diagnosis, sleep apnea, morbid obesity)? @ -None Was patient admitted / discharged? Hospital course, mention meds given and route, prescriptions, significant lab abnormalities, going to OR and other pertinent info. @ -Patient is admitted for acute weakness, difficulty ambulating, hypokalemia, dehydration. Undiagnosed new problem with uncertain prognosis? @ -No Drug Therapy requiring intensive monitoring for toxicity (Heparin, Nitro, Insulin, Cardizem)? @ -No Were any procedures done? @ -No Diagnosis/symptom? @ -Weakness, hypokalemia Acute, or Chronic, or Acute on Chronic? @ -[Acute Uncomplicated (without systemic symptoms) or Complicated (systemic symptoms)? @ -Complicated Side effects of treatment? @ -No Exacerbation, Progression, or Severe Exacerbation? @ -No Poses a threat to life or bodily function? How? (Chest pain, USA, AR, pneumonia, PE, COPD, DKA, ARF, appy, cholecystitis, CVA, Diverticulitis, Homicidal, Suicidal, threat to staff... and all critical care pts) @ -No - Lab Data Result diagrams: 02/21/24 06:46 02/21/24 18:52 Lab Results 02/21/24 02/21/24 02/21/24 Range/Units 06:30 06:46 06:46 WBC 5.1 (3.8-10.6) k/uL RBC 3.39 L (3.80-5.40) m/uL Hgb 11.4 (11.4-16.0) gm/dL Hct 34.4 (34.0-46.0) % MCV 101.5 H (80.0-100.0) fL MCH 33.8 (25.0-35.0) pg MCHC 33.3 (31.0-37.0) g/dL RDW 13.4 (11.5-15.5) % Plt Count 197 (150-450) k/uL MPV 8.8 Neutrophils % 76 % Lymphocytes % 13 % Monocytes % 8 % Eosinophils % 1 % Basophils % 0 % Neutrophils # 3.9 (1.3-7.7) k/uL Lymphocytes # 0.7 L (1.0-4.8) k/uL Monocytes # 0.4 (0-1.0) k/uL Eosinophils # 0.0 (0-0.7) k/uL Basophils # 0.0 (0-0.2) k/uL Macrocytosis Slight PT 12.1 (10.0-12.5) sec INR 1.1 (<1.2) APTT 27.1 (22.0-30.0) sec Sodium (137-145) mmol/L Potassium (3.5-5.1) mmol/L Chloride (98-107) mmol/L Carbon Dioxide (22-30) mmol/L Anion Gap mmol/L BUN (7-17) mg/dL Creatinine (0.52-1.04) mg/dL Est GFR (CKD-EPI)AfAm (>60 ml/min/1.73 sqM) Est GFR (CKD-EPI)NonAf (>60 ml/min/1.73 sqM) Glucose (74-99) mg/dL Plasma Lactic Acid Cam (0.7-2.0) mmol/L Calcium (8.4-10.2) mg/dL Phosphorus (2.5-4.5) mg/dL Magnesium (1.6-2.3) mg/dL Total Bilirubin (0.2-1.3) mg/dL AST (14-36) U/L ALT (4-34) U/L Alkaline Phosphatase (38-126) U/L Troponin I (0.000-0.034) ng/mL C-Reactive Protein (<1.0) mg/dL NT-Pro-B Natriuret Pep pg/mL Total Protein (6.3-8.2) g/dL Albumin (3.5-5.0) g/dL Urine Color Urine Appearance (Clear) Urine pH (5.0-8.0) Ur Specific [place] (1.001-1.035) Urine Protein (Negative) Urine Glucose (UA) (Negative) Urine Ketones (Negative) Urine Blood (Negative) Urine Nitrite (Negative) Urine Bilirubin (Negative) Urine Urobilinogen (<2.0) mg/dL Ur Leukocyte Esterase (Negative) Influenza Type A (PCR) Not Detected (Not Detectd) Influenza Type B (PCR) Not Detected (Not Detectd) RSV (PCR) Not Detected (Not Detectd) SARS-CoV-2 (PCR) Not Detected (Not Detectd) 02/21/24 02/21/24 02/21/24 Range/Units 06:46 06:46 06:46 WBC (3.8-10.6) k/uL RBC (3.80-5.40) m/uL Hgb (11.4-16.0) gm/dL Hct (34.0-46.0) % MCV (80.0-100.0) fL MCH (25.0-35.0) pg MCHC (31.0-37.0) g/dL RDW (11.5-15.5) % Plt Count (150-450) k/uL MPV Neutrophils % % Lymphocytes % % Monocytes % % Eosinophils % % Basophils % % Neutrophils # (1.3-7.7) k/uL Lymphocytes # (1.0-4.8) k/uL Monocytes # (0-1.0) k/uL Eosinophils # (0-0.7) k/uL Basophils # (0-0.2) k/uL Macrocytosis PT (10.0-12.5) sec INR (<1.2) APTT (22.0-30.0) sec Sodium 133 L (137-145) mmol/L Potassium 2.8 L (3.5-5.1) mmol/L Chloride 99 (98-107) mmol/L Carbon Dioxide 30 (22-30) mmol/L Anion Gap 4 mmol/L BUN 18 H (7-17) mg/dL Creatinine 0.50 L (0.52-1.04) mg/dL Est GFR (CKD-EPI)AfAm >90 (>60 ml/min/1.73 sqM) Est GFR (CKD-EPI)NonAf >90 (>60 ml/min/1.73 sqM) Glucose 117 H (74-99) mg/dL Plasma Lactic Acid Cam 1.1 (0.7-2.0) mmol/L Calcium 9.0 (8.4-10.2) mg/dL Phosphorus 3.3 (2.5-4.5) mg/dL Magnesium 1.8 (1.6-2.3) mg/dL Total Bilirubin 1.3 (0.2-1.3) mg/dL AST 21 (14-36) U/L ALT 17 (4-34) U/L Alkaline Phosphatase 66 (38-126) U/L Troponin I <0.012 (0.000-0.034) ng/mL C-Reactive Protein 4.1 H (<1.0) mg/dL NT-Pro-B Natriuret Pep 819 pg/mL Total Protein 5.8 L (6.3-8.2) g/dL Albumin 3.1 L (3.5-5.0) g/dL Urine Color Urine Appearance (Clear) Urine pH (5.0-8.0) Ur Specific [place] (1.001-1.035) Urine Protein (Negative) Urine Glucose (UA) (Negative) Urine Ketones (Negative) Urine Blood (Negative) Urine Nitrite (Negative) Urine Bilirubin (Negative) Urine Urobilinogen (<2.0) mg/dL Ur Leukocyte Esterase (Negative) Influenza Type A (PCR) (Not Detectd) Influenza Type B (PCR) (Not Detectd) RSV (PCR) (Not Detectd) SARS-CoV-2 (PCR) (Not Detectd) 02/21/24 Range/Units 07:14 WBC (3.8-10.6) k/uL RBC (3.80-5.40) m/uL Hgb (11.4-16.0) gm/dL Hct (34.0-46.0) % MCV (80.0-100.0) fL MCH (25.0-35.0) pg MCHC (31.0-37.0) g/dL RDW (11.5-15.5) % Plt Count (150-450) k/uL MPV Neutrophils % % Lymphocytes % % Monocytes % % Eosinophils % % Basophils % % Neutrophils # (1.3-7.7) k/uL Lymphocytes # (1.0-4.8) k/uL Monocytes # (0-1.0) k/uL Eosinophils # (0-0.7) k/uL Basophils # (0-0.2) k/uL Macrocytosis PT (10.0-12.5) sec INR (<1.2) APTT (22.0-30.0) sec Sodium (137-145) mmol/L Potassium (3.5-5.1) mmol/L Chloride (98-107) mmol/L Carbon Dioxide (22-30) mmol/L Anion Gap mmol/L BUN (7-17) mg/dL Creatinine (0.52-1.04) mg/dL Est GFR (CKD-EPI)AfAm (>60 ml/min/1.73 sqM) Est GFR (CKD-EPI)NonAf (>60 ml/min/1.73 sqM) Glucose (74-99) mg/dL Plasma Lactic Acid Cam (0.7-2.0) mmol/L Calcium (8.4-10.2) mg/dL Phosphorus (2.5-4.5) mg/dL Magnesium (1.6-2.3) mg/dL Total Bilirubin (0.2-1.3) mg/dL AST (14-36) U/L ALT (4-34) U/L Alkaline Phosphatase (38-126) U/L Troponin I (0.000-0.034) ng/mL C-Reactive Protein (<1.0) mg/dL NT-Pro-B Natriuret Pep pg/mL Total Protein (6.3-8.2) g/dL Albumin (3.5-5.0) g/dL Urine Color Yellow Urine Appearance Clear (Clear) Urine pH 6.0 (5.0-8.0) Ur Specific [place] 1.019 (1.001-1.035) Urine Protein Trace H (Negative) Urine Glucose (UA) Negative (Negative) Urine Ketones 1+ H (Negative) Urine Blood Negative (Negative) Urine Nitrite Negative (Negative) Urine Bilirubin Negative (Negative) Urine Urobilinogen 6.0 (<2.0) mg/dL Ur Leukocyte Esterase Negative (Negative) Influenza Type A (PCR) (Not Detectd) Influenza Type B (PCR) (Not Detectd) RSV (PCR) (Not Detectd) SARS-CoV-2 (PCR) (Not Detectd) Disposition Clinical Impression: Dehydration, Weakness, Hypokalemia Disposition: ADMITTED IP TO THIS HOSP Condition: Fair Time of Disposition: 07:50
[2024-02-21] MEDS: SODIUM CHLORIDE 0.9% 500 ML 500 ML IV STA (06:37)
--- NOTE | 2024-02-21 06:58 | XR ---
EXAMINATION TYPE: XR chest 2V DATE OF EXAM: 02/21/2024 COMPARISON: Chest CT April 20, 2022 HISTORY: Weakness TECHNIQUE: Frontal and lateral views of the chest are obtained. FINDINGS: Low lung volumes are present. There is no suspicious focal air space opacity, pleural effu janak, or pneumothorax seen. The cardiac silhouette size is stable and within normal limits with athe rosclerotic thoracic aorta redemonstrated. The osseous structures are intact. IMPRESSION: No acute process.
[2024-02-21 07:00] LABS: Basophils % (A) 0 %; Eosinophils % (A) 1 %; HCT 34.4 % (34.0-46.0); HGB 11.4 gm/dL (11.4-16.0); Lymphocytes # (A) 0.7 k/uL (1.0-4.8); Lymphocytes % (A) 13 %; MCH 33.8 pg (25.0-35.0); MCHC 33.3 g/dL (31.0-37.0); MCV 101.5 fL (80.0-100.0); Macrocytosis Slight; Mean Platelet Volume 8.8; Monocytes # (A) 0.4 k/uL (0-1.0); Monocytes % (A) 8 %; Neutrophils # (A) 3.9 k/uL (1.3-7.7); Neutrophils % (A) 76 %; Platelet Count 197 k/uL (150-450); RBC 3.39 m/uL (3.80-5.40); RDW 13.4 % (11.5-15.5); WBC 5.1 k/uL (3.8-10.6)
[2024-02-21 07:18] LABS: ALT 17 U/L (4-34); AST 21 U/L (14-36); African American GFR (CKD) >90 (>60 ml/min/1.73 sqM); Albumin 3.1 g/dL (3.5-5.0); Alkaline Phosphatase 66 U/L (38-126); Anion Gap 4 mmol/L; Blood Urea Nitrogen 18 mg/dL (7-17); C Reactive Protein 4.1 mg/dL (<1.0); Carbon Dioxide 30 mmol/L (22-30); Chloride 99 mmol/L (98-107); Glucose 117 mg/dL (74-99); Magnesium 1.8 mg/dL (1.6-2.3); Non-African American GFR(CKD) >90 (>60 ml/min/1.73 sqM); Phosphorus 3.3 mg/dL (2.5-4.5); Potassium 2.8 mmol/L (3.5-5.1); Sodium 133 mmol/L (137-145); Total Bilirubin 1.3 mg/dL (0.2-1.3); Total Protein 5.8 g/dL (6.3-8.2)
[2024-02-21 07:21] LABS: Appearance,Urine Clear (Clear); Bilirubin,Urine Negative (Negative); Blood,Urine Negative (Negative); Color,Urine Yellow; Glucose,Urine (UA) Negative (Negative); Ketones,Urine 1+ (Negative); Leukocyte Esterase,Urine Negative (Negative); Nitrite,Urine Negative (Negative); Protein,Urine Trace (Negative); Specific Gravity,Urine 1.019 (1.001-1.035)
[2024-02-21 07:24] LABS: NT-Pro-B-Type Natriuretic Pept 819 pg/mL
[2024-02-21 07:26] LABS: INR 1.1 (<1.2); Partial Thromboplastin Time 27.1 sec (22.0-30.0); Prothrombin Time 12.1 sec (10.0-12.5)
[2024-02-21] MEDS ORDERED: NALOXONE 0.4 MG/ML 1 ML VIAL IV PRN (07:50)
[2024-02-21] MEDS ORDERED: Potassium Replacement Protocol 1 EACH MISC MISCELLANE PRN (07:53)
[2024-02-21] MEDS ORDERED: ALPRAZolam 0.25 MG TAB PO PRN (08:23)
[2024-02-21] MEDS ORDERED: ALBUTEROL NEBULIZED 2.5 MG/3 ML INHALATION PRN ×2 (08:26)
--- NOTE | 2024-02-21 08:43 | P.HPIM ---
History of Present Illness H&P Date: 02/21/24 Chief Complaint: Weakness This is a 78-year-old female who presented to the emergency department with complaints of generalized weakness. Patient's family reports increasing w eakness over the last several days. She reportedly has not been wanting to get off of the couch. Family also states she has had 2 recent falls. Patient's potassium found to be low on admission. Potassium protocol replacement ordered. Patient noted to have tremors present during exam, family states she has had an outpatient workup with neurology for this and all testing has come back negative. Further medical history as noted below. Review of Systems Constitutional: Reports fatigue, Reports weakness, Denies chills, Denies fever Cardiovascular: Denies chest pain, Denies dyspnea on exertion Respiratory: Denies cough, Denies dyspnea Gastrointestinal: Denies abdominal pain, Denies nausea, Denies vomiting Musculoskeletal: Denies arm numbness/tingling, Denies leg numbness/tingling Neurological: Reports tremors, Reports weakness Past Medical History Past Medical History: Asthma, COPD, Hypertension, Musculoskeletal Disorder, Osteoarthritis (OA), Thyroid Disorder Additional Past Medical History / Comment(s): STRESS INCONT/WEARS PAD, wears home 2L O2 PRN History of Any Multi-Drug Resistant Organisms: None Reported Past Surgical History: Cholecystectomy, Hysterectomy Additional Past Surgical History / Comment(s): RT Shoulder surgery, CATARACTS Past Anesthesia/Blood Transfusion Reactions: No Reported Reaction Additional Past Anesthesia/Blood Transfusion Reaction / Comment(s): trouble breathing coming out of surgery Past Psychological History: Depression Smoking Status: Current every day smoker Past Alcohol Use History: Rare Past Drug Use History: None Reported - Past Family History Father History Unknown: Yes Family Medical History: Liver Disease Additional Family Medical History / Comment(s): pt is adopted DOES'NT KNOW MUCH ABOUT PARENTS Mother Family Medical History: Cancer Additional Family Medical History / Comment(s): LUNG CANCER Sister(s) Additional Family Medical History / Comment(s): HEART PROBLEMS Brother(s) Family Medical History: COPD Additional Family Medical History / Comment(s): LUNG DZ Medications and Allergies Home Medications Medication Instructions Recorded Confirmed Type ALPRAZolam [Xanax] 0.25 mg PO TID PRN 12/02/15 11/24/23 History Divalproex Sodium 250 mg PO BID 12/03/15 11/24/23 History Montelukast Sodium 10 mg PO DAILY 12/03/15 11/24/23 History Acetaminophen Tab [Tylenol] 1,000 mg PO BID 11/24/23 11/24/23 History Albuterol Inhaler [Ventolin Hfa 2 puff INHALATION RT-QID PRN 11/24/23 11/24/23 History Inhaler] Albuterol Nebulized [Ventolin 2.5 mg INHALATION RT-Q6H PRN 11/24/23 11/24/23 History Nebulized] Benralizumab [Fasenra] 1 dose SQ DIRECTED 11/24/23 11/24/23 History Cholecalciferol [Vitamin D3 (25 25 mcg PO DAILY 11/24/23 11/24/23 History Mcg = 1000 Iu)] Ibuprofen [Advil] 400 mg PO QID 11/24/23 11/24/23 History Levothyroxine Sodium [Synthroid] 125 mcg PO DAILY 11/24/23 11/24/23 History Sulfamethox-Tmp 800-160Mg [Bactrim 1 tab PO Q12HR 11/24/23 11/24/23 History DS 800-160 mg] amLODIPine [Norvasc] 5 mg PO BID #60 tab 11/26/23 Rx amLODIPine [Norvasc] 5 mg PO DAILY #30 tab 11/26/23 Rx hydrALAZINE HCL 25 mg PO TID #90 tab 11/26/23 Rx Allergies Allergy/AdvReac Type Severity Reaction Status Date / Time cefaclor [From Ceclor] Allergy Unknown Verified 02/21/24 05:53 ceftriaxone [From Rocephin] Allergy Anaphylaxis Verified 02/21/24 05:53 levofloxacin [From Levaquin] Allergy Anaphylaxis Verified 02/21/24 05:53 Sulfa (Sulfonamide Allergy Unknown Verified 02/21/24 05:53 Antibiotics) codeine AdvReac Extreme Verified 02/21/24 05:53 Sedation, confusion morphine AdvReac Extreme Verified 02/21/24 05:53 Sedation, confusion narcotics AdvReac Extreme Uncoded 02/21/24 05:53 Sedation, confusion Physical Exam Vitals: Vital Signs Temp Pulse Resp BP Pulse Ox 02/21/24 05:49 98.0 F 102 H 16 121/63 97 Intake and Output 02/20/24 02/21/2424 22:59 06:59 14:59 Other: Weight 57.606 kg - Constitutional General appearance: cooperative, no acute distress - EENT Eyes: PERRLA - Neck Neck: no lymphadenopathy, normal ROM, no rigidity - Respiratory Respiratory: bilateral: diminished - Cardiovascular Rhythm: regular Heart sounds: normal: S1, S2 - Gastrointestinal General gastrointestinal: soft, no tenderness - Integumentary Integumentary: normal, normal turgor - Neurologic Tremor present - Musculoskeletal Musculoskeletal: generalized weakness - Psychiatric Psychiatric: A&O x's 3 Results CBC & Chem 7: 02/21/24 06:46 02/21/24 06:46 Labs: Abnormal Lab Results - Last 24 Hours (Table) 02/21/24 02/21/24 02/21/24 Range/Units 06:46 06:46 07:14 RBC 3.39 L (3.80-5.40) m/uL MCV 101.5 H (80.0-100.0) fL Lymphocytes # 0.7 L (1.0-4.8) k/uL Sodium 133 L (137-145) mmol/L Potassium 2.8 L (3.5-5.1) mmol/L BUN 18 H (7-17) mg/dL Creatinine 0.50 L (0.52-1.04) mg/dL Glucose 117 H (74-99) mg/dL C-Reactive Protein 4.1 H (<1.0) mg/dL Total Protein 5.8 L (6.3-8.2) g/dL Albumin 3.1 L (3.5-5.0) g/dL Urine Protein Trace H (Negative) Urine Ketones 1+ H (Negative) Assessment and Plan (1) Hypokalemia Current Visit: Yes Status: Acute Code(s): E87.6 - HYPOKALEMIA SNOMED Code(s): 82426024 (2) Weakness Current Visit: Yes Status: Acute Code(s): R53.1 - WEAKNESS SNOMED Code(s): 51691960 (3) COPD (chronic obstructive pulmonary disease) Current Visit: No Status: Acute Code(s): J44.9 - CHRONIC OBSTRUCTIVE PULMONARY DISEASE, UNSPECIFIED SNOMED Code(s): 24212758 (4) Hypertension Current Visit: No Status: Acute Code(s): I10 - ESSENTIAL (PRIMARY) HYPERTENSION SNOMED Code(s): 03550601 (5) Hypothyroid Current Visit: No Status: Acute Code(s): E03.9 - HYPOTHYROIDISM, UNSPECIFIED SNOMED Code(s): 66852231 (6) Unsteady gait Current Visit: No Status: Acute Code(s): R26.81 - UNSTEADINESS ON FEET SNOMED Code(s): 05079313 Plan: Home medications reconciled. Consult to PT and OT for evaluation Check CMP in the morning Replace potassium per protocol Patient seen and evaluated by nurse practitioner, physician in agreement with plan
[2024-02-21] MEDS ORDERED: LEVOTHYROXINE 125 MCG TAB PO SCH (09:00)
[2024-02-21] MEDS ORDERED: amLODIPine 5 MG TAB PO SCH (09:00)
[2024-02-21] MEDS ORDERED: hydrALAZINE HCL 25 MG TAB PO SCH (09:00)
[2024-02-21] MEDS: POTASSIUM CHLORIDE ER 20 MEQ TAB.ER PO STA (10:00)
[2024-02-21] MEDS: POTASSIUM CHLORIDE 10 MEQ in WATER FOR INJECTION 1 100ML.BAG IVPB SCH (10:00)
[2024-02-21] MEDS: SODIUM CHLORIDE 0.9% 1,000 ML IV SCH (10:01)
[2024-02-21] MEDS: amLODIPine 5 MG TAB PO SCH (10:01)
[2024-02-21] MEDS: MONTELUKAST 10 MG TAB PO SCH (10:02)
[2024-02-21] MEDS: CHOLECALCIFEROL 25 MCG (1000 IU) TABLET PO SCH (10:03)
[2024-02-21] MEDS: DIVALPROEX 250 MG TABLET.DR PO SCH (10:03)
[2024-02-21] MEDS: ACETAMINOPHEN TAB 325 MG TAB PO PRN (10:17)
[2024-02-21] MEDS: ONDANSETRON 4 MG/2 ML VIAL IVP PRN (10:18)
[2024-02-21] MEDS: LEVOTHYROXINE 100 MCG TAB PO SCH (10:19)
[2024-02-21] MEDS: ALPRAZolam 0.5 MG TAB PO PRN (22:19)
--- NOTE | 2024-02-22 08:50 | P.PN ---
Subjective Progress Note Date: 02/22/24 Principal diagnosis: Weakness/hypokalemia This is a 78-year-old female who presented to the emergency department with complaints of generalized weakness. Patient's family reports increasing weakness over the last several days. She reportedly has not been wanting to get off of the couch. Family also states she has had 2 recent falls. Patient's potassium found to be low on admission. Potassium protocol replacement ordered. Patient noted to have tremors present during exam, family states she has had an outpatient workup with neurology for this and all testing has come back negative. Further medical history as noted below. 02/22/2024 Patient is seen and evaluated laying in bed this morning. Physical therapy has not been in to work with her yet. She does reports she is still quite weak but reportedly has been getting up to use the bathroom. Repeat potassium level was 4.5 yesterday. Patient is tolerating diet. Vitals are stable. Objective - Vital Signs Vital signs: Vital Signs Temp 98.1 F 02/22/24 07:00 Pulse 94 02/22/24 07:00 Resp 16 02/22/24 07:00 BP 126/79 02/22/24 07:00 Pulse Ox 94 L 02/22/24 07:00 FiO2 Intake & Output 02/21/24 02/22/24 02/22/24 18:59 06:59 18:59 Weight 57.606 kg Other: Voiding Method Toilet Diaper # Voids 2 - Constitutional General appearance: Present: cooperative, no acute distress - EENT Eyes: Present: PERRLA - Neck Neck: Present: normal ROM. Absent: lymphadenopathy, rigidity - Respiratory Respiratory: bilateral: CTA - Cardiovascular Rhythm: regular Heart sounds: normal: S1, S2 - Gastrointestinal General gastrointestinal: Present: soft. Absent: tenderness - Integumentary Integumentary: Present: normal, normal turgor - Musculoskeletal Musculoskeletal: Present: generalized weakness - Psychiatric Psychiatric: Present: A&O x's 3 - Labs CBC & Chem 7: 02/21/24 06:46 02/21/24 18:52 Assessment and Plan (1) Hypokalemia Current Visit: Yes Status: Acute Code(s): E87.6 - HYPOKALEMIA SNOMED Code(s): 82011224 (2) Weakness Current Visit: Yes Status: Acute Code(s): R53.1 - WEAKNESS SNOMED Code(s): 66828898 (3) COPD (chronic obstructive pulmonary disease) Current Visit: No Status: Acute Code(s): J44.9 - CHRONIC OBSTRUCTIVE PULMONARY DISEASE, UNSPECIFIED SNOMED Code(s): 34351574 (4) Hypertension Current Visit: No Status: Acute Code(s): I10 - ESSENTIAL (PRIMARY) HYPERTENSION SNOMED Code(s): 90643922 (5) Hypothyroid Current Visit: No Status: Acute Code(s): E03.9 - HYPOTHYROIDISM, UNSPECIFIED SNOMED Code(s): 55834507 (6) Unsteady gait Current Visit: No Status: Acute Code(s): R26.81 - UNSTEADINESS ON FEET SNOMED Code(s): 41810116 Plan: Check CMP in the morning. Await evaluation by PT and OT. Consult to discharge planning. Patient seen and evaluated by nurse practitioner, physician in agreement with plan
[2024-02-22 09:13] LABS: BUN/Creat Ratio 19.17 Ratio (12.00-20.00); Blood Urea Nitrogen 11.5 mg/dL (9.0-27.0); Carbon Dioxide 26.6 mmol/L (21.6-31.8); Chloride 100 mmol/L (96-109); Glucose 115 mg/dL (70-110); Potassium 3.8 mmol/L (3.5-5.5); Sodium 137 mmol/L (135-145)
[2024-02-22 09:14] LABS: ALT 19 U/L (8-44); AST 19 U/L (13-35); Albumin 3.1 g/dL (3.8-4.9); Albumin/Globulin Ratio 1.35 Ratio (1.60-3.17); Alkaline Phosphatase 61 U/L (41-126); Calcium 8.7 mg/dL (8.7-10.3); Globulin 2.3 g/dL (1.6-3.3); Total Bilirubin 0.7 mg/dL (0.3-1.2); Total Protein 5.4 g/dL (6.2-8.2)
[2024-02-22 13:40] VITALS: BMI 24.7
[2024-02-23 08:28] VITALS: BP 124/76; PULSE 95; RESP 17; TEMP 98
[2024-02-23 09:07] LABS: ALT 17 U/L (8-44); AST 17 U/L (13-35); Albumin 3.3 g/dL (3.8-4.9); Albumin/Globulin Ratio 1.22 Ratio (1.60-3.17); Alkaline Phosphatase 66 U/L (41-126); Blood Urea Nitrogen 9.9 mg/dL (9.0-27.0); Calcium 9.3 mg/dL (8.7-10.3); Carbon Dioxide 27.1 mmol/L (21.6-31.8); Chloride 102 mmol/L (96-109); Globulin 2.7 g/dL (1.6-3.3); Glucose 125 mg/dL (70-110); Sodium 138 mmol/L (135-145); Total Bilirubin 0.6 mg/dL (0.3-1.2)
--- NOTE | 2024-02-23 11:01 | P.DS ---
Providers Date of admission: 02/21/24 07:43 Attending physician: Joce Chua Primary care physician: Joce Chua Hospital Course: The patient was admitted for generalized weakness, poor PO intake with element of hypokalemia. Patient is refusing further rehab, but I suspect she would benefit from continued rehab. She is agreeable to home health rehab. No fever or chills. No voiding difficulties. again, reiterated increased diet. Patient Condition at Discharge: Fair Plan - Discharge Summary Discharge Rx Participant: No New Discharge Prescriptions: New Potassium Chloride ER [K-Dur 10] 10 meq PO DAILY #30 tab Continue ALPRAZolam [Xanax] 0.5 mg PO TID PRN PRN Reason: Anxiety Divalproex Sodium 250 mg PO BID Montelukast Sodium 10 mg PO DAILY Cholecalciferol [Vitamin D3 (25 Mcg = 1000 Iu)] 25 mcg PO DAILY Albuterol Inhaler [Ventolin Hfa Inhaler] 2 puff INHALATION RT-QID PRN PRN Reason: Shortness Of Breath Levothyroxine Sodium [Synthroid] 100 mcg PO DAILY Acetaminophen Tab [Tylenol] 500 mg PO TID@0000,0800,1600 amLODIPine [Norvasc] 5 mg PO BID #60 tab Mirabegron [Myrbetriq] 50 mg PO DAILY Cyanocobalamin (Vitamin B-12) [Vitamin B-12] 1,000 mcg PO DAILY Discharge Medication List ALPRAZolam [Xanax] 0.5 mg PO TID PRN 12/02/15 [History] Divalproex Sodium 250 mg PO BID 12/03/15 [History] Montelukast Sodium 10 mg PO DAILY 12/03/15 [History] Acetaminophen Tab [Tylenol] 500 mg PO TID@0000,0800,1600 11/24/23 [History] Albuterol Inhaler [Ventolin Hfa Inhaler] 2 puff INHALATION RT-QID PRN 11/24/23 [History] Cholecalciferol [Vitamin D3 (25 Mcg = 1000 Iu)] 25 mcg PO DAILY 11/24/23 [History] amLODIPine [Norvasc] 5 mg PO BID #60 tab 11/26/23 [Rx] Cyanocobalamin (Vitamin B-12) [Vitamin B-12] 1,000 mcg PO DAILY 02/21/24 [History] Levothyroxine Sodium [Synthroid] 100 mcg PO DAILY 02/21/24 [History] Mirabegron [Myrbetriq] 50 mg PO DAILY 02/21/24 [History] Potassium Chloride ER [K-Dur 10] 10 meq PO DAILY #30 tab 02/23/24 [Rx] Follow up Appointment(s)/Referral(s): [facility], [NON-STAFF] - As Needed Joce Chua MD [Primary Care Provider] - 3 Days Discharge Disposition: HOME WITH HOME HEALTH SERVICES
== END 2024-02-23 14:10 | disposition home health service (06) ==
LOC: EC 05:48 → 6NMEDSUR 07:43
PROVIDERS: ADMIT Family Medicine; ATTEND Family Medicine
DX: E87.6 Hypokalemia (principal); E86.0 Dehydration; J44.9 Chronic obstructive pulmonary disease, unspecified; I10 Essential (primary) hypertension; E03.9 Hypothyroidism, unspecified; R63.8 Other symptoms and signs concerning food and fluid intake; R25.1 Tremor, unspecified; R26.81 Unsteadiness on feet; R29.6 Repeated falls; F17.200 Nicotine dependence, unspecified, uncomplicated; Z11.52 Encounter for screening for COVID-19; Z11.59 Encounter for screening for other viral diseases; Z79.890 Hormone replacement therapy; Z79.899 Other long term (current) drug therapy; Z88.1 Allergy status to other antibiotic agents; Z88.2 Allergy status to sulfonamides; Z88.5 Allergy status to narcotic agent
CPT/HCPCS: 96361; 96365; 96366; 96375; 99285; 36415; 94760; 93005; 97530; 97162; 97166; 83880; 80053 ×3; 83605; 83735; 84100; 84132; 84484; 85025; 85610; 85730; 86140; 81003; 87636; 71046; G0378 ×3; J2405; J3480

== ENCOUNTER 2024-03-05 22:19 | Inpatient (IN) | payer MEDICARE ==
--- NOTE | 2024-03-05 22:51 | ED ---
Altered Mental Status HPI - General Source: patient, family, RN notes reviewed Mode of arrival: wheelchair Limitations: altered mental status <Angela Jolly - Last Filed: 03/05/24 22:49> - General Source: patient, family, RN notes reviewed, old records reviewed, Caregiver Mode of arrival: wheelchair Limitations: altered mental status - History of Present Illness MD Complaint: altered mental status, decreased responsiveness, weakness -: month(s) Severity: severe Context: history of similar presentation Associated Symptoms: denies other symptoms Treatments Prior to Arrival: other pre-hospital medication (0) <Phill Brandt - Last Filed: 03/06/24 01:15> - General Chief Complaint: Altered Mental Status Stated Complaint: Confusion Time Seen by Provider: 03/05/24 22:32 - History of Present Illness Initial Comments: Quick Noteis a 78-year-old female presents emergency department chief complaint of altered mental status. Patient is accompanied by family who states that she has not been acting herself with decreased weakness, decreased appetite. Patient was admitted on 02/20 with hypokalemia states the patient is acting the same and they brought her in initially. (Angela Jolly) This is a 78-year-old female with family for failure to thrive weakness and debility. Not eating or drinking not taking care of her self. (Phill Brandt) - Related Data Home Medications Medication Instructions Recorded Confirmed ALPRAZolam [Xanax] 0.5 mg PO TID PRN 12/02/15 02/21/24 Divalproex Sodium 250 mg PO BID 12/03/15 02/21/24 Montelukast Sodium 10 mg PO DAILY 12/03/15 02/21/24 Acetaminophen Tab [Tylenol] 500 mg PO TID@0000,0800,1600 11/24/23 02/21/24 Albuterol Inhaler [Ventolin Hfa 2 puff INHALATION RT-QID PRN 11/24/23 02/21/24 Inhaler] Cholecalciferol [Vitamin D3 (25 25 mcg PO DAILY 11/24/23 02/21/24 Mcg = 1000 Iu)] Cyanocobalamin (Vitamin B-12) 1,000 mcg PO DAILY 02/21/24 02/21/24 [Vitamin B-12] Levothyroxine Sodium [Synthroid] 100 mcg PO DAILY 02/21/24 02/21/24 Mirabegron [Myrbetriq] 50 mg PO DAILY 02/21/24 02/21/24 Previous Rx's Medication Instructions Recorded amLODIPine [Norvasc] 5 mg PO BID #60 tab 11/26/23 Potassium Chloride ER [K-Dur 10] 10 meq PO DAILY #30 tab 02/23/24 Allergies Allergy/AdvReac Type Severity Reaction Status Date / Time cefaclor [From Ceclor] Allergy Unknown Verified 03/05/24 22:47 ceftriaxone [From Rocephin] Allergy Anaphylaxis Verified 03/05/24 22:47 levofloxacin [From Levaquin] Allergy Anaphylaxis Verified 03/05/24 22:47 Sulfa (Sulfonamide Allergy Unknown Verified 03/05/24 22:47 Antibiotics) codeine AdvReac Extreme Verified 03/05/24 22:47 Sedation, confusion morphine AdvReac Extreme Verified 03/05/24 22:47 Sedation, confusion narcotics AdvReac Extreme Uncoded 03/05/24 22:47 Sedation, confusion Review of Systems ROS Other: All systems not noted in ROS Statement are negative. <Angela Jolly - Last Filed: 03/05/24 22:49> ROS Other: All systems not noted in ROS Statement are negative. <Phill Brandt - Last Filed: 03/06/24 01:15> ROS Statement: Those systems with pertinent positive or pertinent negative responses have been documented in the HPI. Past Medical History Past Medical History: Asthma, COPD, Hypertension, Musculoskeletal Disorder, Osteoarthritis (OA), Thyroid Disorder Additional Past Medical History / Comment(s): STRESS INCONT/WEARS PAD, wears home 2L O2 PRN History of Any Multi-Drug Resistant Organisms: None Reported Past Surgical History: Cholecystectomy, Hysterectomy Additional Past Surgical History / Comment(s): RT Shoulder surgery, CATARACTS Past Anesthesia/Blood Transfusion Reactions: No Reported Reaction Additional Past Anesthesia/Blood Transfusion Reaction / Comment(s): trouble breathing coming out of surgery Past Psychological History: Depression Smoking Status: Current every day smoker Past Alcohol Use History: Rare Past Drug Use History: None Reported - Past Family History Father History Unknown: Yes Family Medical History: Liver Disease Additional Family Medical History / Comment(s): pt is adopted DOES'NT KNOW MUCH ABOUT PARENTS Mother Family Medical History: Cancer Additional Family Medical History / Comment(s): LUNG CANCER Sister(s) Additional Family Medical History / Comment(s): HEART PROBLEMS Brother(s) Family Medical History: COPD Additional Family Medical History / Comment(s): LUNG DZ <PravinrobertoAleidaAngela - Last Filed: 03/05/24 22:49> General Exam Limitations: altered mental status <RikAngela - Last Filed: 03/05/24 22:49> General appearance: alert, in no apparent distress Head exam: Present: atraumatic, normocephalic, normal inspection Eye exam: Present: normal appearance, PERRL, EOMI. Absent: scleral icterus, conjunctival injection, periorbital swelling ENT exam: Present: normal exam, mucous membranes moist Neck exam: Present: normal inspection. Absent: tenderness, meningismus, lymphadenopathy Respiratory exam: Present: normal lung sounds bilaterally. Absent: respiratory distress, wheezes, rales, rhonchi, stridor Cardiovascular Exam: Present: regular rate, normal rhythm, normal heart sounds. Absent: systolic murmur, diastolic murmur, rubs, gallop, clicks GI/Abdominal exam: Present: soft, normal bowel sounds. Absent: distended, tenderness, guarding, rebound, rigid Extremities exam: Present: normal inspection, full ROM, normal capillary refill. Absent: tenderness, pedal edema, joint swelling, calf tenderness Back exam: Present: normal inspection Neurological exam: Present: alert, oriented X3, CN II-XII intact Psychiatric exam: Present: normal affect, normal mood Skin exam: Present: warm, dry, intact, normal color. Absent: rash <Phill Brandt - Last Filed: 03/06/24 01:15> - General Exam Comments Initial Comments: Visual Physical Exam Vital signs reviewed General: Well-appearing, nontoxic, no acute distress. Head: Normocephalic, atraumatic Eyes: PERRLA, EOMI ENT: Airway patent Chest: Nonlabored breathing Skin: No visual rash, normal skin tone Neuro: Alert and oriented 3 Musculoskeletal: No gross abnormalities (Stieler,Angela) Course <Phill Brandt - Last Filed: 03/06/24 01:15> Vital Signs 03/05/24 22:41 Temperature 98 F Pulse Rate 72 Respiratory 18 Rate Blood Pressure 111/65 O2 Sat by Pulse 98 Oximetry - Reevaluation(s) Reevaluation #1: 03/06/24 01:14 Records reviewed (Phill Brandt) Reevaluation #2: 03/06/24 01:14 Symptoms unchanged (Phill Brandt) Reevaluation #3: 03/06/24 01:14 Informed of results and questions answered (Phill Brandt) Reevaluation #4: Was pt. sent in by a medical professional or institution (, LINETTE, CHIEF MAINTENANCE SUPERVISOR, urgent care, hospital, or half-way...) When possible be specific @ -no Did you speak to anyone other than the patient for history (EMS, parent, family, police, friend...)? What history was obtained from this source @ -no Did you review nursing and triage notes (agree or disagree)? Why? @ -agree Are old charts reviewed (outside hosp., previous admission, EMS record, old EKG, old radiological studies, urgent care reports/EKG's, half-way records)? Report findings @ -yes Differential Diagnosis (chest pain, altered mental status, abdominal pain women, abdominal pain men, vaginal bleeding, weakness, fever, dyspnea, syncope, headache, dizziness, GI bleed, back pain, seizure, CVA, palpatations, mental health, musculoskeletal)? @ -prior EKG interpreted by me (3pts min.). @ -yes X-rays interpreted by me (1pt min.). @ -yes negative for acute disease CT interpreted by me (1pt min.). @ -no U/S interpreted by me (1pt. min.). @ -no What testing was considered but not performed or refused? (CT, X-rays, U/S, labs)? Why? @ -none What meds were considered but not given or refused? Why? @ -none Did you discuss the management of the patient with other professionals (professionals i.e. LINETTE Arriaga, CHIEF MAINTENANCE SUPERVISOR, lab, RT, psych nurse, social media coordinator, patient scheduling manager, teacher, resident medical officer, housing case manager)? Give summary @ -no Was smoking cessation discussed for >3mins.? @ -no Was critical care preformed (if so, how long)? @ -no Were there social determinants of health that impacted care today? How? (Homelessness, low income, unemployed, alcoholism, drug addiction, transportation, low edu. Level, literacy, decrease access to med. care, care home, rehab)? @ -none Was there de-escalation of care discussed even if they declined (Discuss DNR or withdrawal of care, Hospice)? DNR status @ -no What co-morbidities impacted this encounter? (DM, HTN, Smoking, COPD, CAD, Cancer, CVA, ARF, Chemo, Hep., AIDS, mental health diagnosis, sleep apnea, morbid obesity)? @ -none Was patient admitted / discharged? Hospital course, mention meds given and route, prescriptions, significant lab abnormalities, going to OR and other pertinent info. @ - Undiagnosed new problem with uncertain prognosis? @ -no Drug Therapy requiring intensive monitoring for toxicity (Heparin, Nitro, Insulin, Cardizem)? @ -no Were any procedures done? @ -no Diagnosis/symptom? @ - Acute, or Chronic, or Acute on Chronic? @ -Acute Uncomplicated (without systemic symptoms) or Complicated (systemic symptoms)? @ -Complicated Side effects of treatment? @ -no Exacerbation, Progression, or Severe Exacerbation? @ -exacerbation Poses a threat to life or bodily function? How? (Chest pain, USA, CT, pneumonia, PE, COPD, DKA, ARF, appy, cholecystitis, CVA, Diverticulitis, Homicidal, Suicidal, threat to staff... and all critical care pts) @ -yes (Phill Brandt) Reevaluation #5: Differential Weakness: Hypoglycemia, shock, sepsis, hyponatremia, anemia, infection, CT, ETOH, adverse medicine reaction, overdose, stroke, this is not meant to be an all-inclusive list. (Phill Brandt) Medical Decision Making <Angela Jolly - Last Filed: 03/05/24 22:49> - EKG Data -: EKG Interpreted by Me (EKG is sinus 70 DE 169 QRS 84 QTc 383) <Phill Brandt - Last Filed: 03/06/24 01:15> - Medical Decision Making I completed the quick note portion of this chart signed Angela Jolly PA-C (Angela Jolly) 78 female to the ER for evaluation of debility failure to thrive weakness no appetite not eating not drinking not taking care of her self. Patient will be admitted for failure to thrive (Phill Brandt) Disposition <Angela Jolly - Last Filed: 03/05/24 22:49> Is patient prescribed a controlled substance at d/c from ED?: No Time of Disposition: 01:15 <Phill Brandt - Last Filed: 03/06/24 01:15> Clinical Impression: Altered mental status, Delirium due to general medical condition, Dehydration, Weakness, Failure to thrive, Debility Disposition: ADMITTED IP TO THIS HOSP Condition: Serious Referrals: Joce Chua MD [Primary Care Provider] - 1-2 days
[2024-03-06] MEDS ORDERED: NALOXONE 0.4 MG/ML 1 ML VIAL IV PRN (01:11)
[2024-03-06 01:45] LABS: Glucose,Whole Blood 104 mg/dL (70-110)
[2024-03-06] MEDS: ONDANSETRON 4 MG/2 ML VIAL IVP PRN (01:55)
[2024-03-06] MEDS: SODIUM CHLORIDE 0.9% 1,000 ML IV SCH (01:55)
[2024-03-06 01:56] LABS: Basophils % (A) 0 %; Eosinophils # (A) 0.1 k/uL (0-0.7); Eosinophils % (A) 1 %; HCT 40.2 % (34.0-46.0); HGB 12.6 gm/dL (11.4-16.0); Lymphocytes # (A) 0.9 k/uL (1.0-4.8); Lymphocytes % (A) 20 %; MCH 33.4 pg (25.0-35.0); MCHC 31.4 g/dL (31.0-37.0); MCV 106.4 fL (80.0-100.0); Macrocytosis Slight; Mean Platelet Volume 8.8; Monocytes # (A) 0.5 k/uL (0-1.0); Monocytes % (A) 11 %; Neutrophils % (A) 67 %; Platelet Count 211 k/uL (150-450); RBC 3.78 m/uL (3.80-5.40); RDW 12.5 % (11.5-15.5); WBC 4.5 k/uL (3.8-10.6)
[2024-03-06 02:06] LABS: Appearance,Urine Cloudy (Clear); Bacteria,Urine Rare /hpf; Bilirubin,Urine Negative (Negative); Blood,Urine Negative (Negative); Color,Urine Yellow; Glucose,Urine (UA) Negative (Negative); Ketones,Urine Trace (Negative); Leukocyte Esterase,Urine Negative (Negative); Mucus,Urine Rare /hpf; Nitrite,Urine Negative (Negative); Protein,Urine Negative (Negative); RBC,Urine 89 /hpf (0-5); Specific Gravity,Urine 1.014 (1.001-1.035); Squamous Epithelial Cell,Urine 5 /hpf (0-4); WBC,Urine 5 /hpf (0-5)
[2024-03-06 02:09] LABS: Prothrombin Time 11.3 sec (10.0-12.5)
[2024-03-06 02:10] LABS: Amphetamine Screen,Urine Not Detected (NotDetected); Benzodiazepines Screen,Urine Detected (NotDetected); Cocaine Screen,Urine Not Detected (NotDetected); Opiate Screen,Urine Not Detected (NotDetected); Phencyclidine Screen,Urine Not Detected (NotDetected)
[2024-03-06 02:11] LABS: Barbiturate Screen,Urine Not Detected (NotDetected); Methadone Screen, Urine Not Detected (NotDetected); Oxycodone Screen, Urine Not Detected (NotDetected); Tricyclic Antidepressant,Urine Not Detected (NotDetected); Urn Cannabinoid Scrn Not Detected (NotDetected)
[2024-03-06 03:06] LABS: ALT 13 U/L (4-34); African American GFR (CKD) >90 (>60 ml/min/1.73 sqM); Anion Gap 8 mmol/L; Blood Urea Nitrogen 17 mg/dL (7-17); Calcium 10.3 mg/dL (8.4-10.2); Carbon Dioxide 25 mmol/L (22-30); Chloride 99 mmol/L (98-107); Glucose 105 mg/dL (74-99); Non-African American GFR(CKD) 88 (>60 ml/min/1.73 sqM); Sodium 132 mmol/L (137-145); Total Bilirubin 1.3 mg/dL (0.2-1.3); Total Protein 7.2 g/dL (6.3-8.2)
[2024-03-06 03:16] LABS: AST 24 U/L (14-36); Alkaline Phosphatase 46 U/L (38-126); Potassium 4.4 mmol/L (3.5-5.1)
[2024-03-06] MEDS ORDERED: ALBUTEROL NEBULIZED 2.5 MG/3 ML INHALATION PRN (08:41)
[2024-03-06] MEDS ORDERED: ONDANSETRON 4 MG/2 ML VIAL IVP PRN (08:43)
--- NOTE | 2024-03-06 09:25 | P.HPIM ---
History of Present Illness H&P Date: 03/06/24 Chief Complaint: weakness This is a 78-year-old female who presented to the emergency department with complaints of altered mental status, decreased appetite and weakness. Patient recently admitted for the same type of symptoms and refused to work with therapy. Patient's is at bedside this morning who reports patient has not wanted to eat anything and has been progressively more weak at home. Patient is seen this morning laying in bed, still complaining of no appetite. Further medical history as noted below. Review of Systems Constitutional: Reports fatigue, Reports weakness, Denies chills, Denies fever Cardiovascular: Denies chest pain, Denies dyspnea on exertion Respiratory: Denies cough, Denies dyspnea Gastrointestinal: Reports loss of appetite, Reports nausea, Denies abdominal pain Musculoskeletal: Denies arm numbness/tingling, Denies leg numbness/tingling Neurological: Reports weakness, Denies headaches Past Medical History Past Medical History: Asthma, COPD, Hypertension, Musculoskeletal Disorder, Osteoarthritis (OA), Thyroid Disorder Additional Past Medical History / Comment(s): STRESS INCONT/WEARS PAD, wears home 2L O2 PRN History of Any Multi-Drug Resistant Organisms: None Reported Past Surgical History: Cholecystectomy, Hysterectomy Additional Past Surgical History / Comment(s): RT Shoulder surgery, CATARACTS Past Anesthesia/Blood Transfusion Reactions: No Reported Reaction Additional Past Anesthesia/Blood Transfusion Reaction / Comment(s): trouble breathing coming out of surgery Past Psychological History: Depression Smoking Status: Current every day smoker Past Alcohol Use History: Rare Past Drug Use History: None Reported - Past Family History Father History Unknown: Yes Family Medical History: Liver Disease Additional Family Medical History / Comment(s): pt is adopted DOES'NT KNOW MUCH ABOUT PARENTS Mother Family Medical History: Cancer Additional Family Medical History / Comment(s): LUNG CANCER Sister(s) Additional Family Medical History / Comment(s): HEART PROBLEMS Brother(s) Family Medical History: COPD Additional Family Medical History / Comment(s): LUNG DZ Medications and Allergies Home Medications Medication Instructions Recorded Confirmed Type ALPRAZolam [Xanax] 0.5 mg PO TID PRN 12/02/15 03/06/24 History Divalproex Sodium 250 mg PO BID 12/03/15 03/06/24 History Montelukast Sodium 10 mg PO DAILY 12/03/15 03/06/24 History Acetaminophen Tab [Tylenol] 500 mg PO TID@0000,0800,1600 11/24/23 03/06/24 History Albuterol Inhaler [Ventolin Hfa 2 puff INHALATION RT-QID PRN 11/24/23 03/06/24 History Inhaler] Cholecalciferol [Vitamin D3 (25 25 mcg PO DAILY 11/24/23 03/06/24 History Mcg = 1000 Iu)] amLODIPine [Norvasc] 5 mg PO BID #60 tab 11/26/23 03/06/24 Rx Cyanocobalamin (Vitamin B-12) 1,000 mcg PO DAILY 02/21/24 03/06/24 History [Vitamin B-12] Levothyroxine Sodium [Synthroid] 100 mcg PO DAILY 02/21/24 03/06/24 History Mirabegron [Myrbetriq] 50 mg PO DAILY 02/21/24 03/06/24 History Potassium Chloride ER [K-Dur 10] 10 meq PO DAILY #30 tab 02/23/24 03/06/24 Rx Allergies Allergy/AdvReac Type Severity Reaction Status Date / Time cefaclor [From Ceclor] Allergy Unknown Verified 03/06/24 08:07 ceftriaxone [From Rocephin] Allergy Anaphylaxis Verified 03/06/24 08:07 levofloxacin [From Levaquin] Allergy Anaphylaxis Verified 03/06/24 08:07 Sulfa (Sulfonamide Allergy Unknown Verified 03/06/24 08:07 Antibiotics) codeine AdvReac Extreme Verified 03/06/24 08:07 Sedation, confusion morphine AdvReac Extreme Verified 03/06/24 08:07 Sedation, confusion narcotics AdvReac Extreme Uncoded 03/06/24 08:07 Sedation, confusion Physical Exam Vitals: Vital Signs Temp Pulse Pulse Resp BP BP Pulse Ox 03/06/24 08:00 97.9 F 73 16 112/65 95 03/06/24 06:55 86 16 118/71 93 L 03/06/24 04:45 80 16 112/70 92 L 03/06/24 04:30 84 20 112/64 93 L 03/06/24 03:00 81 18 122/86 93 L 03/06/24 01:00 98.2 F 88 16 110/64 94 L 03/05/24 22:41 98 F 72 18 111/65 98 Intake and Output 03/05/24 03/06/24 03/06/24 22:59 06:59 14:59 Other: Weight 56.245 kg - Constitutional General appearance: cooperative, no acute distress, thin - EENT Eyes: PERRLA - Neck Neck: no lymphadenopathy, normal ROM, no rigidity - Respiratory Respiratory: bilateral: CTA - Cardiovascular Rhythm: regular Heart sounds: normal: S1, S2 - Gastrointestinal General gastrointestinal: soft, no tenderness - Musculoskeletal Musculoskeletal: generalized weakness - Psychiatric Psychiatric: A&O x's 3 Results CBC & Chem 7: 03/06/24 01:41 03/06/24 01:41 Labs: Abnormal Lab Results - Last 24 Hours (Table) 03/06/24 03/06/24 03/06/24 Range/Units 01:41 01:41 01:41 RBC 3.78 L (3.80-5.40) m/uL MCV 106.4 H (80.0-100.0) fL Lymphocytes # 0.9 L (1.0-4.8) k/uL Sodium 132 L (137-145) mmol/L Glucose 105 H (74-99) mg/dL Calcium 10.3 H (8.4-10.2) mg/dL Urine Appearance Cloudy H (Clear) Urine Ketones Trace H (Negative) Urine RBC 89 H (0-5) /hpf Ur Squamous Epith Cells 5 H (0-4) /hpf Urine Bacteria Rare H (None) /hpf Urine Mucus Rare H (None) /hpf U Benzodiazepines Scrn Detected H (NotDetected) Assessment and Plan (1) Altered mental status Current Visit: Yes Status: Acute Code(s): R41.82 - ALTERED MENTAL STATUS, UNSPECIFIED SNOMED Code(s): 701274826 (2) Weakness Current Visit: Yes Status: Acute Code(s): R53.1 - WEAKNESS SNOMED Code(s): 18796592 (3) COPD (chronic obstructive pulmonary disease) Current Visit: No Status: Acute Code(s): J44.9 - CHRONIC OBSTRUCTIVE PULMONARY DISEASE, UNSPECIFIED SNOMED Code(s): 16229133 (4) Hypertension Current Visit: No Status: Acute Code(s): I10 - ESSENTIAL (PRIMARY) HYPERTENSION SNOMED Code(s): 21199692 (5) Hypothyroid Current Visit: No Status: Acute Code(s): E03.9 - HYPOTHYROIDISM, UNSPECIFIED SNOMED Code(s): 27215732 (6) Loss of appetite Current Visit: Yes Status: Acute Code(s): R63.0 - ANOREXIA SNOMED Code(s): 39894472 Plan: Home medications reconciled. Add on Zoloft, however psych has been consulted. Check labs in the morning. Add Protonix PT and OT have been consulted Patient seen and evaluated by nurse practitioner, physician in agreement with plan
[2024-03-06] MEDS: amLODIPine 5 MG TAB PO SCH (10:45)
[2024-03-06] MEDS: DIVALPROEX 250 MG TABLET.DR PO SCH (10:45)
[2024-03-06] MEDS: SERTRALINE 25 MG TAB PO SCH (10:45)
[2024-03-06] MEDS: CYANOCOBALAMIN 500 MCG TAB PO SCH (10:46)
[2024-03-06] MEDS: POTASSIUM CHLORIDE ER 10 MEQ TAB.ER.PRT PO SCH (10:46)
[2024-03-06] MEDS: CHOLECALCIFEROL 25 MCG (1000 IU) TABLET PO SCH (10:46)
[2024-03-06] MEDS: ALPRAZolam 0.5 MG TAB PO PRN (10:46)
[2024-03-06] MEDS: Mirabegron [Myrbetriq] 50 MG Tab.Er.24h PO SCH (10:46)
[2024-03-06] MEDS: MONTELUKAST 10 MG TAB PO SCH (10:46)
[2024-03-06] MEDS: LEVOTHYROXINE 100 MCG TAB PO SCH (10:46)
[2024-03-06] MEDS: PANTOPRAZOLE 40 MG TABLET PO SCH (10:47)
--- NOTE | 2024-03-06 21:12 | P.CN ---
Psychiatric Consult - . Consult date: 03/06/24 Consult:: 03/06/24 21:10 CONSULTATION Reason for consult: Altered mental status identifying Data: The patient is 78 years old, , white female, who lives in [place], [place] in a house with her . Reason for admission: Altered mental status. History of present illness: The patient was brought to the emergency department with complaints of confusion, memory problems and not eating or drinking. The patient came to ER under similar conditions few weeks ago. After initial examination and other work-up, the patient was transferred to medical floor for further management. During this evaluation, the patient reported not able to eat. The patient noted that her main problem is inability to eat. She stated that, if only she can eat then everything will be fine. The patient also acknowledged that she is having some issues with her memory. She noted that she herself realizes it. Her , who sitting in the room, stated that the patient has been having problems with memory since September of this year. He stated that the patient was getting Xanax from [facility] pharmacy and also getting it online. He thinks she was taking too much Xanax, which was causing memory problem and now it is continuing. He stated that her use of Xanax has been markedly reduced. It appears he gives her Xanax as needed for severe anxiety. There was no h/o of insidious onset of memory decline. The patient has had depression and anxiety for a long time and has been on Xanax for at least over 10 years. It is not clear, if she was treated for Depression in the past. She was identified to have Depression and Anxiety but mainly treated for Anxiety. The patient denied any psychiatric treatment as in-pt or out-pt. She has no h/o suicidal or homicidal ideations or behaviors. On leading questions admitted to depression, anxiety, and inability to eat, weakness, some feelings of hopelessness, and worthlessness. She firmly denied suicidal or homicidal ideations. The patient denied any symptoms of paranoia, or any other delusional thinking, A/V hallucinations. Current and past medications: Xanax, Zoloft Out-pt follow-up: The patient sees her PCP as an out-pt. History of past psychiatric illness: No other than stated in HPI. No history of suicidal or homicidal ideations or behavior. Past medical history: Asthma, COPD, HTS, KATELYNN Substance abuse history: None Family history of psychiatric disorder: The patient denied. MSE: Alert and attentive Orientation X2 Pleasant and cooperative. Psychomotor activity: Reduced. Speech: Low toned, normal in quality, and underproductive. Mood: Depressed and anxious. Affect: Consistent with mood. SI or HI: None Thought content: Normal Thought process: Normal Perceptual disturbance: Normal Cognition: Shows mild memory impairment. Higher cognitive functions intact, Overall, cognition is fairly intact. 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 Rec: Continue Zoloft. Increase the dose to 50 mg daily with breakfast. Remeron 7.5 mg at bedtime. Hydroxyzine 10 mg po three times as needed for anxiety. Will discourage use of sedative hypnotics, especially Benzodiazepines. Consult Neurology to R/O treatable causes of Dementia. The patient will benefit by out-pt Psychiatric follow-up by a psychiatrist and a therapist after discharge.
[2024-03-07] MEDS ORDERED: hydrOXYzine HCL 10 MG TAB PO PRN (08:07)
--- NOTE | 2024-03-07 09:29 | P.PN ---
Subjective Progress Note Date: 03/07/24 This is a 78-year-old female who presented to the emergency department with complaints of altered mental status, decreased appetite and weakness. Patient recently admitted for the same type of symptoms and refused to work with therapy. Patient was seen and evaluated by psych who is recommending Zoloft 50 mg, starting hydroxyzine and Remeron in the evening, and discontinuing benzodiazepines. Patient is seen this morning sitting up in chair at bedside eating her breakfast. She is still quite weak. She was seen and evaluated by physical therapy who is recommending subacute rehab. Per social work notes, family is discussing home care versus subacute rehab. Objective - Vital Signs Vital signs: Vital Signs Temp 98.4 F 03/07/24 07:00 Pulse 64 03/07/24 07:00 Resp 19 03/07/24 07:00 BP 107/64 03/07/24 07:00 Pulse Ox 92 L 03/07/24 07:00 FiO2 Intake & Output 03/06/24 03/07/24 03/07/24 18:59 06:59 18:59 Intake Total 236 Balance 236 Weight 56.245 kg Intake: Oral 236 Other: Voiding Method Toilet # Voids 1 3 - Constitutional General appearance: Present: cooperative, no acute distress, thin - EENT Eyes: Present: PERRLA - Neck Neck: Present: normal ROM. Absent: lymphadenopathy, rigidity - Respiratory Respiratory: bilateral: CTA - Cardiovascular Rhythm: regular Heart sounds: normal: S1, S2 - Gastrointestinal General gastrointestinal: Present: soft. Absent: tenderness - Integumentary Integumentary: Present: normal, normal turgor - Musculoskeletal Musculoskeletal: Present: generalized weakness - Psychiatric Psychiatric: Present: A&O x's 3 - Labs CBC & Chem 7: 03/06/24 01:41 03/06/24 01:41 Assessment and Plan (1) Altered mental status Current Visit: Yes Status: Acute Code(s): R41.82 - ALTERED MENTAL STATUS, UNSPECIFIED SNOMED Code(s): 041437784 (2) Weakness Current Visit: Yes Status: Acute Code(s): R53.1 - WEAKNESS SNOMED Code(s): 84654990 (3) COPD (chronic obstructive pulmonary disease) Current Visit: No Status: Acute Code(s): J44.9 - CHRONIC OBSTRUCTIVE PULM ONARY DISEASE, UNSPECIFIED SNOMED Code(s): 78376147 (4) Hypertension Current Visit: No Status: Acute Code(s): I10 - ESSENTIAL (PRIMARY) HYPERTENSION SNOMED Code(s): 88257622 (5) Hypothyroid Current Visit: No Status: Acute Code(s): E03.9 - HYPOTHYROIDISM, UNSPECIFIED SNOMED Code(s): 09286379 (6) Loss of appetite Current Visit: Yes Status: Acute Code(s): R63.0 - ANOREXIA SNOMED Code(s): 35518928 Plan: Check labs in the morning. Will discontinue Xanax and start hydroxyzine as needed for anxiety and Remeron at night per psych recommendations. Continue to work with physical therapy and encourage movement as tolerated Discharge planning to work on possible placement versus home with home care. Patient seen and evaluated by nurse practitioner, physician in agreement with plan
[2024-03-07] MEDS: SERTRALINE 50 MG TAB PO SCH (09:59)
[2024-03-07 10:29] LABS: HCT 31.9 % (37.2-46.3); HGB 10.2 g/dL (12.0-15.0); MCH 34.2 pg (27.0-32.0); Mean Platelet Volume 11.5 FL (9.5-12.2); NRBC Per 100 WBC 0 X 10*3/uL (0.00-0.01); Platelet Count 171 X 10*3/uL (140-440); RBC 2.98 X 10*6/uL (4.10-5.20); RDW 12.9 % (11.5-14.5); WBC 3.36 X 10*3/uL (4.50-10.00)
[2024-03-07 10:37] LABS: ALT 13 U/L (8-44); AST 14 U/L (13-35); Albumin 3.2 g/dL (3.8-4.9); Albumin/Globulin Ratio 1.52 Ratio (1.60-3.17); Alkaline Phosphatase 37 U/L (41-126); Blood Urea Nitrogen 11.2 mg/dL (9.0-27.0); Calcium 8.7 mg/dL (8.7-10.3); Carbon Dioxide 24.5 mmol/L (21.6-31.8); Chloride 106 mmol/L (96-109); Globulin 2.1 g/dL (1.6-3.3); Glucose 93 mg/dL (70-110); Magnesium 1.7 mg/dL (1.5-2.4); Phosphorus 2.5 mg/dL (2.4-5.1); Potassium 3.9 mmol/L (3.5-5.5); Sodium 139 mmol/L (135-145); Total Bilirubin 0.5 mg/dL (0.3-1.2); Total Protein 5.3 g/dL (6.2-8.2)
[2024-03-07 11:21] LABS: Basophils # (A) 0 X 10*3/uL (0.00-0.10); Basophils % (A) 0 %; Eosinophils # (A) 0 X 10*3/uL (0.04-0.35); Eosinophils % (A) 0 %; Lymphocytes # (A) 0.76 X 10*3/uL (0.90-5.00); Lymphocytes % (A) 22.6 %; Macrocytosis (M) 2+; Monocytes # (A) 0.52 X 10*3/uL (0.20-1.00); Monocytes % (A) 15.5 %; Neutrophils # (A) 2.07 X 10*3/uL (1.80-7.70); Neutrophils % (A) 61.6 %
[2024-03-07] MEDS: MIRTAZAPINE 15 MG TAB PO SCH (20:02)
[2024-03-08 06:43] LABS: HCT 37.7 % (34.0-46.0); HGB 11.8 gm/dL (11.4-16.0); MCH 33.5 pg (25.0-35.0); MCHC 31.2 g/dL (31.0-37.0); MCV 107.5 fL (80.0-100.0); Macrocytosis Moderate; Platelet Count 194 k/uL (150-450); RBC 3.51 m/uL (3.80-5.40); RDW 12.7 % (11.5-15.5); WBC 3.9 k/uL (3.8-10.6)
[2024-03-08 07:16] LABS: ALT 12 U/L (4-34); AST 18 U/L (14-36); African American GFR (CKD) >90 (>60 ml/min/1.73 sqM); Albumin 3.2 g/dL (3.5-5.0); Albumin/Globulin Ratio 1.1; Alkaline Phosphatase 43 U/L (38-126); Anion Gap 3 mmol/L; Blood Urea Nitrogen 9 mg/dL (7-17); Calcium 9.4 mg/dL (8.4-10.2); Carbon Dioxide 26 mmol/L (22-30); Chloride 109 mmol/L (98-107); Globulin 2.9 g/dL; Glucose 84 mg/dL (74-99); Non-African American GFR(CKD) 89 (>60 ml/min/1.73 sqM); Potassium 3.8 mmol/L (3.5-5.1); Sodium 138 mmol/L (137-145); Total Bilirubin 0.8 mg/dL (0.2-1.3); Total Protein 6.1 g/dL (6.3-8.2)
--- NOTE | 2024-03-08 16:54 | P.PN ---
Subjective Progress Note Date: 03/08/24 Principal diagnosis: Depression with element of failure to thrive and weakness. The patient is here essentially because she is weak. She would like to try to go home with outpatient rehab but is too weak. Still with poor appetite. Appreciate psychiatric input. We will change to inpatient status to place an ECF. The patient seems more despondent today than yesterday. No voiding difficulties complained of. Objective - Vital Signs Vital signs: Vital Signs Temp 98.6 F 03/08/24 15:00 Pulse 87 03/08/24 15:00 Resp 18 03/08/24 15:00 BP 123/70 03/08/24 15:00 Pulse Ox 93 L 03/08/24 15:00 FiO2 Intake & Output 03/07/24 03/08/24 03/08/24 18:59 06:59 18:59 Intake Total 120 Balance 120 Intake: Oral 120 Other: Voiding Method Bedside Commode # Voids 2 2 - Constitutional General appearance: Present: average body habitus, cooperative, no acute distress - EENT Eyes: Present: PERRLA - Neck Neck: Absent: lymphadenopathy - Respiratory Respiratory: bilateral: diminished - Cardiovascular Rhythm: regular Heart sounds: normal: S1, S2 Abnormal Heart Sounds: Absent: S3 Gallop - Gastrointestinal General gastrointestinal: Present: soft - Musculoskeletal Musculoskeletal: Present: generalized weakness - Labs CBC & Chem 7: 03/08/24 06:11 03/08/24 06:11 Labs: Abnormal Lab Results - Last 24 Hours (Table) 03/08/24 03/08/24 Range/Units 06:11 06:11 RBC 3.51 L (3.80-5.40) m/uL MCV 107.5 H (80.0-100.0) fL Chloride 109 H (98-107) mmol/L Total Protein 6.1 L (6.3-8.2) g/dL Albumin 3.2 L (3.5-5.0) g/dL Assessment and Plan (1) Debility Current Visit: Yes Status: Acute Code(s): R53.81 - OTHER MALAISE SNOMED Code(s): 87745708 (2) Failure to thrive Current Visit: Yes Status: Acute Code(s): QZY1765 - SNOMED Code(s): 26930125 (3) Loss of appetite Current Visit: Yes Status: Acute Code(s): R63.0 - ANOREXIA SNOMED Code(s): 76579900 (4) Weakness Current Visit: Yes Status: Acute Code(s): R53.1 - WEAKNESS SNOMED Code(s): 99364303 (5) Moderate major depression Current Visit: Yes Status: Acute Code(s): F32.1 - MAJOR DEPRESSIVE DISORDER, SINGLE EPISODE, MODERATE SNOMED Code(s): 268649 Plan: Continue current care. We will be transferring to rehab soon. Dietary improvement stressed to the patient with increased activity. Prognosis guarded Time with Patient: Greater than 30
--- NOTE | 2024-03-09 09:32 | P.PN ---
Subjective Progress Note Date: 03/09/24 This is a 78-year-old female who presented to the emergency department with complaints of altered mental status, decreased appetite and weakness. Patient recently admitted for the same type of symptoms and refused to work with therapy. Patient was seen and evaluated by psych who is recommending Zoloft 50 mg, starting hydroxyzine and Remeron in the evening, and discontinuing benzodiazepines. Patient is seen this morning sitting up in chair at bedside eating her breakfast. She is still quite weak. She was seen and evaluated by physical therapy who is recommending subacute rehab. Per social work notes, family is discussing home care versus subacute rehab. 03/09/2024 Patient seen and evaluated sitting up in bed this morning eating breakfast. Sister is at bedside and reports patient had a bad day yesterday and family believes it is from new start of Zoloft. Plan is for patient to be discharged to subacute rehab on Wednesday. Objective - Vital Signs Vital signs: Vital Signs Temp 97.8 F 03/09/24 07:00 Pulse 94 03/09/24 07:00 Resp 16 03/09/24 07:00 BP 144/80 03/09/24 07:00 Pulse Ox 98 03/09/24 07:00 FiO2 Intake & Output 03/08/24 03/09/24 03/09/24 18:59 06:59 18:59 Intake Total 118 240 Balance 118 240 Intake: Oral 118 240 Other: Voiding Method Bedside Commode # Voids 1 1 - Constitutional General appearance: Present: cooperative, no acute distress - EENT Eyes: Present: PERRLA - Neck Neck: Present: normal ROM. Absent: lymphadenopathy, rigidity - Respiratory Respiratory: bilateral: CTA - Cardiovascular Rhythm: regular Heart sounds: normal: S1, S2 - Gastrointestinal General gastrointestinal: Present: soft. Absent: tenderness - Integumentary Integumentary: Present: normal, normal turgor - Musculoskeletal Musculoskeletal: Present: generalized weakness - Psychiatric Psychiatric: Present: A&O x's 3 - Labs CBC & Chem 7: 03/08/24 06:11 03/08/24 06:11 Assessment and Plan (1) Altered mental status Current Visit: Yes Status: Acute Code(s): R41.82 - ALTERED MENTAL STATUS, UNSPECIFIED SNOMED Code(s): 586178458 (2) Weakness Current Visit: Yes Status: Acute Code(s): R53.1 - WEAKNESS SNOMED Code(s): 47078051 (3) COPD (chronic obstructive pulmonary disease) Current Visit: No Status: Acute Code(s): J44.9 - CHRONIC OBSTRUCTIVE PULMONARY DISEASE, UNSPECIFIED SNOMED Code(s): 50805378 (4) Hypertension Current Visit: No Status: Acute Code(s): I10 - ESSENTIAL (PRIMARY) HYPERTENSION SNOMED Code(s): 32746601 (5) Hypothyroid Current Visit: No Status: Acute Code(s): E03.9 - HYPOTHYROIDISM, UNSPECIFIED SNOMED Code(s): 39365152 (6) Loss of appetite Current Visit: Yes Status: Acute Code(s): R63.0 - ANOREXIA SNOMED Code(s): 18170980 Plan: Will discontinue Zoloft for now. Plan for discharge on Wednesday to subacute rehab. Patient seen and evaluated by nurse practitioner, physician in agreement with plan
--- NOTE | 2024-03-09 15:23 | CDI ---
Documentation Clarification Form Date: 03/09/2024 03:03:28 PM From: Laura Ventura RN, CCDS Phone: [phone] Admit Date: 03/08/2024 08:57:00 AM Patient Name: Kyleigh Vera Visit Number: [id number] Discharge Date: ATTENTION: The Clinical Documentation Specialists (CDI) and [facility] Coding Staff appreciate your assistance in clarifying documentation. Please respond to the clarification below the line at the bottom and electronically sign. The CDI & [facility] Coding staff will review the response and follow-up if needed. Please note: Queries are made part of the Legal Health Record. If you have any questions, please contact the author of this message via ITS. Dr. Jennifer Metcalf Your patient has the documented symptom of weakness, debility in the H/P and subsequent progress notes. Additional clarification regarding the etiology/cause of this symptom is requested. History/Risk Factors: Asthma, COPD, Hypertension, Musculoskeletal Disorder, Osteoarthritis (OA), Thyroid Disorder, Depression, Current every day smoker Clinical Indicators 78-year-old female who presented to the emergency department with complaints of altered mental status, decreased appetite and weakness. 111/65 72 18 98% RA 03/08 WBC 3.9 HGB 11.8 Treatment: PT and OT Consult Assist with ADL's check Hourly, Turn Q2, Rails up X2 Is there a corresponding diagnosis/etiology for this symptom of weakness, debility? [ ] Age related physical debility [ ] Age related cognitive decline [ x] Unable to determine [ ] Other, please specify (Template Last Reviewed: October 2020) MTDD
--- NOTE | 2024-03-10 08:17 | P.PN ---
Subjective Principal diagnosis: Depression with element of failure to thrive and weakness. The patient is here essentially because she is weak. She would like to try to go home with outpatient rehab but is too weak. Still with poor appetite. Appreciate psychiatric input. We will change to inpatient status to place an ECF. The patient seems more despondent today than yesterday. No voiding difficulties complained of. She seems more alert today. We had a long discussion regarding transfer to rehab today. Objective - Vital Signs Vital signs: Vital Signs Temp 98.8 F 03/10/24 07:53 Pulse 97 03/10/24 07:53 Resp 16 03/10/24 07:53 BP 137/76 03/10/24 07:53 Pulse Ox 93 L 03/10/24 07:53 FiO2 Intake & Output 03/09/24 03/10/24 03/10/24 18:59 06:59 18:59 Intake Total 340 Output Total 300 300 Balance 340 -300 -300 Intake: Oral 340 Output: Urine 300 300 Other: Voiding Method Bedside Commode Bedside Commode # Voids 1 1 1 - Constitutional General appearance: Present: average body habitus, cooperative, no acute distress - EENT Eyes: Absent: abnormal pupil - Neck Neck: Absent: lymphadenopathy - Respiratory Respiratory: bilateral: diminished - Cardiovascular Rhythm: regular Heart sounds: normal: S1, S2 Abnormal Heart Sounds: Absent: S3 Gallop - Gastrointestinal General gastrointestinal: Present: soft. Absent: tenderness - Psychiatric Psychiatric: Present: A&O x's 3 - Labs CBC & Chem 7: 03/08/24 06:11 03/08/24 06:11 Assessment and Plan (1) Debility Current Visit: Yes Status: Acute Code(s): R53.81 - OTHER MALAISE SNOMED Code(s): 91727999 (2) Failure to thrive Current Visit: Yes Status: Acute Code(s): RON0833 - SNOMED Code(s): 49633837 (3) Loss of appetite Current Visit: Yes Status: Acute Code(s): R63.0 - ANOREXIA SNOMED Code(s): 17638331 (4) Weakness Current Visit: Yes Status: Acute Code(s): R53.1 - WEAKNESS SNOMED Code(s): 80549192 (5) Moderate major depression Current Visit: Yes Status: Acute Code(s): F32.1 - MAJOR DEPRESSIVE DISORDER, SINGLE EPISODE, MODERATE SNOMED Code(s): 665734 Plan: Continue current care. We will be transferring to rehab soon. Dietary improvement stressed to the patient with increased activity. Prognosis guarded
[2024-03-10] MEDS ORDERED: ZINC OXIDE PASTE (Z-GUARD) 1 APPLIC TOPICAL PRN (17:13)
[2024-03-11 08:27] VITALS: BP 122/67; PULSE 108; RESP 17; TEMP 98.9
--- NOTE | 2024-03-11 12:32 | P.DS ---
Providers Date of admission: 03/08/24 08:57 Expected date of discharge: 03/11/24 Attending physician: Joce Chua Consults: 03/06/24 01:11 Consult Physician Routine Consulting Provider: Juan Manuel Wen Consult Reason/Comments: psych Do you want consulting provider notified?: Already Contacted Primary care physician: Joce Chua Hospital Course: Discharge diagnoses; Altered mental status COPD Hypertension Hypothyroidism Hypertension Debility Failure to thrive Loss of appetite Moderate major depression Hospital course; This is a 78-year-old female who presented to the emergency department with complaints of altered mental status, decreased appetite and weakness. Patient recently admitted for the same type of symptoms and refused to work with therapy. Patient was seen and evaluated by psych recommended, starting hydroxyzine and Remeron in the evening, and discontinuing benzodiazepines. Patient is seen this morning sitting up in chair at bedside eating her breakfas t. She is still quite weak. She was seen and evaluated by physical therapy who is recommending subacute rehab. Per social work notes, family is discussing home care versus subacute rehab. We will change to inpatient status to place an ECF. The patient seems more despondent today than yesterday. No voiding difficulties complained of. 03/11. Dr. Gonzales took over care. Patient was medically stable for discharge to ECF. PHYSICAL EXAMINATION: GENERAL: The patient is alert, chronically ill looking HEENT: Pupils are round and equally reacting to light. EOMI. No scleral icterus. No conjunctival pallor. Normocephalic, atraumatic. No pharyngeal erythema. No thyromegaly. CARDIOVASCULAR: S1 and S2 present. No murmurs, rubs, or gallops. PULMONARY: Chest is clear to auscultation, no wheezing or crackles. ABDOMEN: Soft, nontender, nondistended, normoactive bowel sounds. No palpable organomegaly. MUSCULOSKELETAL: No joint swelling or deformity. EXTREMITIES: No cyanosis, clubbing, or pedal edema. NEUROLOGICAL: Gross neurological examination did not reveal any focal deficits. SKIN: No rashes. Dictation was produced using BOND dictation software. please excuse any grammatical, word or spelling errors. Patient Condition at Discharge: Fair Plan - Discharge Summary Discharge Rx Participant: No New Discharge Prescriptions: New hydrOXYzine HCL [Atarax] 10 mg PO TID PRN 7 Days #21 tab PRN Reason: Anxiety Mirtazapine [Remeron] 7.5 mg PO HS 15 Days #15 tab Continue Divalproex Sodium 250 mg PO BID Montelukast Sodium 10 mg PO DAILY Cholecalciferol [Vitamin D3 (25 Mcg = 1000 Iu)] 25 mcg PO DAILY Albuterol Inhaler [Ventolin Hfa Inhaler] 2 puff INHALATION RT-QID PRN PRN Reason: Shortness Of Breath Levothyroxine Sodium [Synthroid] 100 mcg PO DAILY Potassium Chloride ER [K-Dur 10] 10 meq PO DAILY #30 tab Acetaminophen Tab [Tylenol] 500 mg PO TID@0000,0800,1600 amLODIPine [Norvasc] 5 mg PO BID #60 tab Mirabegron [Myrbetriq] 50 mg PO DAILY Cyanocobalamin (Vitamin B-12) [Vitamin B-12] 1,000 mcg PO DAILY Discontinued ALPRAZolam [Xanax] 0.5 mg PO TID PRN PRN Reason: Anxiety Discharge Medication List Divalproex Sodium 250 mg PO BID 12/03/15 [History] Montelukast Sodium 10 mg PO DAILY 12/03/15 [History] Acetaminophen Tab [Tylenol] 500 mg PO TID@0000,0800,1600 11/24/23 [History] Albuterol Inhaler [Ventolin Hfa Inhaler] 2 puff INHALATION RT-QID PRN 11/24/23 [History] Cholecalciferol [Vitamin D3 (25 Mcg = 1000 Iu)] 25 mcg PO DAILY 11/24/23 [History] amLODIPine [Norvasc] 5 mg PO BID #60 tab 11/26/23 [Rx] Cyanocobalamin (Vitamin B-12) [Vitamin B-12] 1,000 mcg PO DAILY 02/21/24 [History] Levothyroxine Sodium [Synthroid] 100 mcg PO DAILY 02/21/24 [History] Mirabegron [Myrbetriq] 50 mg PO DAILY 02/21/24 [History] Potassium Chloride ER [K-Dur 10] 10 meq PO DAILY #30 tab 02/23/24 [Rx] Mirtazapine [Remeron] 7.5 mg PO HS 15 Days #15 tab 03/11/24 [Rx] hydrOXYzine HCL [Atarax] 10 mg PO TID PRN 7 Days #21 tab 03/11/24 [Rx] Follow up Appointment(s)/Referral(s): [facility], [NON-STAFF] - As Needed Joce Chua MD [Primary Care Provider] - 1-2 days Discharge Disposition: TRANSFER TO SNF/ECF
== END 2024-03-11 13:42 | DRG 885 ==
LOC: EC 22:19 → 6NMEDSUR 03-06 01:11 → OBSVTOIN 03-08 08:57
PROVIDERS: ADMIT Family Medicine; ATTEND Family Medicine
DX: F33.1 Major depressive disorder, recurrent, moderate (principal); F03.90 Unspecified dementia, unspecified severity, without behavioral disturbance, psychotic disturbance, mood disturbance, and anxiety; F50.89 Other specified eating disorder; R62.7 Adult failure to thrive; E03.9 Hypothyroidism, unspecified; I10 Essential (primary) hypertension; J44.89 Other specified chronic obstructive pulmonary disease; Z68.22 Body mass index [BMI] 22.0-22.9, adult; F41.9 Anxiety disorder, unspecified; E86.0 Dehydration; G47.33 Obstructive sleep apnea (adult) (pediatric); N39.3 Stress incontinence (female) (male); M19.90 Unspecified osteoarthritis, unspecified site; F17.200 Nicotine dependence, unspecified, uncomplicated; Z79.890 Hormone replacement therapy; Z79.899 Other long term (current) drug therapy; Z88.1 Allergy status to other antibiotic agents; Z88.5 Allergy status to narcotic agent; Z88.2 Allergy status to sulfonamides
CPT/HCPCS: 80053; 80306; 81001; 83735; 84100; 85025; 85027; 85610; 85730; 93005; 94760; 96361; 96374; 99285